=== PATIENT | female | born 2000 | race Caucasian/White ===

== ENCOUNTER 2020-11-16 21:15 | Inpatient (IN) | payer MEDICAID, SELFPAY ==
[2020-11-16] VITALS (31 sets, daily range): BP systolic 97–149; BP diastolic 77–91; PULSE 80–124; TEMP 36.3–36.7; O2SAT 93–100; BMI 25.4
[2020-11-16 20:35] LABS: ROM Internal Control Test YES-OK TO RESULT pt. (Internal QC); ROM Patient Test Negative (Negative)
[2020-11-16] MEDS: fentaNYL 100 MCG/2 ML Ampul IV (20:46)
[2020-11-16 21:26] LABS: Absolute Lymphocyte Count 1.53 X10^3/uL (0.83-4.51); Absolute Neutrophil Count 12.8 X10^3/uL (2.0-7.7); Basophil% 0.6 % (0-1); Eosinophil# 0.04 X10^3/uL; Eosinophils% 0.3 % (0-5); Hematocrit 38.2 % (37-47); Hemoglobin 12.7 g/dL (12.0-15.0); Lymphocyte # 1.53 X10^3/ul (0.83-4.51); Lymphocyte % 9.7 % (19-41); Mean Corp Hgb Conc 33.2 g/dL (32-36); Mean Corpuscular Hgb 30.3 pg (27.0-32.0); Mean Corpuscular Volume 91.2 fL (81-99); Mean Platelet Vol. 9.3 fl (6.2-12.0); Monocyte# 1.03 X10^3/uL; Monocyte% 6.5 % (0-10); NRBC Flagged by Analyzer 0 % (0-5); Neutrophil # 12.75 X10^3/uL (2.7-7.7); Neutrophil % 80.7 % (47-70); Platelet Count 314 K/mm3 (150-450); RBC Distribution Width CV 13.2 % (11.6-14.6); RBC Distribution Width SD 43.7 fl (35.1-43.9); Red Blood Count 4.19 M/mm3 (4.2-5.4); White Blood Count 15.8 K/mm3 (4.4-11.0)
[2020-11-16] MEDS: Lactated Ringers 1,000 ML 50 ML IV (21:47)
[2020-11-16] MEDS: Ondansetron 4 MG/2 ML Vial IV (21:48)
[2020-11-16] MEDS: Lactated Ringers 500 ML 999 ML IV (21:54)
[2020-11-16] MEDS: fentaNYL-bupivacaine (epidural) 100 ML BAG EPIDURAL (22:47)
[2020-11-17] VITALS (34 sets, daily range): BP systolic 103–143; BP diastolic 60–91; PULSE 81–231; RESP 16–18; TEMP 36.2–37.3; O2SAT 82–100
[2020-11-17 01:16] LABS: Amphetamine Urine VISTA NEGATIVE (<1000 ng/mL); Barbiturate Urine VISTA NEGATIVE (< 200 ng/mL); Benzodiazepine Urine VISTA NEGATIVE (< 200 ng/mL); Cocaine Urine VISTA NEGATIVE (< 300 ng/mL); Ecstacy Urine VISTA NEGATIVE (< 500 ng/mL); Methadone Urine VISTA NEGATIVE (< 300 ng/mL); PCP Urine VISTA NEGATIVE (< 25 ng/mL); THC Urine VISTA NEGATIVE (< 50 ng/mL); Vista UDS pH Range 6
--- NOTE | 2020-11-17 01:30 | PCM.PN.OB ---
Subjective Subjective Patient comfortable with epidural Objective Data Objective Data Vital Signs: Vital Signs Temp Pulse BP Pulse Ox 97.1 F L 99 126/72 H 97 11/17/20 00:36 11/17/20 00:36 11/17/20 00:36 11/17/20 00:36 Weight: 152 lb 9.6 oz Body Mass Index (BMI) 25.4 Intake & Output: Intake and Output for Last 24 Hours 11/15/20 11/16/20 11/17/20 23:59 23:59 23:59 Intake Total 505 / 505 200 / 200 Output Total 400 / 400 Balance 505 / 505 -200 / -200 Lab / Micro Data Result Diagrams: 11/16/20 20:43 Labs: Laboratory Results - last 24 hr 11/16/20 19:56: Vag Amniotic Fld Detect Negative 11/16/20 20:43: WBC 15.8 H, RBC 4.19 L, Hgb 12.7, Hct 38.2, MCV 91.2, MCH 30.3, MCHC 33.2, RDW Std Deviation 43.7, RDW Coeff of Neal 13.2, Plt Count 314, MPV 9.3, Immature Gran % (Auto) 2.200 H, Neut % (Auto) 80.7 H, Lymph % (Auto) 9.7 L, [place] % (Auto) 6.5, Eos % (Auto) 0.3, Baso % (Auto) 0.6, Absolute Neuts (auto) 12.8 H, Absolute Lymphs (auto) 1.53, Nucleated RBC % 0 11/16/20 20:43: Blood Type TNP, Antibody Screen TNP 11/16/20 20:43: Blood Type A POSITIVE, Antibody Screen NEGATIVE 11/17/20 00:40: Urine Opiates Screen NEGATIVE, Urine Methadone Screen NEGATIVE, Ur Barbiturates Screen NEGATIVE, Ur Phencyclidine Scrn NEGATIVE, Ur Amphetamines Screen NEGATIVE, U Methamphetamin-MDMA NEGATIVE, U Benzodiazepines Scrn NEGATIVE, Urine Cocaine Screen NEGATIVE, U Cannabinoids Screen NEGATIVE, Ur Drug Screen Comment Micro: Microbiology 11/16/20 21:32 Nasal Secretion SARS-CoV-2 Antigen (Rapid) - Final Physical Exam Narrative: cvx - 8/90/0; AROM meconium fluid NST FHR Rate Baby A Baseline: 130 Variability:: Moderate Accelerations:: 15 x 15 Decelerations:: Variable Uterine Activity:: not tracing well Assessment & Plan (1) Supervision of normal : QUALIFIERS: Normal : normal first Trimester: third trimester Qualified Code(s): Z34.03 - Encounter for supervision of normal first , third trimester PLAN: Continue expectant management
[2020-11-17] MEDS: Lactated Ringers 1,000 ML 200 ML IV (02:01)
[2020-11-17] MEDS: Mag Hydrox/Al Hydrox/Simeth 30 ML UDC PO (02:04)
[2020-11-17] MEDS: fentaNYL-bupivacaine (epidural) 100 ML BAG EPIDURAL (02:58)
[2020-11-17] MEDS: Oxytocin 30 units/NS 500 ml 30 UNITS/500 ML IV.SOLN 334 UNITS IV (06:11)
--- NOTE | 2020-11-17 06:30 | PCM.HP.OB ---
HPI - General General Date of Admission: 11/16/20 HPI Narrative REBECCA DORSEY, is a 20 F who presents at 40w1d in active labor. Membranes swept in office and contractions began around 7:30pm. No LOF or vaginal bleeding. OB history significant for CBD oil use beginning of , history of alcohol abuse and using pills but nothing prior to or during , nicotine vaping, chlamydia in beginning of with negative TIMOTEO, depression, anemia in . Complete cervical dilation upon arrival and epidural for pain management. Maternal Data Information HANNAH Calculator Estimated Delivery Date Method Current WG Current Estimate 11/15/20 Manual 40w 2d PFSH PFS Medical History (Updated 11/17/20 @ 06:42 by Shirley Alonso CNM) Anxiety Chlamydia infection affecting Depression Heart murmur Supervision of normal Home Medications ferrous sulfate [iron] 325 mg PO 11/16/20 [History Last Taken 11/16/20] [id number] [] 1 tab PO DAILY 11/16/20 [History Last Taken 11/15/20] Allergy/AdvReac Type Severity Reaction Status Date / Time No Known Allergies Allergy Verified 11/16/20 20:08 Social History Smoking Status: Former smoker History Elective abortions Hx Para 0 Spontaneous abortions Hx # Term Pregnancies Ectopic pregnancies Hx # Pregnancies Multiple births # of living children NST FHR Rate Baby A Baseline: 155 Variability:: Moderate Accelerations:: 15 x 15 Decelerations:: None FHR Category:: Category I Uterine Activity:: every 2-3 minutes, strong ROS Constitutional Constitutional: Reports systems reviewed and no addt'l complaints, except as documented; Denies headache(s) Eyes Eyes: Denies acute decrease in peripheral vision, blurry vision or change in vision ENT HEENT: Reports systems reviewed and no addt'l complaints, except as documented Cardiovascular Cardiovascular: Denies chest pain or dizziness Respiratory/Chest Respiratory/Chest: Denies cough, dyspnea, dyspnea on exertion, shortness of breath at rest or shortness of breath with exertion Gastrointestinal Gastrointestinal: Denies abdominal pain, diarrhea, nausea or vomiting Genitourinary Genitourinary: Denies abdominal discomfort or movement Musculoskeletal Musculoskeletal: Denies limited range of motion Integumentary Integumentary: Reports systems reviewed and no addt'l complaints, except as documented Neurologic Neurologic: Reports systems reviewed and no addt'l complaints, except as documented Psychiatric Psychiatric: Reports systems reviewed and no addt'l complaints, except as documented Endocrine Endocrinology: Reports systems reviewed and no addt'l complaints, except as documented Hematologic/Lymphatic Hematologic/Lymphatic: Reports systems reviewed and no addt'l complaints, except as documented Allergic/Immunologic Allergic/Immunologic: Reports systems reviewed and no addt'l complaints, except as documented Vital Signs Vital Signs Vital Signs: 11/16/20 19:42 11/16/20 19:43 11/16/20 19:48 Temperature 97.4 F L Temperature Source Temporal Pulse Rate 89 104 H Blood Pressure 128/78 H BP Systolic 128 BP Diastolic 78 Pulse Ox 98 99 11/16/20 22:16 11/16/20 22:26 11/16/20 22:31 Temperature 98.1 F Temperature Source Temporal Pulse Rate 83 108 H 91 Blood Pressure 135/85 H 136/77 H BP Systolic 135 136 BP Diastolic 85 77 Pulse Ox 96 98 11/16/20 22:33 11/16/20 22:36 11/16/20 22:37 Temperature Temperature Source Pulse Rate 101 H 91 80 Blood Pressure 144/86 H 127/80 H BP Systolic 144 127 BP Diastolic 86 80 Pulse Ox 98 11/16/20 22:40 11/16/20 22:41 11/16/20 22:45 Temperature Temperature Source Pulse Rate 113 H 91 108 H Blood Pressure 133/81 H BP Systolic 133 BP Diastolic 81 Pulse Ox 93 97 11/16/20 22:46 11/16/20 22:51 11/16/20 22:56 Temperature Temperature Source Pulse Rate 110 H 121 H 118 H Blood Pressure 135/81 H 125/79 H 127/86 H BP Systolic 135 125 127 BP Diastolic 81 79 86 Pulse Ox 98 98 97 11/16/20 23:01 11/16/20 23:02 11/16/20 23:06 Temperature Temperature Source Pulse Rate 108 H Blood Pressure 138/79 H BP Systolic 138 BP Diastolic 79 Pulse Ox 95 98 11/16/20 23:07 11/16/20 23:11 11/16/20 23:16 Temperature Temperature Source Pulse Rate 116 H 115 H 116 H Blood Pressure 131/87 H 149/85 H 97/81 H BP Systolic 131 149 97 BP Diastolic 87 85 81 Pulse Ox 97 96 11/16/20 23:21 11/16/20 23:26 11/16/20 23:28 Temperature Temperature Source Pulse Rate 120 H 114 H 116 H Blood Pressure 137/79 H 132/81 H BP Systolic 137 132 BP Diastolic 79 81 Pulse Ox 95 100 11/16/20 23:31 11/16/20 23:36 11/16/20 23:41 Temperature Temperature Source Pulse Rate 114 H 89 124 H Blood Pressure 130/81 H 130/90 H BP Systolic 130 130 BP Diastolic 81 90 Pulse Ox 99 99 98 11/16/20 23:43 11/16/20 23:46 11/16/20 23:51 Temperature Temperature Source Pulse Rate 105 H 113 H Blood Pressure 146/91 H 135/90 H BP Systolic 146 135 BP Diastolic 91 90 Pulse Ox 96 97 11/16/20 23:52 11/17/20 00:36 11/17/20 01:31 Temperature 97.1 F L 97.3 F L Temperature Source Temporal Temporal Pulse Rate 103 H 99 81 Blood Pressure 129/80 H 126/72 H 112/61 BP Systolic 129 126 112 BP Diastolic 80 72 61 Pulse Ox 97 98 11/17/20 01:32 11/17/20 02:32 11/17/20 03:58 Temperature 97.1 F L 97.1 F L Temperature Source Temporal Temporal Pulse Rate 86 101 H 114 H Blood Pressure 103/60 122/73 H 125/73 H BP Systolic 103 122 125 BP Diastolic 60 73 73 Pulse Ox 99 11/17/20 05:06 11/17/20 05:07 Temperature 98.2 F Temperature Source Temporal Pulse Rate 105 H Blood Pressure 123/66 H BP Systolic 123 BP Diastolic 66 Pulse Ox 97 Weight Weight: 152 lb 9.6 oz Body Mass Index (BMI) 25.4 Physical Exam Narrative Complete cervical dilation with baby crowing upon arrival. Const alert and oriented x3 General Appearance: cooperative HEENT Face and Sinus: normal facial exam Labs Labs Labs: Blood Type A POSITIVE Antibody Screen NEGATIVE Hct 38.2 % (37-47) Hgb 12.7 g/dL (12.0-15.0) RPR negative Rubella Immune HBsAG negative HepC negative HIV negative A positive, antibody screen negative GC negative, positive CT 03/30/20, Negative CT 10/17/20 COVID negative GBS negative Assessment & Plan (1) Active labor at term: (2) Depression: (3) Anxiety: PLAN: 1) Admit to labor and delivery 2) Routine labs 3) COVID test 4) Epidural for pain management 5) Continuous EFM 6) notified of admission and collaborative physician 7) GBS negative 8) Declines LARC
--- NOTE | 2020-11-17 06:44 | OP.PCM_ITS ---
Assessment & Plan (1) Vaginal delivery: (2) Thick meconium stained amniotic fluid: (3) First degree perineal laceration: Maternal Data Information HANNAH Calculator Estimated Delivery Date Method Current WG Current Estimate 11/15/20 Manual 40w 2d Vaginal Delivery Maternal Presentation Maternal Presentation: Active Labor Operative Information Date of Procedure: 11/17/20 Pre-Operative Diagnosis: Active Labor with meconium stained fluid Post-Operative Diagnosis: Surgery / Procedure Performed: Spontaneous Vaginal Delivery Type of Anesthesia: Epidural Estimated Blood Loss: 200ml Time of Delivery: 06:09 Findings Description of Procedure: Patient progressed to complete dilation and strong pushing efforts. Rapid descent with emesis and called to delivery. Outsole Tacker, respiratory staff, and nursery staff present in room for thick meconium stained fluid. Patient with descent and then regression. Patient consented to LML episiotomy. With next contraction patient pushed an head delivered FAHAD with restitution to YVONNE and body immediately forthcoming. placed on maternal abdomen, strong cry and vigorous, mouth and nares suction for secretions. Pitocin started for active third stage management. Delayed cord clamping, and cord doubly clamped and cut after pulsations ceased. Placenta delivered with maternal effort, intact [address] [place], three-vessel cord. Perineum inspected and revealed LML episiotomy first-degree laceration that did not extend into muscle. Repaired with 3.0 Vicryl and epidural analgesia. Vaginal sweep completed and clots extracted. Fundus firm, EBL 200 mL. Sponge and instrument count correct by me.Baby stable, planning to breast-feed. Family bonding well. Dr. Monroe collaborative physician and notified of delivery. Presentation: Vertex and YVONNE Amniotic Membrane Rupture Type: Artificial Amniotic Fluid Description: Thick meconium Placental Delivery Description: Expressed Placenta Disposition: [facility] Cord Vessel Description: 3 Vessels Cord Entanglement: None Infant A Gender: Male (1 minute): 8 (5 minute): 9 Delayed Cord Clamping: Yes Post Vaginal Delivery Medications Given After Delivery: IV Pitocin Episiotomy Description: Left Mediolateral and 1st degree Laceration: None Complication Complications: None
[2020-11-17] MEDS: Ibuprofen 600 MG Tablet PO (10:56)
--- NOTE | 2020-11-17 11:03 | HP.PCM.NUR_ITS ---
Subjective Subjective: 3770grams for this 40.2 week AGA BG born via VD after presenting in labor.20yo ->1 A+. HepBsag neg, RI, RPR NR. GC neg, History of chlamydia at beginning of with TIMOTEO, GBS neg, COVID neg. MSF with prior perfume and toilet water maker having attended delivery. Maternal Use of CBD oil at beginning of and prior history of ETOH use as well as pills however none reported since , nicotine vaping as well. Anxiety as well as induced anemia. Maternal meds include PNV and Iron. Mother plans to breastfeed. PCP: Eze Objective Objective Data: 11/16/20 19:42 11/16/20 19:43 11/16/20 19:48 Temperature 97.4 F L Temperature Source Temporal Pulse Rate 89 104 H Respiratory Rate Blood Pressure 128/78 H Blood Pressure [BP] Blood Pressure Mean [BP] BP Systolic 128 BP Diastolic 78 Blood Pressure Source [BP] Blood Pressure Position [BP] Blood Pressure Location [BP] Pulse Ox 98 99 Oxygen Delivery Method 11/16/20 22:16 11/16/20 22:26 11/16/20 22:31 Temperature 98.1 F Temperature Source Temporal Pulse Rate 83 108 H 91 Respiratory Rate Blood Pressure 135/85 H 136/77 H Blood Pressure [BP] Blood Pressure Mean [BP] BP Systolic 135 136 BP Diastolic 85 77 Blood Pressure Source [BP] Blood Pressure Position [BP] Blood Pressure Location [BP] Pulse Ox 96 98 Oxygen Delivery Method 11/16/20 22:33 11/16/20 22:36 11/16/20 22:37 Temperature Temperature Source Pulse Rate 101 H 91 80 Respiratory Rate Blood Pressure 144/86 H 127/80 H Blood Pressure [BP] Blood Pressure Mean [BP] BP Systolic 144 127 BP Diastolic 86 80 Blood Pressure Source [BP] Blood Pressure Position [BP] Blood Pressure Location [BP] Pulse Ox 98 Oxygen Delivery Method 11/16/20 22:40 11/16/20 22:41 11/16/20 22:45 Temperature Temperature Source Pulse Rate 113 H 91 108 H Respiratory Rate Blood Pressure 133/81 H Blood Pressure [BP] Blood Pressure Mean [BP] BP Systolic 133 BP Diastolic 81 Blood Pressure Source [BP] Blood Pressure Position [BP] Blood Pressure Location [BP] Pulse Ox 93 97 Oxygen Delivery Method 11/16/20 22:46 11/16/20 22:51 11/16/20 22:56 Temperature Temperature Source Pulse Rate 110 H 121 H 118 H Respiratory Rate Blood Pressure 135/81 H 125/79 H 127/86 H Blood Pressure [BP] Blood Pressure Mean [BP] BP Systolic 135 125 127 BP Diastolic 81 79 86 Blood Pressure Source [BP] Blood Pressure Position [BP] Blood Pressure Location [BP] Pulse Ox 98 98 97 Oxygen Delivery Method 11/16/20 23:01 11/16/20 23:02 11/16/20 23:06 Temperature Temperature Source Pulse Rate 108 H Respiratory Rate Blood Pressure 138/79 H Blood Pressure [BP] Blood Pressure Mean [BP] BP Systolic 138 BP Diastolic 79 Blood Pressure Source [BP] Blood Pressure Position [BP] Blood Pressure Location [BP] Pulse Ox 95 98 Oxygen Delivery Method 11/16/20 23:07 11/16/20 23:11 11/16/20 23:16 Temperature Temperature Source Pulse Rate 116 H 115 H 116 H Respiratory Rate Blood Pressure 131/87 H 149/85 H 97/81 H Blood Pressure [BP] Blood Pressure Mean [BP] BP Systolic 131 149 97 BP Diastolic 87 85 81 Blood Pressure Source [BP] Blood Pressure Position [BP] Blood Pressure Location [BP] Pulse Ox 97 96 Oxygen Delivery Method 11/16/20 23:21 11/16/20 23:26 11/16/20 23:28 Temperature Temperature Source Pulse Rate 120 H 114 H 116 H Respiratory Rate Blood Pressure 137/79 H 132/81 H Blood Pressure [BP] Blood Pressure Mean [BP] BP Systolic 137 132 BP Diastolic 79 81 Blood Pressure Source [BP] Blood Pressure Position [BP] Blood Pressure Location [BP] Pulse Ox 95 100 Oxygen Delivery Method 11/16/20 23:31 11/16/20 23:36 11/16/20 23:41 Temperature Temperature Source Pulse Rate 114 H 89 124 H Respiratory Rate Blood Pressure 130/81 H 130/90 H Blood Pressure [BP] Blood Pressure Mean [BP] BP Systolic 130 130 BP Diastolic 81 90 Blood Pressure Source [BP] Blood Pressure Position [BP] Blood Pressure Location [BP] Pulse Ox 99 99 98 Oxygen Delivery Method 11/16/20 23:43 11/16/20 23:46 11/16/20 23:51 Temperature Temperature Source Pulse Rate 105 H 113 H Respiratory Rate Blood Pressure 146/91 H 135/90 H Blood Pressure [BP] Blood Pressure Mean [BP] BP Systolic 146 135 BP Diastolic 91 90 Blood Pressure Source [BP] Blood Pressure Position [BP] Blood Pressure Location [BP] Pulse Ox 96 97 Oxygen Delivery Method 11/16/20 23:52 11/17/20 00:36 11/17/20 01:31 Temperature 97.1 F L 97.3 F L Temperature Source Temporal Temporal Pulse Rate 103 H 99 81 Respiratory Rate Blood Pressure 129/80 H 126/72 H 112/61 Blood Pressure [BP] Blood Pressure Mean [BP] BP Systolic 129 126 112 BP Diastolic 80 72 61 Blood Pressure Source [BP] Blood Pressure Position [BP] Blood Pressure Location [BP] Pulse Ox 97 98 Oxygen Delivery Method 11/17/20 01:32 11/17/20 02:32 11/17/20 03:58 Temperature 97.1 F L 97.1 F L Temperature Source Temporal Temporal Pulse Rate 86 101 H 114 H Respiratory Rate Blood Pressure 103/60 122/73 H 125/73 H Blood Pressure [BP] Blood Pressure Mean [BP] BP Systolic 103 122 125 BP Diastolic 60 73 73 Blood Pressure Source [BP] Blood Pressure Position [BP] Blood Pressure Location [BP] Pulse Ox 99 Oxygen Delivery Method 11/17/20 05:06 11/17/20 05:07 11/17/20 06:35 Temperature 98.2 F 98.2 F Temperature Source Temporal Temporal Pulse Rate 105 H 115 H Respiratory Rate Blood Pressure 123/66 H 143/89 H Blood Pressure [BP] Blood Pressure Mean [BP] BP Systolic 123 143 BP Diastolic 66 89 Blood Pressure Source [BP] Blood Pressure Position [BP] Blood Pressure Location [BP] Pulse Ox 97 98 Oxygen Delivery Method 11/17/20 06:40 11/17/20 06:45 11/17/20 06:50 Temperature 98.0 F Temperature Source Temporal Pulse Rate 116 H 114 H 118 H Respiratory Rate Blood Pressure 143/91 H Blood Pressure [BP] Blood Pressure Mean [BP] BP Systolic 143 BP Diastolic 91 Blood Pressure Source [BP] Blood Pressure Position [BP] Blood Pressure Location [BP] Pulse Ox 100 100 100 Oxygen Delivery Method 11/17/20 06:55 11/17/20 07:00 11/17/20 07:05 Temperature 97.9 F Temperature Source Temporal Pulse Rate 112 H 113 H 111 H Respiratory Rate Blood Pressure 140/88 H Blood Pressure [BP] Blood Pressure Mean [BP] BP Systolic 140 BP Diastolic 88 Blood Pressure Source [BP] Blood Pressure Position [BP] Blood Pressure Location [BP] Pulse Ox 99 100 100 Oxygen Delivery Method 11/17/20 07:10 11/17/20 07:15 11/17/20 07:20 Temperature 98.4 F Temperature Source Temporal Pulse Rate 114 H 114 H 107 H Respiratory Rate Blood Pressure 125/79 H Blood Pressure [BP] Blood Pressure Mean [BP] BP Systolic 125 BP Diastolic 79 Blood Pressure Source [BP] Blood Pressure Position [BP] Blood Pressure Location [BP] Pulse Ox 100 100 100 Oxygen Delivery Method 11/17/20 07:24 11/17/20 07:25 11/17/20 07:30 Temperature Temperature Source Pulse Rate 231 H 113 H 109 H Respiratory Rate Blood Pressure Blood Pressure [BP] Blood Pressure Mean [BP] BP Systolic BP Diastolic Blood Pressure Source [BP] Blood Pressure Position [BP] Blood Pressure Location [BP] Pulse Ox 89 100 100 Oxygen Delivery Method 11/17/20 07:34 11/17/20 07:35 11/17/20 07:40 Temperature 98.4 F Temperature Source Temporal Pulse Rate 113 H 113 H 117 H Respiratory Rate Blood Pressure 135/82 H Blood Pressure [BP] Blood Pressure Mean [BP] BP Systolic 135 BP Diastolic 82 Blood Pressure Source [BP] Blood Pressure Position [BP] Blood Pressure Location [BP] Pulse Ox 82 100 93 Oxygen Delivery Method 11/17/20 07:45 11/17/20 07:50 11/17/20 07:54 Temperature 98.4 F Temperature Source Temporal Pulse Rate 115 H 114 H 229 H Respiratory Rate Blood Pressure 127/78 H Blood Pressure [BP] Blood Pressure Mean [BP] BP Systolic 127 BP Diastolic 78 Blood Pressure Source [BP] Blood Pressure Position [BP] Blood Pressure Location [BP] Pulse Ox 98 96 82 Oxygen Delivery Method 11/17/20 08:05 11/17/20 08:20 11/17/20 08:35 Temperature 98.4 F 98.0 F 98.4 F Temperature Source Temporal Temporal Temporal Pulse Rate 126 H 109 H 110 H Respiratory Rate Blood Pressure 137/90 H 127/83 H 130/86 H Blood Pressure [BP] Blood Pressure Mean [BP] BP Systolic 137 127 130 BP Diastolic 90 83 86 Blood Pressure Source [BP] Blood Pressure Position [BP] Blood Pressure Location [BP] Pulse Ox 100 Oxygen Delivery Method 11/17/20 08:46 11/17/20 09:18 Temperature 98.0 F Temperature Source Temporal Pulse Rate 111 H 111 H Respiratory Rate 16 Blood Pressure 124/65 H Blood Pressure [BP] 124/65 H Blood Pressure Mean [BP] 84 BP Systolic 124 BP Diastolic 65 Blood Pressure Source [BP] Monitor Blood Pressure Position [BP] Semi-Fowlers Blood Pressure Location [BP] Right Arm Pulse Ox 100 Oxygen Delivery Method Room Air Weight: 69.218 kg Vital Signs Temp Pulse Resp BP BP Pulse Ox 11/17/20 09:18 98.0 F 111 H 16 124/65 H 100 11/17/20 08:46 111 H 124/65 H 11/17/20 08:35 98.4 F 110 H 130/86 H 100 11/17/20 08:20 98.0 F 109 H 127/83 H 11/17/20 08:05 98.4 F 126 H 137/90 H 11/17/20 07:54 229 H 82 11/17/20 07:50 98.4 F 114 H 127/78 H 96 11/17/20 07:45 115 H 98 11/17/20 07:40 117 H 93 11/17/20 07:35 98.4 F 113 H 135/82 H 100 11/17/20 07:34 113 H 82 11/17/20 07:30 109 H 100 11/17/20 07:25 113 H 100 11/17/20 07:24 231 H 89 11/17/20 07:20 98.4 F 107 H 125/79 H 100 11/17/20 07:15 114 H 100 11/17/20 07:10 114 H 100 11/17/20 07:05 97.9 F 111 H 140/88 H 100 11/17/20 07:00 113 H 100 11/17/20 06:55 112 H 99 11/17/20 06:50 98.0 F 118 H 143/91 H 100 11/17/20 06:45 114 H 100 11/17/20 06:40 116 H 100 11/17/20 06:35 98.2 F 115 H 143/89 H 98 11/17/20 05:07 105 H 123/66 H 97 11/17/20 05:06 98.2 F 11/17/20 03:58 97.1 F L 114 H 125/73 H 99 11/17/20 02:32 97.1 F L 101 H 122/73 H 11/17/20 01:32 86 103/60 11/17/20 01:31 97.3 F L 81 112/61 98 11/17/20 00:36 97.1 F L 99 126/72 H 97 11/16/20 23:52 103 H 129/80 H 11/16/20 23:51 97 11/16/20 23:46 113 H 135/90 H 96 11/16/20 23:43 105 H 146/91 H 11/16/20 23:41 124 H 98 11/16/20 23:36 89 130/90 H 99 11/16/20 23:31 114 H 130/81 H 99 11/16/20 23:28 116 H 132/81 H 11/16/20 23:26 114 H 100 11/16/20 23:21 120 H 137/79 H 95 11/16/20 23:16 116 H 97/81 H 96 11/16/20 23:11 115 H 149/85 H 97 11/16/20 23:07 116 H 131/87 H 11/16/20 23:06 98 11/16/20 23:02 108 H 138/79 H 11/16/20 23:01 95 11/16/20 22:56 118 H 127/86 H 97 11/16/20 22:51 121 H 125/79 H 98 11/16/20 22:46 110 H 135/81 H 98 11/16/20 22:45 108 H 133/81 H 11/16/20 22:41 91 97 11/16/20 22:40 113 H 93 11/16/20 22:37 80 127/80 H 11/16/20 22:36 91 98 11/16/20 22:33 101 H 144/86 H 11/16/20 22:31 91 136/77 H 98 11/16/20 22:26 108 H 96 11/16/20 22:16 98.1 F 83 135/85 H 11/16/20 19:48 104 H 99 11/16/20 19:43 89 128/78 H 98 11/16/20 19:42 97.4 F L Lab tests last 48H 11/16/20 11/16/20 11/16/20 19:56 20:43 20:43 WBC 15.8 H RBC 4.19 L Hgb 12.7 Hct 38.2 MCV 91.2 MCH 30.3 MCHC 33.2 RDW Std Deviation 43.7 RDW Coeff of Neal 13.2 Plt Count 314 MPV 9.3 Immature Gran % (Auto) 2.200 H Neut % (Auto) 80.7 H Lymph % (Auto) 9.7 L Evans % (Auto) 6.5 Eos % (Auto) 0.3 Baso % (Auto) 0.6 Absolute Neuts (auto) 12.8 H Absolute Lymphs (auto) 1.53 Nucleated RBC % 0 Vag Amniotic Fld Detect Negative Urine Opiates Screen Urine Methadone Screen Ur Barbiturates Screen Ur Phencyclidine Scrn Ur Amphetamines Screen U Methamphetamin-MDMA U Benzodiazepines Scrn Urine Cocaine Screen U Cannabinoids Screen Ur Drug Screen Comment Blood Type TNP Antibody Screen TNP 11/16/20 11/17/20 20:43 00:40 WBC RBC Hgb Hct MCV MCH MCHC RDW Std Deviation RDW Coeff of Neal Plt Count MPV Immature Gran % (Auto) Neut % (Auto) Lymph % (Auto) Evans % (Auto) Eos % (Auto) Baso % (Auto) Absolute Neuts (auto) Absolute Lymphs (auto) Nucleated RBC % Vag Amniotic Fld Detect Urine Opiates Screen NEGATIVE Urine Methadone Screen NEGATIVE Ur Barbiturates Screen NEGATIVE Ur Phencyclidine Scrn NEGATIVE Ur Amphetamines Screen NEGATIVE U Methamphetamin-MDMA NEGATIVE U Benzodiazepines Scrn NEGATIVE Urine Cocaine Screen NEGATIVE U Cannabinoids Screen NEGATIVE Ur Drug Screen Comment Blood Type A POSITIVE Antibody Screen NEGATIVE Micro - Preliminary and Final Results 11/16/20 21:32 SARS-CoV-2 Antigen (Rapid) - Final Nasal Secretion Delivery/Maternal Data Labor/Delivery Amniotic fluid color at rupture: Meconium Type of delivery: Vaginal Labor description: Spontaneous, Augmented-Oxytocin and Augmented-AROM Vacuum Extraction: N/A Infant presentation: Cephalic Complications: None Maternal Data Maternal age: 21 : 1 Para: 0 Blood Type:: A RH:: POSITIVE RPR/VDRL/Syphilis: Nonreactive HbSAg: Negative Vital Signs Vital Signs Vital Signs: 11/16/20 19:42 11/16/20 19:43 11/16/20 19:48 Temperature 97.4 F L Temperature Source Temporal Pulse Rate 89 104 H Respiratory Rate Blood Pressure 128/78 H Blood Pressure [BP] Blood Pressure Mean [BP] BP Systolic 128 BP Diastolic 78 Blood Pressure Source [BP] Blood Pressure Position [BP] Blood Pressure Location [BP] Pulse Ox 98 99 Oxygen Delivery Method 11/16/20 22:16 11/16/20 22:26 11/16/20 22:31 Temperature 98.1 F Temperature Source Temporal Pulse Rate 83 108 H 91 Respiratory Rate Blood Pressure 135/85 H 136/77 H Blood Pressure [BP] Blood Pressure Mean [BP] BP Systolic 135 136 BP Diastolic 85 77 Blood Pressure Source [BP] Blood Pressure Position [BP] Blood Pressure Location [BP] Pulse Ox 96 98 Oxygen Delivery Method 11/16/20 22:33 11/16/20 22:36 11/16/20 22:37 Temperature Temperature Source Pulse Rate 101 H 91 80 Respiratory Rate Blood Pressure 144/86 H 127/80 H Blood Pressure [BP] Blood Pressure Mean [BP] BP Systolic 144 127 BP Diastolic 86 80 Blood Pressure Source [BP] Blood Pressure Position [BP] Blood Pressure Location [BP] Pulse Ox 98 Oxygen Delivery Method 11/16/20 22:40 11/16/20 22:41 11/16/20 22:45 Temperature Temperature Source Pulse Rate 113 H 91 108 H Respiratory Rate Blood Pressure 133/81 H Blood Pressure [BP] Blood Pressure Mean [BP] BP Systolic 133 BP Diastolic 81 Blood Pressure Source [BP] Blood Pressure Position [BP] Blood Pressure Location [BP] Pulse Ox 93 97 Oxygen Delivery Method 11/16/20 22:46 11/16/20 22:51 11/16/20 22:56 Temperature Temperature Source Pulse Rate 110 H 121 H 118 H Respiratory Rate Blood Pressure 135/81 H 125/79 H 127/86 H Blood Pressure [BP] Blood Pressure Mean [BP] BP Systolic 135 125 127 BP Diastolic 81 79 86 Blood Pressure Source [BP] Blood Pressure Position [BP] Blood Pressure Location [BP] Pulse Ox 98 98 97 Oxygen Delivery Method 11/16/20 23:01 11/16/20 23:02 11/16/20 23:06 Temperature Temperature Source Pulse Rate 108 H Respiratory Rate Blood Pressure 138/79 H Blood Pressure [BP] Blood Pressure Mean [BP] BP Systolic 138 BP Diastolic 79 Blood Pressure Source [BP] Blood Pressure Position [BP] Blood Pressure Location [BP] Pulse Ox 95 98 Oxygen Delivery Method 11/16/20 23:07 11/16/20 23:11 11/16/20 23:16 Temperature Temperature Source Pulse Rate 116 H 115 H 116 H Respiratory Rate Blood Pressure 131/87 H 149/85 H 97/81 H Blood Pressure [BP] Blood Pressure Mean [BP] BP Systolic 131 149 97 BP Diastolic 87 85 81 Blood Pressure Source [BP] Blood Pressure Position [BP] Blood Pressure Location [BP] Pulse Ox 97 96 Oxygen Delivery Method 11/16/20 23:21 11/16/20 23:26 11/16/20 23:28 Temperature Temperature Source Pulse Rate 120 H 114 H 116 H Respiratory Rate Blood Pressure 137/79 H 132/81 H Blood Pressure [BP] Blood Pressure Mean [BP] BP Systolic 137 132 BP Diastolic 79 81 Blood Pressure Source [BP] Blood Pressure Position [BP] Blood Pressure Location [BP] Pulse Ox 95 100 Oxygen Delivery Method 11/16/20 23:31 11/16/20 23:36 11/16/20 23:41 Temperature Temperature Source Pulse Rate 114 H 89 124 H Respiratory Rate Blood Pressure 130/81 H 130/90 H Blood Pressure [BP] Blood Pressure Mean [BP] BP Systolic 130 130 BP Diastolic 81 90 Blood Pressure Source [BP] Blood Pressure Position [BP] Blood Pressure Location [BP] Pulse Ox 99 99 98 Oxygen Delivery Method 11/16/20 23:43 11/16/20 23:46 11/16/20 23:51 Temperature Temperature Source Pulse Rate 105 H 113 H Respiratory Rate Blood Pressure 146/91 H 135/90 H Blood Pressure [BP] Blood Pressure Mean [BP] BP Systolic 146 135 BP Diastolic 91 90 Blood Pressure Source [BP] Blood Pressure Position [BP] Blood Pressure Location [BP] Pulse Ox 96 97 Oxygen Delivery Method 11/16/20 23:52 11/17/20 00:36 11/17/20 01:31 Temperature 97.1 F L 97.3 F L Temperature Source Temporal Temporal Pulse Rate 103 H 99 81 Respiratory Rate Blood Pressure 129/80 H 126/72 H 112/61 Blood Pressure [BP] Blood Pressure Mean [BP] BP Systolic 129 126 112 BP Diastolic 80 72 61 Blood Pressure Source [BP] Blood Pressure Position [BP] Blood Pressure Location [BP] Pulse Ox 97 98 Oxygen Delivery Method 11/17/20 01:32 11/17/20 02:32 11/17/20 03:58 Temperature 97.1 F L 97.1 F L Temperature Source Temporal Temporal Pulse Rate 86 101 H 114 H Respiratory Rate Blood Pressure 103/60 122/73 H 125/73 H Blood Pressure [BP] Blood Pressure Mean [BP] BP Systolic 103 122 125 BP Diastolic 60 73 73 Blood Pressure Source [BP] Blood Pressure Position [BP] Blood Pressure Location [BP] Pulse Ox 99 Oxygen Delivery Method 11/17/20 05:06 11/17/20 05:07 11/17/20 06:35 Temperature 98.2 F 98.2 F Temperature Source Temporal Temporal Pulse Rate 105 H 115 H Respiratory Rate Blood Pressure 123/66 H 143/89 H Blood Pressure [BP] Blood Pressure Mean [BP] BP Systolic 123 143 BP Diastolic 66 89 Blood Pressure Source [BP] Blood Pressure Position [BP] Blood Pressure Location [BP] Pulse Ox 97 98 Oxygen Delivery Method 11/17/20 06:40 11/17/20 06:45 11/17/20 06:50 Temperature 98.0 F Temperature Source Temporal Pulse Rate 116 H 114 H 118 H Respiratory Rate Blood Pressure 143/91 H Blood Pressure [BP] Blood Pressure Mean [BP] BP Systolic 143 BP Diastolic 91 Blood Pressure Source [BP] Blood Pressure Position [BP] Blood Pressure Location [BP] Pulse Ox 100 100 100 Oxygen Delivery Method 11/17/20 06:55 11/17/20 07:00 11/17/20 07:05 Temperature 97.9 F Temperature Source Temporal Pulse Rate 112 H 113 H 111 H Respiratory Rate Blood Pressure 140/88 H Blood Pressure [BP] Blood Pressure Mean [BP] BP Systolic 140 BP Diastolic 88 Blood Pressure Source [BP] Blood Pressure Position [BP] Blood Pressure Location [BP] Pulse Ox 99 100 100 Oxygen Delivery Method 11/17/20 07:10 11/17/20 07:15 11/17/20 07:20 Temperature 98.4 F Temperature Source Temporal Pulse Rate 114 H 114 H 107 H Respiratory Rate Blood Pressure 125/79 H Blood Pressure [BP] Blood Pressure Mean [BP] BP Systolic 125 BP Diastolic 79 Blood Pressure Source [BP] Blood Pressure Position [BP] Blood Pressure Location [BP] Pulse Ox 100 100 100 Oxygen Delivery Method 11/17/20 07:24 11/17/20 07:25 11/17/20 07:30 Temperature Temperature Source Pulse Rate 231 H 113 H 109 H Respiratory Rate Blood Pressure Blood Pressure [BP] Blood Pressure Mean [BP] BP Systolic BP Diastolic Blood Pressure Source [BP] Blood Pressure Position [BP] Blood Pressure Location [BP] Pulse Ox 89 100 100 Oxygen Delivery Method 11/17/20 07:34 11/17/20 07:35 11/17/20 07:40 Temperature 98.4 F Temperature Source Temporal Pulse Rate 113 H 113 H 117 H Respiratory Rate Blood Pressure 135/82 H Blood Pressure [BP] Blood Pressure Mean [BP] BP Systolic 135 BP Diastolic 82 Blood Pressure Source [BP] Blood Pressure Position [BP] Blood Pressure Location [BP] Pulse Ox 82 100 93 Oxygen Delivery Method 11/17/20 07:45 11/17/20 07:50 11/17/20 07:54 Temperature 98.4 F Temperature Source Temporal Pulse Rate 115 H 114 H 229 H Respiratory Rate Blood Pressure 127/78 H Blood Pressure [BP] Blood Pressure Mean [BP] BP Systolic 127 BP Diastolic 78 Blood Pressure Source [BP] Blood Pressure Position [BP] Blood Pressure Location [BP] Pulse Ox 98 96 82 Oxygen Delivery Method 11/17/20 08:05 11/17/20 08:20 11/17/20 08:35 Temperature 98.4 F 98.0 F 98.4 F Temperature Source Temporal Temporal Temporal Pulse Rate 126 H 109 H 110 H Respiratory Rate Blood Pressure 137/90 H 127/83 H 130/86 H Blood Pressure [BP] Blood Pressure Mean [BP] BP Systolic 137 127 130 BP Diastolic 90 83 86 Blood Pressure Source [BP] Blood Pressure Position [BP] Blood Pressure Location [BP] Pulse Ox 100 Oxygen Delivery Method 11/17/20 08:46 11/17/20 09:18 Temperature 98.0 F Temperature Source Temporal Pulse Rate 111 H 111 H Respiratory Rate 16 Blood Pressure 124/65 H Blood Pressure [BP] 124/65 H Blood Pressure Mean [BP] 84 BP Systolic 124 BP Diastolic 65 Blood Pressure Source [BP] Monitor Blood Pressure Position [BP] Semi-Fowlers Blood Pressure Location [BP] Right Arm Pulse Ox 100 Oxygen Delivery Method Room Air Weight Weight: 69.218 kg Body Mass Index (BMI) 25.4 General Weight: 69.218 kg
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
--- NOTE | 2020-11-17 14:31 | NURSING ---
Dr Monroe on unit and made aware of pt heart rate in the low teens to 120's. pt asymptomatic and blood pressure in normal limits. She is ok with her heart rate just monitor and call if anything changes.
[2020-11-17] MEDS: Acetaminophen 500 MG Tablet 1000 MG PO (15:59)
--- NOTE | 2020-11-17 22:01 | CASEMGMT ---
Referral made to [facility] via online secure website. Ca Pickens, CONTRACT NEGOTIATION SPECIALIST, [employer]
[2020-11-18 00:30] VITALS: BP 111/66; PULSE 85; RESP 16; TEMP 36.7
[2020-11-18 04:07] VITALS: BP 109/65; PULSE 78; RESP 16; TEMP 36.8
[2020-11-18] MEDS: Acetaminophen 500 MG Tablet 1000 MG PO ×2 (04:11→13:35)
[2020-11-18 04:47] LABS: Hematocrit 33.1 % (37-47); Hemoglobin 10.6 g/dL (12.0-15.0); Mean Corpuscular Hgb 30.5 pg (27.0-32.0); Mean Corpuscular Volume 95.1 fL (81-99); Mean Platelet Vol. 9.4 fl (6.2-12.0); Platelet Count 255 K/mm3 (150-450); RBC Distribution Width CV 13.7 % (11.6-14.6); RBC Distribution Width SD 47.2 fl (35.1-43.9); Red Blood Count 3.48 M/mm3 (4.2-5.4); White Blood Count 13.9 K/mm3 (4.4-11.0)
[2020-11-18 07:53] VITALS: BP 107/72; PULSE 90; RESP 16; TEMP 36.7
--- NOTE | 2020-11-18 08:57 | PCM.PN.OB ---
Subjective Subjective Denies complaints Objective Data Objective Data Vital Signs: Vital Signs Temp Pulse Resp BP Pulse Ox 98.0 F 90 16 107/72 99 11/18/20 07:53 11/18/20 07:53 11/18/20 07:53 11/18/20 07:53 11/17/20 13:00 Oxygen Delivery Method Room Air Weight: 152 lb 9.6 oz Body Mass Index (BMI) 25.4 Intake & Output: Intake and Output for Last 24 Hours 11/16/20 11/17/20 11/18/20 23:59 23:59 23:59 Intake Total 505 / 505 2446.67 / 2446.67 Output Total 2500 / 2500 Balance 505 / 505 -53.33 / -53.33 Lab / Micro Data Result Diagrams: 11/18/20 04:20 Labs: Laboratory Results - last 24 hr 11/18/20 04:20: WBC 13.9 H, RBC 3.48 L, Hgb 10.6 L, Hct 33.1 L, MCV 95.1, MCH 30.5, MCHC 32.0, RDW Std Deviation 47.2 H, RDW Coeff of Neal 13.7, Plt Count 255, MPV 9.4 Micro: Microbiology 11/16/20 21:32 Nasal Secretion SARS-CoV-2 Antigen (Rapid) - Final Physical Exam Const alert, oriented x3 and no apparent distress HEENT normocephalic GI soft to palpation, non-tender and non-distended GI Narrative: fundus firm, mid & below umbilicus Extremity normal to inspection and no calf tenderness Assessment & Plan (1) Vaginal delivery: COMMENT: PPD#1 PLAN: D/c home later today per patient request
--- NOTE | 2020-11-18 08:58 | PCM.DC ---
Discharge Instructions Diet Discharge Diet: No restrictions Activity Discharge Activity: May Shower May resume sexual activity in: 6 weeks Weight Bearing Status: Weight bearing as tolerated Dressing / Incision Call your doctor if you observe: Fever of 101 or Higher, Coldness, Increased Pain, Change in Color, Inability to urinate, Inability to have a bowel movement, Using more than 1 pad per hour, Shortness of breath, Dizziness, Fainting spells, Chest pain, Increased palpitations (irregular heartbeat), Calf discomfort and Uncontrolled pain Follow Up Care Please Follow Up With: Shirley Alonso CNM When: Follow up in 2 and 6 weeks for visits. Test Results: Test results from this visit will be discussed in further detail at your follow-up appointment, if applicable. Discharge Plan Admission Admit Date/Time: 11/16/20 21:15 Primary Reason for Your Visit: Vaginal delivery Attending Provider: Shirley Alonso Discharge Orders/Prescriptions Prescriptions: New acetaminophen 500 mg Tablet 1,000 mg PO Q6H PRN PRN (Reason: Pain 1-10 Or Fever) Qty: 0 RF: 0 ibuprofen 600 mg Tablet 600 mg PO Q6H PRN PRN (Reason: Pain Score 1-3) Qty: 0 RF: 0 Continued [id number] 1 mg Tablet 1 tab PO DAILY RF: 0 Discontinued ferrous sulfate [iron] 325 mg (65 mg iron) Tablet 325 mg PO RF: 0 Disposition Disposition (needs filled in before D/C Order can be placed): Home, Self Care
[2020-11-18 13:42] VITALS: BP 116/73; PULSE 97; RESP 16; TEMP 36.7
== END 2020-11-18 16:35 | disposition home or self-care (01) | DRG 560 ==
LOC: WPOUT 21:18 → WP 21:18
PROVIDERS: Admitting Provider Advanced Practice Midwife; Visit Provider Advanced Practice Midwife
DX: O77.0 Labor and delivery complicated by meconium in amniotic fluid (principal); Z37.0 Single live birth; Z3A.40 40 weeks gestation of pregnancy; Z87.891 Personal history of nicotine dependence
CPT/HCPCS: 59025; 59050; 80307; 84112; 85025; 85027; 86850; 86900; 86901; 87426; 99218; J7120; G0378; J2405

== ENCOUNTER 2022-11-24 21:50 | Outpatient (CLI) | payer MEDICAID, SELFPAY ==
[2022-11-24 22:08] VITALS: BMI 20.9
[2022-11-24 22:18] VITALS: BP 128/81; PULSE 96
[2022-11-24 22:19] VITALS: PULSE 101; TEMP 37; O2SAT 96
[2022-11-24 22:43] LABS: Color, Urine Yellow (Yellow); Glucose, Dipstick Normal (Normal); Ketone-Dipstick Negative (Negative); Leukocyte Esterase-Dipstick 500 /ul (Negative); Nitrite-Dipstick Negative (Negative); Occult Blood-Urine 25 /ul (Negative); Protein-Dipstick Negative (Negative); Specific Gravity, Urine 1.015 (1.002-1.030); Urine Bilirubin Dipstick Negative (Negative); Urine Clarity Clear (Clear); Urine Urobilinogen Normal (Normal)
[2022-11-24 23:04] LABS: ROM Internal Control Test YES-OK TO RESULT pt. (Internal QC); ROM Patient Test Negative (Negative); Record Kit Lot#, ROM+ K1409
--- NOTE | 2022-11-25 00:59 | OB.TRI.NOTE ---
HPI - General HPI Narrative REBECCA DORSEY, is a 22 F who presents at 32w6d for possible ROM. Had leakage of fluid and burning with urination. No vaginal bleeding or contractions. Maternal Data Information HANNAH Calculator Estimated Delivery Date Method Current WG Current Estimate 01/13/23 Manual 33w 0d PFSH PFSH Medical History (Updated 11/25/22 @ 01:02 by Shirley Alonso CNM) Anxiety Chlamydia infection affecting Depression Heart murmur Supervision of normal Home Medications [id number] 1 mg tablet 1 tab PO DAILY 11/16/20 [History Last Taken 11/24/22] acetaminophen 500 mg tablet 1,000 mg (2 x 500 mg) PO Q6H PRN PRN Pain 1-10 Or Fever #0 tabs 11/18/20 [Rx Last Taken Unknown] ibuprofen 600 mg tablet 600 mg PO Q6H PRN PRN Pain Score 1-3 #0 tabs 11/18/20 [Rx Last Taken Unknown] Allergy/AdvReac Type Severity Reaction Status Date / Time No Known Allergies Allergy Verified 11/24/22 22:20 Social History Smoking Status: Former smoker History Elective abortions Hx Para 0 Spontaneous abortions Hx # Term Pregnancies Ectopic pregnancies Hx # Pregnancies Multiple births # of living children NST FHR Rate Baby A Baseline: 125 Variability:: Moderate Accelerations:: 15 x 15 Decelerations:: None Uterine Activity:: Irregular Assessment & Plan (1) Dysuria: PLAN: Plan 1) Send urine culture 2) Follow up in office if no improvement 3) ROM plus negative 4) D/C home
== END 2022-11-24 23:25 | disposition home or self-care (01) ==
LOC: WPOUT 22:05 → WP 22:06
PROVIDERS: Visit Provider Advanced Practice Midwife
DX: O99.891 Other specified diseases and conditions complicating pregnancy (principal); R30.0 Dysuria; Z3A.32 32 weeks gestation of pregnancy
CPT/HCPCS: 59025; 59050; 81002; 84112; 87086; 87088; 99221; G0378

== ENCOUNTER 2022-12-31 15:35 | Outpatient (CLI) | payer MEDICAID, SELFPAY ==
[2022-12-31 15:57] VITALS: BMI 22.7
[2022-12-31 16:08] VITALS: BP 125/83; PULSE 113; TEMP 37.1
[2022-12-31 16:41] LABS: ROM Internal Control Test YES-OK TO RESULT pt. (Internal QC); ROM Patient Test Negative (Negative); Record Kit Lot#, ROM+ K1409
[2022-12-31 17:01] VITALS: BP 117/79; PULSE 106; TEMP 37.4
[2022-12-31 18:16] VITALS: BP 135/82; PULSE 129
[2022-12-31 18:18] VITALS: BP 137/84; PULSE 100
--- NOTE | 2022-12-31 18:31 | OB.TRI.NOTE ---
HPI - General General Date of Admission: 12/31/22 Date of Service: 12/31/22 Chief Complaint: contractions HPI Narrative REBECCA DORSEY, is a 22 2 para 1 female who presented at 3-1/7 weeks complaining contractions. Denies vaginal bleeding. Some vaginal discharge. Maternal Data Information HANNAH Calculator Estimated Delivery Date Method Current WG Current Estimate 01/13/23 Manual 38w 1d Final HANNAH: 12/14/22 Gestational age: 38 1/7 PFSH PFSH Medical History (Updated 12/31/22 @ 18:[address] Aviva Yoo MD) Anxiety Chlamydia infection affecting Depression Heart murmur Supervision of normal Home Medications [id number] 1 mg tablet 1 tab PO DAILY 11/16/20 [History Last Taken 12/30/22 06:00] acetaminophen 500 mg tablet 1,000 mg (2 x 500 mg) PO Q6H PRN PRN Pain 1-10 Or Fever #0 tabs 11/18/20 [Rx Last Taken Unknown] Allergy/AdvReac Type Severity Reaction Status Date / Time No Known Allergies Allergy Verified 12/31/22 16:23 Social History Smoking Status: Former smoker History Elective abortions Hx Para 0 Spontaneous abortions Hx # Term Pregnancies Ectopic pregnancies Hx # Pregnancies Multiple births # of living children NST FHR Rate Baby A Baseline: 130 Variability:: Moderate Accelerations:: 15 x 15 Decelerations:: Early (x1) NST Reactive:: Yes FHR Category:: Category I Uterine Activity:: irreg ctxs Assessment & Plan (1) 38 weeks gestation of : PLAN: Nonstress test is reactive. No evidence of active labor. Return for labor or as needed. No evidence of rupture membranes. Keep next office appointment as scheduled.
== END 2022-12-31 18:20 | disposition home or self-care (01) ==
LOC: WPOUT 15:43 → WP 15:44
PROVIDERS: Referring Provider Obstetrics & Gynecology; Visit Provider Obstetrics & Gynecology
DX: O47.1 False labor at or after 37 completed weeks of gestation (principal); Z3A.38 38 weeks gestation of pregnancy
CPT/HCPCS: 59025; 59050; 84112; 99221; G0378

== ENCOUNTER 2023-01-11 12:15 | Inpatient (IN) | payer MEDICAID, SELFPAY ==
[2023-01-11] VITALS (47 sets, daily range): BP systolic 85–134; BP diastolic 51–87; PULSE 73–114; TEMP 36.3–36.9; O2SAT 96–100; BMI 23.5
[2023-01-11 12:14] LABS: ROM Internal Control Test YES-OK TO RESULT pt. (Internal QC)
[2023-01-11 12:15] LABS: ROM Patient Test POSITIVE (Negative); Record Kit Lot#, ROM+ K1409
[2023-01-11 12:58] LABS: Absolute Lymphocyte Count 1.71 X10^3/uL (0.83-4.51); Absolute Neutrophil Count 5.5 X10^3/uL (2.0-7.7); Basophil# 0.09 X10^3/uL; Basophil% 1.1 % (0-1); Eosinophil# 0.08 X10^3/uL; Hematocrit 36.6 % (37-47); Hemoglobin 12.1 g/dL (12.0-15.0); Lymphocyte # 1.71 X10^3/ul (0.83-4.51); Lymphocyte % 20.9 % (19-41); Mean Corp Hgb Conc 33.1 g/dL (32-36); Mean Corpuscular Hgb 30.3 pg (27.0-32.0); Mean Corpuscular Volume 91.7 fL (81-99); Mean Platelet Vol. 9.1 fl (6.2-12.0); Monocyte# 0.54 X10^3/uL; Monocyte% 6.6 % (0-10); NRBC Flagged by Analyzer 0 % (0-5); Neutrophil # 5.47 X10^3/uL (2.7-7.7); Neutrophil % 66.6 % (47-70); Platelet Count 265 K/mm3 (150-450); RBC Distribution Width CV 13.1 % (11.6-14.6); RBC Distribution Width SD 43.6 fl (35.1-43.9); Red Blood Count 3.99 M/mm3 (4.2-5.4); White Blood Count 8.2 K/mm3 (4.4-11.0)
[2023-01-11 13:35] LABS: Amphetamine Urine VISTA NEGATIVE (<1000 ng/mL); Barbiturate Urine VISTA NEGATIVE (< 200 ng/mL); Benzodiazepine Urine VISTA NEGATIVE (< 200 ng/mL); Cocaine Urine VISTA NEGATIVE (< 300 ng/mL); Ecstacy Urine VISTA NEGATIVE (< 500 ng/mL); Methadone Urine VISTA NEGATIVE (< 300 ng/mL); PCP Urine VISTA NEGATIVE (< 25 ng/mL); THC Urine VISTA NEGATIVE (< 50 ng/mL); Vista UDS pH Range 6
[2023-01-11] MEDS: LACTATED RINGERS 500 ML 999 ML IV ×3 (13:40→17:45)
[2023-01-11] MEDS: fentaNYL 100 MCG/2 ML Ampul IV (13:49)
[2023-01-11] MEDS: Lactated Ringers 1,000 ML 50 ML IV (14:11)
[2023-01-11 14:29] LABS: Syphilis Antibodies Non-reactive
[2023-01-11] MEDS: Oxytocin 15 Units/NS 250ml 15 UNITS/250 ML IV.SOLN 2 UNITS IV (15:21)
[2023-01-11] MEDS: fentaNYL-bupivacaine (epidural) 100 ML BAG EPIDURAL ×2 (16:51)
[2023-01-11] MEDS: Ondansetron 4 MG/2 ML Vial IV (17:42)
--- NOTE | 2023-01-11 20:05 | PCM.HP.OB ---
HPI - General General Date of Admission: 01/11/23 HPI Narrative REBECCA DORSEY, is a 22 F who presents at 39w5d by lmp. Presented with SROM around 10am and arrived at 4cm dilation, clear fluid with mild/moderate irregular contractions. complicated by tobacco, vaping, and CBD use in beginning of . Stopped during . Anemia during . Maternal Data Information HANNAH Calculator Estimated Delivery Date Method Current WG Current Estimate 01/13/23 Manual 39w 5d PFSH PFSH Medical History (Updated 01/11/23 @ 20:11 by Shirley Alonso CNM) Anemia Anxiety Chlamydia infection affecting Depression Heart murmur Osteochondroma of tibia Supervision of normal Home Medications [id number]-[id number] 1 mg tablet 1 tab PO DAILY 11/16/20 [History Last Taken 12/30/22 06:00] acetaminophen 500 mg tablet 1,000 mg (2 x 500 mg) PO Q6H PRN PRN Pain 1-10 Or Fever #0 tabs 11/18/20 [Rx Last Taken Unknown] Allergy/AdvReac Type Severity Reaction Status Date / Time No Known Allergies Allergy Verified 01/11/23 11:38 Family History no significant family his Surgical History (Updated 01/11/23 @ 11:58 by Nedra Du) H/O knee surgery Social History Smoking Status: Former smoker History Elective abortions Hx Para 1 Spontaneous abortions Hx # Term Pregnancies Ectopic pregnancies Hx # Pregnancies Multiple births # of living children NST FHR Rate Baby A Baseline: 135 Variability:: Moderate Accelerations:: 15 x 15 Decelerations:: Variable FHR Category:: Category II Uterine Activity:: Every 2-4 minutes, strong Vital Signs Vital Signs Vital Signs: 01/11/23 11:34 01/11/23 11:34 01/11/23 11:34 Temperature Temperature Source Temporal Pulse Rate 99 Blood Pressure 120/79 BP Systolic 120 BP Diastolic 79 Pulse Ox 01/11/23 11:34 01/11/23 11:34 01/11/23 12:49 Temperature 98.3 F Temperature Source Pulse Rate Blood Pressure 115/68 BP Systolic 115 BP Diastolic 68 Pulse Ox 100 01/11/23 12:49 01/11/23 12:50 01/11/23 12:50 Temperature Temperature Source Temporal Pulse Rate 88 89 Blood Pressure BP Systolic BP Diastolic Pulse Ox 01/11/23 12:50 01/11/23 12:50 01/11/23 13:59 Temperature 97.8 F Temperature Source Pulse Rate Blood Pressure 111/73 BP Systolic 111 BP Diastolic 73 Pulse Ox 97 01/11/23 13:59 01/11/23 13:59 01/11/23 13:59 Temperature Temperature Source Temporal Pulse Rate 86 Blood Pressure BP Systolic BP Diastolic Pulse Ox 96 01/11/23 13:59 01/11/23 13:59 01/11/23 13:59 Temperature 98.1 F Temperature Source Pulse Rate 90 Blood Pressure BP Systolic BP Diastolic Pulse Ox 96 01/11/23 14:51 01/11/23 14:51 01/11/23 14:51 Temperature Temperature Source Pulse Rate 87 Blood Pressure 100/67 BP Systolic 100 BP Diastolic 67 Pulse Ox 97 01/11/23 14:51 01/11/23 14:51 01/11/23 14:51 Temperature Temperature Source Temporal Pulse Rate 86 Blood Pressure BP Systolic BP Diastolic Pulse Ox 97 01/11/23 14:51 01/11/23 16:11 01/11/23 16:11 Temperature 97.9 F Temperature Source Temporal Pulse Rate Blood Pressure 109/72 BP Systolic 109 BP Diastolic 72 Pulse Ox 01/11/23 16:11 01/11/23 16:11 01/11/23 16:11 Temperature 98.4 F Temperature Source Pulse Rate 86 Blood Pressure BP Systolic BP Diastolic Pulse Ox 100 01/11/23 16:21 01/11/23 16:21 01/11/23 16:26 Temperature Temperature Source Pulse Rate 77 87 Blood Pressure BP Systolic BP Diastolic Pulse Ox 100 01/11/23 16:26 01/11/23 16:31 01/11/23 16:31 Temperature Temperature Source Pulse Rate 82 Blood Pressure BP Systolic BP Diastolic Pulse Ox 100 100 01/11/23 16:36 01/11/23 16:36 01/11/23 16:41 Temperature Temperature Source Pulse Rate 86 Blood Pressure 134/79 H BP Systolic 134 BP Diastolic 79 Pulse Ox 100 01/11/23 16:41 01/11/23 16:41 01/11/23 16:49 Temperature Temperature Source Pulse Rate 85 Blood Pressure 121/70 H BP Systolic 121 BP Diastolic 70 Pulse Ox 100 01/11/23 16:49 01/11/23 16:49 01/11/23 16:49 Temperature Temperature Source Pulse Rate 91 81 Blood Pressure BP Systolic BP Diastolic Pulse Ox 100 01/11/23 16:49 01/11/23 16:52 01/11/23 16:52 Temperature Temperature Source Pulse Rate 101 H Blood Pressure 111/68 BP Systolic 111 BP Diastolic 68 Pulse Ox 99 01/11/23 16:54 01/11/23 16:54 01/11/23 16:56 Temperature Temperature Source Pulse Rate 86 Blood Pressure 119/76 BP Systolic 119 BP Diastolic 76 Pulse Ox 100 01/11/23 16:56 01/11/23 16:59 01/11/23 16:59 Temperature Temperature Source Pulse Rate 106 H 99 Blood Pressure BP Systolic BP Diastolic Pulse Ox 99 01/11/23 17:01 01/11/23 17:01 01/11/23 17:01 Temperature Temperature Source Temporal Pulse Rate 88 Blood Pressure 126/73 H BP Systolic 126 BP Diastolic 73 Pulse Ox 01/11/23 17:01 01/11/23 17:04 01/11/23 17:04 Temperature 98.0 F Temperature Source Pulse Rate 99 Blood Pressure BP Systolic BP Diastolic Pulse Ox 100 01/11/23 17:07 01/11/23 17:07 01/11/23 17:09 Temperature Temperature Source Pulse Rate 83 97 Blood Pressure 111/69 BP Systolic 111 BP Diastolic 69 Pulse Ox 01/11/23 17:09 01/11/23 17:11 01/11/23 17:11 Temperature Temperature Source Pulse Rate 76 Blood Pressure 116/70 BP Systolic 116 BP Diastolic 70 Pulse Ox 100 01/11/23 17:14 01/11/23 17:14 01/11/23 17:17 Temperature Temperature Source Pulse Rate 81 Blood Pressure 128/87 H BP Systolic 128 BP Diastolic 87 Pulse Ox 100 01/11/23 17:17 01/11/23 17:19 01/11/23 17:19 Temperature Temperature Source Pulse Rate 82 73 Blood Pressure BP Systolic BP Diastolic Pulse Ox 100 01/11/23 17:21 01/11/23 17:21 01/11/23 17:38 Temperature Temperature Source Pulse Rate 81 Blood Pressure 115/70 97/57 L BP Systolic 115 97 BP Diastolic 70 57 Pulse Ox 01/11/23 17:38 01/11/23 17:39 01/11/23 17:39 Temperature Temperature Source Pulse Rate 82 97 Blood Pressure 85/51 L BP Systolic 85 BP Diastolic 51 Pulse Ox 01/11/23 17:42 01/11/23 17:42 01/11/23 17:54 Temperature Temperature Source Pulse Rate 84 Blood Pressure 116/73 115/75 BP Systolic 116 115 BP Diastolic 73 75 Pulse Ox 01/11/23 17:54 01/11/23 18:00 01/11/23 18:00 Temperature Temperature Source Pulse Rate 98 88 Blood Pressure 118/78 BP Systolic 118 BP Diastolic 78 Pulse Ox 01/11/23 18:09 01/11/23 18:09 01/11/23 18:11 Temperature Temperature Source Pulse Rate 87 Blood Pressure 116/71 BP Systolic 116 BP Diastolic 71 Pulse Ox 97 01/11/23 18:11 01/11/23 18:14 01/11/23 18:14 Temperature Temperature Source Pulse Rate 88 81 Blood Pressure BP Systolic BP Diastolic Pulse Ox 99 01/11/23 18:18 01/11/23 18:18 01/11/23 18:19 Temperature Temperature Source Pulse Rate 82 86 Blood Pressure 115/72 BP Systolic 115 BP Diastolic 72 Pulse Ox 01/11/23 18:19 01/11/23 18:22 01/11/23 18:22 Temperature Temperature Source Pulse Rate 87 Blood Pressure 118/73 BP Systolic 118 BP Diastolic 73 Pulse Ox 98 01/11/23 18:26 01/11/23 18:26 01/11/23 18:33 Temperature Temperature Source Pulse Rate 88 Blood Pressure 116/72 107/55 L BP Systolic 116 107 BP Diastolic 72 55 Pulse Ox 01/11/23 18:33 01/11/23 18:33 01/11/23 18:33 Temperature Temperature Source Temporal Pulse Rate 81 90 Blood Pressure BP Systolic BP Diastolic Pulse Ox 01/11/23 18:33 Temperature 97.4 F L Temperature Source Pulse Rate Blood Pressure BP Systolic BP Diastolic Pulse Ox Weight Weight: 141 lb 8 oz Body Mass Index (BMI) 23.5 Physical Exam Const alert and oriented x3 General Appearance: cooperative Orientation / Consciousness: awake, oriented to person, oriented to place and oriented to time Exam Limitations: no limitations HEENT normocephalic Head and Scalp: normal to inspection, normocephalic and atraumatic Face and Sinus: normal facial exam Eyes General Eye: normal appearance of both eyes Neck full ROM Chest Chest: symmetrical chest wall rise GI non-tender appearance of the vagina normal Bladder / Kidney Exam: no CVA tenderness Back/Spine normal ROM Extremity normal to inspection and full ROM Skin no rashes or lesions noted Neuro oriented x3 and moves all extremities Sensorium / Orientation: awake, alert and oriented to person Labs Labs Labs: Blood Type A POSITIVE Antibody Screen NEGATIVE Hct 36.6 % (37-47) L Hgb 12.1 g/dL (12.0-15.0) Syphilis Total Ab Non-reactive Rhogam given: No GBS negative GC/CT negative RPR non reactive HBsAG negative HepC negative HIV non reactive A positive Assessment & Plan (1) SROM (spontaneous rupture of membranes): (2) Active labor: PLAN: Plan 1) Admit to labor and delivery 2) Continuous EFM 3) Pitocin if contractions become less frequent 4) GBS negative 5) Epidural for pain management upon request 6) Routine labs 7) collaborative physician and notified of patient admission, status, and above assessment.
--- NOTE | 2023-01-11 20:18 | EX.PCM.OBRPT ---
Maternal Data Information HANNAH Calculator Estimated Delivery Date Method Current WG Current Estimate 01/13/23 Manual 39w 5d Final HANNAH: 01/13/23 Vaginal Delivery Maternal Presentation Maternal Presentation: Active Labor and Spontaneous Rupture of Membranes Type of Induction: Pitocin (augmentation) Operative Information Date of Procedure: 01/11/23 Pre-Operative Diagnosis: SROM, Active labor Post-Operative Diagnosis: Surgery / Procedure Performed: Spontaneous Vaginal Delivery Type of Anesthesia: Epidural Estimated Blood Loss: 200ml Time of Delivery: 19:55 Findings Description of Procedure: Progressed to complete with urge to push. Epidural for pain management. of viable male infant over intact perineum. APGARS 8,9 respectively. Infant head delivered with body immediately forthcoming. Placed on maternal abdomen, strong cry. Mouth and nares suctioned for secretions. Pitocin started for active 3rd stage management. Cord doubly clamped and cut by FOB after pulsations ceased, delayed cord clamping. Placenta delivered intact via crenshaw, 3 vessel cord intact. Perineum inspected and revealed intact perineum. Fundus firm and hemostasis achieved. EBL 200ml. Mom and baby stable, planning to bottle feed. Family bonding well. notified of delivery, patient status, and above assessment. Presentation: Vertex and ROP Amniotic Membrane Rupture Type: Spontaneous Amniotic Fluid Description: Clear Placental Delivery Description: Spontaneous Placenta Disposition: [facility] Cord Vessel Description: 3 Vessels Cord Entanglement: None Infant A Gender: Male (1 minute): 8 (5 minute): 9 Delayed Cord Clamping: Yes Post Vaginal Delivery Medications Given After Delivery: IV Pitocin Episiotomy Description: None Laceration: None Complication Complications: None
[2023-01-11] MEDS: Oxytocin 15 Units/NS 250ml 15 UNITS/250 ML IV.SOLN 83 UNITS IV (20:40)
[2023-01-12 01:18] VITALS: BP 113/69; PULSE 85; RESP 16; TEMP 37
[2023-01-12] MEDS: Ibuprofen 600 MG Tablet PO ×3 (03:50→20:02)
[2023-01-12] MEDS: Acetaminophen 500 MG Tablet 1000 MG PO ×2 (03:51→17:34)
[2023-01-12 03:52] VITALS: BP 106/69; PULSE 73; RESP 16; TEMP 36.8
[2023-01-12 07:55] VITALS: BP 107/71; PULSE 80; RESP 16; TEMP 37.1; O2SAT 96
--- NOTE | 2023-01-12 08:30 | PN_ITS ---
Subjective Subjective patient seen at bedside, doing well. Patient reports good pain control. lochia mild. Objective Data Objective Data Vital Signs: Vital Signs Temp Pulse Resp BP Pulse Ox O2 Del Method 98.8 F 80 16 107/71 96 Room Air 01/12/23 07:55 01/12/23 07:55 01/12/23 07:55 01/12/23 07:55 01/12/23 07:55 01/12/23 07:55 Oxygen Delivery Method Room Air Weight: 64.183 kg Body Mass Index (BMI) 23.5 Intake & Output: Intake and Output for Last 24 Hours 01/10/23 01/11/23 01/12/23 23:59 23:59 23:59 Intake Total 3240.00 / 3240.00 Output Total 600 / 600 1500 / 1500 Balance 2640.00 / 2640.00 -1500 / -1500 Lab / Micro Data 01/11/23 12:37 Labs: Laboratory Results - last 24 hr 01/11/23 11:40: Vag Amniotic Fld Detect POSITIVE H 01/11/23 12:37: WBC 8.2, RBC 3.99 L, Hgb 12.1, Hct 36.6 L, MCV 91.7, MCH 30.3, MCHC 33.1, RDW Std Deviation 43.6, RDW Coeff of Neal 13.1, Plt Count 265, MPV 9 .1, Immature Gran % (Auto) 3.800 H, Neut % (Auto) 66.6, Lymph % (Auto) 20.9, [place] % (Auto) 6.6, Eos % (Auto) 1.0, Baso % (Auto) 1.1 H, Absolute Neuts (auto) 5.5, Absolute Lymphs (auto) 1.71, Nucleated RBC % 0, Urine Opiates Screen NEGATIVE, Urine Methadone Screen NEGATIVE, Ur Barbiturates Screen NEGATIVE, Ur Phencyclidine Scrn NEGATIVE, Ur Amphetamines Screen NEGATIVE, MDMA (Ecstasy) Screen NEGATIVE, U Benzodiazepines Scrn NEGATIVE, Urine Cocaine Screen NEGATIVE, U Cannabinoids Screen NEGATIVE, Ur Drug Screen Comment , Blood Type A POSITIVE, Antibody Screen NEGATIVE 01/11/23 13:00: Syphilis Total Ab Non-reactive Physical Exam Const alert and oriented x3 General Appearance: cooperative HEENT normocephalic Neck General: normal visual inspection GI soft to palpation and non-distended GI Narrative: Fundus firm Extremity normal to inspection and no calf tenderness Skin no rashes or lesions noted Neuro oriented x3 and CN's II-XII intact bilaterally Psych mental status grossly normal Assessment & Plan Assessment/Plan (1) Vaginal delivery: PLAN: Plan PPD# 1 , Doing well Routine care pain mgmt ambulation dc home
--- NOTE | 2023-01-12 08:31 | DCINST_ITS ---
Discharge Instructions Diet Discharge Diet: No restrictions Activity May resume sexual activity in: 6-8 weeks Dressing / Incision Call your doctor if you observe: Fever of 101 or Higher, Inability to urinate, Using more than 1 pad per hour and Uncontrolled pain Follow Up Care Please Follow Up With: Soila Champion MD When: 1-2 weeks post and again at 6 weeks post . [phone] Test Results: Test results from this visit will be discussed in further detail at your follow- up appointment, if applicable. Discharge Plan Admission Admit Date/Time: 01/11/23 12:15 Attending Provider: Shirley Alonso Primary Care Provider: Care Physician,No Primary Discharge Orders/Prescriptions Prescriptions: No Action vvodsnvw-vay-Pj-FA 1 mg Tablet 1 tab PO DAILY acetaminophen 500 mg Tablet 1,000 mg PO Q6H PRN PRN (Reason: Pain 1-10 Or Fever) Qty: 0 0RF Referrals / Follow Up: Care Physician,No Primary [Primary Care Provider] -
[2023-01-12 12:39] VITALS: BP 109/70; PULSE 81; RESP 14; TEMP 37.5; O2SAT 97
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
[2023-01-12 16:01] VITALS: BP 105/71; PULSE 87; RESP 14; TEMP 36.6; O2SAT 97
[2023-01-12 19:41] VITALS: BP 108/71; PULSE 96; RESP 16; TEMP 36.6; O2SAT 99
== END 2023-01-12 20:42 | disposition home or self-care (01) | DRG 560 ==
LOC: WPOUT 12:19 → WP 12:19
PROVIDERS: Admitting Provider Advanced Practice Midwife; Referring Provider Advanced Practice Midwife; Visit Provider Advanced Practice Midwife
DX: O99.02 Anemia complicating childbirth (principal); Z37.0 Single live birth; D64.9 Anemia, unspecified; Z3A.39 39 weeks gestation of pregnancy; Z87.891 Personal history of nicotine dependence
CPT/HCPCS: 59025; 59050; 80307; 84112; 85025; 86780; 86850; 86900; 86901; 99221; J7120; G0378; J2405

== ENCOUNTER 2024-12-19 05:13 | Outpatient (CLI) | payer MEDICAID, SELFPAY ==
[2024-12-19] VITALS (33 sets, daily range): BP systolic 115–133; BP diastolic 65–79; PULSE 87–123; RESP 13–16; TEMP 36.8–36.9; O2SAT 91–99; BMI 24.5
--- OUTSIDE RECORDS SUMMARY | 2024-12-19 05:29 | XMS RPT_ITS | CCD ---
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 respiratory distress. Cough productive of yellow sputum. Chest nontender. Decreased breath sounds in the bases bilaterally. Breath sounds within normal limits. CVS: Normal sinus rhythm noted. Capillary refill less than 2 seconds. Pulses within normal limits. GI / : Abdomen soft and nontender and normal bowel sounds. -- 22:33 03/09/24 ROMAIN Null R.N. NURSING PROGRESS NOTES 2 of 3 Nurse Narrative 22:03/09/24. ( Pt at nurses station, aware). -- 22:03/09/24 ROMAIN Da Silva R.N. 22:26 03/09/24. Site #1 started via IV in the right antecubital space with a 20g angiocath with aseptic technique and good blood return; 1 attempt. Blood drawn: rainbow set tube(s). Saline lock flushed with 5 mL saline. -- 22:26 03/09/24 ROMAIN Null R.N. 22:27 03/09/24. Patient ID band checked for patient name and birthdate: patient confirmed. Blood samples drawn from the right antecubital space peripheral IV site by nurse per protocol ; labeled in presence of the patient: rainbow set. Initial blood discarded and additional blood sent to lab. Line flushed with 5 mL normal saline post blood draw. -- 22:27 03/09/24 ROMAIN Null R.N. 22:34 03/09/24. Rounding: Pain: assessed pain level. Position: states comfortable. Proximity of possessions / care items: call light within easy reach. Set expectations: advised patient of rounding protocol timing. Patient identifiers checked. Call light placed in reach. Side rails up x 1. Bed placed in lowest position. Brakes of bed on. -- 22:34 03/09/24 ROMAIN Null R.N. 23:20 03/09/24. Patient walked to IA with process maintenance technician. -- 23:25 03/09/24 ROMAIN Null R.N. 23:26 03/09/24. Patient walked back from radiology with process maintenance technician. -- 23:26 03/09/24 ROMAIN Null R.N. 00:09 03/10/24. HR: 95. RR: 16. O2 saturation: 100% on room air. -- 00:09 03/10/24 ROMAIN Null R.N. 00:37 03/10/24. HR: 95. RR: 16. O2 saturation: 100% Pain level now 0/10. -- 00:38 03/10/24 ROMAIN Null R.N. 00:39 03/10/24. Doxycycline PO 100 mg given. Allergies verified and confirmed 5 rights. Information reviewed including reason for taking this medication. Verbalizes understanding. -- 00:39 03/10/24 ROMAIN Null R.N. 00:39 03/10/24. Potassium Chloride PO 40 mEq given. Allergies verified and confirmed 5 rights. Information reviewed including reason for taking this medication. Verbalizes understanding. -- 00:40 03/10/24 ROMAIN Null R.N. 00:42 03/10/24. Site #1 removed upon discharge. Bandage and pressure dressing applied. -- 00:42 03/10/24 ROMAIN Null R.N. DISPOSITION / DISCHARGE Departure time: 00:43 03/10/2024. Condition (more content not included)... Normal [facility] ED ORDER SHEET (CPOE ONLY)on 03-10-2024 ED ORDER SHEET (CPOE ONLY) Order Sheet Order Sheet [facility] [address] [place] [address] [id number] 03/09/2024 Patient: ODESSA DORSEY Sex: Female : 2000 Age: 23y MEASUREMENTS: Wt: 48.1 kg ALLERGIES: No known drug allergies MEDICATION/IV/DRIP/FLUI D ORDERS Order Description Priority Entered Acknowledged Completed Potassium Chloride PO40 mEq 00:19 03/10/2024 00:30 00:40 (NOW x1) Faith Mancuso M.D. 03/10/2024 03/10/2024 Angelita Torres R.N. Doxycycline PO100 mg (NOW 00:25 03/10/2024 00:30 00:39 x1) Faith Mancuso M.D. 03/10/2024 03/10/2024 Angelita Torres R.N. LAB ORDERS Order Description Priority Entered Acknowledged Collected Completed CBC w Diff Stat Stat 22:14 03/09/2024 22:19 03/09/2024 22:24 03/09/2024 Lorna Chin R.N. Anne Rutt, R.N. M.D. CMP Stat Stat 22:14 03/09/2024 22:19 03/09/2024 22:24 03/09/2024 Lorna Chin R.N. Anne Rutt, R.N. M.D. 1 of 2 Order Sheet Lipase Stat Stat 22:14 03/09/2024 22:19 03/09/2024 22:24 03/09/2024 Lorna Cihn R.N. Anne Rutt, R.N. M.D. HCG, Qual Serum Stat Stat 22:14 03/09/2024 22:19 03/09/2024 22:24 03/09/2024 Lorna Chin R.N. Anne Rutt, R.N. M.D. Urinalysis Stat Stat 22:14 03/09/2024 22:19 03/09/2024 22:43 03/09/2024 Lorna Chin R.N. Anne Rutt, R.N. M.D. DIAGNOSTIC STUDY ORDERS Order Description Priority Entered Acknowledged Completed Chest 1V Stat Stat 22:14 03/09/2024 22:19 23:53 Faith Mancuso M.D. 03/09/2024 03/09/2024 Angelita Torres R.N. Order Comments: 22:14 03/09/2024: Status: Unknown. Faith Mancuso M.D. Reason for Study: Cough STAFF ORDERS Order Description Priority Entered Acknowledged Collected Completed [Electronically signed by Faith Mancuso M.D. (03/10/2024 03:44 EST)] 2 of 2 Normal [facility] ED PHYSICIAN CLINICAL REPORT on 03-10-2024 ED PHYSICIAN CLINICAL REPORT Narrative Physician Clinical Narrative [address] [address] [id number] 03/09/2024 Patient: ODESSA DORSEY Sex: Female : 2000 Age: 23y Disposition: Discharge Disposition Decision Time: 00:25 03/10/2024 Departure Time: 00:43 03/10/2024 Measurements Wt: 48.1 kg Initial Vital Sign Measured Time BP MAP HR RR O2Sat ETCO2 Temp Pain GCS RTS 20:56 03/09/2024 150/81 104 147 16 98% 98.7 F 8 Time Seen: 22:20 03/09/2024. Arrived- By private vehicle. Historian- patient. HISTORY OF PRESENT ILLNESS Chief Complaint: DYSPNEA. This started 2 weeks and is still present. The dyspnea is described as mild. The patient has had a cough. No sputum production, fever, chills or chest pain or discomfort. (Two weeks of URI symptoms now with persistent nonproductive cough. Also complaining of right chest wall pain. Denies fevers, sputum production. States that significant other was just treated for walking pneumonia.). REVIEW OF SYSTEMS NOSE: The patient has had a nasal discharge. GI: No nausea, vomiting or abdominal pain. NEUROLOGICAL: No headache or fainting episodes. SKIN: No skin rash. CONSTITUTIONAL: The patient has not had weight loss. No muscle aches. Status: Unknown. 1 of 11 Narrative PAST HISTORY See nurses notes. no known problem Surgeries: no known surgical history Medications: no known home medications Allergies: no known drug allergies SOCIAL HISTORY Smoker- current status unknown. No alcohol use or drug use. ADDITIONAL NOTES The nursing notes have been reviewed. PHYSICAL EXAM Vital Signs: Have been reviewed. Appearance: Alert. No acute distress. Eyes: Pupils equal, round and reactive to light. Eyes normal inspection. ENT: Nose normal. Pharynx normal. Neck: Normal inspection. Neck supple. CVS: Normal heart rate and rhythm. Heart sounds normal. Respiratory: No respiratory distress. Painless inspiration. Breath sounds normal. Abdomen: Soft and nontender. Skin: Normal skin color. Normal skin turgor. Extremities: No lower extremity edema. 2 of 11 Narrative LABS, X-RAYS, AND EKG Diagnostic Tests: Diagnostic tests have been ordered, with results reviewed and considered in the medical decision making process. Chest X-ray: Infiltrate in the right lower lobe. The X-rays were independently viewed by me and interpreted contemporaneously by me. Laboratory Tests: CBC + DIFF Final MIGUEL: 03/09/2024 22:26:00 EST MsgRcvd: 03/09/2024 22:37 EST Lab Test Result Reference Status Received Comments 03/09/2024 22:37 CBC-COMPLETE CBC + DIFF Final EST BLOOD COUNT 03/09/2024 22:37 WBC 8.1 x 10/UL 4.5 - 10.8 Final EST 03/09/2024 22:37 RBC 4.45 x 10/UL 4.10 - 5.30 Final EST 03/09/2024 22:37 HEMOGLOBIN 13.5 g/dl 12.0 - 16.0 Final EST 03/09/2024 22:37 HEMATOCRIT 40.0 % 34.0 - 46.0 Final EST 03/09/2024 22:37 MCV 90 fl 80 - 99 Final EST 03/09/2024 22:37 MCH 30 pg 27 - 33 Final EST 03/09/2024 22:37 MCHC 34 X10 3 32 - 36 Final EST 3 of 11 Narrative 03/09/2024 22:37 RDW/CV 14.0 % 12.0 - 15.6 Final EST 03/09/2024 22:37 PLATELET 351 x10/UL 150 - 450 Final EST 03/09/2024 22:37 AUTOMATED MPV 7.3 fl 6.6 - 10.5 Final EST DIFFERENTIAL 03/09/2024 22:37 NEUT % 55.9 % 46.0 - 76.0 Final EST 03/09/2024 22:37 LYMPH % 33.3 % 20.0 - 45.0 Final EST 03/09/2024 22:37 MONOS % 6.5 % 0.0 - 10.0 Final EST 03/09/2024 22:37 EO % 4.0 % 0.0 - 7.0 Final EST 03/09/2024 22:37 BASO % 0.4 % 0.0 - 2.0 Final EST 03/09/2024 22:37 Lymph # 2.71 x10/UL 0.80 - 2.80 Final EST 03/09/2024 22:37 Neut # 4.55 x10/UL 1.50 - 7.10 Final EST 03/09/2024 22:37 Dubois # 0.53 x10/UL 0.20 - 1.00 Final EST 03/09/2024 22:37 EO # 0.32 x10/UL 0.00 - 0.50 Final EST 03/09/2024 22:37 Baso # 0.03 x10/UL 0.00 - 0.10 Final EST 03/09/2024 22:37 MANUAL DIFF N/A New Order EST 4 of 11 Narrative 03/09/2024 22:37 MORPHOLOGY N/A New Order EST CMP with eGFR Final MIGUEL: 03/09/2024 22:26:00 EST MsgRcvd: 03/09/2024 23:39 EST Lab Test Result Reference Status Received Comments COMPREHENSIVE 03/09/2024 CMP with eGFR Final METABOLIC 23:39 EST PANEL 03/09/2024 SODIUM 140 mmol/l 136 - 145 Final 23:39 EST 3.3 mmol/L 03/09/2024 POTASSIUM 3.5 - 5.1 Final Below low normal 23:39 EST 03/09/2024 CHLORIDE 103 mmol/L 98 - 107 Final 23:39 EST 03/09/2024 CO2 25.0 mmol/L 21.0 - 32.0 Final 23:39 EST 03/09/2024 GLUCOSE 86 mg/dl 74 - 106 Final 23:39 EST 03/09/2024 BUN 16 mg/dl 7 - 18 Final 23:39 EST 03/09/2024 CREATININE 0.87 mg/dl 0.55 - 1.02 Final 23:39 EST 03/09/2024 AST/SGOT 17 U/L 13 - 39 Final 23:39 EST 03/09/2024 ALK PHOS 84 U/L 46 - 116 Fi (more content not included)... Normal [facility] ED SUPER BILLon 03-10-2024 ED SUPER BILL [address] [address] [id number] 03/09/2024 Patient: ODESSA DORSEY Sex: Female : 2000 Age: 23y Item Professional Category Description Facility Code Code Quantity Fee Total Nurse/E/M EMERGENCY 978962 1 $0.00 $0.00 DEPARTMENT VISIT HIGH/URGENT SEVERITY (08065-38) Grand Total $0.00 Providers Faith Mancuso M.D. Chief Complaint DYSPNEA. Principal Diagnosis Bacterial pneumonia. No hypoxemia. ICD-10 Codes 1 of 2 [facility] J15.9: Unspecified bacterial pneumonia 2 of 2 Normal [facility] ED VISIT SUMMARYon ED VISIT SUMMARY Visit Overview Visit Overview [address] [address] [id number] 03/09/2024 Patient: ODESSA DORSEY Sex: Female : 2000 Age: 23y 03/10/2024 03:32 PM EST ED Arrival:19:20 03/09/2024 EST Status: Recent Travel:no Language:eng Adv Directive: Isolation Status: Ethnicity:N Fall Risk:no risk Infectious Disease Exposure:no Measurements:106.0 lb / 48.1 kg Self-Harm Status:risk Sepsis Screen:negative Chief Complaint:COUGH, (2 weeks ago), (abdominal pain), and (pt complaints of cough for 2 weeks and abdominal pain today.) ALLERGIES No Known Drug Allergies HOME MEDICATIONS None PAST MEDICAL HISTORY / PROBLEMS None See nurses notes 1 of 3 Visit Overview PAST SURGICAL HISTORY No Surgeries SOCIAL HISTORY Smoking status: Yes Alcohol use: No Drug use: No ED COURSE MEDICATIONS GIVEN IN EMERGENCY DEPARTMENT 00:39 03/10/24 Doxycycline PO 100 mg 00:39 03/10/24 Potassium Chloride PO 40 mEq IV SITE INFORMATION INTAKE OUTPUT REASSESMENT (most recent) 22:33 03/09/24. GENERAL / NEURO / PSYCH: Alert. Oriented X 4. Appears in no acute distress. HEENT: Pupils equal, round and reactive to light. No facial asymmetry noted. Mucous membranes are pink. RESPIRATORY: Mild respiratory distress. Cough productive of yellow sputum. Chest nontender. Decreased breath sounds in the bases bilaterally. Breath sounds within normal limits. CVS: Normal sinus rhythm noted. Capillary refill less than 2 seconds. Pulses within normal limits. GI / : Abdomen soft and nontender and normal bowel sounds. VITAL SIGNS First Vitals Last Vitals Temp 20:56 03/09/24 98.7 F Temp 00:37 03/10/24 BP 20:56 03/09/24 150/81 BP 00:37 03/10/24 HR 20:56 03/09/24 147 HR 00:37 03/10/24 95 RR 20:56 03/09/24 16 RR 00:37 03/10/24 16 O2 Sat 20:03/09/24 98% O2 Sat 00:37 03/10/24 100% Pain 20:56 03/09/24 8 Pain 00:37 03/10/24 0 ETCO2 20:56 03/09/24 ETCO2 00:37 03/10/24 2 of 3 Visit Overview First Vitals Last Vitals GCS 20:56 03/09/24 GCS 00:37 03/10/24 RTS 20:56 03/09/24 RTS 00:37 03/10/24 PROCEDURES NURSING INTERVENTIONS LABS / STUDIES LABS / STUDIES ORDERED CBC w Diff Chest 1V CMP HCG, Qual Serum Lipase Urinalysis LABS / STUDIES PENDING IMPORT CHEST 1 VIEW CLINICAL IMPRESSION BACTERIAL PNEUMONIA. NO HYPOXEMIA 3 of 3 Normal [facility] ED VITALS FLOW SHEETon 03-10 ED VITALS FLOW SHEET Vitals [place] [address] [id number] 03/09/2024 [id number] Sex[facility] Female : 2000 Age: 23y Measurements Wt: 48.1 kg Measured Time BP MAP HR RR O2Sat ETCO2 Temp Pain GCS RTS 00:37 03/10/2024 95 16 100% 0 00:09 03/10/2024 95 16 100% RA 20:56 03/09/2024 150/81 104 147 16 98% 98.7 F 8 1 of 1 Normal [facility] CBC + DIFFon 03-09-2024 Baso # 0.03 x10EE3/UL Normal 0.00 - 0.10 [facility] Comment on above: Performed By: #### [id number] #### [facility],[address] [place], [place] [id number] Basophils/100 WBC (Bld) 0.4 % Normal 0.0 - 2.0 [facility] [facility]: Performed By: #### 2 14763 #### [facility],[address] [place] [address]3038 CBC + DIFF Normal [facility] Comment on above: Result Comment: CBC- COMPLETE BLOOD COUNT Performed By: #### 2 44176 #### [facility],[address] [place] [address] 82435 EO # 0.32 x10EE3/UL Normal 0.00 - 0.50 [facility] Comment on above: Performed By: #### 2 10820 #### [facility],[address] [place] [address] 32348 Eosinophils/100 WBC (Bld) 4.0 % Normal 0.0 - 7.0 [facility] Comment on above: Performed By: #### 2 35978 #### [facility],[address] [place] [address] Erythrocyte distribution width (RBC) [Ratio] 14.0 % Normal 12.0 - 15.6 [facility] Comment on above: Performed By: #### 2 97237 #### [facility],[address] [place] [address] Hematocrit (Bld) [Volume fraction] 40.0 % Normal 34.0 - 46.0 [facility] Comment on above: Performed By: #### 2 79680 #### [facility],[address] [place] [address] Hemoglobin (Bld) [Mass/Vol] 13.5 g/dL Normal 12.0 - 16.0 [facility] Comment on above: Performed By: #### 2 00314 #### [facility],[address] [place] [address] Lymph # 2.71 x10EE3/UL Normal 0.80 - 2.80 [facility] Comment on above: Performed By: #### 2 53806 #### [facility],[address] [place], [place] [address] Lymphocytes/100 WBC (Bld) 33.3 % Normal 20.0 - 45.0 [facility] Comment on above: Performed By: #### 2 56769 #### [facility],[address] [place], [place] [address] MANUAL DIFF N/A Normal [facility] Comment on above: Performed By: #### 2 40432 #### [facility],[address] [place], [place] [address] MCH (RBC) [Entitic mass] 30 pg Normal 27 - 33 [facility] Comment on above: Performed By: #### 2 62361 #### [address] [address] MCHC 34 X10 3 Normal 32 - 36 [facility] Comment on above: Performed By: #### 2 91633 #### [facility],[address] [place], [place] [address] MCV (RBC) [Entitic vol] 90 fL Normal 80 - 99 [facility] Comment on above: Performed By: #### 2 24561 #### [facility],[address] [place] [address] [place]ois # 0.53 x10EE3/UL Normal 0.20 - 1.00 [facility] Comment on above: Performed By: #### 2 19689 #### [facility],[address] [place] [address] MONOS % 6.5 % Normal 0.0 - 10.0 [facility] Comment on above: Performed By: #### 2 45620 #### [facility],[address] [place] [address] Morphology Gustavo (Bld) [Interp] N/A Normal [facility] Comment on above: Performed By: #### 2 40383 #### [facility],[address] [place] [address] Neut # 4.55 x10EE3/UL Normal 1.50 - 7.10 [facility] Comment on above: Performed By: #### 2 50890 #### [place] [address] Neutrophils/100 WBC (Bld) 55.9 % Normal 46.0 - 76.0 [facility] Comment on above: Performed By: #### 2 32992 #### [place] [address] PLATELET 351 x10EE3/UL Normal 150 - 450 [facility] Comment on above: Performed By: #### 2 87119 #### [place] [address] Platelet mean volume (Bld) [Entitic vol] 7.3 fL Normal 6.6 - 10.5 [facility] Comment on above: Result Comment: AUTO MATED DIFFERENTIAL Performed By: #### 2 91753 #### [place] [address] RBC 4.45 x 10EE6/UL Normal 4.10 - 5.30 [facility] Comment on above: Performed By: #### 2 62033 #### [facility],[address] [place] [address] 81870 WBC 8.1 x 10EE3/UL Normal 4.5 - 10.8 [facility] Comment on above: Performed By: #### 2 10768 #### [facility],[address] [place] [address] 25357 CHEST 1 VIEWon 03-09-2024 CHEST 1 VIEW [place] [address] Patient: ODESSA DORSEY Phone#: : 2000 Age: 23 Gender: F Pt. Type: ER Account: [id number] Location: [facility] Ordering: DR. FAITH MANCUSO Exam Date: 03/09/2024/23:33 Family Phys: SHIRLEY HOLLINS Charge Code: 667088 Physician: [place]on Order #: [id number] Dose#: PROCEDURE: X-RAY CHEST 1 VIEW COMPARISON: None. INDICATIONS: Chest pain. FINDINGS: LUNGS: Normal. No significant pulmonary parenchymal abnormalities. VASCULATURE: Normal. Unremarkable pulmonary vasculature. CARDIAC: Normal. No cardiac silhouette abnormality or cardiomegaly. MEDIASTINUM: Normal. No visible mass or adenopathy. PLEURA: Normal. No effusion or pleural thickening. BONES: Curvature of the thoracic spine to the right. OTHER: 2.4 centimeter right hilar nodule, possible calcified lymph node. Prior exams are not available for comparison. CONCLUSION: 1. Right hilar nodule. Prior exams are not available comparison. Dictated by: Kristal Wright MD on 03/10/2024 at 10:01 Approved by: Kristal Wright MD on 03/10/2024 at 10:03 Normal [facility] CMP with eGFRon 03-09-2024 AGE 23 years Normal [facility] Comment on above: Performed By: #### 2 38501 #### [facility],[address] [place] [address] 01140 Albumin [Mass/Vol] 4.4 g/dL Normal 3.4 - 5.0 [facility] Comment on above: Performed By: #### 2 12062 #### [facility],[address] [place] [address] 54193 Albumin/Globulin [Mass ratio] 1.2 {ratio} Normal 0.9 - 1.6 [facility] Comment on above: Performed By: #### 2 64932 #### [facility],[address] [place] [address] 30300 ALK PHOS 84 U/L Normal 46 - 116 [facility] Comment on above: Performed By: #### 2 53927 #### [facility],[address] [place] [address] 59303 ALT [Catalytic activity/Vol] 20 U/L Normal 16 - 63 [facility] Comment on above: Performed By: #### 2 57512 #### [facility],[address] [place] [address] 61148 Anion gap [Moles/Vol] 15 mmol/L Normal 10 - 20 [facility] Comment on above: Performed By: #### 2 55963 #### [facility],[address] [place] [address] 46803 AST [Catalytic activity/Vol] 17 U/L Normal 13 - 39 [facility] Comment on above: Performed By: #### 2 99172 #### [facility],[address] [place] [address] 34539 B/C RATIO 18 ratio Normal 0 - 30 [facility] Comment on above: Performed By: #### 2 61369 #### [facility],[address] [place] [address] 37062 Bilirubin [Mass/Vol] 0.9 mg/dL Normal 0.2 - 1.0 [facility] Comment on above: Performed By: #### 2 56981 #### [facility],[address] [place] [address] 34876 Calcium [Mass/Vol] 8.9 mg/dL Normal 8.5 - 10.1 [facility] Comment on above: Performed By: #### 2 64613 #### [facility],[address] [place] [address] 04614 Chloride [Moles/Vol] 103 mmol/L Normal 98 - 107 [facility] Comment on above: Performed By: #### 2 22080 #### [facility],[address] [place] [address] 66030 CMP with eGFR Normal [facility] Comment on above: Result Comment: COMP REHENSIVE METABOLIC PANEL Performed By: #### 2 31433 #### [facility],[address] [place] [address] 04045 CO2 [Moles/Vol] 25.0 mmol/L Normal 21.0 - 32.0 [facility] Comment on above: Performed By: #### 2 56693 #### [facility],[address] [place] [address] 84508 Creatinine [Mass/Vol] 0.87 mg/dL Normal 0.55 - 1.02 [facility] Comment on above: Performed By: #### 2 87880 #### [facility],[address] [place] [address] 12966 GFR/1.73 sq M.predicted among non-blacks MDRD (S/P/Bld) [Vol rate/Area] mL/min/{1.73_m2} Normal 60 - 999 [facility] Comment on above: Performed By: #### 2 38620 #### [facility],[address] [place] [address] 27471 Result Comment: ACCO RDING TO THE NATIONAL KIDNEY DISEASE EDUCATION PROGRAM(NKDE), A NORMAL eGFR IS A VALUE GREATER THAN OR EQUAL TO 60 ML/MIN/1.73 SQ METERS. CHRONIC KIDNEY DISEASE: <60mL/MIN/1.73 SQ METERS KIDNEY FAILURE: <15mL/MIN/1.73 SQ METERS THIS TEST SHOULD ONLY BE USED FOR PATIENTS 18 YEARS OF AGE AND OLDER. Globulin (S) [Mass/Vol] 3.8 g/dL Normal 1.5 - 3.8 [facility] Comment on above: Performed By: #### 2 69916 #### [address] [address] Glucose [Mass/Vol] 86 mg/dL Normal 74 - 106 [facility] Comment on above: Performed By: #### 2 61163 #### [address] [address] Potassium [Moles/Vol] 3.3 mmol/L Low 3.5 - 5.1 [facility] Comment on above: Performed By: #### 2 91340 #### [address] [address] Protein [Mass/Vol] 8.2 g/dL Normal 6.4 - 8.2 [facility] Comment on above: Performed By: #### 2 02240 #### [address] [address] Sodium [Moles/Vol] 140 mmol/L Normal 136 - 145 [facility] Comment on above: Performed By: #### 2 73296 #### [address] [address] Urea nitrogen [Mass/Vol] 16 mg/dL Normal 7 - 18 [facility] Comment on above: Performed By: #### 2 14348 #### [address] [address] LIPASEon 03-09-2024 Lipase [Catalytic activity/Vol] 43.0 U/L Normal 15.0 - 78.0 [facility] Comment on above: Result Comment: *PLE ASE NOTE THAT RANGES FOR LIPASE HAVE CHANGED OF 02/06/23 DUE TO AN ASSAY UPDATE BY THE COAT ROOM ATTENDANT.THE NEW ASSAY RANGE IS 6-250 U/L, WITH A REFERENCE RANGE OF 16-77 U/L. Performed By: #### 2 99406 #### [facility],[address] [place], [place] [address] SERUM QUALon 03-09 EXTERNAL QC DONE? YES Normal [facility] Comment on above: Performed By: #### 2 91977 #### [facility],[address] [place] [address] INTERNAL QC PASS Normal [facility] Comment on above: Performed By: #### 2 77093 #### [facility],[address] [place] [address] SER Negative Normal NEGATIVE [facility] Comment on above: Performed By: #### 2 95812 #### [facility],[address] [place], [place] [address] URINALYSISon 03-09-2024 Bilirubin Ql (U) Negative Normal NORMAL: NEGATIVE [facility] Comment on above: Performed By: #### 2 88405 #### [facility],[address] [place] [address] 72587 Clarity (U) sl.cloudy Normal NORMAL: CLEAR [facility] Comment on above: Performed By: #### 2 68591 #### [facility],[address] [place] [address] 26807 Color (U) ang Normal NORMAL: YELLOW [facility] Comment on above: Performed By: #### 2 77948 #### [facility],[address] [place] [address] 60514 Glucose Ql (U) NORM Normal NORMAL: NORMAL [facility] Comment on above: Performed By: #### 2 50182 #### [facility],[address] [place] [address] 95951 Hemoglobin Ql (U) Negative Normal NORMAL: NEGATIVE [facility] Comment on above: Performed By: #### 2 59390 #### [facility],[address] [place] [address] 33298 Ketone 5 Abnormal NORMAL: NEGATIVE [facility] Comment on above: Performed By: #### 2 37801 #### [facility],[address] [place] [address] 93573 Leukocytes Negative Normal NORMAL: NEGATIVE [facility] Comment on above: Performed By: #### 2 49768 #### [facility],[address] [place] [address] Nitrite Ql (U) Negative Normal NORMAL: NEGATIVE [facility] Comment on above: Performed By: #### 2 92306 #### [facility],[address] [place] [address] pH (U) 5 [pH] Normal NORMAL: 5.0-8.0 [facility] Comment on above: Performed By: #### 2 00221 #### [facility],[address] [place] [address] Protein Ql (U) 30 Abnormal NORMAL: NEGATIVE [facility] Comment on above: Performed By: #### 2 63748 #### [facility],[address] [place] [address] Sp [place] 1.025 Normal NORMAL: 1.010-1.030 [facility] Comment on above: Performed By: #### 2 48022 #### [facility],[address] [place] [address] Specimen Type R Normal [facility] Comment on above: Performed By: #### 2 88456 #### [facility],[address] [place], [place] [address] Urinalysis dipstick W Reflex Microscopic panel (U) NOT INDICATED Normal [facility] Comment on above: Performed By: #### 2 62357 #### [facility],[address] [place], [place] [address] Urobilinog NORM Normal NORMAL: NORMAL [facility] Comment on above: Performed By: #### 2 89289 #### [place] [address] [facility] [address] B-HCG SerPl-aCncon 4 HCG.beta subunit Qn 10.7 m[IU]/mL High <5.0 Cl [facility] Comment on above: Order Comment: Speci men Type: BLOOD SPECIMENOrdering Facility: [facility] Address: [address] [place] [address] Result Comment: HCG values 5 to 16 mU/mL may represent benign, pituitary derived HCG in non- women over 40 years of age. QUANTITATIVE HCG NORMAL RANGES Weeks of Gestation (Weeks Since LMP) 3 Weeks (5.8-71.2 mIU/mL) 4 Weeks (9.5-750 mIU/mL) 5 Weeks (217-7138 mIU/mL) 6 Weeks (158-06604 mIU/mL) 7 Weeks (3697-246553 mIU/mL) 8 Weeks (72562-488815 mIU/mL) 9 Weeks (10624-837865 mIU/mL) 10 Weeks (75571-431146 mIU/mL) 12 Weeks (26519-640741 mIU/mL) Referenced to 4th IS of [facility] Performed By: #### 2 1198-7 ####[facility] [id number] [facility] [id number] [place] [address] [place] CBC W/Diff, Automatedon 12-0 Absolute Neut Normal 2.0-7.7 [facility] Comment on above: Order Comment: Comme nts: First day Result Comment: RN R EQUEST Performed By: #### L 100.0100 #### [facility] [address] [facility] [place], [place], [address] HCT Normal 37-47 [facility] Comment on above: Order Comment: Commdiane nts: First day Result Comment: RN R EQUEST Performed By: #### L 100.0100 #### [facility] [address] [place] [place], [address] HGB Normal 12.0-15.0 [facility] Comment on above: Order Comment: Comme nts: First day Result Comment: RN R EQUEST Performed By: #### L 100.0100 #### [facility] [address] [place], [address] MCH Normal 27.0-32.0 [facility] Comment on above: Order Comment: Comme nts: First day Result Comment: RN R EQUEST Performed By: #### L 100.0100 #### [facility] [address] [place], [address] MCHC Normal 32-36 [facility] Comment on above: Order Comment: Comme nts: First day Result Comment: RN R EQUEST Performed By: #### L 100.0100 #### [facility] [address] [place], [address] MCV Normal 81-99 [facility] Comment on above: Order Comment: Comme nts: First day Result Comment: RN R EQUEST Performed By: #### L 100.0100 #### [facility] [address] [place], [address] NEUT% Normal 47-70 [facility] Comment on above: Order Comment: Comme nts: First day Result Comment: RN R EQUEST Performed By: #### L 100.0100 #### [facility] [address] [place], [address] PLT Normal 150-450 [facility] Comment on above: Order Comment: Comme nts: First day Result Comment: RN R EQUEST Performed By: #### L 100.0100 #### [facility] [address] [place], [address] RBC Normal 4.2-5.4 [facility] Comment on above: Order Comment: Comme nts: First day Result Comment: RN R EQUEST Performed By: #### L 100.0100 #### [facility] [address] [place], [address] RDW CV Normal 11.6-14.6 [facility] Comment on above: Order Comment: Comme nts: First day Result Comment: RN R EQUEST Performed By: #### L 100.0100 #### [facility] [address] [place], [address] RDW SD Normal 35.1-43.9 [facility] Comment on above: Order Comment: Comme nts: First day Result Comment: RN R EQUEST Performed By: #### L 100.0100 #### [facility] [address] [place], [address] WBC Normal 4.4-11.0 [facility] Comment on above: Order Comment: Comme nts: First day Result Comment: RN R EQUEST Performed By: #### L 100.0100 #### [facility] [address] [place], [address] Discharge Instructionon 12-0 Discharge Instruction [facility] Medical Records Department [address] [place] [address] Instructions for Home/Discharge Instructions 01/12/23 0831 MR#: [id number] Acct: [id number] Name: ODESSA DORSEY Rep #: [id number] : 2000 22 From: Soila Champion MD PCP: Care Physician,No Primary Status:ADM IN Discharge Instructions Diet Discharge Diet: No restrictions Activity May resume sexual activity in: 6-8 weeks Dressing / Incision Call your doctor if you observe: Fever of 101 or Higher, Inability to urinate, Using more than 1 pad per hour and Uncontrolled pain Follow Up Care Please Follow Up With: Soila Champion MD When: 1-2 weeks post and again at 6 weeks post . [phone] Test Results: Test results from this visit will be discussed in further detail at your follow-up appointment, if applicable. Discharge Plan Admission Admit Date/Time: 01/11/23 12:15 Attending Provider: Shirley Alonso Primary Care Provider: Care Physician,No Primary Discharge Orders/Prescriptions Prescriptions: No Action [id number]-[id number]-[id number] 1 mg Tablet 1 tab PO DAILY acetaminophen 500 mg Tablet 1,000 mg PO Q6H PRN PRN (Reason: Pain 1-10 Or Fever) Qty: 0 0RF Referrals / Follow Up: Care Physician,No Primary [Primary Care Provider] - 01/12/23 0831 Soila Champion MD CC: No Primary Care Physician Signed Normal [facility] (ROM) Rupture Of Membraneson 01-11-2023 ROM Positive Abnormal Negative [facility] Comment on above: Result Comment: Amni otic fluid present indicates rupture of Membranes. RESULTS CALLED TO REYES AMES 01/11/23 1214 Melissa Torres. REPORT READ BACK BY SAME . Performed By: #### L 205.1000 #### [facility] [address] [place], [place], [address] Absolute lymphocyte countOrd ered By: Shirley Alonso on 01-11-2023 Lymphocytes Auto (Unsp spec) [#/Vol] 1.71 10*3/uL 0.83-4.51 [facility] Basophil percentageOrdered B y: Shirley Alonso on 01-11-2023 Basophils/100 WBC (Bld) 1.1 % 0-1 [facility] Eosinophils/100 WBC (Bld) 1.0 % 0-5 [facility] Neutrophils (Bld) [#/Vol] 5.5 10*3/uL 2.0-7.7 [facility] Neutrophils/100 WBC (Bld) 66.6 % 47-70 [facility] WBC (Bld) [#/Vol] 8.2 10*3/uL 4.4-11.0 [facility] Blood erythrocytes count (nu mber/volume)Ordered By: Shirley Alonso on 01-11-2023 RBC (Bld) [#/Vol] 3.99 10*6/uL 4.2-5.4 [facility] Blood hemoglobin measurement (mass/volume)Ordered By: Shirley Alonso on 01-11-2023 Hemoglobin (Bld) [Mass/Vol] 12.1 g/dL 12.0-15.0 [facility] Blood lymphocytes/100 leukoc ytesOrdered By: Shirley Alonso on 01-11-2023 Lymphocytes/100 WBC (Bld) 20.9 % 19-41 [facility] Blood monocytes/100 leukocyt esOrdered By: Shirley Alonso on 01-11-2023 Monocytes/100 WBC (Bld) 6.6 % 0-10 [facility] Blood platelet mean volumeOr dered By: Shirley Alonso on 01-11-2023 Platelet mean volume (Bld) [Entitic vol] 9.1 fL 6.2-12.0 [facility] CBC W/Diff, Automatedon Absolute Lymph 1.71 X10 3/uL Normal 0.83-4.51 [facility] Comment on above: Performed By: #### L 100.0100, BTS #### [facility] [address] [place], [address] Absolute Neut 5.5 X10 3/uL Normal 2.0-7.7 [facility] Comment on above: Performed By: #### L 100.0100, BTS #### [facility] [address] [place], [address] Basophils/100 WBC (Bld) 1.1 % High 0-1 [facility] Comment on above: Performed By: #### L 100.0100, BTS #### [facility] [address] [place], [address] Eosinophils/100 WBC (Bld) 1.0 % Normal 0-5 [facility] Comment on above: Performed By: #### L 100.0100, BTS #### [facility] [address] [place], [address] Erythrocyte distribution width (RBC) [Ratio] 13.1 % Normal 11.6-14.6 [facility] Comment on above: Performed By: #### L 100.0100, BTS #### [facility] [address] [place], [address] Hematocrit (Bld) [Volume fraction] 36.6 % Low 37-47 [facility] Comment on above: Performed By: #### L 100.0100, BTS #### [facility] [address] [place], [address] Hemoglobin (Bld) [Mass/Vol] 12.1 g/dL Normal 12.0-15.0 [facility] Comment on above: Performed By: #### L 100.0100, BTS #### [facility] [address] [place], [address] IG% 3.800 High 0.0-0.9 [facility] Comment on above: Result Comment: IG% - Immature Granulocytes (promyelocytes, myelocytes and metamyelocytes) > 1% indicates that a LEFT SHIFT is Present. Performed By: #### L 100.0100, BTS #### [facility] [address] [place], [address] Lymphocytes/100 WBC (Bld) 20.9 % Normal 19-41 [facility] Comment on above: Performed By: #### L 100.0100, BTS #### [facility] [address] [place], [address] MCH (RBC) [Entitic mass] 30.3 pg Normal 27.0-32.0 [facility] Comment on above: Performed By: #### L 100.0100, BTS #### [facility] [address] [place], [address] MCHC (RBC) [Mass/Vol] 33.1 g/dL Normal 32-36 [facility] Comment on above: Performed By: #### L 100.0100, BTS #### [facility] [address] [place], [address] MCV (RBC) [Entitic vol] 91.7 fL Normal 81-99 [facility] Comment on above: Performed By: #### L 100.0100, BTS #### [facility] [address] [place], [address] Monocytes/100 WBC (Bld) 6.6 % Normal 0-10 [facility] Comment on above: Performed By: #### L 100.0100, BTS #### [facility] [address] [place], [address] Neutrophils/100 WBC (Bld) 66.6 % Normal 47-70 [facility] Comment on above: Performed By: #### L 100.0100, BTS #### [facility] [address] [place], [address] Nucleated RBC (Bld) [#/Vol] 0 10*3/uL Normal 0-5 [facility] Comment on above: Performed By: #### L 100.0100, BTS #### [facility] [address] [place], [address] Platelet mean volume (Bld) [Entitic vol] 9.1 fL Normal 6.2-12.0 [facility] Comment on above: Performed By: #### L 100.0100, BTS #### [facility] [address] [place], [address] Platelets (Bld) [#/Vol] 265 10*3/uL Normal 150-450 [facility] Comment on above: Performed By: #### L 100.0100, BTS #### [facility] [address] [place], [address] RBC (Bld) [#/Vol] 3.99 10*6/uL Low 4.2-5.4 [facility] Comment on above: Performed By: #### L 100.0100, BTS #### [facility] [address] [place], [address] RDW SD 43.6 fl Normal 35.1-43.9 [facility] Comment on above: Performed By: #### L 100.0100, BTS #### [facility] [address] [place], [place], [address] WBC (Bld) [#/Vol] 8.2 10*3/uL Normal 4.4-11.0 [facility] Comment on above: Performed By: #### L 100.0100, BTS #### [facility] [address] [place], [address] Determination of erythrocyte mean corpuscular volume (MCV)Ordered By: Shirley Alonso on 01-11-2023 MCV (RBC) [Entitic vol] 91.7 fL 81-99 [facility] H AND P Exam - OB/GYNon 12- H&P Exam - SOCIAL WELFARE ADMINISTRATOR [facility] Medical Records Department [address] [place] [address] H P Exam - SOCIAL WELFARE ADMINISTRATOR 01/11/232004 MR#: [id number] Acct: [id number] Name: ODESSA DORSEY Rep #: [id number] : 2000 22 From: Shirley Alonso CNM PCP: Care Physician,No Primary Status:ADM IN Location: [place] [address] HPI - General General Date of Admission: 01/11/23 HPI Narrative ODESSA DORSEY, is a 22 F who presents at 39w5d by lmp. Presented with SROM around 10am and arrived at 4cm dilation, clear fluid with mild/moderate irregular contractions. complicated by tobacco, vaping, and CBD use in beginning of . Stopped during . Anemia during . Maternal Data Information HANNAH Calculator Estimated Delivery Date Method Current WG Current Estimate 01/13/23 Manual 39w 5d PFSH PFS Medical History (Updated 01/11/23 @ 20:11 by Shirley Alonso CNM) Anemia Anxiety Chlamydia infection affecting Depression Heart murmur Osteochondroma of tibia Supervision of normal Home Medications [id number]-wuc-Id-FA 1 mg tablet 1 tab PO DAILY 11/16/20 [History Last Taken 12/30/22 06:00] acetaminophen 500 mg tablet 1,000 mg (2 x 500 mg) PO Q6H PRN PRN Pain 1-10 Or Fever #0 tabs 11/18/20 [Rx Last Taken Unknown] Allergy/AdvReac Type Severity Reaction Status Date / Time No Known Allergies Allergy Verified 01/11/23 11:38 Family History no significant family his Surgical History (Updated 01/11/23 @ 11:58 by Nedra Du) H/O knee surgery Social History Smoking Status: Former smoker History Elective abortions Hx Para 1 Spontaneous abortions Hx # Term Pregnancies Ectopic pregnancies Hx # Pregnancies Multiple births # of living children NST FHR Rate Baby A Baseline: 135 Variability:: Moderate Accelerations:: 15 x 15 Decelerations:: Variable FHR Category:: Category II Uterine Activity:: Every 2-4 minutes, strong Vital Signs Vital Signs Vital Signs: 01/11/23 11:34 01/11/23 11:34 01/11/23 11:34 Temperature Temperature Source Temporal Pulse Rate 99 Blood Pressure 120/79 BP Systolic 120 BP Diastolic 79 Pulse Ox 01/11/23 11:34 01/11/23 11:34 01/11/23 12:49 Temperature 98.3 F Temperature Source Pulse Rate Blood Pressure 115/68 BP Systolic 115 BP Diastolic 68 Pulse Ox 100 01/11/23 12:49 01/11/23 12:50 01/11/23 12:50 Temperature Temperature Source Temporal Pulse Rate 88 89 Blood Pressure BP Systolic BP Diastolic Pulse Ox 01/11/23 12:50 01/11/23 12:50 01/11/23 13:59 Temperature 97.8 F Temperature Source Pulse Rate Blood Pressure 111/73 BP Systolic 111 BP Diastolic 73 Pulse Ox 97 01/11/23 13:59 01/11/23 13:59 01/11/23 13:59 Temperature Temperature Source Temporal Pulse Rate 86 Blood Pressure BP Systolic BP Diastolic Pulse Ox 96 01/11/23 13:59 01/11/23 13:59 01/11/23 13:59 Temperature 98.1 F Temperature Source Pulse Rate 90 Blood Pressure BP Systolic BP Diastolic Pulse Ox 96 01/11/23 14:51 01/11/23 14:51 01/11/23 14:51 Temperature Temperature Source Pulse Rate 87 Blood Pressure 100/67 BP Systolic 100 BP Diastolic 67 Pulse Ox 97 01/11/23 14:51 01/11/23 14:51 01/11/23 14:51 Temperature Temperature Source Temporal Pulse Rate 86 Blood Pressure BP Systolic BP Diastolic Pulse Ox 97 01/11/23 14:51 01/11/23 16:11 01/11/23 16:11 Temperature 97.9 F Temperature Source Temporal Pulse Rate Blood Pressure 109/72 BP Systolic 109 BP Diastolic 72 Pulse Ox 01/11/23 16:11 01/11/23 16:11 01/11/23 16:11 Temperature 98.4 F Temperature Source Pulse Rate 86 Blood Pressure BP Systolic BP Diastolic Pulse Ox 100 01/11/23 16:21 01/11/23 16:21 01/11/23 16:26 Temperature Temperature Source Pulse Rate 77 87 Blood Pressure BP Systolic BP Diastolic Pulse Ox 100 01/11/23 16:26 01/11/23 16:31 01/11/23 16:31 Temperature Temperature Source Pulse Rate 82 Blood Pressure BP Systolic BP Diastolic Pulse Ox 100 100 01/11/23 16:36 01/11/23 16:36 01/11/23 16:41 Temperature Temperature Source Pulse Rate 86 Blood Pressure 134/79 H BP Systolic 134 BP Diastolic 79 Pulse Ox 100 01/11/23 16:41 01/11/23 16:41 01/11/23 16:49 Temperature Temperature Source Pulse Rate 85 Blood Pressure 121/70 H BP Systolic 121 BP Diastolic 70 Pulse Ox 100 01/11/23 16:49 01/11/23 16:49 01/11/23 (more content not included)... Normal [facility] Hematocrit Auto (Bld) [Volum e fraction]Ordered By: Shirley Alonso on 01-11-2023 Hematocrit (Bld) [Volume fraction] 36.6 % 37-47 [facility] L509.8000on 01-11-2023 Syphilis Abs Non-Reactive Normal [facility] Comment on above: Performed By: #### L 509.8000 #### [facility] [address] [place], [address] Laboratory - Drug toxicology Ordered By: Shirley Alonso on 01-11-2023 Amphetamines Ql (U) Negative <1000 ng/mL [facility] Benzodiazepines Ql (U) Negative < 200 ng/mL [facility] Cannabinoids Screen Ql (U) Negative < 50 ng/mL [facility] Cocaine Ql (U) Negative < 300 ng/mL [facility] Opiates Ql (U) Negative < 300 ng/mL [facility] Laboratory - Hematology and Cell countsOrdered By: Shirley Alonso on 01-11-2023 Erythrocyte distribution width (RBC) [Entitic vol] 43.6 fL 35.1-43.9 [facility] Erythrocyte distribution width (RBC) [Ratio] 13.1 % 11.6-14.6 [facility] Immature granulocytes/100 WBC (Bld) 3.800 % 0.0-0.9 [facility] Comment on above: IG% - Immature Granu locytes (promyelocytes, myelocytes and metamyelocytes) > 1% indicates that a LEFT SHIFT is Present. MCH (RBC) [Entitic mass] 30.3 pg 27.0-32.0 [facility] Nucleated RBC/100 WBC (Bld) [Ratio] 0 % 0-5 [facility] MCHC Auto (RBC) [Mass/Vol]Or dered By: Shirley Alonso on 01-11-2023 MCHC (RBC) [Mass/Vol] 33.1 g/dL 32-36 [facility] No Panel InformationOrdered By: Shirley Alonso on 01-11-2023 MDMA (Ecstasy) Screen Negative < 500 ng/mL [facility] Urine Barbiturates Screen Negative < 200 ng/mL [facility] Urine Drug Screen Comment [facility] Comment on above: CONFIRMATORY TESTING FOR ALL POSITIVE URINE DRUG SCREENRESULTS WILL ONLY BE SENT OUT UPON PHYSICIAN ORDER. VISTA Urine Drug Screen methods provide only preliminaryanalytical test results. A more specific alternate chemicalmethod must be used in order to obtain a confirmedanalytical result. Gas chromatography/mass spectrometery(GC/MS) is the preferred confirmatory method. Clinicalconsideration and professional judgement should be appliedto any drug of abuse test result, particularly whenpreliminary positive results are used. URINE TCA TESTING MUST BE ORDERED SEPARATELY. USE TESTMNEMONIC: [facility] Urine Methadone Screen Negative < 300 ng/mL [facility] Vaginal Amniotic Fluid Detection Positive Negative [facility] Comment on above: Amniotic fluid prese nt indicates rupture of Membranes. RESULTS CALLED TO REYES AMES 01/11/23 1214 Melissa Torres.REPORT READ BACK BY SAME . Operative Reporton 3 Operative Report [facility] Medical Records Department [address] [place] [address] Operative Report 01/11/232017 MR#: [id number] Acct: [id number] Name: ODESSA DORSEY Rep #: [id number] : 2000 From: Shirley Alonso CNM PCP: Care Physician,No Primary Status:ADM IN Location: BO216-8 Maternal Data Information HANNAH Calculator Estimated Delivery Date Method Current WG Current Estimate 01/13/23 Manual 39w 5d Final HANNAH: 01/13/23 Vaginal Delivery Maternal Presentation Maternal Presentation: Active Labor and Spontaneous Rupture of Membranes Type of Induction: Pitocin (augmentation) Operative Information Date of Procedure: 01/11/23 Pre-Operative Diagnosis: SROM, Active labor Post-Operative Diagnosis: Surgery / Procedure Performed: Spontaneous Vaginal Delivery Type of Anesthesia: Epidural Estimated Blood Loss: 200ml Time of Delivery: 19:55 Findings Description of Procedure: Progressed to complete with urge to push. Epidural for pain management. of viable male infant over intact perineum. APGARS 8,9 respectively. head delivered with body immediately forthco judah. Placed on maternal abdomen, strong cry. Mouth and nares suctioned for secretions. Pitocin started for active 3rd stage management. Cord doubly clamped and cut by FOB after pulsations ceased, delayed cord clamping. Placenta delivered intact via crenshaw, 3 vessel cord intact. Perineum inspected and revealed intact perineum. Fundus firm and hemostasis achieved. EBL 200ml. Mom and baby stable, planning to bottle feed. Family bonding well. notified of delivery, patient status, and above assessment. Presentation: Vertex and ROP Amniotic Membrane Rupture Type: Spontaneous Amniotic Fluid Description: Clear Placental Delivery Description: Spontaneous Placenta Disposition: [facility] Cord Vessel Description: 3 Vessels Cord Entanglement: None A Gender: Male (1 minute): 8 (5 minute): 9 Delayed Cord Clamping: Yes Post Vaginal Delivery Medications Given After Delivery: IV Pitocin Episiotomy Description: None Laceration: None Complication Complications: None 01/11/232027 Cosigner Signature (if applicable): CC: CNGunner Alonso; No Primary Care Physician Signed Normal [facility] Platelets bldOrdered By: Monet Alonso on 01-11-2023 Platelets (Bld) [#/Vol] 265 10*3/uL 150-450 [facility] Serum Treponema species anti body detectionOrdered By: Shirley Alonso on 01-11-2023 Treponema sp Ab Ql (S) Non-Reactive [facility] Type AND Screenon 01-11-2023 ABO and Rh group Nom (Bld) Blood group A Rh(D) positive Normal [facility] Comment on above: Order Comment: Labor Performed By: #### L 100.0100, BTS #### [facility] [address] [place], [address] Urine Drug Screen (VISTA)on 01-11-2023 AMPHETAMINES Negative Normal <1000 ng/mL [facility] Comment on above: Performed By: #### L 505.5000 #### [facility] [address] [place], [address] BARBITIURATES Negative Normal < 200 ng/mL [facility] Comment on above: Performed By: #### L 505.5000 #### [facility] [address] [place], [address] BENZODIAZIPINE Negative Normal < 200 ng/mL [facility] Comment on above: Performed By: #### L 505.5000 #### [facility] [address] [place], [address] COCAINE Negative Normal < 300 ng/mL [facility] Comment on above: Performed By: #### L 505.5000 #### [facility] [address] [place], [address] ECSTACY Negative Normal < 500 ng/mL [facility] Comment on above: Performed By: #### L 505.5000 #### [facility] [address] [facility] [address] METHADONE Negative Normal < 300 ng/mL [facility] Comment on above: Performed By: #### L 505.5000 #### [facility] [address] [place], [address] OPIATES Negative Normal < 300 ng/mL [facility] Comment on above: Performed By: #### L 505.5000 #### [facility] [address] [place], [address] PCP Negative Normal < 25 ng/mL [facility] Comment on above: Performed By: #### L 505.5000 #### [facility] [address] [place], [address] THC Negative Normal < 50 ng/mL [facility] Comment on above: Performed By: #### L 505.5000 #### [facility] [address] [place] [id number] VISTA UDS PH 6 Normal [facility] Comment on above: Performed By: #### L 505.5000 #### [facility] [address] [place], [address] Urine phencyclidine (PCP) de tectionOrdered By: Shirley Alonso on 01-11-2023 Phencyclidine Ql (U) Negative < 25 ng/mL [facility] URINE OB DIP B/Oon 3 Glucose Ql (U) Negative Neg mg/dL [facility] Protein.monoclonal (U) [Mass/Vol] Negative Neg mg/dL [facility] (ROM) Rupture Of Membraneson 12-31-2022 ROM Negative Normal Negative [facility] Comment on above: Result Comment: Amni otic fluid not present indicates No Rupture of Membranes at time of specimen collection. Performed By: #### L 205.1000 #### [facility] [address] [facility] [address] No Panel InformationOrdered By: Tom Jacinto on 11-22-2023 Vaginal Amniotic Fluid Detection Negative Negative [facility] Comment on above: Amniotic fluid not p resent indicates No Rupture of FetalMembranes at time of specimen collection. OB Triage Physician Noteon 1 03-02-2022 OB Triage Physician Note [facility] Medical Records Department [address] [place] [address] OB Triage Physician Note 12/31/22 1831 MR#: [id number] Acct: [id number] Name: ODESSA DORSEY Rep #: [id number] : 2000 22 From: Tom Jacinto MD PCP: Status:REG CLI Y Location: [place] [id number] HPI - General General Date of Admission: 12/31/22 Date of Service: 12/31/22 Chief Complaint: contractions HPI Narrative ODESSA DORSEY, is a 22 2 para 1 female who presented at 3-1/7 weeks complaining contractions. Denies vaginal bleeding. Some vaginal discharge. Maternal Data Information HANNAH Calculator Estimated Delivery Date Method Current WG Current Estimate 01/13/23 Manual 38w 1d Final HANNAH: 12/14/22 Gestational age: 38 1/7 PFSH [facility] Medical History (Updated 12/31/22 @ 18:[address] Tom Jacinto MD) Anxiety Chlamydia infection affecting Depression Heart murmur Supervision of normal Home Medications [id number]-sld-Dk-FA 1 mg tablet 1 tab PO DAILY 11/16/20 [History Last Taken 12/30/22 06:00] acetaminophen 500 mg tablet 1,000 mg (2 x 500 mg) PO Q6H PRN PRN Pain 1-10 Or Fever #0 tabs 11/18/20 [Rx Last Taken Unknown] Allergy/AdvReac Type Severity Reaction Status Date / Time No Known Allergies Allergy Verified 12/31/22 16:23 Social History Smoking Status: Former smoker History Elective abortions Hx Para 0 Spontaneous abortions Hx # Term Pregnancies Ectopic pregnancies Hx # Pregnancies Multiple births # of living children NST FHR Rate Baby A Baseline: 130 Variability:: Moderate Accelerations:: 15 x 15 Decelerations:: Early (x1) NST Reactive:: Yes FHR Category:: Category I Uterine Activity:: irreg ctxs Assessment Plan (1) 38 weeks gestation of : PLAN: Nonstress test is reactive. No evidence of active labor. Return for labor or as needed. No evidence of rupture membranes. Keep next office appointment as scheduled. 12/31/22 183 Date Tom Jacinto MD Cosigner Signature (if applicable): CC: Dr. Tom Jacinto MD Signed Normal [facility] FETALon 12-30-2022 ++ --- ------++ [facility] Echocardiogram Report ++ ------++ NAME: MISS ODESSA DORSEY : 2000 Age: 22 years Due Date: 01/13/2023 Gender: F Study Date: 12/30/2022 12:58:50 PM GA: 38.00 Requested By: Jamal Zamora. Physician: Rohini Nuñez MD Study Location: [facility] Diagnosis: O35.8XX1 Maternal care for other (suspected) abnormality and damage, fetus 1 History: Suspected anomaly. Indications: Evaluate cardiac anatomy and function. Procedures: 82270 Echo, Complete; 46446 Doppler, Complete; 44851 Doppler Color Flow INTERPRETATION SUMMARY echocardiogram on December 30, 2022 at 38 weeks and 6 days of gestation shows atrial situs solitus with levocardia. SVC and IVC return normally to the right atrium. The os of the coronary sinus opens normally to the right atrium. One right and one left pulmonary vein were seen returning normally into the left atrium. The atria were normal in size. Atrial septum was somewhat aneurysmal/redundant and mobile, and there was normal right to left shunting at the atrial level. The left and right ventricles were normal in size and shortening. No ventricular hypertrophy. The ventricular septum appeared intact. Normal mitral and tricuspid valves without significant regurgitation. The left and right ventricular outflow tracts were widely patent. The aortic and ductal arches were widely patent, ductal arch being somewhat tortuous. heart rate and rhythm were regular and trivial and physiologic pericardial fluid was seen. Normal Doppler of umbilical artery, umbilical vein, ductus venosus. The results and limitations of the echocardiogram and echocardiography in general, including the inability to exclude ASDs, some VSDs, minor valvar abnormalities, partial anomalous pulmonary venous return, persistent patent ductus arteriosus, and coarctation of the aorta, were explained to the patient. MEASUREMENTS: Ao Isthmus: 0.44 cm Z score: 0.60 Transv Ao: 0.60 cm Z score: -0.47 Biometrics: The BPD is measured at 9.38 cm. The AC is measured at 36.74 cm. The FL is measured at 7.00 cm. The estimated weight is calculated at 3855.25 g. Blood Flow/Rhythm: The umbilical artery flow is normal. The hepatic artery flow is normal. The pulsatility index is 1.42. The Heart rate is regular and 148 bpm. POSITION/CONNECTION: VEINS: ATRIA/SEPTUM: AV VALVES/CANAL: VENTRICLES: OUTFLOW TRACTS: GREAT ARTERIES: OTHER: Performed by Summer Pinon. Electronically signed by Rohini Nuñez MD, 12/30/2022 2:56:54 PM. Final CC [employer] [facility] : [id number] ISUID See Link below for Image Normal [facility] OBSTETRIC ULTRASOUND WHIon 1 02-25-2022 [facility] URINE OB DIP B/Oon 3 Glucose Ql (U) Negative Neg mg/dL [facility] Protein.monoclonal (U) [Mass/Vol] Negative Neg mg/dL [facility] URINE OB DIP B/Oon 3 Glucose Ql (U) Negative Neg mg/dL [facility] Protein.monoclonal (U) [Mass/Vol] Negative Neg mg/dL [facility] Urine Cultureon 11-26-2022 URC Presumptive C albica ns [place] Count <1000 Normal [facility] Comment on above: Performed By: #### L 400.2010 #### [facility] [address] [place], [place], [address] (ROM) Rupture Of Membraneson 11-25-2022 ROM Negative Normal Negative [facility] Comment on above: Result Comment: Amni otic fluid not present indicates No Rupture of Membranes at time of specimen collection. Performed By: #### M 100.2200, L205.1000 #### [facility] [address] [place], [place], [address] OB Triage Physician Noteon 1 OB Triage Physician Note [facility] Medical Records Department [address] [place] [address] OB Triage Physician Note 11/25/22 0059 MR#: [id number] Acct: [id number] Name: ODESSA DORSEY Rep #: [id number] : 2000 22 From: Shirley Alonso CNM PCP: Status:DEP CLI Y Location: [facility]OUT HPI - General HPI Narrative ODESSA DORSEY, is a 22 F who presents at 32w6d for possible ROM. Had leakage of fluid and burning with urination. No vaginal bleeding or contractions. Maternal Data Information HANNAH Calculator Estimated Delivery Date Method Current WG Current Estimate 01/13/23 Manual 33w 0d PFSH PFSH Medical History (Updated 11/25/22 @ 01:02 by Shirley Alonso CNM) Anxiety Chlamydia infection affecting Depression Heart murmur Supervision of normal Home Medications [id number]-fyo-[id number]-FA 1 mg tablet 1 tab PO DAILY 11/16/20 [History Last Taken 11/24/22] acetaminophen 500 mg tablet 1,000 mg (2 x 500 mg) PO Q6H PRN PRN Pain 1-10 Or Fever #0 tabs 11/18/20 [Rx Last Taken Unknown] ibuprofen 600 mg tablet 600 mg PO Q6H PRN PRN Pain Score 1-3 #0 tabs 11/18/20 [Rx Last Taken Unknown] Allergy/AdvReac Type Severity Reaction Status Date / Time No Known Allergies Allergy Verified 11/24/22 22:20 Social History Smoking Status: Former smoker History Elective abortions Hx Para 0 Spontaneous abortions Hx # Term Pregnancies Ectopic pregnancies Hx # Pregnancies Multiple births # of living children NST FHR Rate Baby A Baseline: 125 Variability:: Moderate Accelerations:: 15 x 15 Decelerations:: None Uterine Activity:: Irregular Assessment Plan (1) Dysuria: PLAN: Plan 1) Send urine culture 2) Follow up in office if no improvement 3) ROM plus negative 4) D/C home 11/25/22 0104 Date Shirley Alonso CNM Cosigner Signature (if applicable): Date CC: PEGGY Alonso Signed Normal [facility] Urinalysis, Routine (Dipstic k)on 11-25-2022 BILIRUBIN URINE Negative Normal Negative [facility] Comment on above: Order Comment: COLLE CTOR TO SPECIFY Performed By: #### L 400.2010 #### [facility] [address] [place], [address] Clarity (U) Clear Normal Clear [facility] Comment on above: Order Comment: COLLE CTOR TO SPECIFY Performed By: #### L 400.2010 #### [facility] [address] [place], [address] Color (U) Yellow Normal Yellow [facility] Comment on above: Order Comment: COLLE CTOR TO SPECIFY Performed By: #### L 400.2010 #### [facility] [address] [place], [address] GLUCOSE, UR Normal Normal Normal [facility] Comment on above: Order Comment: COLLE CTOR TO SPECIFY Performed By: #### L 400.2010 #### [facility] [address] [place], [address] KETONE UR Negative Normal Negative [facility] Comment on above: Order Comment: COLLE CTOR TO SPECIFY Performed By: #### L 400.2010 #### [facility] [address] [place], [address] LEUK ESTERASE 500 /ul Abnormal Negative [facility] Comment on above: Order Comment: COLLE CTOR TO SPECIFY Performed By: #### L 400.2010 #### [facility] [address] [place], [address] Nitrite Ql (U) Negative Normal Negative [facility] Comment on above: Order Comment: COLLE CTOR TO SPECIFY Performed By: #### L 400.2010 #### [facility] [address] [place], [address] OCCULT BLOOD-UR 25 /ul Abnormal Negative [facility] Comment on above: Order Comment: COLLE CTOR TO SPECIFY Performed By: #### L 400.2010 #### [facility] [address] [place], [address] pH UR 8.0 Normal 5.0 - 8.0 [facility] Comment on above: Order Comment: MICKEY CTOR TO SPECIFY Performed By: #### L 400.2010 #### [facility] [address] [place], [address] PROT DIPSTX Negative Normal Negative [facility] Comment on above: Order Comment: MICKEY CTOR TO SPECIFY Performed By: #### L 400.2010 #### [facility] [address] [place], [address] SP.GR. DIPSTX 1.015 Normal 1.002-1.030 [facility] Comment on above: Order Comment: MICKEY CTOR TO SPECIFY Performed By: #### L 400.2010 #### [facility] [address] [place], [address] UROBILI Normal Normal Normal [facility] Comment on above: Order Comment: MICKEY CTOR TO SPECIFY Performed By: #### L 400.2010 #### [facility] [address] [place], [address] Bilirubin Test strip Ql (U)O rdered By: Shirley Alonso on 11-24-2022 Bilirubin Ql (U) Negative Negative [facility] Culture, urineOrdered By: Azael Alonso on 11-24-2022 Bacteria identified Cx Nom (U) Presumptive C albicans [facility] Ketones Test strip Ql (U)Ord ered By: Shirley Alonso on 11-24-2022 Ketones Ql (U) Negative Negative [facility] Nitrite Test strip Ql (U)Ord ered By: Shirley Alonso on 11-24-2022 Nitrite Ql (U) Negative Negative [facility] No Panel InformationOrdered By: Shirley Alonso on 11-24-2022 Vaginal Amniotic Fluid Detection Negative Negative [facility] Comment on above: Amniotic fluid not p resent indicates No Rupture of FetalMembranes at time of specimen collection. Protein Test strip Ql (U)Ord ered By: Shirley Alonso on 11-24-2022 Protein Ql (U) Negative Negative [facility] Urine blood detectionOrdered By: Shirley Alonso on 11-24-2022 RBC Ql (U) 25 /ul Negative [facility] Urine clarityOrdered By: Monet Alonso on 11-24-2022 Clarity (U) Clear Clear [facility] Urine color determinationOrd ered By: Shirley Alonso on 11-24-2022 Color (U) Yellow Yellow [facility] Urine glucose detectionOrder ed By: Shirley Alonso on 11-24-2022 Glucose Ql (U) Normal mg/dl Normal [facility] Urine leukocyte esterase det ection by dipstickOrdered By: Shirley Alonso on 11-24-2022 Leukocyte esterase Test strip Ql (U) 500 /ul Negative [facility] Urine pHOrdered By: Shirley Alonso on 11-24-2022 pH (U) 8.0 [pH] 5.0 - 8.0 [facility] Urine specific gravity measu rementOrdered By: Shirley Alonso on 11-24-2022 Specific gravity (U) [Rel density] 1.015 1.002-1.030 [facility] Urobilinogen Auto test strip Ql (U)Ordered By: Shirley Alonso on 11-24-2022 Urobilinogen Ql (U) Normal mg/dl Normal [facility] URINE OB DIP B/Oon 3 Glucose Ql (U) Negative Neg mg/dL [facility] Protein.monoclonal (U) [Mass/Vol] Negative Neg mg/dL [facility] URINE OB DIP B/Oon 3 Glucose Ql (U) Negative Neg mg/dL [facility] Protein.monoclonal (U) [Mass/Vol] Negative Neg mg/dL [facility] URINE OB DIP B/Oon 3 Glucose Ql (U) Negative Neg mg/dL [facility] Protein.monoclonal (U) [Mass/Vol] Negative Neg mg/dL [facility] OBSTETRIC ULTRASOUND WHIon 0 08-14-2022 [facility] BACTERIAL VAGINOSIS NAATon 0 08-06-2022 Lactobacillus crispatus+gasseri+bruce enii + Gardnerella vaginalis + Atopobium vaginae rRNA ASTON+probe Ql (Vag fld) Negative Negative for bacterial vaginosis [facility] C. trachomatis+N. gonorrhoea e DNA ASTON+probe Ql (Unsp spec)on 08-06-2022 C. trachomatis rRNA ASTON+probe Ql (Unsp spec) Negative Negative for Chlamydia trachomatis by amplificaton [facility] N. gonorrhoeae rRNA ASTON+probe Ql (Unsp spec) Negative Negative for Neisseria gonorrhoeae by amplification [facility] ZAIDA/TRICHOMONAS NAATon 0 08-06-2022 C. glabrata RNA ASTON+probe Ql (Vag fld) Negative Negative for Zaida glabrata [facility] Zaida sp DNA ASTON+probe Ql (Vag fld) Negative Negative for Zaida species [facility] T. vaginalis DNA ASTON+probe Ql (Unsp spec) Negative Negative for Trichomonas vaginalis by amplification [facility] URINE CULTUREon 08-06-2022 Bacteria identified Cx Nom (U) No growth (<1,000 CFU/ml) [facility] KNEE INJURY (4+ VIEWS)on KNEE INJURY (4+ VIEWS) [place] [address] Name: ODESSA DORSEY Phys: NIALL DA SILVA M.D. : 99 Age: 21 Sex: F Acct: [id number] Loc: ED Exam Date: 10/05/21 Status: DEP ER Radiology No.: Unit Number: [id number] Exam # Type/Exam [id number] RAD / KNEE INJURY (4+ VIEWS) LT EXAMINATION: FOUR XRAY VIEWS OF THE LEFT KNEE 10/05/2021 4:56 pm COMPARISON: None. HISTORY: ORDERING SYSTEM PROVIDED HISTORY: TECHNOLOGIST PROVIDED HISTORY: Reason for Exam: pain Lateral left knee pain, fall yesterday. FINDINGS: Linear lucency within the lateral tibial plateau seen on only the externally rotated view could represent nondisplaced fracture. Consider follow-up imaging in 2 weeks versus MRI for further evaluation. No focal osseous lesion. No evidence of joint effusion. No definite focal soft tissue abnormality. IMPRESSION: Linear lucency in the lateral tibial plateau seen on only one view could represent nondisplaced fracture. RECOMMENDATIONS: Consider follow-up x-rays in 2 weeks versus MRI for further evaluation. Electronically signed By Aniket Alfaro 10/05/2021 5:36:14 PM EST Workstation ID : [id number] < > Reported By: ANIKET ALFARO M.D. Signed In Fluency By: ANIKET ALFARO M.D. << Signature on File>> Reported By: ANIKET ALFARO M.D. Signed By: ANIKET ALFARO M.D. Tests performed at: [place] [address] [address] [place], [place] [address] Normal [facility] XR KNEE INJURY 4V AP/LAT/OBL S LTon 10-05-2021 [facility] Coronavirus 2019on 0 COVID 19 Source SURGICAL GARMENT FITTER Normal [facility] Reference Lab Comment on above: Result Comment: SURGICAL GARMENT FITTER S WAB Called to and read back by: Day [facility] 11/30/20192230 by Ca Tripp. Coronavirus 2019 0 COVID 19 Result SURGICAL GARMENT FITTER Abnormal Negative for COVID19 (SARS CoV2) by PCR. [facility] Reference Lab Comment on above: Result Comment: Posi tive for This test was developed and its performance characteristics determined by [facility]'s [facility] [place]. This test has been authorized by FDA under an Emergency Use Authorization (EUA). This test has been validated in accordance with the FDA's Guidance Document "Policy for Diagnostics Testing in Laboratories Certified to Perform High Complexity Testing under CLIA prior to Emergency use Authorization for Coronavirus Disease 2019 during the Public Health Emergency" issued on April 09, 2019. COVID19 (SARS This test was developed and its performance characteristics determined by [facility]'s [facility] [place]. This test has been authorized by FDA under an Emergency Use Authorization (EUA). This test has been validated in accordance with the FDA's Guidance Document "Policy for Diagnostics Testing in Laboratories Certified to Perform High Complexity Testing under CLIA prior to Emergency use Authorization for Coronavirus Disease 2019 during the Public Health Emergency" issued on April 09, 2019. CoV2) by This test was developed and its performance characteristics determined by [facility]'s [facility] [place]. This test has been authorized by FDA under an Emergency Use Authorization (EUA). This test has been validated in accordance with the FDA's Guidance Document "Policy for Diagnostics Testing in Laboratories Certified to Perform High Complexity Testing under CLIA prior to Emergency use Authorization for Coronavirus Disease 2019 during the Public Health Emergency" issued on April 09, 2019. PCR.(*) This test was developed and its performance characteristics determined by [facility]'s [facility] [place]. This test has been authorized by FDA under an Emergency Use Authorization (EUA). This test has been validated in accordance with the FDA's Guidance Document "Policy for Diagnostics Testing in Laboratories Certified to Perform High Complexity Testing under CLIA prior to Emergency use Authorization for Coronavirus Disease 2019 during the Public Health Emergency" issued on April 09, 2019. Vital Signs Date Time Vital Sign Value Performing Clinician Facility 10-19-2024 15:04-0400 Body mass index (BMI) [Ratio] 20.52 kg/m2 Tom Jacinto MD Work Phone: [facility] 10-19-2024 15:04-0400 Body weight 58.97 kg Tom Jacinto MD Work Phone: [facility] 10-19-2024 15:04-0400 Diastolic blood pressure 82 mm[Hg] Tom Jacinto MD Work Phone: [facility] 10-19-2024 15:04-0400 Systolic blood pressure 108 mm[Hg] Tom Jacinto MD Work Phone: [facility] 10-06-2024 10:45-0400 Body mass index (BMI) [Ratio] 20.36 kg/m2 Mela Dozier MD Work Phone: [facility] 10-06-2024 10:45-0400 Body weight 58.51 kg Mela Dozier MD Work Phone: [facility] 10-06-2024 10:45-0400 Diastolic blood pressure 60 mm[Hg] Mela Dozier MD Work Phone: [facility] 10-06-2024 10:45-0400 Systolic blood pressure 96 mm[Hg] Mela Dozier MD Work Phone: [facility] 09-06-2024 15:41-0400 Body mass index (BMI) [Ratio] 18.94 kg/m2 Tom Jacinto MD Work Phone: [facility] 09-06-2024 15:41-0400 Body weight 54.43 kg Tom Jacinto MD Work Phone: [facility] 09-06-2024 15:41-0400 Diastolic blood pressure 60 mm[Hg] Tom Jacinto MD Work Phone: [facility] 09-06-2024 15:41-0400 Systolic blood pressure 108 mm[Hg] Tom Jacinto MD Work Phone: [facility] 08-29-2024 10:47-0400 Body mass index (BMI) [Ratio] 19 kg/m2 Manuel Goldberg MD Work Phone: [facility] 08-29-2024 10:47-0400 Body weight 54.61 kg Manuel Goldberg MD Work Phone: [facility] 08-29-2024 10:47-0400 Diastolic blood pressure 80 mm[Hg] Manuel Goldberg MD Work Phone: [facility] 08-29-2024 10:47-0400 Systolic blood pressure 120 mm[Hg] Manuel Goldberg MD Work Phone: [facility] 08-05-2024 10:05-0400 Body mass index (BMI) [Ratio] 18.31 kg/m2 Mela Dozier MD Work Phone: [facility] 08-05-2024 10:05-0400 Body weight 52.62 kg Mela Dozier MD Work Phone: [facility] 08-05-2024 10:05-0400 Diastolic blood pressure 80 mm[Hg] Mela Dozier MD Work Phone: [facility] 08-05-2024 10:05-0400 Systolic blood pressure 120 mm[Hg] Mela Dozier MD Work Phone: [facility] 06-17-2024 11:16-0400 Body height 169.5 cm Jody Dc APRN.CNP Work Phone: [facility] 06-17-2024 11:16-0400 Body mass index (BMI) [Ratio] 18.47 kg/m2 Jody Dc SERVICE LIAISON REPRESENTATIVE.LIFEGUARD Work Phone: [facility] 06-17-2024 11:16-0400 Body weight 53.07 kg Jody Dc SERVICE LIAISON REPRESENTATIVE.LIFEGUARD Work Phone: [facility] 06-17-2024 11:16-0400 Diastolic blood pressure 60 mm[Hg] Jody Dc SERVICE LIAISON REPRESENTATIVE.LIFEGUARD Work Phone: [facility] 06-17-2024 11:16-0400 Systolic blood pressure 100 mm[Hg] Jody Dc SERVICE LIAISON REPRESENTATIVE.LIFEGUARD Work Phone: [facility] 04-30-2024 11:31-0400 Body mass index (BMI) [Ratio] 18.34 kg/m2 Krislyn Aberegg PA Work Phone: [facility] 04-30-2024 11:31-0400 Body temperature 98.2 [degF] Krislyn Aberegg PA Work Phone: [facility] 04-30-2024 11:31-0400 Body weight 50 kg Krislyn Aberegg PA Work Phone: [facility] 04-30-2024 11:31-0400 Diastolic blood pressure 86 mm[Hg] Krislyn Aberegg PA Work Phone: [facility] 04-30-2024 11:31-0400 Heart rate 94 /min Krislyn Aberegg PA Work Phone: [facility] 04-30-2024 11:31-0400 Respiratory rate 20 /min Krislyn Aberegg PA Work Phone: [facility] 04-30-2024 11:31-0400 SaO2% (BldA) [Mass fraction] 98 % Krislyn Aberegg PA Work Phone: [facility] 04-30-2024 11:31-0400 Systolic blood pressure 124 mm[Hg] Krislyn Aberegg PA Work Phone: [facility] 03-16-2023 11:04-0500 Body weight 58.24 kg Dahlia Cuevasjac SERVICE LIAISON REPRESENTATIVE.CNM Work Phone: [facility] 03-16-2023 11:04-0500 Diastolic blood pressure 72 mm[Hg] Dahlia Morley SERVICE LIAISON REPRESENTATIVE.CNM Work Phone: [facility] 03-16-2023 11:04-0500 Systolic blood pressure 110 mm[Hg] Dahlia Cuevasjac SERVICE LIAISON REPRESENTATIVE.CNM Work Phone: [facility] 01-19-2023 09:19-0500 Body temperature 97.39 [degF] Shirley Alonso SERVICE LIAISON REPRESENTATIVE.CNM Work Phone: [facility] 01-19-2023 09:19-0500 Body weight 57.7 kg Shirley Alonso SERVICE LIAISON REPRESENTATIVE.CNM Work Phone: [facility] 01-19-2023 09:19-0500 Diastolic blood pressure 66 mm[Hg] Shirley Alonso SERVICE LIAISON REPRESENTATIVE.CNM Work Phone: [facility] 01-19-2023 09:19-0500 Heart rate 117 /min Shirley Alonso APRN.CNM Work Phone: [facility] 01-19-2023 09:19-0500 SaO2% (BldA) [Mass fraction] 95 % Shirley Alonso SERVICE LIAISON REPRESENTATIVE.CNM Work Phone: [facility] 01-19-2023 09:19-0500 Systolic blood pressure 110 mm[Hg] Shirley Alonso SERVICE LIAISON REPRESENTATIVE.CNM Work Phone: [facility] 01-12-2023 19:41-0500 Body temperature 98 [degF] [facility] 01-12-2023 19:41-0500 Diastolic blood pressure 71 mm[Hg] [facility] 01-12-2023 19:41-0500 Heart rate 96 /min [facility] 01-12-2023 19:41-0500 Respiratory rate 16 /min [facility] 01-12-2023 19:41-0500 SaO2% (BldA) [Mass fraction] 99 % [facility] 01-12-2023 19:41-0500 Systolic blood pressure 108 mm[Hg] [facility] 01-11-2023 11:39-0500 Body height 165.1 cm [facility] 01-11-2023 11:39-0500 Body mass index (BMI) [Ratio] 23.5 kg/m2 [facility] 01-11-2023 11:39-0500 Body weight 64.18 kg [facility] 01-02-2023 16:28-0500 Body weight 63.14 kg Manuel Goldberg MD Work Phone: [facility] 01-02-2023 16:28-0500 Diastolic blood pressure 62 mm[Hg] Manuel Goldberg MD Work Phone: [facility] 01-02-2023 16:28-0500 Systolic blood pressure 110 mm[Hg] Manuel Goldberg MD Work Phone: [facility] 12-31-2022 18:18-0500 Diastolic blood pressure 84 mm[Hg] [facility] 12-31-2022 18:18-0500 Heart rate 100 /min [facility] 12-31-2022 18:18-0500 Systolic blood pressure 137 mm[Hg] [facility] 12-31-2022 17:01-0500 Body temperature 99.4 [degF] [facility] 12-31-2022 15:57-0500 Body height 165.1 cm [facility] 12-31-2022 15:57-0500 Body mass index (BMI) [Ratio] 22.7 kg/m2 [facility] 12-31-2022 15:57-0500 Body weight 62 kg [facility] 12-26-2022 14:16-0500 Body weight 61.24 kg Jody Dc APRN.CNP Work Phone: [facility] 12-26-2022 14:16-0500 Diastolic blood pressure 60 mm[Hg] Jody Dc APRN.CNP Work Phone: [facility] 12-26-2022 14:16-0500 Systolic blood pressure 100 mm[Hg] Jody Dc SERVICE LIAISON REPRESENTATIVE.LIFEGUARD Work Phone: [facility] 12-26-2022 13:30-0500 Body weight 61.24 kg Ob Ultrasound Work Phone: [facility] 11-28-2022 13:57-0400 Body weight 58.51 kg Shirley Alonso SERVICE LIAISON REPRESENTATIVE.CNM Work Phone: [facility] 11-28-2022 13:57-0400 Diastolic blood pressure 62 mm[Hg] Shirley Alonso SERVICE LIAISON REPRESENTATIVE.CNM Work Phone: [facility] 11-28-2022 13:57-0400 Systolic blood pressure 118 mm[Hg] Shirley Alonso SERVICE LIAISON REPRESENTATIVE.CNM Work Phone: [facility] 11-24-2022 22:19-0400 Body temperature 98.6 [degF] [facility] 11-24-2022 22:19-0400 Heart rate 101 /min [facility] 11-24-2022 22:19-0400 SaO2% (BldA) [Mass fraction] 96 % [facility] 11-24-2022 22:18-0400 Diastolic blood pressure 81 mm[Hg] [facility] 11-24-2022 22:18-0400 Systolic blood pressure 128 mm[Hg] [facility] 11-24-2022 22:08-0400 Body height 165.1 cm [facility] 11-24-2022 22:08-0400 Body mass index (BMI) [Ratio] 20.9 kg/m2 [facility] 11-24-2022 22:08-0400 Body weight 57.3 kg [facility] 11-13-2022 10:08-0400 Body weight 57.34 kg Dahlia Morley SERVICE LIAISON REPRESENTATIVE.CNM Work Phone: [facility] 11-13-2022 10:08-0400 Diastolic blood pressure 62 mm[Hg] Dahlia Morley SERVICE LIAISON REPRESENTATIVE.CNM Work Phone: [facility] 11-13-2022 10:08-0400 Systolic blood pressure 110 mm[Hg] Dahlia Morley SERVICE LIAISON REPRESENTATIVE.CNM Work Phone: [facility] 10-30-2022 10:08-0400 Body weight 55.79 kg Tom Jacinto MD Work Phone: [facility] 10-30-2022 10:08-0400 Diastolic blood pressure 64 mm[Hg] Tom Jacinto MD Work Phone: [facility] 10-30-2022 10:08-0400 Systolic blood pressure 102 mm[Hg] Tom Jacinto MD Work Phone: [facility] 09-24-2022 09:51-0400 Body weight 54.88 kg Tom Jacinto MD Work Phone: [facility] 09-24-2022 09:51-0400 Diastolic blood pressure 54 mm[Hg] Tom Jacinto MD Work Phone: [facility] 09-24-2022 09:51-0400 Systolic blood pressure 102 mm[Hg] Tom Jacinto MD Work Phone: [facility] 08-14-2022 10:39-0400 Body height 165.1 cm Ob Ultrasound Work Phone: [facility] 08-14-2022 10:39-0400 Body weight 51.71 kg Tom Jacinto MD Work Phone: [facility] 08-14-2022 10:39-0400 Diastolic blood pressure 58 mm[Hg] Tom Jacinto MD Work Phone: [facility] 08-14-2022 10:39-0400 Systolic blood pressure 100 mm[Hg] Tom Jacinto MD Work Phone: [facility] 08-05-2022 13:06-0400 Body height 165.1 cm Shirley Alonso SERVICE LIAISON REPRESENTATIVE.CNM Work Phone: [facility] 08-05-2022 13:06-0400 Body weight 51.26 kg Shirley Alonso SERVICE LIAISON REPRESENTATIVE.CNM Work Phone: [facility] 08-05-2022 13:06-0400 Diastolic blood pressure 62 mm[Hg] Shirley Alonso APRN.CNM Work Phone: [facility] 08-05-2022 13:040 Systolic blood pressure 104 mm[Hg] Shirley Alonso APRN.CNM Work Phone: [facility] Encounters Encounter Date Encounter Type Care Provider Facility Start: 12-16-2024 ambulatory TOM Webb ity:[facility] Start: 11-15-2024 End: 11-15-2024 ambulatory MELA DOZIER Facility:[facility] Start: 10-20-2024 End: 10-20-2024 ambulatory Tom Jacinto MD Work Phone: OB/Gynecology Comment on above: Supplements Start: 10-19-2024 End: 10-19-2024 Patient encounter procedure Tom Jacinto MD Work Phone: OB/Gynecology Comment on above: Encounter for superv ision of other normal in second trimester (HCC) (Primary Dx); 26 weeks gestation of ([facility]); Spotting complicating , second trimester ([facility]); Palpitation Start: 10-19-2024 End: 10-19-2024 ambulatory TOM JACINTO Facility:[facility] Start: 10-06-2024 End: 10-06-2024 Office outpatient visit 15 minutes Mela Dozier MD Work Phone: OB/Gynecology Comment on above: Encounter for superv ision of other normal in second trimester (HCC) (Primary Dx); Screening for diabetes mellitus; 24 weeks gestation of (HCC) Start: 10-06-2024 End: 10-06-2024 ambulatory SELF Facility:[facility] Start: 09-26-2024 End: 09-27-2024 Telephone encounter oTm Jacinto MD Work Phone: OB/Gynecology Comment on above: Breast Pump Start: 09-07-2024 End: 09-07-2024 E-mail encounter from caregiver Nomi Wallace Ob L&D Work Phone: [facility] 3 L&D Start: 09-07-2024 End: 09-07-2024 Patient encounter procedure [employer] [facility] Ob L&D Work Phone: [facility] 3 L&D Comment on above: [employer] Referral Start: 09-07-2024 End: 09-07-2024 Telephone encounter Mela Wells RN Maternal Medic ine Comment on above: 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) Start: 09-06-2024 End: 09-06-2024 ambulatory TOM JACINTO Facility:[facility] Start: 09-06-2024 End: 09-06-2024 Patient encounter procedure Tom Jacinto MD Work Phone: OB/Gynecology Comment on above: Encounter for superv ision of other normal in second trimester (HCC) (Primary Dx); 20 weeks gestation of (HCC); Supervision of high risk in first trimester (HCC) Start: 09-06-2024 End: 09-06-2024 Patient encounter procedure [employer] 1 [employer] [facility] Maternal Medicine Comment on above: Encounter for anatomic survey (HCC) (Primary Dx); 20 weeks gestation of (HCC) Start: 09-06-2024 End: 09-06-2024 ambulatory JODY CD Facility:[facility] Start: 09-02-2024 End: 09-02-2024 Telephone encounter Dahlia Morley APRN.CNM Work Phone: OB/Gynecology Comment on above: Question (OB Questio n) (/) Start: 08-29-2024 End: 08-29-2024 Patient encounter procedure Manuel Goldberg MD Work Phone: OB/Gynecology Comment on above: Supervision of high risk in second trimester (HCC) (Primary Dx); 19 weeks gestation of (HCC); Palpitations; Headaches; Vaginal discharge Start: 08-29-2024 End: 08-29-2024 ambulatory MANUEL GOLDBERG Facility:[facility] Start: 08-05-2024 End: 08-05-2024 ambulatory MELA DOZIER Facility:[facility] Start: 08-05-2024 End: 08-05-2024 Office outpatient visit 15 minutes Mela Dozier MD Work Phone: OB/Gynecology Comment on above: 16 weeks gestation o f (HCC) (Primary Dx); Supervision of high risk in first trimester (HCC) Start: 07-15-2024 End: 07-15-2024 ambulatory JODY ROMEO Facility:[facility] Start: 06-28-2024 End: 08-28-2024 Follow-up encounter Mgay Brown APRN.CNP Work Phone: OB/Gynecology Start: 06-17-2024 End: 06-17-2024 Patient encounter procedure Jody Dc APRN.CNP Work Phone: OB/Gynecology Comment on above: Supervision of high risk in first trimester (HCC) (Primary Dx); 9 weeks gestation of (HCC); with uncertain dates in first trimester (HCC); History of depression; Screen for STD (sexually transmitted disease); Screening for cervical cancer; Nausea and vomiting during ([facility]); Tachycardia; History of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 Cramps that feel like a period 6. Cramps with or without diarrhea If you notice any of the above symptoms, contact our office at [phone] and ask to speak with a nurse. After hours, you can call doctors registry at [phone] OR call [facility] at [phone] and ask to have the doctor music composition teacher paged. If you consider this an emergency, dial 9-1-7 or go to your nearest emergency department. NEED HELP? Are you dealing with a violent or abusive relationship? Are you a victim of rape or sexual assult? Call [facility] ([place]) 24 hour Crisis Hotline: 133.808.7999 or 333-553-9628. MANUAL Your Guide to a Healthy manual is now on-line. Visit [facility].org/HealthyPregna ncyGuide to download your free copy documented in this encounter [facility] 08-05-2024 Progress note Formatting of t his note might be different from the original. S: Odessa Dorsey is a 24 year old female who presents at 01/20/2025, by Last Menstrual Period for a routine visit. Denies headache, visual changes, chest pain, shortness of breath, vaginal bleeding, leakage of fluid, or dysuria. Feeling well, no complaints. Breast cyst on areola. Popped yesterday O: See flow sheet Gen: No apparent distress Normal breast exam ASSESSMENT/PLAN: 1. 16 weeks gestation of (HCC) - ICD9: V22.2, ICD10: Z3A.16 (primary diagnosis) 2. Supervision of high risk in first trimester (HCC) - ICD9: V23.9, ICD10: O09.91 Scheduled US for next visit Mela Dozier MD [facility] 08-05-2024 Miscellaneous Notes S: Odessa Dorsey is a 24 year old female who presents at 01/20/2025, by Last Menstrual Period for a routine visit. Denies headache, visual changes, chest pain, shortness of breath, vaginal bleeding, leakage of fluid, or dysuria. Feeling well, no complaints. Breast cyst on areola. Popped yesterday O: See flow sheet Gen: No apparent distress Normal breast exam ASSESSMENT/PLAN: 1. 16 weeks gestation of (HCC) - ICD9: V22.2, ICD10: Z3A.16 (primary diagnosis) 2. Supervision of high risk in first trimester (HCC) - ICD9: V23.9, ICD10: O09.91 Scheduled US for next visit Mela Dozier MD documented in this encounter [facility] 08-05-2024 Instructions George KeyanaCASSIDY - 08/05/2024 10:03 AM EDT SEQUENTIAL SCREENINGS The [facility] offers sequential screenings for women who are interested in screenings for chromosomal abnormalities and certain defects during a . The sequential screen combines ultrasound and blood tests to determine the risk of chromosomal abnormalities, including Down's Syndrome (Trisomy 21) and Trisomy 18, as well as open neural tube defects including spina bifida. Ultrasound examination is performed between 11 weeks and 13 weeks gestational age. Blood tests are drawn after the ultrasound and again later in the between 15 and 21 weeks gestational age. Please let your physician know if you are interested in this testing. It will require an appointment with our locate technician. This is not an ultrasound performed by a physician in our office during a routine visit. SIGNS AND SYMPTOMS OF LABOR 1. Contractions every 10 minutes or more often 2. Clear, pink, or brownish fluid (water) leaking from vagina 3. Feeling that baby is pushing down, pressure 4. Low, dull backache 5. Cramps that feel like a period 6. Cramps with or without diarrhea If you notice any of the above symptoms, contact our office at [phone] and ask to speak with a nurse. After hours, you can call doctors registry at [phone] OR call [facility] at [phone] and ask to have the doctor music composition teacher paged. If you consider this an emergency, dial 9--1 or go to your nearest emergency department. NEED HELP? Are you dealing with a violent or abusive relationship? Are you a victim of rape or sexual assult? Call [facility] ([place]) 24 hour Crisis Hotline: 409.946.8870 or 074-870-7839. MANUAL Your Guide to a Healthy manual is now on-line. Visit [facility].org/HealthyPregna ncyGuide to download your free copy documented in this encounter [facility] 06-17-2024 Instructions Jdoy Dc APRN.LIFEGUARD - 06/17/2024 10:59 AM EDT Images from the original note were not included. Please select the following link to access the [facility] Your Guide to a Healthy . www.Ccf.org/healthypregnancyguide Psychotherapy Services at [facility] Call Behavioral Health Access Line at [phone] to schedule Individual psychotherapy In-person or virtual Wait time for first evaluation may be 12 or more weeks. Wait list spots may be available. Due to the high volume of patients this option is recommended if you are looking for short term acute symptom coping strategies. 7-278-3-VJIC3BJXF - [place] Maternal Mental Health Hotline If you are in suicidal crisis, please call or text 3-671-803-TALK ( ) or visit the National Suicide Prevention Lifeline website. mchb.dr. dan [facility]. trigg memorial hospitala.gov If you are in crisis, call 851 or go to your nearest Emergency Department Here are some links for wonderful Providers here in the community and surrounding areas. Do not hesitate to contact their offices, many are offering virtual visits during this time. Psychotherapy Services outside of [facility] Support International Online Provider Directory https://Aspida.BIC Science and Technology/ - can assist in finding providers in your area that might be more extensive then the list below. [facility] - [place], [place] [address] [place] [address] [address] [place] [address] [facility] [address] [place] [address] [facility] [address] [place], [place] [id number] Suad Blackwood MD [address] [place] [id number] [facility] [address] [place] [address], [address] [place] [address] [facility] [address] [place] [address] [facility]ing Services [place] / [place] [phone]/ [phone] Elaina Michele [address] [facility] [phone] [facility] Counseling and Mediation [place] / [place] [phone] Behavioral health services of [facility] [address] [place] [address]/ [facility] [place] [facility] [place] [phone] Farhad Majano, RAINA, CLC [facility] Therapy Workshops, telehealth and at home visits. [phone] Humanistic counseling [place] 20 locations [place], [place], [place], [place], [place], [place], [place], [facility], [place], [place], [place], [place], [place], [place], [facility], [place], [place] ,[facility], [place], [place],[facility], [facility], [place], [facility], [facility]/[place], [place] www.[facility] [phone] Psychotherapy resources outside of [facility] are listed below [facility] Psychotherapy Web: https://www.Validus Technologies Corporation/ Support International Online Provider Directory https://Mila/ [facility] https://New Screens/ Partners for Behavioral Health and Wellness Web: https://Synchroneuron/ Center for Effective Living Web: https://www.effectiveBrentwood Investmentsliving.BIC Science and Technology/ LifeStance Web: https://Collections Marketing Center.BIC Science and Technology/location/s field/[place]/ [facility] Web: https://www.[facility].or / [facility] Web: https://Caregivers.org/ Recovery Resources Mental health and substance abuse help Web: https://www.recres.org & RESOURCES Support International Direct peer support and connection to professional resources Non-Emergency Helpline Phone: / Text: [phone] Web: https://www..net/ Online Provider Directory: https://Mila/ Online Support Meetings: https://www..net/get-he lp/udc-lzwarw-nimvdbw-meetings/ SUSHMA Baby and Automotive Maintenance Technician Services Web: https://MeetingSense Software/ MotherMCT Danismanlik AS (MCTAS: [place]) Expert information on medication use during and Text: [phone] Web: https://Cernium/ NATIONAL REGISTRY FOR PSYCHIATRIC MEDICATIONS Currently studying the safety of antidepressants, ADHD medications and atypical antipsychotics taken during TO PARTICIPATE CALL TOLL-FREE: Web: https://womensmentalhealth.org/re search/pregnancyregistry/ Support Groups: [facility]- Follow on facebook Baby Bistro support group led by [facility] department [facility] - Support Group [facility].org The POEM support group [phone] Www.poVamosaonline.org Follow on facebook - JUAN RAMON hernandez Online support meetings PSI https://www..net/get-he lp/arf-dbnttn-ryxsubw-meetings/ [facility] mommy and me virtual support group 11:30-1pm Support for mothers and new babies and toddlers Badger childbirth education: Childbirth @cc.org or call [phone] CRISIS: CRISIS HOTLINE [phone], 911 or go to the nearest . [facility] [phone] / [facility] [phone] https://www.[facility].org Crisis text line text the word "HOME" to 251313 [facility] [address] fa[address]em [address] [facility] [address] www.Global CIO Maira Alvarado clinical counseling [address] [address] [place] [address] www.Dugun.com [phone] [facility] psychotherapy Bettina Goss SURGICAL INSTRUMENTS INSPECTOR REHABILITATION NURSE-S [address] [facility] www.Renovar [phone]/ [place] [phone] They all offer virtual. All work with trauma Support groups Online support meetings PSI https://www..net/get-he lp/snc-pqfkqf-zrdaglr-meetings/ Here are the support groups they offer: Support of parents of 1 to 4 years old children POEM ( Outreach and Encouragement for Moms) offers free support for mothers experiencing depression, anxiety, and other mood and anxiety disorders. Masks are recommended but not required. No pre-registration required. Babies in arms welcome. meetings now take place on the and Thursday of each month Location: [facility] [address] [place] [address] Room 122 (library room) 7-8:00 p.m. When you enter the [facility] parking lot off of [address] the entrance door closest to our meeting room is on the front of the building toward the right. For those who are more comfortable with a virtual platform, POEM offers online support group options several days of the week. To register for an online group or to find out more about POEM, website at: https://a[place].org/get-help/[facility] medical centermsfn-jgvyns-dccere/poem-services/ offer a confidential helpline: private Facebook group is called JUAN RAMON Hernandez Here are the groups they offer: Traumatic childbirth resources: Http://pattch.org/ https://www.richardsonBrentwood Investmentsasad Human Performance Integrated Systems.BIC Science and Technology/ Name Location (s) Phone # (s) Services Website [facility] [address] [address], [place], [place] - [phone]; [address] [facility] [address] [place], [place]- [phone] In-Person GROUPS INDIVIDUAL THERAPY MATERNAL-INFANT MENTAL HEALTH MEDICATION MANAGEMENT PLAY AND ART THERAPY TELETHERAPY https://www.Validus Technologies Corporation/s ervices/ Rajesh elias [facility] [place]? [address] [place], [place] [address] ? [place] [address] [facility], [address] [place], [place] [id number] ? [place] [address] [phone]? Grief Support Groups Individual Grief Counseling Spiritual Care Memorial Events https://wallis.[facility].org/grief-services [facility] [address] [place], [place] [address]; ; Email: [email or web address]@Push IO Women's Mental Health; Couples Counseling; Trauma (EMDR); Stress Management; Mood and Anxiety Related Disorders- and much more https://www.Dustcloud/ LifeStance Numerous as they have contract providers: access website to find specific providers near you Counseling including CBT and EMDR as well as many more modalities; Medication Management; Telehealth and In-Person https://Pansieve/ BandApp for Behavioral Health and Wellness [address] [place], [place] [address]; [phone] Personal, Family and Group Therapy; Psychological Testing and Diagnosis; Medication Management; Life and Career Coaching; Psychoanalysis; Literacy Testing; Yoga and Meditation https://Universal World Entertainment LLC.BIC Science and Technology/ Fit Mind [place] [address] [facility] [address] [address] [address] ; [address] [facility], [address] [place] [address]; Office # for both sites: Individual and Couples Counseling https://www.WeOwe.BIC Science and Technology/ paymentinsurance.html OCD & Anxiety [facility] [address] [facility], [address], [place] [address]; Specialize in Cognitive-Behavioral Therapy (CBT) for the treatment of anxiety disorders across the lifespan. TELEHEALTH ONLY. https://ocdandanxietycenterofclev SinoTech Group/faqs [facility] [place] [facility], [facility] [address] [facility] 6th [place], [address] [place] [address] [place] [address] [place], [address] [place] [employer] [facility] [address] [facility] [address] [place], [id number] [place] [address] [place], [address], [address] [place] [address] [facility] [place], [address] [place] [address] [place], [place], [id number] Transportation Services To minimize patient barriers, [facility] provides transportation services to patients who qualify. If you are unable to get to your appointment at any of our facilities, please let us know. Need help now? Stop by one of our walk-in clinics to establish behavioral health care. Counseling Indvidual, Group, Couples and Family Counseling and EMDR. Medication Management Case Management benefits applications housing assistance Substance abuse treatment Medication assisted treatment https://www.[facility].or g/mental-health/ [facility] OFFICE AT [facility] [address] [place] [address] [facility] [address] [place] [address] [facility] OFFICE [address] [place] [address] [place] OFFICE (at [facility]) [address] [place] [address] [facility] [place] EXCHANGE PROGRAM & HIV SCREENING [address] [place] [address] [place] EXCHANGE PROGRAM [address] [place] [address] Behavioral Health Urgent Care: [facility] [place] Sites Counseling Indvidual and Group Medication Management Case Management benefits applications housing assistance Substance abuse treatment Medication assisted treatment Employment Services/ Job Training https://theCrowd Visiondeio.org/ Recovery Resources [address] [place], [place] [address]: P: [phone] [address] [facility], [address] [address] P: [phone] Our services include: Addiction Mental Health Treatment Assessment Psychiatry Medical Care Employment Housing Drug and Alcohol Prevention HIV/AIDS Prevention https://www.[facility].org/ [facility] [employer] [address] [place] [address] [place] [address] [place], [place] [address] [place] [address] [place] [address] [place] [address] [facility] [address] [place] [address] [place] [address] [address] [address] TMS Therapy/ Counseling Psychocological Testing for ADHD Medication Management In-Person/ Telemedicine https://www.GamyTech/kishan ents-depression Memory & Psychological services [address], [place] [address] Neuropsychological Testing For ADHD https://www.memoryandpsych.com/ The Counsel[facility] - Main Office [facility]5 [place], [place] [address] [address] [id number] [address] [address] Providing hjsz-rz-czwh and telehealth services. Adult Case Management Community Education and Prevention Employment Outpatient Treatment - Counseling & Psychotherapy Psychiatric Services http://www.ccwhc.org/ [facility] [place] [address] [place] [address] [facility]) [address] [place] [address] Virtual Appointments! Now offering safe and convenient virtual client appointments to anyone in [place]! Individual Therapy Couples/Relationship Therapy Trauma/EMDR Therapy Art Therapy Play Therapy Health Promoter Support: Parenting Skills, Parent Child Interaction Therapy, Parent Infant Interaction Therapy Meditation Dietitian/Checkout Operator Services Group Therapy Yoga https://www.IoT Technologies. BIC Science and Technology/ Jennifer Leiva [phone] Private Practice: Telehealth Only Specializes in EMDR for Trauma None MORNING SICKNESS IN by Yenni [place], M.D. for Telkonet As you may already know, morning sickness can often be more appropriately called evening sickness or gtyfa-cbvntb-dj-the-day sickness. While there are the radha few, most women (50-90%) experience some degree of nausea, some have vomiting, and a few develop a severe form of vomiting during called hyperemesis gravidarum. What causes the nausea and vomiting of ? We can't explain why some people feel fine and others are green for months. Even the same woman may feel vastly different in each . There is some relationship between nausea and the level of the hormone hCG. In twin pregnancies, and in other situations where the hCG is greater than expected, nausea and vomiting tend to be worse. In a destined for miscarriage, hCG levels tend to be low, and nausea is often less severe. This being said, a lack of nausea doesn't guarantee that the is destined for miscarriage. The fact that nausea and vomiting are often signs of a healthy can offer a silver lining in the dark cloud of miserable nausea. How long will the nausea last? Fortunately, for most women, nausea and vomiting are a first trimester event, peaking at week 9-10 and waning by week 14-16. When you are feeling bad the weeks can go by slowly but most moms do feel tremendously better by the middle of the . Whether morning sickness is a brief experience or lasts through most of the , there are treatments that can make the weeks or months more tolerable. What can you do about it? Diet: See what works for you. Try eating bland dry foods, and avoid fatty or spicy foods. It is okay to eat a less than perfectly balanced diet in the first trimester. Have your liquids separately from dry foods. Try sports drinks, water, clear juices, Isiah-aid, or non-caffeinated tea. Avoid carbonated beverages that fill up your stomach. Try eating lots of little meals. If you tend to feel sick when you first wake up, leave crackers next to the bed for a quick snack before rising. Keeping healthy snacks with you all day to nibble when you feel queasy can sometimes even prevent nausea from starting. vitamins and nausea: Pre- vitamins can sometimes worsen nausea in . While folate is necessary, especially early in the , it comes as a smaller pill that many people find more tolerable than the complete vitamin pill. Ask your practitioner if it is okay to temporarily replace vitamins and iron with just a folate pill if you find a significant worsening in the level of your nausea from the vitamins. Alternative therapies: Acupressure may be used to treat nausea in , and is not known to have any risks for the fetus. Wristbands (marketed for seasickness) that put pressure on an acupressure point at the wrist are often available at drugstores or travel stores. Maricarmen root is used for nausea in many traditional cultures. Some women take fresh grated maricarmen or maricarmen tablets. It is possible that the pill form contains other ingredients or contaminants, so you may want to try fresh maricarmen first. Medications: Emetrol is the only nausea medication approved for use in . It is available over the counter and is soothing to the stomach. A prescription medication called Bendectin was available in the -1979's and was shown to be safe in , but the company stopped marketing it in the [place] due to the costs of liability coverage. Bendectin contained 10 milligrams of vitamin B6 and 10 milligrams of Doxylamine. Two tablets were given at bedtime and a total of up to 4 tablets could be used in a 24-hour period. Interestingly, Unisom , which contains a higher dose (25 mg.) of the same medication, Doxylamine, is currently marketed as an ihxk-sve-ofyijgt sleeping pill. Ask your practitioner if creating a vitamin B6/Doxylamine combination with zzie-ghe-paqubap medications would be safe for you. Prescription medications like Compazine and Phenergan can be used if the benefits outweigh possible risks, but these have not been clearly shown to be safe in . Zofran , an expensive anti-nausea medication often used to treat nausea from chemotherapy, can also be used. Can I throw up so much it harms the baby? The act of vomiting cannot hurt your fetus, which is protected inside the uterus. If you get dehydrated or develop a metabolic imbalance, this can be unhealthy. As long as you can keep down liquids, you and your baby will generally do all right. Eat when you feel able. If you are unable to keep anything down, or if you notice potential signs of dehydration such as lightheadedness, or concentrated and/or infrequent urination, call your practitioner. Some women need brief hospital admission for intravenous fluids and anti-nausea medications if their condition becomes severe. This severe form of nausea and vomiting is called Hyperemesis Gravidarum. As with many symptoms of , remind yourself that this, too, shall pass, and you'll have a wonderful baby to show for it! TREATMENT OPTIONS, SHORT VERSION: Frequent small meals Hydrate throughout day Sea-[employer]ands wrist pressure point applicators Maricarmen root (powdered, in capsules) 250mg four times a day Vitamin B6 25 mg tablet three times a day Also may be taken with half a tablet of Unisom three times a day (Doxylamine 12.5 mg) If severe (weight loss, dehydration), call us and come in for IV hydration and possible medication in the form of injections. Prescription medications such as Phenergan, Compazine, Reglan documented in this encounter [facility] 06-17-2024 Note HNO ID: [id number] Author: JODY DC APRN.PACO Service: ? Author Type: Nurse Practitioner Type: Progress Notes Filed: 06/17/2024 12:17 Note Text: Aerial Planting And Cultivation Manager offered: Patient declines. INITIAL OB ASSESSMENT HPI: Odessa is a 24 year old White Female here to establish Obstetrical Care. Patient's last menstrual period was 04/15/2024. from OB Dating Form. was planned Complaints: severe nausea/vomiting OB History Gravida4 Para2 Term2 Preterm0 AB1 Living2 SAB1 IAB0 Ectopic0 Multiple0 Live Births2 Previous history: Prior : never History of 4th degree laceration: No History of shoulder dystocia: No History of Hypertensive disorders including pre-eclampsia or gestational hypertension: No History of gestational diabetes: No Patient's Risk Screening for delivery: Have you had a prior cali between 20w and 36w6d? No How many pregnancies have you had before? 3 Did you have a previous baby with a GBS Infection? No Please select all that apply for any prior : N/A MEDICAL/PSYCHOSOCIAL HISTORY: History of hemorrhage or bleeding concerns: No Thyroid Disease: No History of chronic hypertension: No History of pre-existing diabetes: No ABO/RH(D) Date Value Ref Range Status 05/15/2020 A POSITIVE Final BMI 18.47 kg/(m2) Last Pap: 03/30/2020 normal History of abnormal pap: No Prior treatment for cervical dysplasia: none. Last HPV: n/a History of STDs: chlamydia and trichomonas Partner History of STDs: None Did you have a partner with Herpes? No Tobacco use: No E-Cigarette/Vaping Use: No Caffeine use: Yes Drug use: No Alcohol use: No Multivitamin with Folic acid: Yes Would refuse blood transfusion if medically necessary: No Social Needs: How often does this describe you? I don't have enough money to pay my bills: Never Within the past 12 months, have you worried that your food would run out before you had money to buy more? Never In the past 12 months, has lack of reliable transportation kept you from going to medical appointments or work, or from getting things needed for daily living? Never In the past 12 months, have you had any concerns about having a place to live, or about the condition or quality of your housing? Never Would you like more information on any of the following (please check all that apply)? 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 Yes Do you have a history of abuse or trauma that may impact your experience? No Are you currently employed? No Depression/Anxiety Screening: denies symptoms of depression. OB Depression and Anxiety Screening- This Encounter Over the past 2 weeks have you felt down, depressed, or hopeless? Negative Over the past two weeks, have you felt little interest or pleasure in doing things?? Negative Feeling nervous, anxious or on edge 0-Not at all Not being able to stop or control worrying 0-Not al all Anxiety Pre-Screening Total (If >/= 3 additional questions will be reviewed) 0 Genetic Screening: Partner present: No Patient verbalized knowledge of partner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 up with your healthcare provider as needed. You have been given the following additional information: Pneumonia (Adult) Patient Signature 1 of 6 Discharge Instructions Facility [facility] [employer] [facility] [employer] Date/Time General Instructions with ExitWriter [address] [address] [id number] 03/09/2024 Patient: ODESSA DORSEY Sex: Female : 2000 Age: 23y Thank you for visiting [facility]. You have been evaluated today by Faith Mancuso M.D. for the following condition(s): Principal Diagnosis Bacterial pneumonia. No hypoxemia. INSTRUCTIONS Take Tylenol (Acetaminophen) and Motrin (Ibuprofen) for fever control. Take according to label instructions. No restrictions to activity. Return to work tomorrow. Warnings: GENERAL WARNINGS: Return or contact your physician immediately if your condition worsens or changes unexpectedly, if not improving as expected, or if other problems arise. Prescription Medications: Medications prescribed: (doxycycline 100 mg PO BID for 5 days) Follow-up: Follow up with your healthcare provider as needed. ADDITIONAL INFORMATION 2 of 6 Discharge Instructions Pneumonia (Adult) Pneumonia is an infection deep in the lungs. It is in the small air sacs (alveoli). It may be caused by a virus, fungus, or bacteria. Pneumonia caused by bacteria is often treated with an antibiotic. Severe cases may need to be treated in the hospital. Milder cases can be treated at home. Pneumonia symptoms are a lot like flu symptoms. They include fever, cough (dry or with phlegm), headache, muscle weakness, and pain. These symptoms often get worse in the first 2 days. But they often start to get better in the first week of treatment. Home care Follow these guidelines when caring for yourself at home: Get plenty of rest. Don't let yourself get overly tired when you go back to your activities. Participate in activities as directed by your healthcare provider. 3 of 6 Discharge Instructions Stop smoking. This is the most important step you can take to help treat pneumonia. If you need help stopping smoking, talk with your healthcare provider. Stay away from smoke and other irritants. Stay away from secondhand smoke. Don't let anyone smoke in your home. Prevent lung infections. Ask your healthcare provider about the flu and pneumonia vaccines. Take steps to prevent colds and other lung infections. Practice correct handwashing. Wash your hands often with soap and water. Use hand thread grinder when you can't wash your hands. Stay away from crowds during cold and flu season. Use pain medicine as directed. You may use acetaminophen or ibuprofen to control fever or pain, unless another medicine was prescribed. If you have chronic liver or kidney disease, talk with your healthcare provider before using these medicines. Also talk with your provider if you've had a stomach ulcer or GI (gastrointestinal) bleeding. Don't give aspirin to a child younger than age 19 unless directed by the provider. Taking aspirin can put a child at risk for Kayli syndrome. This is a rare but very serious disorder. It most often affects the brain and the liver. Eat a light diet as needed. You may not feel like eating, so a light diet is fine. Follow the treatment plan as advised by your healthcare provider. Drink plenty of water and fluids. This can make mucus thinner and easier to cough up. Ask your healthcare provider how much water you should drink. For many people, 6 to 8 glasses (8 ounces each) a day is a good goal. Other fluids include sport drinks, sodas without caffeine, juices, tea, or soup. If you also have heart or kidney disease, check with your provider before you drink extra fluids. Finish all prescription medicine. Take antibiotic or antiviral medicine as prescribed by your healthcare provider, even if you are feeling better after a few days. Take the medicine until it is all gone. Try to stay away f (more content not included)... [facility] 12-17-2023 Telephone encounter Note Spoke with patient. Reviewed bleeding precautions. Please leave phone note open for 12/16 and 12/18 HCG levels. Mela Boyd RN [facility] 12-17-2023 Miscellaneous Notes Spoke with patient. Reviewed bleeding precautions. Please leave phone note open for 12/16 and 12/18 HCG levels. Mela Boyd RN Attempted to contact patient but no answer and unable to leave a message as voicemail box is full. Summer Caceres RN HCG levels ordered. Please notify patient! Please review bleeding precautions and when to report to ED if needed! Thank you. Dahlia Morley APRN.CNM Last menstrual period was in September. Patient is still breast feeding. Using condoms for contraception. States she took a negative UPT in October. On 12/09 her UPT was positive. Has since had another +UPT. Patient started bleeding today. Enough that she needs to change a pad every 2 hours. Had a gush this morning. Passed quarter sized clots. Cramping pain is a 1-2 on a pain scale. Would you like to order HCG quants? Orders pending. Mela Boyd RN documented in this encounter [facility] 12-17-2023 Telephone encounter Note Attempted to contact patient but no answer and unable to leave a message as voicemail box is full. Summer Caceres RN [facility] 12-17-2023 Telephone encounter Note HCG levels ordered. Please notify patient! Please review bleeding precautions and when to report to ED if needed! Thank you. Dahlia Morley APRN.CNM [facility] Work Phone: 12-17-2023 Telephone encounter Note Last menstrual period was in September. Patient is still breast feeding. Using condoms for contraception. States she took a negative UPT in October. On 12/09 her UPT was positive. Has since had another +UPT. Patient started bleeding today. Enough that she needs to change a pad every 2 hours. Had a gush this morning. Passed quarter sized clots. Cramping pain is a 1-2 on a pain scale. Would you like to order HCG quants? Orders pending. Mela Boyd RN [facility] 03-25-2023 Miscellaneous Notes Spoke to patient and scheduled. Message to call office to schedule SURGICAL GARMENT FITTER appointment with Aparna. Patient referred by senior production supervisor. documented in this encounter [facility] 03-16-2023 History of Present illness Narrative [employer] Cult[employer] Manager offered: Patient declines. VISIT Odessa Dorsey is a 22 year old year old here for visit. C/O having a difficult time "coping at times". Increased anxiety as well as depressive feelings. Reports not motivation, difficulty functioning on some days. Appetite increased and "eats all the time". Has "bouts of rage" where she feels like she is just yelling at everyone all the time. Denies any SI/HI. Interested in counseling referral and assessment. Delivery Summary: 01/11/2023 ROS/ Recovery: Feeding: Breast feeding problems: None Menses since delivery: had period last week, was heavy Menstrual pattern prior to : Irregular periods Danube since delivery: Not resumed Depression: denies symptoms of depression. OB Depression and Anxiety Screening- This Encounter (since 03/15/2023) Over the past 2 weeks have you felt down, depressed, or hopeless? Negative Over the past two weeks, have you felt little interest or pleasure in doing things? Negative Feeling nervous, anxious or on edge 1-Several days Not being able to stop or control worrying 0-Not al all Anxiety Pre-Screening Total (If >/= 3 additional questions will be reviewed) 1 Emotional support: Yes Bowel symptoms: Negative for abdominal discomfort, blood in stools or black stools and change in bowel habits Abdomen: N/A Bladder symptoms: No dysuria, gross hematuria, urinary frequency, urinary urgency, or incontinence Other issues: Daily headaches, anxiety, over stimulation and rage Last Pap: 2020 normal HPV: N/A PAST MEDICAL HISTORY Diagnosis Date Anemia anxiety.depression "panic disorder" per patient Chlamydia Fracture of unspecified bones x 2 when younger - both legs and right arm History of heart murmur in childhood 04/12/2020 04/12/2020 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 No surgical correction was done. 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 2011 [facility] and then [facility] - ortho and oncology Menarche 02/09/2010 Age 10 PMH - PAST MEDICAL HISTORY OF at hospitalized for hematoma on head PMH - PAST MEDICAL HISTORY OF 1 mo and 2 months rotavirus hospitalized PTSD (post-traumatic stress disorder) Complex Post Traumatic Stress Disorder PAST SURGICAL HISTORY Procedure Laterality Date EXCISION/CURETTAGE BONE CYST/TUMOR TIBIA/FIBULA 01/28/13 Excision proximal left tibia osteochondroma FAMILY HISTORY Problem Relation Age of Onset Breast Cancer Mother No Known Problems Father Asthma Brother No Known Problems Maternal Grandmother No Known Problems Maternal Grandfather No Known Problems Paternal Grandmother Heart Paternal Grandfather 78 Maternal Great Grandparents No Known Problems Son Social History Tobacco Use Smoking status: Former Years: 5 Types: Cigarettes Quit date: 11/13/2019 Years since quittin.3 Smokeless tobacco: Never Vaping Use Vaping Use: Former Quit date: 02/10/2020 Substances: Nicotine, once every other day. Substance Use Topics Alcohol use: Not Currently Drug use: Not Currently Types: Marijuana PHYSICAL EXAMINATION: BP 110/72 Wt 128 lb 6.4 oz (58.2kg) LMP 05/04/2022 GENERAL: pleasant, female in mild distress HEENT: Normocephalic and atraumatic NECK: Supple and full range of motion DERMATOLOGY: Normal and without lesions BREAST: soft, non-tender, symmetric, no dominant mass, normal nipple-areolar complex, no lymphadenopathy, and no nipple discharge CHEST: Normal inspiratory effort ABDOMEN: soft, non-tender, and no masses. INCISION: N/A PELVIC: external genitalia normal, normal Bartholin's glands, urethra, [place]'s glands, no vulvar lesions, no cervical lesions, good vaginal support, physiologic discharge present, normal appearing perineal body and perianal region BIMANUAL: uterus normal size, shape and consistency, no adnexal masses, non-tender, and no cervical motion tenderness NEURO: alert and oriented x3,exam grossly non-focal EXTREMITIES: normal ASSESSMENT AND PLAN: 22 year old status post with normal course. Contraception plan: condoms - Was possibly interested in pills or injection but does not want to start anything hormonal due to current mood changes. Follow up: RTC for annual exams and PRN Dahlia Morley APRN.CNM documented in this encounter [facility] 01-19-2023 History of Present illness Narrative Odessa Dorsey is a 22 year old female who presents for problem visit follow up endometritis. HPI: Presents today 1 week PP for follow up endometritis. After taking augmentin felt better on day 2. No further fevers, pain, or discomfort. Took headache cocktail and resolved. Feeling much better and no concerns. 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 No surgical correction was done. 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 2011 [facility] and then [facility] - ortho and oncology Menarche 02/09/2010 Age 10 PMH - PAST MEDICAL HISTORY OF at hospitalized for hematoma on head PMH - PAST MEDICAL HISTORY OF 1 mo and 2 months rotavirus hospitalized PTSD (post-traumatic stress disorder) Complex Post Traumatic Stress Disorder PAST SURGICAL HISTORY Procedure Laterality Date EXCISION/CURETTAGE BONE CYST/TUMOR TIBIA/FIBULA 01/28/13 Excision proximal left tibia osteochondroma FAMILY HISTORY Problem Relation Age of Onset Breast Cancer Mother No Known Problems Father Asthma Brother No Known Problems Maternal Grandmother No Known Problems Maternal Grandfather No Known Problems Paternal Grandmother Heart Paternal Grandfather 78 Maternal Great Grandparents No Known Problems Son Social History Tobacco Use Smoking status: Former Years: 5 Types: Cigarettes Quit date: 11/13/2019 Years since quittin.1 Smokeless tobacco: Never Vaping Use Vaping Use: Former Quit date: 02/10/2020 Substances: Nicotine, once every other day. Substance Use Topics Alcohol use: Not Currently Drug use: Not Currently Types: Marijuana Current Outpatient Medications Medication Sig amoxicillin-clavulanate potassium (AUGMENTIN) 875-125 mg per tablet Take 1 tablet by mouth two times a day for 14 days. metoclopramide HCl (REGLAN) 10 mg tablet Take 1 tablet by mouth three times a day. acetaminophen (TYLENOL) 325 mg tablet Take 2 tablets by mouth every 6 hours as needed for pain. FOR PAIN. PNV no.95/ferrous fum/folic ac ( ORAL) Take by mouth. No current facility-administered medications for this visit. Allergies As of Date: 01/19/2023 (No Known Allergies) Fully Assessed 01/19/2023 REVIEW OF SYSTEMS Abdomen: No bloating, early satiety, indigestion, or increased flatulence. No abdominal pain, nausea, vomiting, diarrhea, or constipation. Bladder: No dysuria, gross hematuria, urinary frequency, urinary urgency, or incontinence. Breast: No breast lumps, nipple d/c, overlying skin changes, redness or skin retraction. Expanded ROS: N/A Allergies and current medication updated:Yes EXAM: BP 110/66 Pulse 117 Temp 97.4 Wt 127 lb 3.2 oz (57.7kg) SpO2 95% LMP 05/04/2022 GENERAL: pleasant, female in no apparent distress HEENT: Normocephalic and atraumatic NECK: Supple and full range of motion CHEST: Normal inspiratory effort ABDOMEN: soft, non-tender, and no masses PELVIC: external genitalia normal, normal Bartholin's glands, urethra, [place]'s glands, no vulvar lesions, no cervical lesions, good vaginal support, physiologic discharge present, normal appearing perineal body and perianal region BIMANUAL: uterus normal size, shape and consistency, no adnexal masses, and non-tender NEURO: alert and oriented x3,exam grossly non-focal EXTREMITIES: normal ASSESSMENT AND PLAN: 1. endometritis - ICD9: 670.10, ICD10: O86.12 (primary diagnosis) -Infection resolved and no further issues. 2. care and examination - ICD9: V24.2, ICD10: Z39.2 Follow up for 6 week PP visit Shirley Alonso APRN.CNM documented in this encounter [facility] 01-13-2023 History of Present illness Narrative Patient delivered via by Luis Alberto on 01/11/23 at [facility]. See OB history. Joanne James RN documented in this encounter [facility] 01-13-2023 Miscellaneous Notes Patient notified. Bleeding is same flow since delivery, no clots. No breast pain or redness. Pain is menstrual like cramping radiating into back, not flu like. Appointment scheduled. Joanne James RN Attempted to call patient again. Still no answer. Joanne James RN Left message for patient to call office. Joanne James RN Is she having any pelvic pain, increased bleeding, or clots? Is she or any breast pain or redness? Does she feel more flu like symptoms? I can have her come at 11:15 and will see her. Please have her wear a mask when she comes in just incase upper respiratory. Shirley Alonso APRN.CNM Delivered via 01/11/23. Went home last night. Calling because she started with chill, night sweats, headache, cramping, lower back pain and nausea. She took her temp this morning and it was 101.1 now. She just took ibuprofen for the first time. Rating pain 6/10 on pain scale currently. Headache is causing the worst pain. No other illness symptoms or urinary symptoms. No available appointments with any provider today. Please advise. Joanne James RN documented in this encounter [facility] 01-12-2023 Progress note Note Date/Time January 12, 2023 8:31am [facility] Medical Records Department [address] [place] [address] Progress Note 01/12/23829 MR#: [id number] Acct: [id number] Name: ODESSA DORSEY Rep #:[id number] : 2000 22 From: Soila Burgess MD PCP: Care Physician,No Primary Status :ADM IN Location: [address] Subjective Subjective patient seen at bedside, doing well. Patient reports good pain control. lochia mild. Objective Data Objective Data Vital Signs: Vital Signs Temp Pulse Resp BP Pulse Ox O2 Del Method 98.8 F 80 16 107/71 96 Room Air 01/12/23 07:55 01/12/23 07:55 01/12/23 07:55 01/12/23 07:55 01/12/23 07:55 01/12/23 07:55 Oxygen Delivery Method Room Air Weight: 64.183 kg Body Mass Index (BMI) 23.5 Intake & Output: Intake and Output for Last 24 Hours 01/10/23 01/11/23 01/12/23 23:59 23:59 23:59 Intake Total 3240.00 / 3240.00 Output Total 600 / 600 1500 / 1500 Balance 2640.00 / 2640.00 -1500 / -1500 Lab / Micro Data 01/11/23 12:37 Labs: Laboratory Results - last 24 hr 01/11/23 11:40: Vag Amniotic Fld Detect POSITIVE H 01/11/23 12:37: WBC 8.2, RBC 3.99 L, Hgb 12.1, Hct 36.6 L, MCV 91.7, MCH 30.3, MCHC 33.1, RDW Std Deviation 43.6, RDW Coeff of Neal 13.1, Plt Count 265, MPV 9.1, Immature Gran % (Auto) 3.800 H, Neut % (Auto) 66.6, Lymph % (Auto) 20.9, Dubois % (Auto) 6.6, Eos % (Auto) 1.0, Baso % (Auto) 1.1 H, Absolute Neuts (auto) 5.5, Absolute Lymphs (auto) 1.71, Nucleated RBC % 0, Urine Opiates Screen NEGATIVE, Urine Methadone Screen NEGATIVE, Ur Barbiturates Screen NEGATIVE, Ur Phencyclidine Scrn NEGATIVE, Ur Amphetamines Screen NEGATIVE, MDMA (Ecstasy) Screen NEGATIVE, U Benzodiazepines Scrn NEGATIVE, Urine Cocaine Screen NEGATIVE,U Cannabinoids Screen NEGATIVE, Ur Drug Screen Comment , Blood Type A POSITIVE, Antibody Screen NEGATIVE 01/11/23 13:00: Syphilis Total Ab Non-reactive Physical Exam Const alert and oriented x3 General Appearance: cooperative HEENT normocephalic Neck General: normal visual inspection GI soft to palpation and non-distended GI Narrative: Fundus firm Extremity normal to inspection and no calf tenderness Skin no rashes or lesions noted Neuro oriented x3 and CN's II-XII intact bilaterally Psych mental status grossly normal Assessment & Plan Assessment/Plan (1) Vaginal delivery: PLAN: Plan PPD# 1 , Doing well Routine care pain mgmt ambulation dc home 01/12/23 0831 <Electronically signed by Soila Champion MD> Soila Champion MD Cosigner Signature (if applicable): CC: ~ Signed ADDENDUM by Gunner Champion on 01/12/23 at 1649 Addendum time spent face to face with patient on day of discharge was <30min 01/12/23 1649 <Electronically signed by Soila Wagoner MD> Date _ Soila Champion MD Cosigner Signature (if applicable): Date cc: ~* Signed [facility] Work Phone: [phone] 813-317012-04-2023 Discharge summary Author Gunner enamorado [facility] January 12, 2023 8:31am Note Date/Time January 12, 2023 8 :31am [facility] Medical Records Department [address] [place] [address] Instructions for Home/Discharge Instructions 01/12/23830 MR#: [id number] Acct: [id number] Name: ODESSA DORSEY Rep #:[id number] : 2000 22 From: Soila Burgess MD PCP: Care Physician,No Primary Status :ADM IN Discharge Instructions Diet Discharge Diet: No restrictions Activity May resume sexual activity in: 6-8 weeks Dressing / Incision Call your doctor if you observe: Fever of 101 or Higher, Inability to urinate, Using more than 1 pad per hour and Uncontrolled pain Follow Up Care Please Follow Up With: Soila Champion MD When: 1-2 weeks post and again at 6 weeks post . [phone] Test Results: Test results from this visit will be discussed in further detail at your follow- up appointment, if applicable. Discharge Plan Admission Admit Date/Time: 01/11/23 12:15 Attending Provider: Shirley Alonso Primary Care Provider: Care Physician,Nancy Primary Discharge Orders/Prescriptions Prescriptions: No Action [id number] 1 mg Tablet 1 tab PO DAILY acetaminophen 500 mg Tablet 1,000 mg PO Q6H PRN PRN (Reason: Pain 1-10 Or Fever) Qty: 0 0RF Referrals / Follow Up: Care Physician,No Primary [Primary Care Provider] - 01/12/23830<Electronically signed by Soila Champion MD>Soila Champion MD CC: No Primary Care Physician ~ Signed [facility] Work Phone: 1(335) 523-935812-03-2023 History and physical note Author Shirley Alonso [facility] January 11, 2023 8:18pm Note Date/Time January 11, 2023 8 :07pm [facility] Medical Records Department [address] [place] [address] H&P Exam - SOCIAL WELFARE ADMINISTRATOR 01/11/232004 MR#: [id number] Acct: [id number] Name: ODESSA DORSEY Rep #:[id number] 13 : 2000 From: Shirley SANDERSON PCP: Care Physician,No Primary Status :ADM IN Location: [id number] HPI - General General Date of Admission: 01/11/23 HPI Narrative ODESSA DORSEY, is a 22 F who presents at 39w5d by lmp. Presented with SROM around 10am and arrived at 4cm dilation, clear fluid with mild/moderate irregular contractions. complicated by tobacco, vaping, and CBD use inbeginning of . Stopped during . Anemia during . Maternal Data Information HANNAH Calculator Estimated Delivery Date Method Current WG Current Estimate 01/13/23 Manual 39w 5d PFSH PFSH Medical History (Updated 01/11/23 @ 20:11 by Shirley Alonso CNM) Anemia Anxiety Chlamydia infection affecting Depression Heart murmur Osteochondroma of tibia Supervision of normal Home Medications phvwlabj-vpa-If-FA 1 mg tablet 1 tab PO DAILY 11/16/20 [History Last Taken 12/30/22 06:00] acetaminophen 500 mg tablet 1,000 mg (2 x 500 mg) PO Q6H PRN PRN Pain 1-10 Or Fever #0 tabs 11/18/20 [Rx Last Taken Unknown] Allergy/AdvReac Type Severity Reaction Status Date / Time No Known Allergies Allergy Verified 01/11/23 11:38 Family History no significant family his Surgical History (Updated 01/11/23 @ 11:58 by Nedra Du) H/O knee surgery Social History Smoking Status: Former smoker History Elective abortions Hx Para 1 Spontaneous abortions Hx # Term Pregnancies Ectopic pregnancies Hx # Pregnancies Multiple births # of living children NST FHR Rate Baby A Baseline: 135 Variability:: Moderate Accelerations:: 15 x 15 Decelerations:: Variable FHR Category:: Category II Uterine Activity:: Every 2-4 minutes, strong Vital Signs Vital Signs Vital Signs: 01/11/23 11:34 01/11/23 11:34 01/11/23 11:34 Temperature Temperature Source Temporal Pulse Rate 99 Blood Pressure 120/79 BP Systolic 120 BP Diastolic 79 Pulse Ox 01/11/23 11:34 01/11/23 11:34 01/11/23 12:49 Temperature 98.3 F Temperature Source Pulse Rate Blood Pressure 115/68 BP Systolic 115 BP Diastolic 68 Pulse Ox 100 01/11/23 12:49 01/11/23 12:50 01/11/23 12:50 Temperature Temperature Source Temporal Pulse Rate 88 89 Blood Pressure BP Systolic BP Diastolic Pulse Ox 01/11/23 12:50 01/11/23 12:50 01/11/23 13:59 Temperature 97.8 F Temperature Source Pulse Rate Blood Pressure 111/73 BP Systolic 111 BP Diastolic 73 Pulse Ox 97 01/11/23 13:59 01/11/23 13:59 01/11/23 13:59 Temperature Temperature Source Temporal Pulse Rate 86 Blood Pressure BP Systolic BP Diastolic Pulse Ox 96 01/11/23 13:59 01/11/23 13:59 01/11/23 13:59 Temperature 98.1 F Temperature Source Pulse Rate 90 Blood Pressure BP Systolic BP Diastolic Pulse Ox 96 01/11/23 14:51 01/11/23 14:51 01/11/23 14:51 Temperature Temperature Source Pulse Rate 87 Blood Pressure 100/67 BP Systolic 100 BP Diastolic 67 Pulse Ox 97 01/11/23 14:51 01/11/23 14:51 01/11/23 14:51 Temperature Temperature Source Temporal Pulse Rate 86 Blood Pressure BP Systolic BP Diastolic Pulse Ox 97 01/11/23 14:51 01/11/23 16:11 01/11/23 16:11 Temperature 97.9 F Temperature Source Temporal Pulse Rate Blood Pressure 109/72 BP Systolic 109 BP Diastolic 72 Pulse Ox 01/11/23 16:11 01/11/23 16:11 01/11/23 16:11 Temperature 98.4 F Temperature Source Pulse Rate 86 Blood Pressure BP Systolic BP Diastolic Pulse Ox 100 01/11/23 16:21 01/11/23 16:21 01/11/23 16:26 Temperature Temperature Source Pulse Rate 77 87 Blood Pressure BP Systolic BP Diastolic Pulse Ox 100 01/11/23 16:26 01/11/23 16:31 01/11/23 16:31 Temperature Temperature Source Pulse Rate 82 Blood Pressure BP Systolic BP Diastolic Pulse Ox 100 100 01/11/23 16:36 01/11/23 16:36 01/11/23 16:41 Temperature Temperature Source Pulse Rate 86 Blood Pressure 134/79 H BP Systolic 134 BP Diastolic 79 Pulse Ox 100 01/11/23 16:41 01/11/23 16:41 01/11/23 16:49 Temperature Temperature Source Pulse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 [facility]09-03-2021 History of Past illness Narrative* Problem Noted Date Diagnosed Date Resolved Date COVID-19 vaccine series declined 10/12/2020 01/01/2021 Anemia during in third trimester 09/04/2020 01/01/2021 Overview: 09/14/20-Taking iron supplement every M-W-F. Repeat CBC 33 weeks. Shirley Alonso APRN.PEGGY Nausea and vomiting during 04/12/2020 01/01/2021 Overview: 04/12/2020atient is complaining of nausea and occasional vomiting in . Dietary considerations discussed . Patient states that Vitamin B6 that was recommended is helping alleviate her symptoms. Advised patient to call/come in if she is unable to keep any food or fluids down in a 24-hour period. 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 No surgical correction was done. TKRN Chlamydia infection during 04/12/2020 01/01/2021 Overview: 10/17/20-GC/CT tested at 36 weeks. Shirley Alonso APRN.PEGGY 06/21/20 - negative GC/chlam last month - Kylee Liang MD 04/12/2020atient had positive chlamydia test on March 30. TKRN Patient request for diagnostic testing 04/12/2020 08/14/2022 Overview: 07/31/2022 Patient stopped breast-feeding about 4 weeks ago. She has a history of irregular menses. She is approximately 12 weeks 4 days by dates. She believes she is about that far along. See phone note dated July 31 Patient desires nuchal ultrasound but does not want any blood work. Considering genetic carrier screening testing. Contact information for [facility] [facility] given to patient to check on insurance coverage.Bonnie Covarrubias RN Irregular menses 11/24/2012 04/12/2020 documented as of this encounter (statuses as of 09/13/2022) [facility]09-03[facility]21 History of Past illness Narrative* Problem Noted Date Diagnosed Date Resolved Date COVID-19 vaccine series declined 10/12/2020 01/01/2021 Anemia during in third trimester 09/04/2020 01/01/2021 Overview: 09/14/20-Taking iron supplement every M-W-F. Repeat CBC 33 weeks. Shirley Alonso APRN.CNM Nausea and vomiting during 04/12/2020 01/01/2021 Overview: 04/12/2020atient is complaining of nausea and occasional vomiting in . Dietary considerations discussed . Patient states that Vitamin B6 that was recommended is helping alleviate her symptoms. Advised patient to call/come in if she is unable to keep any food or fluids down in a 24-hour period. 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 No surgical correction was done. TKRN Chlamydia infection during 04/12/2020 01/01/2021 Overview: 10/17/20-GC/CT tested at 36 weeks. Shirley Alonso APRN.CNM 06/21/20 - negative GC/chlam last month - Kylee Liang MD 04/12/2020atient had positive chlamydia test on March 30. TKRN Patient request for diagnostic testing 04/12/2020 08/14/2022 Overview: 07/31/2022 Patient stopped breast-feeding about 4 weeks ago. She has a history of irregular menses. She is approximately 12 weeks 4 days by dates. She believes she is about that far along. See phone note dated July 31 Patient desires nuchal ultrasound but does not want any blood work. Considering genetic carrier screening testing. Contact information for [facility] [facility] given to patient to check on insurance coverage.Bonnie Covarrubias RN Irregular menses 11/24/2012 04/12/2020 documented as of this encounter (statuses as of 09/24/2022) [facility]09-03[facility]21 History of Past illness Narrative* Problem Noted Date Diagnosed Date Resolved Date COVID-19 vaccine series declined 10/12/2020 01/01/2021 Anemia during in third trimester 09/04/2020 01/01/2021 Overview: 09/14/20-Taking iron supplement every M-W-F. Repeat CBC 33 weeks. Shirley Alonso APRN.CNM Nausea and vomiting during 04/12/2020 01/01/2021 Overview: 04/12/2020atient is complaining of nausea and occasional vomiting in . Dietary considerations discussed . Patient states that Vitamin B6 that was recommended is helping alleviate her symptoms. Advised patient to call/come in if she is unable to keep any food or fluids down in a 24-hour period. 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 No surgical correction was done. TKRN Chlamydia infection during 04/12/2020 01/01/2021 Overview: 10/17/20-GC/CT tested at 36 weeks. Shirley Alonso APRN.CNM 06/21/20 - negative GC/chlam last month - Kylee Liang MD 04/12/2020atient had positive chlamydia test on March 30. TKRN Patient request for diagnostic testing 04/12/2020 08/14/2022 Overview: 07/31/2022 Patient stopped breast-feeding about 4 weeks ago. She has a history of irregular menses. She is approximately 12 weeks 4 days by dates. She believes she is about that far along. See phone note dated July 31 Patient desires nuchal ultrasound but does not want any blood work. Considering genetic carrier screening testing. Contact information for [employer] [facility] given to patient to check on insurance coverage.Bonnie Covarrubias RN Irregular menses 11/24/2012 04/12/2020 documented as of this encounter (statuses as of 10/31/2022) [facility]09-03-2021 History of Past illness Narrative* Problem Noted Date Diagnosed Date Resolved Date COVID-19 vaccine series declined 10/12/2020 01/01/2021 Anemia during in third trimester 09/04/2020 01/01/2021 Overview: 09/14/20-Taking iron supplement every M-W-F. Repeat CBC 33 weeks. Shirley Alonso APRN.CNM Nausea and vomiting during 04/12/2020 01/01/2021 Overview: 04/12/2020atient is complaining of nausea and occasional vomiting in . Dietary considerations discussed . Patient states that Vitamin B6 that was recommended is helping alleviate her symptoms. Advised patient to call/come in if she is unable to keep any food or fluids down in a 24-hour period. 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 No surgical correction was done. TKRN Chlamydia infection during 04/12/2020 01/01/2021 Overview: 10/17/20-GC/CT tested at 36 weeks. Shirley Alonso APRN.CNM 06/21/20 - negative GC/chlam last month - Kylee Liang MD 04/12/2020atient had positive chlamydia test on March 30. TKRN Patient request for diagnostic testing 04/12/2020 08/14/2022 Overview: 07/31/2022 Patient stopped breast-feeding about 4 weeks ago. She has a history of irregular menses. She is approximately 12 weeks 4 days by dates. She believes she is about that far along. See phone note dated July 31 Patient desires nuchal ultrasound but does not want any blood work. Considering genetic carrier screening testing. Contact information for [employer] [facility] given to patient to check on insurance coverage.Bonnie Covarrubias RN Irregular menses 11/24/2012 04/12/2020 documented as of this encounter (statuses as of 11/14/2022) [facility]09-03-2021 History of Past illness Narrative* Problem Noted Date Diagnosed Date Resolved Date COVID-19 vaccine series declined 10/12/2020 01/01/2021 Anemia during in third trimester 09/04/2020 01/01/2021 Overview: 09/14/20-Taking iron supplement every M-W-F. Repeat CBC 33 weeks. Shirley Alonso APRN.CNM Nausea and vomiting during 04/12/2020 01/01/2021 Overview: 04/12/2020atient is complaining of nausea and occasional vomiting in . Dietary considerations discussed . Patient states that Vitamin B6 that was recommended is helping alleviate her symptoms. Advised patient to call/come in if she is unable to keep any food or fluids down in a 24-hour period. 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 No surgical correction was done. TKRN Chlamydia infection during 04/12/2020 01/01/2021 Overview: 10/17/20-GC/CT tested at 36 weeks. Shirley Alonso APRN.CNM 06/21/20 - negative GC/chlam last month - Kylee Liang MD 04/12/2020atient had positive chlamydia test on March 30. TKRN Patient request for diagnostic testing 04/12/2020 08/14/2022 Overview: 07/31/2022 Patient stopped breast-feeding about 4 weeks ago. She has a history of irregular menses. She is approximately 12 weeks 4 days by dates. She believes she is about that far along. See phone note dated July 31 Patient desires nuchal ultrasound but does not want any blood work. Considering genetic carrier screening testing. Contact information for [employer] [facility] given to patient to check on insurance coverage.Bonnie Covarrubias RN Irregular menses 11/24/2012 04/12/2020 documented as of this encounter (statuses as of 11/26/2022) [facility]09-03-2021 History of Past illness Narrative* Problem Noted Date Diagnosed Date Resolved Date COVID-19 vaccine series declined 10/12/2020 01/01/2021 Anemia during in third trimester 09/04/2020 01/01/2021 Overview: 09/14/20-Taking iron supplement every M-W-F. Repeat CBC 33 weeks. Shirley Alonso APRN.CNM Nausea and vomiting during 04/12/2020 01/01/2021 Overview: 04/12/2020atient is complaining of nausea and occasional vomiting in . Dietary considerations discussed . Patient states that Vitamin B6 that was recommended is helping alleviate her symptoms. Advised patient to call/come in if she is unable to keep any food or fluids down in a 24-hour period. 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 No surgical correction was done. TKRN Chlamydia infection during 04/12/2020 01/01/2021 Overview: 10/17/20-GC/CT tested at 36 weeks. Shirley Alonso APRN.CNM 06/21/20 - negative GC/chlam last month - Kylee Liang MD 04/12/2020atient had positive chlamydia test on March 30. TKRN Patient request for diagnostic testing 04/12/2020 08/14/2022 Overview: 07/31/2022 Patient stopped breast-feeding about 4 weeks ago. She has a history of irregular menses. She is approximately 12 weeks 4 days by dates. She believes she is about that far along. See phone note dated July 31 Patient desires nuchal ultrasound but does not want any blood work. Considering genetic carrier screening testing. Contact information for [employer] [facility] given to patient to check on insurance coverage.Bonnie Covarrubias RN Irregular menses 11/24/2012 04/12/2020 documented as of this encounter (statuses as of 11/28/2022) [facility]09-03[facility]21 History of Past illness Narrative* Problem Noted Date Diagnosed Date Resolved Date COVID-19 vaccine series declined 10/12/2020 01/01/2021 Anemia during in third trimester 09/04/2020 01/01/2021 Overview: 09/14/20-Taking iron supplement every M-W-F. Repeat CBC 33 weeks. Shirley Alonso APRN.PEGGY Nausea and vomiting during 04/12/2020 01/01/2021 Overview: 04/12/2020atient is complaining of nausea and occasional vomiting in . Dietary considerations discussed . Patient states that Vitamin B6 that was recommended is helping alleviate her symptoms. Advised patient to call/come in if she is unable to keep any food or fluids down in a 24-hour period. 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 No surgical correction was done. TKRN Chlamydia infection during 04/12/2020 01/01/2021 Overview: 10/17/20-GC/CT tested at 36 weeks. Shirley Alonso APRN.PEGGY 06/21/20 - negative GC/chlam last month - Kylee Liang MD 04/12/2020atient had positive chlamydia test on March 30. TKRN Patient request for diagnostic testing 04/12/2020 08/14/2022 Overview: 07/31/2022 Patient stopped breast-feeding about 4 weeks ago. She has a history of irregular menses. She is approximately 12 weeks 4 days by dates. She believes she is about that far along. See phone note dated July 31 Patient desires nuchal ultrasound but does not want any blood work. Considering genetic carrier screening testing. Contact information for [employer] [facility] given to patient to check on insurance coverage.Bonnie Covarrubias RN Irregular menses 11/24/2012 04/12/2020 documented as of this encounter (statuses as of 12/01/2022) [facility]09[facility] History of Past illness Narrative* Problem Noted Date Diagnosed Date Resolved Date COVID-19 vaccine series declined 10/12/2020 01/01/2021 Anemia during in third trimester 09/04/2020 01/01/2021 Overview: 09/14/20-Taking iron supplement every M-W-F. Repeat CBC 33 weeks. Shirley Alonso APRN.PEGGY Nausea and vomiting during 04/12/2020 01/01/2021 Overview: 04/12/2020atient is complaining of nausea and occasional vomiting in . Dietary considerations discussed . Patient states that Vitamin B6 that was recommended is helping alleviate her symptoms. Advised patient to call/come in if she is unable to keep any food or fluids down in a 24-hour period. 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 No surgical correction was done. TKRN Chlamydia infection during 04/12/2020 01/01/2021 Overview: 10/17/20-GC/CT tested at 36 weeks. Shirley Alonso APRN.PEGGY 06/21/20 - negative GC/chlam last month - Kylee Liang MD 04/12/2020atient had positive chlamydia test on March 30. TKRN Patient request for diagnostic testing 04/12/2020 08/14/2022 Overview: 07/31/2022 Patient stopped breast-feeding about 4 weeks ago. She has a history of irregular menses. She is approximately 12 weeks 4 days by dates. She believes she is about that far along. See phone note dated July 31 Patient desires nuchal ultrasound but does not want any blood work. Considering genetic carrier screening testing. Contact information for [employer] [facility] given to patient to check on insurance coverage.Bonnie Covarrubias RN Irregular menses 11/24/2012 04/12/2020 documented as of this encounter (statuses as of 12/26/2022) [facility] History of Past illness Narrative* Problem Noted Date Diagnosed Date Resolved Date COVID-19 vaccine series declined 10/12/2020 01/01/2021 Anemia during in third trimester 09/04/2020 01/01/2021 Overview: 09/14/20-Taking iron supplement every M-W-F. Repeat CBC 33 weeks. Shirley Alonso APRN.PEGGY Nausea and vomiting during 04/12/2020 01/01/2021 Overview: 04/12/2020atient is complaining of nausea and occasional vomiting in . Dietary considerations discussed . Patient states that Vitamin B6 that was recommended is helping alleviate her symptoms. Advised patient to call/come in if she is unable to keep any food or fluids down in a 24-hour period. 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 No surgical correction was done. TKRN Chlamydia infection during 04/12/2020 01/01/2021 Overview: 10/17/20-GC/CT tested at 36 weeks. Shirley Alonso APRN.PEGGY 06/21/20 - negative GC/chlam last month - Kylee Liang MD 04/12/2020atient had positive chlamydia test on March 30. TKRN Patient request for diagnostic testing 04/12/2020 08/14/2022 Overview: 07/31/2022 Patient stopped breast-feeding about 4 weeks ago. She has a history of irregular menses. She is approximately 12 weeks 4 days by dates. She believes she is about that far along. See phone note dated July 31 Patient desires nuchal ultrasound but does not want any blood work. Considering genetic carrier screening testing. Contact information for [facility] [facility] given to patient to check on insurance coverage.Bonnie Covarrubias RN Irregular menses 11/24/2012 04/12/2020 documented as of this encounter (statuses as of 12/27/2022) [facility] History of Past illness Narrative* Problem Noted Date Diagnosed Date Resolved Date COVID-19 vaccine series declined 10/12/2020 01/01/2021 Anemia during in third trimester 09/04/2020 01/01/2021 Overview: 09/14/20-Taking iron supplement every M-W-F. Repeat CBC 33 weeks. Shirley Alonso APRN.SUKHJINDERM Nausea and vomiting during 04/12/2020 01/01/2021 Overview: 04/12/2020atient is complaining of nausea and occasional vomiting in . Dietary considerations discussed . Patient states that Vitamin B6 that was recommended is helping alleviate her symptoms. Advised patient to call/come in if she is unable to keep any food or fluids down in a 24-hour period. 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 No surgical correction was done. TKRN Chlamydia infection during 04/12/2020 01/01/2021 Overview: 10/17/20-GC/CT tested at 36 weeks. Shirley Alonso APRN.CNM 06/21/20 - negative GC/chlam last month - Kylee Liang MD 04/12/2020atient had positive chlamydia test on March 30. TKRN Patient request for diagnostic testing 04/12/2020 08/14/2022 Overview: 07/31/2022 Patient stopped breast-feeding about 4 weeks ago. She has a history of irregular menses. She is approximately 12 weeks 4 days by dates. She believes she is about that far along. See phone note dated July 31 Patient desires nuchal ultrasound but does not want any blood work. Considering genetic carrier screening testing. Contact information for [employer] [facility] given to patient to check on insurance coverage.Bonnie Covarrubias RN Irregular menses 11/24/2012 04/12/2020 documented as of this encounter (statuses as of 12/31/2022) [facility]09[facility] History of Past illness Narrative* Problem Noted Date Diagnosed Date Resolved Date COVID-19 vaccine series declined 10/12/2020 01/01/2021 Anemia during in third trimester 09/04/2020 01/01/2021 Overview: 09/14/20-Taking iron supplement every M-W-F. Repeat CBC 33 weeks. Shirley Alonso APRN.SUKHJINDERM Nausea and vomiting during 04/12/2020 01/01/2021 Overview: 04/12/2020atient is complaining of nausea and occasional vomiting in . Dietary considerations discussed . Patient states that Vitamin B6 that was recommended is helping alleviate her symptoms. Advised patient to call/come in if she is unable to keep any food or fluids down in a 24-hour period. 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 No surgical correction was done. TKRN Chlamydia infection during 04/12/2020 01/01/2021 Overview: 10/17/20-GC/CT tested at 36 weeks. Shirley Alonso APRN.CNM 06/21/20 - negative GC/chlam last month - Kylee Liang MD 04/12/2020atient had positive chlamydia test on March 30. TKRN Patient request for diagnostic testing 04/12/2020 08/14/2022 Overview: 07/31/2022 Patient stopped breast-feeding about 4 weeks ago. She has a history of irregular menses. She is approximately 12 weeks 4 days by dates. She believes she is about that far along. See phone note dated July 31 Patient desires nuchal ultrasound but does not want any blood work. Considering genetic carrier screening testing. Contact information for [facility] given to patient to check on insurance coverage.Bonnie Covarrubias RN Irregular menses 11/24/2012 04/12/2020 documented as of this encounter (statuses as of 01/05/2023) [facility]09-03-2021 History of Past illness Narrative* Problem Noted Date Diagnosed Date Resolved Date COVID-19 vaccine series declined 10/12/2020 01/01/2021 Anemia during in third trimester 09/04/2020 01/01/2021 Overview: 09/14/20-Taking iron supplement every M-W-F. Repeat CBC 33 weeks. Shirley Alonso APRN.CNM Nausea and vomiting during 04/12/2020 01/01/2021 Overview: 04/12/2020atient is complaining of nausea and occasional vomiting in . Dietary considerations discussed . Patient states that Vitamin B6 that was recommended is helping alleviate her symptoms. Advised patient to call/come in if she is unable to keep any food or fluids down in a 24-hour period. 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 No surgical correction was done. TKRN Chlamydia infection during 04/12/2020 01/01/2021 Overview: 10/17/20-GC/CT tested at 36 weeks. Shirley Alonso APRN.CNM 06/21/20 - negative GC/chlam last month - Kylee Liang MD 04/12/2020atient had positive chlamydia test on March 30. TKRN Patient request for diagnostic testing 04/12/2020 08/14/2022 Overview: 07/31/2022 Patient stopped breast-feeding about 4 weeks ago. She has a history of irregular menses. She is approximately 12 weeks 4 days by dates. She believes she is about that far along. See phone note dated July 31 Patient desires nuchal ultrasound but does not want any blood work. Considering genetic carrier screening testing. Contact information for [facility] given to patient to check on insurance coverage.Bonnie Covarrubias RN Irregular menses 11/24/2012 04/12/2020 documented as of this encounter (statuses as of 01/13/2023) [facility] History of Past illness Narrative* Problem Noted Date Diagnosed Date Resolved Date COVID-19 vaccine series declined 10/12/2020 01/01/2021 Anemia during in third trimester 09/04/2020 01/01/2021 Overview: 09/14/20-Taking iron supplement every M-W-F. Repeat CBC 33 weeks. Shirley Alonso APRN.CNM Nausea and vomiting during 04/12/2020 01/01/2021 Overview: 04/12/2020atient is complaining of nausea and occasional vomiting in . Dietary considerations discussed . Patient states that Vitamin B6 that was recommended is helping alleviate her symptoms. Advised patient to call/come in if she is unable to keep any food or fluids down in a 24-hour period. 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 No surgical correction was done. TKRN Chlamydia infection during 04/12/2020 01/01/2021 Overview: 10/17/20-GC/CT tested at 36 weeks. Shirley Alonso APRN.CNM 06/21/20 - negative GC/chlam last month - Kylee Liang MD 04/12/2020atient had positive chlamydia test on March 30. TKRN Patient request for diagnostic testing 04/12/2020 08/14/2022 Overview: 07/31/2022 Patient stopped breast-feeding about 4 weeks ago. She has a history of irregular menses. She is approximately 12 weeks 4 days by dates. She believes she is about that far along. See phone note dated July 31 Patient desires nuchal ultrasound but does not want any blood work. Considering genetic carrier screening testing. Contact information for [facility] given to patient to check on insurance coverage.Bonnie Covarrubias RN Irregular menses 11/24/2012 04/12/2020 documented as of this encounter (statuses as of 01/14/2023) [facility] History of Past illness Narrative* Problem Noted Date Diagnosed Date Resolved Date COVID-19 vaccine series declined 10/12/2020 01/01/2021 Anemia during in third trimester 09/04/2020 01/01/2021 Overview: 09/14/20-Taking iron supplement every M-W-F. Repeat CBC 33 weeks. Shirley Alonso APRN.CNM Nausea and vomiting during 04/12/2020 01/01/2021 Overview: 04/12/2020atient is complaining of nausea and occasional vomiting in . Dietary considerations discussed . Patient states that Vitamin B6 that was recommended is helping alleviate her symptoms. Advised patient to call/come in if she is unable to keep any food or fluids down in a 24-hour period. 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 No surgical correction was done. TKRN Chlamydia infection during 04/12/2020 01/01/2021 Overview: 10/17/20-GC/CT tested at 36 weeks. Shirley Alonso APRN.CNM 06/21/20 - negative GC/chlam last month - Kylee Liang MD 04/12/2020atient had positive chlamydia test on March 30. TKRN Patient request for diagnostic testing 04/12/2020 08/14/2022 Overview: 07/31/2022 Patient stopped breast-feeding about 4 weeks ago. She has a history of irregular menses. She is approximately 12 weeks 4 days by dates. She believes she is about that far along. See phone note dated July 31 Patient desires nuchal ultrasound but does not want any blood work. Considering genetic carrier screening testing. Contact information for [facility] given to patient to check on insurance coverage.Bonnie Covarrubias RN Irregular menses 11/24/2012 04/12/2020 documented as of this encounter (statuses as of 01/19/2023) [facility] History of Past illness Narrative* Problem Noted Date Diagnosed Date Resolved Date COVID-19 vaccine series declined 10/12/2020 01/01/2021 Anemia during in third trimester 09/04/2020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 by the Federal Confidentiality of Alcohol and Drug Abuse Patient Records regulations: The Federal rules restrict any use of the information to criminally investigate or prosecute any alcohol or drug abuse patient.[facility] CenterIn the event this information is protected by the Federal Confidentiality of Alcohol and Drug Abuse Patient Records regulations: The Federal rules restrict any use of the information to criminally investigate or prosecute any alcohol or drug abuse patient.[facility] CenterIn the event this information is protected by the Federal Confidentiality of Alcohol and Drug Abuse Patient Records regulations: The Federal rules restrict any use of the information to criminally investigate or prosecute any alcohol or drug abuse patient.[facility] CenterIn the event this information is protected by the Federal Confidentiality of Alcohol and Drug Abuse Patient Records regulations: The Federal rules restrict any use of the information to criminally investigate or prosecute any alcohol or drug abuse patient.[facility] CenterIn the event this information is protected by the Federal Confidentiality of Alcohol and Drug Abuse Patient Records regulations: The Federal rules restrict any use of the information to criminally investigate or prosecute any alcohol or drug abuse patient.[facility] CenterIn the event this information is protected by the Federal Confidentiality of Alcohol and Drug Abuse Patient Records regulations: The Federal rules restrict any use of the information to criminally investigate or prosecute any alcohol or drug abuse patient.[facility] CenterIn the event this information is protected by the Federal Confidentiality of Alcohol and Drug Abuse Patient Records regulations: The Federal rules restrict any use of the information to criminally investigate or prosecute any alcohol or drug abuse patient.[facility] CenterIn the event this information is protected by the Federal Confidentiality of Alcohol and Drug Abuse Patient Records regulations: The Federal rules restrict any use of the information to criminally investigate or prosecute any alcohol or drug abuse patient.[facility] CenterIn the event this information is protected by the Federal Confidentiality of Alcohol and Drug Abuse Patient Records regulations: The Federal rules restrict any use of the information to criminally investigate or prosecute any alcohol or drug abuse patient.[facility] CenterIn the event this information is protected by the Federal Confidentiality of Alcohol and Drug Abuse Patient Records regulations: The Federal rules restrict any use of the information to criminally investigate or prosecute any alcohol or drug abuse patient.[facility] CenterIn the event this information is protected by the Federal Confidentiality of Alcohol and Drug Abuse Patient Records regulations: The Federal rules restrict any use of the information to criminally investigate or prosecute any alcohol or drug abuse patient.[facility] Reason for Visit (unrecogniz ed section and content) Reason Comments Care Reason Comments Care Reason Onset Date Comments Care 08/14/2022 Reason Comments US Specialty Diagnoses / Procedures Referred By Nova t Referred To Contact [facility] Diagnoses 13 weeks gestation of Procedures OBSTETRIC ULTRASOUND WHI US PREG UTERUS AFTER 1ST TRIMEST GESTATION Shirley Alonso APRN.PEGGY [address] [place] [address] [facility] [address] [place] [address] Referral ID Status Reason Start Date Expiration Date V isits Requested Visits Authorized [id number] Closed Auto-Generate d Referral 08/05/2022 08/05/2023 1 1 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 P DIOMEDES Reason Onset Date Comments Care 09/24/2022 Reason Onset Date Comments Care 10/30/2022 Reason Onset Date Comments Care 11/13/2022 Reason Comments Results Urine Culture Reason Onset Date Comments Care 11/28/2022 Reason Onset Date Comments Care 12/26/2022 Reason Comments US Reason Comments Care Plan Care Coordination Reason Onset Date Comments Care 01/02/2023 Reason Comments Fever Reason Comments Ob Delivery Note Reason Comments Follow Up Reason Comments Routine Reason Comments Appointment Reason Comments Early OB Bleeding Reason Comments Dental Problem Lt tooth infected, s welling in mouth, Left side of face swelling x 1 day Reason Comments Initial OB Visit Reason Onset Date Comments Care 08/05/2024 Reason Onset Date Comments Care 08/29/2024 Reason Comments Question (OB Question) Reason Onset Date Comments Care 09/06/2024 Specialty Diagnoses / Procedures Referred By Nova hernández Referred To Contact [facility] Diagnoses with uncertain dates in first trimester (HCC) Procedures OBSTETRIC ULTRASOUND WHI US PREG UTERUS AFTER 1ST TRIMEST GESTATION Jody Dc APRN.LIFEGUARD [address] 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 Tom Jacinto MD Attending Provider, Referring Provider Active Team Status: Active Member Role Status Dates No Primary Care Physician Primary Care Provider Active Team Status: Inactive Member Role Status Dates No Primary Care Physician Primary Care Provider Active Shirley Alonso CNM Admit Provider, Atte nding Provider, Referring Provider Active Goals (unrecognized section and content) Goals may be documented in a n alternate sectionGoals may be documented in an alternate section FOR RECORDS PERTAINING TO PATIENTS WHO ARE OR HAVE BEEN ENROLLED IN A CHEMICAL DEPENDENCY/SUBSTANCEABUSE PROGRAM, SOME INFORMATION MAY BE OMITTED. This clinical summary was aggregated from multiple sources. Caution should be exercised in using it in the provision of clinical care. This summary normalizes information from multiple sources, and as a consequence, information in this document may materially change the coding, format and clinical context of patient data. In addition, data may be omitted in some cases. CLINICAL DECISIONS SHOULD BE BASED ON THE PRIMARY CLINICAL RECORDS. [facility] [employer] [facility] provides no warranty or guarantee of the accuracy or completeness of information in this document.
[2024-12-19 06:21] LABS: ROM Internal Control Test YES-OK TO RESULT pt. (Internal QC); ROM Patient Test Negative (Negative); Record Kit Lot#, ROM+ K3607
--- NOTE | 2024-12-19 17:16 | OB.TRI.HP_ITS ---
HPI - General General Date of Service: 12/19/24 HPI Narrative REBECCA DORSEY, is a 24 F @ 35+ weeks who presents with concerns for ROM. pt was seen earlier today with similar concerns - negative work up. Pt had intercourse at 3am [facility] Medical History (Updated 12/19/24 @ 20:[address] Soila Champion MD) Osteochondroma of tibia Anemia Vaginal delivery Supervision of normal Heart murmur Chlamydia infection affecting Anxiety Depression Home Medications Medication Instructions Recorded Last Taken Type [id number] 1 mg 1 tab PO DAILY pregna ncy 11/16/20 12/18/24 History tablet ferrous sulfate PO 12/19/24 Unknown History Allergy/AdvReac Type Severity Reaction Status Date / Time No Known Allergies Allergy Verified 12/19/24 06:29 Surgical History (Updated 01/11/23 @ 11:58 by Nedra Du) H/O knee surgery Social History Smoking Status: Former smoker History Elective abortions Hx Para 1 Spontaneous abortions Hx # Term Pregnancies Ectopic pregnancies Hx # Pregnancies Multiple births # of living children NST FHR Rate Baby A Baseline: 130 Variability:: Moderate Accelerations:: 15 x 15 Decelerations:: None NST Reactive:: Yes FHR Category:: Category I Uterine Activity:: occasional Assessment & Plan (1) False labor: (2) 35 weeks gestation of : PLAN: Plan @ 35+ weeks - here for r/o Premature ROM- false labor 1) ROM PLUS - negative for ROM 2) NSt - well being established. [place] home
[2024-12-19 17:59] LABS: ROM Internal Control Test YES-OK TO RESULT pt. (Internal QC); ROM Patient Test Negative (Negative); Record Kit Lot#, ROM+ K3607
== END 2024-12-19 19:10 | disposition home or self-care (01) ==
LOC: WPOUT 05:20 → WP 05:23
PROVIDERS: Obstetrics & Gynecology; Referring Provider Obstetrics & Gynecology; Visit Provider Obstetrics & Gynecology
DX: O47.03 False labor before 37 completed weeks of gestation, third trimester (principal); Z3A.35 35 weeks gestation of pregnancy
CPT/HCPCS: 59025; 59050; 84112; 99221; G0378

== ENCOUNTER 2025-01-24 07:41 | Inpatient (IN) | payer MEDICAID, SELFPAY ==
[2025-01-24] VITALS (72 sets, daily range): BP systolic 105–147; BP diastolic 56–83; PULSE 71–133; RESP 14–24; TEMP 36.2–37.1; O2SAT 87–100; BMI 25.7
--- OUTSIDE RECORDS SUMMARY | 2025-01-24 07:33 | XMS RPT_ITS | CCD ---
Author Organization [facility] Care Team Providers Care Store Clerk Cashier Name Role Phone Unavailable Primary Care Provider UnavailJAMAL Diaz Referring Unavailable ROHINI NUÑEZ Attending Unavailable JAMAL CHAMBERS Referring Unavailable Unavailable Primary Care Provider Unavailabl e Unavailable Primary Care Provider UnavailFAITH Davis MD Admitting Unavailable FAITH MANCUSO MD Primary Care Unavailable FAITH MANCUSO MD Attending Unavailable SHIRLEY HOLLINS NP Consulting Unavailable SHIRLEY HOLLINS NP Referring Unavailable PROVIDER, UNKNOWN Consulting Unavailable FRANCIA IZAGUIRRE CNP Primary Care Unavailable FRANCIA IZAGUIRRE CNP Attending Unavailable SHIRLEY HOLLINS NP Consulting Unavailable FRANCIA IZAGUIRRE CNP Admitting Unavailable PROVIDER, UNKNOWN Consulting Unavailable FRANCIA IZAGUIRRE CNP Primary Care Unavailable FRANCIA IZAGUIRRE CNP Attending Unavailable FRANCIA IZAGUIRRE CNP Admitting Unavailable SHIRLEY HOLLINS LEAFLET DISTRIBUTOR Consulting Unavailable PROVIDER, UNKNOWN Consulting Unavailable FRANCIA IZAGUIRRE CNP Consulting Unavailable FRANCIA IZAGUIRRE CNP Referring Unavailable VILLA SRINIVAS C Admitting Unavailable VILLA, SRINIVAS C Primary Care Unavailable VILLA SRINIVAS C Attending Unavailable PROVIDER, UNKNOWN Consulting Unavailable PROVIDER, UNKNOWN Consulting Unavailable MELA DOZIER Attending Unavailable SELF Referring Unavailable MANUEL GOLDBERG Attending Unavailable JODY DC Referring Unavailable TOM JACINTO Attending Unavailable TOM JACINTO Attending Unavailable IVY, JODY Referring Unavailable IVY, JODY Referring Unavailable TOM JACINTO Referring Unavailable MELA DOZIER Attending Unavailable SELF Referring Unavailable TOM JACINTO Referring Unavailable MELA DOZIER Referring Unavailable KYELE LIANG Attending Unavailable MELA DOZIER Referring Unavailable TOM JACINTO Attending Unavailable DAHLIA MORLEY Referring Unavailable JODY DC Attending Unavailable Soila Champion Referring Unavail able Soila Champion Attending Unavail able Care Physician, No Primary Primary Care Unava ilable Medications Current Medications Medication Drug Class(es) Dates [...] your vitamin 15 tablet 5 10/20/2024 Active Rhfmksfs-Utm-At-Fa (3 sources) Start: 11-16-2020 take 1 tablet by mouth once daily Cqijpkrm-Wcl-Vs-Fa Active 1 TABLET PO DAILY November 15, 2020 11:00pm Start: 11-16-2020 take 1 tablet by samuel th once daily Smozggfv-Uci-Zr-Fa Active 1 TABLET PO DAILY November 16, [...] 1 tablet by samuel th three times daily. ferrous sulfate 325 mg [...] Translations: [Periapical abscess without sinus] 04-30-2024 Episodic Genitourinary symptoms and ill-defined conditions (4 [...] of other normal , unspecified trimester] Onset: 05-24-2024 Episodic Other screening for suspected conditions (not [...] 10-19-2024 Episodic Residual codes; unclassified (1 source) 35 weeks gestation of ; Translations: [35 weeks gestation of (HCC)] Onset: 12-16-2024 Episodic Residual codes; unclassified (1 source) 30 weeks gestation of ; Translations: [30 weeks gestation of (HCC)] Onset: 11-15-2024 Episodic Residual codes; unclassified (1 source) 26 weeks gestation of ; Translations: [26 weeks gestation of ([facility])] Onset: 10-19-2024 Episodic Residual codes; unclassified (1 [...] Labor finding; Translations: [Active labor] 01-11-2023 Unclassified (13 sources) [facility] Education - COMMON Onset: 06-17-2024 06-17-2024 Unclassified (13 sources) Education - [place] Onset: 06-17-2024 06-17-2024 Unclassified (1 source) complication before ([facility]); Translations: [ complication before ([facility])] Onset: 12-08-2024 Past or Other Problems Problem Classification Problem [...] of ; Translations: [19 weeks gestation of (HCC)] Onset: 08-29-2024 Episodic Residual codes; unclassified (1 source) 16 weeks gestation of ; Translations: [16 weeks gestation of (HCC)] Onset: 08-05-2024 Episodic Residual codes; unclassified (1 source) 9 weeks gestation of ; Translations: [9 weeks gestation of ([facility])] Onset: 06-17-2024 Episodic Residual codes; unclassified [...] Results Test Name Value Interpretation Reference Range Facil ity (ROM) Rupture Of Membraneson 12-19-2024 ROM Negative Normal Negative [facility] Comment on above: Result Comment: Amni otic fluid not present indicates No Rupture of Membranes at time of specimen collection. Performed By: #### L 205.1000 #### [facility] [address] [place], [address] ROM Negative Normal Negative [facility] Comment on above: Result Comment: Amni otic fluid not present indicates No Rupture of Membranes at time of specimen collection. Performed By: #### L 205.1000 #### [facility] [address] [place], [address] Radha 12-19-2024 CNPN Telephone (OBGYWM) ODESSA DORSEY Gunner ([id number]) 89 F T Date Time Provider Department 12/19/24 SOILA HERRERA OBGYWM During your visit today, we recorded the following information about you: Summer Caceres RN 12/19/2024 2:06 PM Signed Patient 35w3d was seen on [facility] this morning for possible rupture of membranes. ROM was negative and patient was discharged home. Patient states since being home she is still leaking clear fluid but it is more of a trickle now instead of gushes. Patient states that 45 minutes ago she also lost her mucous plug. Denies any bleeding or decreased movement. Patient states she has been having irregular contractions around every 5 minutes that last 30 seconds. Patient able to still talk through her contractions. Do you want patient to be evaluated in office? It would take her 30-45 minutes to get here. ALAN Gillis Deidre, MD 12/19/2024 2:08 PM Signed No- I have a patient that will hopefully be close to delivery. She can go to [facility] Summer Caceres RN 12/19/2024 2:21 PM Signed Left message to call office. ALAN Gillis Lindsey, RN 12/19/2024 2:48 PM Signed Patient notified and voiced understanding. Summer Caceres RN Allergies As of Date: 12/19/2024 (No Known Allergies) Date Reviewed: 12/16/2024 Reviewed by: Tom Jacinto MD - Fully Assessed Reason for Visit: OB-leaking fluid [Other] Prescriptions as of 12/19/2024 - blood sugar diagnostic test strip Use [...] FOR PAIN. 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] 07/19/2012 [...] 07/15/2024 M-Power [O99.891] 09/07/2024 Encounter Status:Closed by SUMMER CACERES on 12/19/24 Normal [facility] OB Triage Physician Noteon 1 02-19-2024 OB Triage Physician Note [facility] Medical Records Department [address] [place] [address] OB Triage Physician Note 12/19/24 1716 MR#: [id number] Acct: [id number] Name: ODESSA DORSEY Rep #: [id number] : 2000 24 From: Soila Champion MD PCP: Care Physician,No Primary Status:DEP CLI Y Location: HPI - General General Date of Service: 12/19/24 HPI Narrative ODESSA DORSEY, is a 24 F @ 35+ weeks who presents with concerns for ROM. pt was seen earlier today with similar concerns - negative work up. Pt had intercourse at 3am [facility] Medical History (Updated 12/19/24 @ 20:[address] Soila Champion MD) Osteochondroma of tibia Anemia Vaginal delivery Supervision of normal Heart murmur Chlamydia infection affecting Anxiety Depression Home Medications ???Medication ???Instructions ???Recorded ???Last Taken ???Type bjhtfztk-bxl-Yp-FA 1 mg 1 tab PO DAILY 11/16/20 12/18/24 History tablet ferrous sulfate PO 12/19/24 Unknown History Allergy/AdvReac Type Severity Reaction Status Date / Time No Known Allergies Allergy Verified 12/19/24 06:29 Surgical History (Updated 01/11/23 @ 11:58 by Nedra Du) H/O knee surgery Social History Smoking Status: Former smoker History Elective abortions Hx Para 1 Spontaneous abortions Hx # Term Pregnancies Ectopic pregnancies Hx # Pregnancies Multiple births # of living children NST FHR Rate Baby A Baseline: 130 Variability:: Moderate Accelerations:: 15 x 15 Decelerations:: None NST Reactive:: Yes FHR Category:: Category I Uterine Activity:: occasional Assessment Plan (1) False labor: (2) 35 weeks gestation of : PLAN: Plan @ 35+ weeks - here for r/o Premature ROM- false labor 1) ROM PLUS - negative for ROM 2) NSt - well being established. dc home 12/19/242013 D> Date Soila Champion MD Cosigner Signature (if applicable): Date CC: Dr Soila Champion MD; No Primary Care Physician Signed Normal [facility] Urinalysis, Routine (Dipstic k)on 12-19-2024 BILIRUBIN URINE Normal Negative [facility] Comment on above: Order Comment: MICKEY ALEXIS TO SPECIFY Result Comment: PER [facility]/OB OK TO CANCEL. NO SPECIMEN WAS OBTAINED AND PATIENT WAS RELEASED. 12-20-24 01:29 Performed By: #### L 400.2010 #### [facility] [address] [facility] [place], [address] Clarity (U) Normal Clear [facility] Comment on above: Order Comment: MICKEY CTPRAMOD TO SPECIFY Result Comment: PER [facility]/OB OK TO CANCEL. NO SPECIMEN WAS OBTAINED AND PATIENT WAS RELEASED. 12-20-24 01:29 Performed By: #### L 400.2010 #### [facility] [address] [facility] [place], [place], [address] Color (U) Normal Yellow [facility] Comment on above: Order Comment: MICKEY CTPRAMOD TO SPECIFY Result Comment: PER [facility] WP/OB OK TO CANCEL. NO SPECIMEN WAS OBTAINED AND PATIENT WAS RELEASED. 12-20-24 01:29 Performed By: #### L 400.2010 #### [facility] [address] [place], [address] GLUCOSE, UR Normal Normal [facility] Comment on above: Order Comment: COLLE CTOR TO SPECIFY Result Comment: PER [facility] WP/OB OK TO CANCEL. NO SPECIMEN WAS OBTAINED AND PATIENT WAS RELEASED. 12-20-24 01:29 Performed By: #### L 400.2010 #### [facility] [address] [place], [address] KETONE UR Normal Negative [facility] Comment on above: Order Comment: COLLE CTOR TO SPECIFY Result Comment: PER [facility] WP/OB OK TO CANCEL. NO SPECIMEN WAS OBTAINED AND PATIENT WAS RELEASED. 12-20-24 01:29 Performed By: #### L 400.2010 #### [facility] [address] [place], [address] LEUK ESTERASE Normal Negative [facility] Comment on above: Order Comment: COLLE CTOR TO SPECIFY Result Comment: PER [facility]STER WP/OB OK TO CANCEL. NO SPECIMEN WAS OBTAINED AND PATIENT WAS RELEASED. 12-20-24 01:29 Performed By: #### L 400.2010 #### [facility] [address] [place], [address] Nitrite Ql (U) Normal Negative [facility] Comment on above: Order Comment: COLLE CTOR TO SPECIFY Result Comment: PER [facility]STER WP/OB OK TO CANCEL. NO SPECIMEN WAS OBTAINED AND PATIENT WAS RELEASED. 12-20-24 01:29 Performed By: #### L 400.2010 #### [facility] [address] [place], [address] OCCULT BLOOD-UR Normal Negative [facility] Comment on above: Order Comment: COLLE CTOR TO SPECIFY Result Comment: PER MONSTER WP/OB OK TO CANCEL. NO SPECIMEN WAS OBTAINED AND PATIENT WAS RELEASED. 12-20-24 01:29 Performed By: #### L 400.2010 #### [facility] [address] [place], [address] pH UR Normal 5.0 - 8.0 [facility] Comment on above: Order Comment: COLLE CTOR TO SPECIFY Result Comment: PER MONSTER WP/OB OK TO CANCEL. NO SPECIMEN WAS OBTAINED AND PATIENT WAS RELEASED. 12-20-24 01:29 Performed By: #### L 400.2010 #### [facility] [address] [place], [address] PROT DIPSTX Normal Negative [facility] Comment on above: Order Comment: COLLE CTOR TO SPECIFY Result Comment: PER MONSTER WP/OB OK TO CANCEL. NO SPECIMEN WAS OBTAINED AND PATIENT WAS RELEASED. 12-20-24 01:29 Performed By: #### L 400.2010 #### [facility] [address] [place], [address] SP.GR. DIPSTX Normal 1.002-1.030 [facility] Comment on above: Order Comment: COLLE CTOR TO SPECIFY Result Comment: PER MONSTER WP/OB OK TO CANCEL. NO SPECIMEN WAS OBTAINED AND PATIENT WAS RELEASED. 12-20-24 01:29 Performed By: #### L 400.2010 #### [facility] [address] [place], [address] UR Preservative Normal [facility] Comment on above: Order Comment: COLLE CTOR TO SPECIFY Result Comment: PER MONSTER WP/OB OK TO CANCEL. NO SPECIMEN WAS OBTAINED AND PATIENT WAS RELEASED. 12-20-24 01:29 Performed By: #### L 400.2010 #### [facility] [address] [place], [address] UROBILI Normal Normal [facility] Comment on above: Order Comment: COLLE CTOR TO SPECIFY Result Comment: PER MONSTER WP/OB OK TO CANCEL. NO SPECIMEN WAS OBTAINED AND PATIENT WAS RELEASED. 12-20-24 01:29 Performed By: #### L 400.2010 #### [facility] [address] [place], [address] Radha 12-08-2024 [facility] Telephone (FV3L+D) ODESSA DORSEY ([id number]) 89 F T Date Time Provider Department 12/08/24 MPOWER FV OB LANDD FV3L+D During your visit today, we recorded the following information about you: Allergies As of Date: 12/08/2024 (No Known Allergies) Date Reviewed: 11/15/2024 Reviewed by: Keyana Vazquez MA - Fully Assessed Reason for Visit: Care Coordination [7298] Cmt: M-Power Scheduling LM attempt # 3 [...] Encounter Status:Closed by EN[facility] ODES[facility] DORSEY ([id number]) 89 F CHT Date Time Provider Department 12/02/24 NOMI FV OB LANDD FV3L+D During your visit today, we recorded the following information about you: Allergies As of Date: 12/02/2024 (No Known Allergies) Date Reviewed: 11/15/2024 Reviewed by: Keyana Vazquez MA - Fully Assessed Reason for Visit: Care Coordination [3491] Cmt: M-Power Scheduling LM attempt # 2 [...] Encounter Status:Closed by ENEDINA MENENDEZ on 12/02/24 [facility] CNPN Telephone (FV3L+D) ODESSA DORSEY ([id number]) 89 F CHT Date Time Provider Department 11/18/24 MPOWER FV OB LANDD FV3L+D During your visit today, we recorded the following information about you: Allergies As of Date: 11/18/2024 (No Known Allergies) Date Reviewed: 11/15/2024 Reviewed by: Keyana Vazquez MA - Fully Assessed Reason for Visit: Care Coordination [2902] Cmt: M-Power Scheduling Pt will call back, [...] Encounter Status:Closed by ENEDINA MENENDEZ on 11/18/24 [facility] Radha 11-16-2024 [facility] Telephone ([id number]) SUNITAODESSA ([id number]) 89 F T Date Time Provider Department 11/16/24 MELA WELLS [id number] During your visit today, we recorded the following information about you: Mela Wells RN 11/16/2024 9:02 AM Signed 3rd risk assessment form submitted 11/16/2024. Mela Wells RN Allergies As of Date: 11/16/2024 (No Known Allergies) Date Reviewed: 11/15/2024 Reviewed by: Keyana Vazquez MA - Fully Assessed Reason for Visit: Reordering Clerk - Other [3602] Cmt: ANKUR Prescriptions as of 11/16/2024 - Blood-Glucose Meter [...] Status:Closed by MELA WELLS on 11/16/24 Normal [facility] CBC panel Auto (Bld)on 11-15 Erythrocyte distribution width (RBC) [Ratio] 13.0 % Normal 11.5-15.0 [facility] Comment on above: Order Comment: Speci men Type: BLOOD SPECIMENOrdering Facility: [facility] Address: [address] [place] [address] Performed By: #### 6 30-4 #### [facility] CLIA [id number] [address] [place] [address] [place] [address] [place] Hematocrit (Bld) [Volume fraction] 31.7 % Low 36.0-46.0 [facility] Comment on above: Order Comment: Speci men Type: BLOOD SPECIMENOrdering Facility: [facility] Address: [address] [place] [address] Performed By: #### 6 30-4 #### [facility] CLIA [id number] [address] [place] [address] [place] Hemoglobin (Bld) [Mass/Vol] 11.1 g/dL Low 11.5-15.5 [facility] Comment on above: Order Comment: Speci men Type: BLOOD SPECIMENOrdering Facility: [facility] Address: [address] [place] [address] Performed By: #### 6 30-4 #### [facility] CLIA [id number] [address] [place] [address] [place] MCH (RBC) [Entitic mass] 31.3 pg Normal 26.0-34.0 [facility] Comment on above: Order Comment: Speci men Type: BLOOD SPECIMENOrdering Facility: [facility] Address: [address] [place] [address] Performed By: #### 6 30-4 #### [facility] CLIA [id number] [address] [place] [address] [place] MCHC (RBC) [Mass/Vol] 35.0 g/dL Normal 30.5-36.0 [facility] Comment on above: Order Comment: Speci men Type: BLOOD SPECIMENOrdering Facility: [facility] Address: [address] [place] [address] Performed By: #### 6 30-4 #### [facility] CLIA [id number] [address] [place] [address] [place] MCV (RBC) [Entitic vol] 89.3 fL Normal 80.0-100.0 [facility] Comment on above: Order Comment: Speci men Type: BLOOD SPECIMENOrdering Facility: [facility] Address: [address] [place] [address] Performed By: #### 6 30-4 #### [facility] CLIA [id number] [address] [place] [address] [place] Nucleated RBC (Bld) [#/Vol] 10*3/uL Normal <0.01 [facility] Comment on above: Order Comment: Speci men Type: BLOOD SPECIMENOrdering Facility: [facility] Address: [address] [place] [address] Performed By: #### 6 30-4 #### [facility] CLIA [id number] [address] [place] [address] [place] Platelet mean volume (Bld) [Entitic vol] 8.7 fL Low 9.0-12.7 [facility] Comment on above: Order Comment: Speci men Type: BLOOD SPECIMENOrdering Facility: [facility] Address: [address] [place] [address] Performed By: #### 6 30-4 #### [facility] CLIA [id number] [address] [place] [address] [place] Platelets (Bld) [#/Vol] 283 10*3/uL Normal 150-400 [facility] Comment on above: Order Comment: Speci men Type: BLOOD SPECIMENOrdering Facility: [facility] Address: [address] [place] [address] Performed By: #### 6 30-4 #### [facility] CLIA [id number] [address] [place] [address] [place] RBC (Bld) [#/Vol] 3.55 10*6/uL Low 3.90-5.20 [facility] Comment on above: Order Comment: Speci men Type: BLOOD SPECIMENOrdering Facility: [facility] Address: [address] [place] [address] Performed By: #### 6 30-4 #### [facility] CLIA [id number] [address] [place] [address] [place] WBC (Bld) [#/Vol] 8.67 10*3/uL Normal 3.70-11.00 [facility] Comment on above: Order Comment: Rileyi men Type: BLOOD SPECIMENOrdering Facility: [facility] Address: [address] [place] [address] Performed By: #### 6 30-4 #### [facility] CLIA [id number] [address] [place] [address] [place] Reagin and Treponema pallidu m IgG and IgM [Interp]on 11-15-2024 T. pallidum IgG+IgM IA Ql (S) Non-Reactive Normal Nonreactive [facility] Comment on above: Order Comment: Sarah bhatia Type: BLOOD SPECIMENOrdering Facility: [facility] Address: [address] [place] [address] Performed By: #### 7 3752-8 ####[facility] LABCLIA [id number] [place] [address] [place] [facility] [place] Reagin+T pallidum IgG+IgM Se rPl-Impon 11-15-2024 Reagin and Treponema pallidum IgG and IgM [Interp] Cannot exclude recent Treponemal infection if specimen collected within 7-10 days after appearance of suspect lesions or 2-3 weeks after an exposure. Clinical correlation is required. Normal [facility] Comment on above: Order Comment: Sarah bhatia Type: BLOOD SPECIMENOrdering Facility: [facility] Address: [address] [place] [address] Performed By: #### 7 3752-8 ####[facility] LABCLIA [id number] [place] [address] [place] Radha 11-03-2024 [facility] Telephone (OBGYW) SUNITAODESSA Martino ([id number]) 89 F CHT Date Time Provider Department 11/03/24 MELA DOZIER [...] on 11/15 Please review and advise. Violetta Busbystrom November 03, 2024 2:09 PM Allergies As [...] Status:Closed by JOANNE JAMES on 11/07/24 Normal [facility] Bacteria Ur Culton Bacteria identified Cx Nom (U) ORGANISM ID: 1 <10,000 CFU/ml Normal urogenital eileen Normal [facility] Comment on above: Performed By: #### 6 30-4 #### [facility] CLIA [id number] [address] [place] [address] [place] Basic metabolic 2000 panelon 10-19-2024 Anion gap [Moles/Vol] 12 mmol/L Normal 8-15 [facility] Comment on above: Order Comment: Speci men Type: BLOOD SPECIMENOrdering Facility: [facility] Address: [address] [place] [address] Performed By: #### 2 4321-2 ####[facility] LAB[facility] [id number] [place] [address] [place] Calcium [Mass/Vol] 9.1 mg/dL Normal 8.5-10.2 [facility] Comment on above: Order Comment: Speci men Type: BLOOD SPECIMENOrdering Facility: [facility] Address: [address] [place], [place] [address] Performed By: #### 2 4321-2 ####[facility] [id number] [address] [address] [place] Chloride [Moles/Vol] 100 mmol/L Normal 98-107 [facility] Comment on above: Order Comment: Speci men Type: BLOOD SPECIMENOrdering Facility: [facility] Address: [address] [place] [address] Performed By: #### 2 4321-2 ####[facility] LABCLIA [id number] [place] [address] [place] CO2 [Moles/Vol] 24 mmol/L Normal 22-30 [facility] Comment on above: Order Comment: Speci men Type: BLOOD SPECIMENOrdering Facility: [facility] Address: [address] [place] [address] Performed By: #### 2 4321-2 ####[facility] LABCLIA [id number] [place] [id number] [place] Creatinine [Mass/Vol] 0.58 mg/dL Normal 0.58-0.96 [facility] Comment on above: Order Comment: Speci men Type: BLOOD SPECIMENOrdering Facility: [facility] Address: [address] [place] [address] Performed By: #### 2 4321-2 ####[facility] LAB[facility] [id number] [place] [id number] [place] eGFRcr SerPlBld CKD-EPI 2020 129 mL/min/1.73m??? Normal >=60 [facility] Comment on above: Order Comment: Speci men Type: BLOOD SPECIMENOrdering Facility: [facility] Address: [address] [place] [address] Result Comment: Brisa mated Glomerular Filtration Rate [...] actual GFR. Performed By: #### 2 4321-2 ####[facility] LAB[facility] [id number] [place] [id number] [place] Glucose [Mass/Vol] 83 mg/dL Normal 74-99 [facility] Comment on above: Order Comment: Sarah bhatia Type: BLOOD SPECIMENOrdering Facility: [facility] Address: [address] [place] [address] Result Comment: The [place] [employer] (ADA) provides guidance for cutoff [...] Standards of Medical Care in Diabetes 2016, [place] [employer]. Diabetes Care. 2016.39(Suppl 1). Performed By: #### 2 4321-2 ####[facility] LABIA [id number] [place] [id number] [place] Potassium [Moles/Vol] 4.2 mmol/L Normal 3.7-5.1 [facility] Comment on above: Order Comment: Sarah bhatia Type: BLOOD SPECIMENOrdering Facility: [facility] Address: [address] [id number] Performed By: #### 2 4321-2 ####[facility] LABIA [id number] [address] [address] [place] Sodium [Moles/Vol] 136 mmol/L Normal 136-144 [facility] Comment on above: Order Comment: Speci men Type: BLOOD SPECIMENOrdering Facility: [facility] Address: [address] [place] [address] Performed By: #### 2 4321-2 ####[facility] LABCLIA [id number] [address] [place] Urea nitrogen [Mass/Vol] 8 mg/dL Normal 7-21 [facility] Comment on above: Order Comment: Speci men Type: BLOOD SPECIMENOrdering Facility: [facility] Address: [address] [place] [address] Performed By: #### 2 4321-2 ####[facility] LABIA [id number] [address] [place] CBC panel Auto (Bld)on 10-19 Erythrocyte distribution width (RBC) [Ratio] 12.8 % 11.5 - 15.0 % [facility] Hematocrit (Bld) [Volume fraction] 31.8 % Low 36.0 - 46.0 % [facility] Hemoglobin (Bld) [Mass/Vol] 10.9 g/dL Low 11.5 - 15.5 g/dL [facility] Interpretation and review of laboratory results Abnormal [facility] MCH (RBC) [Entitic mass] 31.1 pg 26.0 - 34.0 pg [facility] MCHC (RBC) [Mass/Vol] 34.3 g/dL 30.5 - 36.0 g/dL [facility] MCV (RBC) [Entitic vol] 90.6 fL 80.0 - 100.0 fL [facility] Nucleated RBC (Bld) [#/Vol] NINF [facility] Platelet mean volume (Bld) [Entitic vol] 8.8 fL Low 9.0 - 12.7 fL [facility] Platelets (Bld) [#/Vol] 303 10*3/uL [facility] RBC (Bld) [#/Vol] 3.51 10*6/uL Low 3.90 - 5.2 0 m/uL [facility] WBC (Bld) [#/Vol] 9.82 10*3/uL [facility] Erythrocyte distribution width (RBC) [Ratio] 12.8 % Normal 11.5-15.0 [facility] Comment on above: Order Comment: Speci men Type: BLOOD SPECIMENOrdering Facility: [facility] Address: [address] [place] [address] Performed By: #### 5 8410-2 ####[facility] [id number] [place] [address] [place] Hematocrit (Bld) [Volume fraction] 31.8 % Low 36.0-46.0 [facility] Comment on above: Order Comment: Speci men Type: BLOOD SPECIMENOrdering Facility: [facility] Address: [address] [place] [address] Performed By: #### 5 8410-2 ####[facility] [id number] [place] [address] [place] Hemoglobin (Bld) [Mass/Vol] 10.9 g/dL Low 11.5-15.5 [facility] Comment on above: Order Comment: Speci men Type: BLOOD SPECIMENOrdering Facility: [facility] Address: [address] [place] [address] Performed By: #### 5 8410-2 ####[facility] CAMPUSNCLIA [id number] [place] [address] [place] MCH (RBC) [Entitic mass] 31.1 pg Normal 26.0-34.0 [facility] Comment on above: Order Comment: Speci men Type: BLOOD SPECIMENOrdering Facility: [facility] Address: [address] [place] [address] Performed By: #### 5 8410-2 ####[facility] CAMPUSNCLIA [id number] [place] [address] [place] MCHC (RBC) [Mass/Vol] 34.3 g/dL Normal 30.5-36.0 [facility] Comment on above: Order Comment: Speci men Type: BLOOD SPECIMENOrdering Facility: [facility] Address: [address] [place] [address] Performed By: #### 5 8410-2 ####[facility] [id number] [place] [address] [place] MCV (RBC) [Entitic vol] 90.6 fL Normal 80.0-100.0 [facility] Comment on above: Order Comment: Speci men Type: BLOOD SPECIMENOrdering Facility: [facility] Address: [address] [place] [address] Performed By: #### 5 8410-2 ####[facility] CAMPUSNCCrystal [id number] [place] [address] [place] Nucleated RBC (Bld) [#/Vol] 10*3/uL Normal <0.01 [facility] Comment on above: Order Comment: Speci men Type: BLOOD SPECIMENOrdering Facility: [facility] Address: [address] [place] [address] Performed By: #### 5 8410-2 ####[facility] CAMPUSNCLIA [id number] [place] [address] [place] Platelet mean volume (Bld) [Entitic vol] 8.8 fL Low 9.0-12.7 [facility] Comment on above: Order Comment: Speci men Type: BLOOD SPECIMENOrdering Facility: [facility] Address: [address] [place] [address] Performed By: #### 5 8410-2 ####[facility] CAMPUSNCLIA [id number] [place] [address] [place] Platelets (Bld) [#/Vol] 303 10*3/uL Normal 150-400 [facility] Comment on above: Order Comment: Speci men Type: BLOOD SPECIMENOrdering Facility: [facility] Address: [address] [place] [address] Performed By: #### 5 8410-2 ####[facility]ILLWNCLIA [id number] [place] [address] [place] RBC (Bld) [#/Vol] 3.51 10*6/uL Low 3.90-5.20 [facility] Comment on above: Order Comment: Speci men Type: BLOOD SPECIMENOrdering Facility: [facility] Address: [address] [place] [address] Performed By: #### 5 8410-2 ####[facility] CAMPUSNCLIA [id number] [place] [address] [place] [facility] [place] WBC (Bld) [#/Vol] 9.82 10*3/uL Normal 3.70-11.00 [facility] Comment on above: Order Comment: Speci men Type: BLOOD SPECIMENOrdering Facility: [facility] Address: [address] [place] [address] Performed By: #### 5 8410-2 ####[facility] CAMPUSNCLIA [id number] [place] [address] [place] [facility] [place] [id number] 10-19-2024 ECG01 Ventricular Rate : 1 05 BPM Atrial Rate : 105 BPM P-R Interval : 128 ms QRS Duration : 92 ms Q-T Interval : 336 ms QTC Calculation(Bazett) : 444 ms Calculated P Perry : 67 degrees Calculated R Perry : 55 degrees Calculated T Perry : 41 degrees SINUS TACHYCARDIA INCOMPLETE RIGHT BUNDLE BRANCH BLOCK BORDERLINE ECG Confirmed by MD VAUGHN QARAB ([id number]) on 10/20/2024 5:21:21 PM NAME : ODESSA DORSEY PID : [id number] : 2000 Gender : Female Race : ORD : Procedure Date : Oct 19 2024 15:57:03 Edit Date : Oct 20 2024 17:21:31 Diagnosis: SINUS TACHYCARDIA INCOMPLETE RIGHT BUNDLE BRANCH BLOCK BORDERLINE ECG Confirmed by MD VAUGHN QARAB ([id number]) on 10/20/2024 5:21:21 PM Test Reason : Location : 636 : [facility] Overread By : MD VAUGHN QARAB Edited By : MD VAUGHN QARAB Referred By : TOM JACINTO Acquired by : , Normal [facility] ECG01 Ventricular Rate : 1 03 BPM Atrial Rate : 103 BPM P-R Interval : 128 ms QRS Duration : 94 ms Q-T Interval : 342 ms QTC Calculation(Bazett) : 448 ms Calculated P Perry : 66 degrees Calculated R Perry : 54 degrees Calculated T Perry : 37 degrees SINUS TACHYCARDIA INCOMPLETE RIGHT BUNDLE BRANCH BLOCK BORDERLINE ECG Confirmed by MD VAUGHN QARAB ([id number]) on 10/20/2024 5:21:05 PM NAME : ODESSA DORSEY PID : [id number] : 2000 Gender : Female Race : ORD : Procedure Date : Oct 19 2024 15:55:52 Edit Date : Oct 20 2024 17:21:27 Diagnosis: SINUS TACHYCARDIA INCOMPLETE RIGHT BUNDLE BRANCH BLOCK BORDERLINE ECG Confirmed by MD VAUGHN QARAB ([id number]) on 10/20/2024 5:21:05 PM Test Reason : Location : 636 : [facility] Overread By : MD VAUGHN QARAB Edited By : MD VAUGHN QARAB Referred By : TOM JACINTO Acquired by : , Unruly [facility] UA DIP, URINE (POC)on 2024 BILIRUBIN UA (POCT) Negative Negative [facility] CLARITY UA (POCT) Clear [facility] COLOR UA (POCT) Yellow [facility] GLUCOSE UA (POCT) Negative Negative mg/dL [facility] Hemoglobin Ql (U) Negative Negative [facility] KETONE UA (POCT) Negative Negative mg/dL [facility] LEUKOCYTES UA (POCT) Negative Negative [facility] NITRITE UA (POCT) Negative Negative [facility] PH UA (POCT) 6.5 4.5 - 8.0 [facility] Protein Ql (U) Negative Negative mg/dL [facility] SPECIFIC GRAVITY UA (POCT) 1.015 1.005 - 1.030 [facility] UROBILINOGEN UA (POCT) 0.2 Normal E.U./d L [facility] Location:[facility] [place] [facility] [place], [address] [facility] POINT OF CARE [facility] Radha 09-26-2024 CNPN Telephone (OBGYWM) ODESSA DORSEY ([id number]) 89 F CHT Date Time Provider Department 09/26/24 TOM JACINTO OBGYWM During your visit today, we recorded the following information about you: Joanne James RN 09/26/2024 3:30 PM Signed Breast pump order received from [address] [place] [address] Way. To RR to sign. ALAN Da [...] Encounter Status:Closed by JOANNE JAMES on 09/27/24 [facility] 09-07-2024 [facility] Telephone ([id number]) ODESSA DORSEY ([id number]) 89 F CHT Date Time Provider Department 09/07/24 MELA WELLS [id number] During your visit today, we recorded the following information about you: Mlea Wells RN 09/07/2024 9:58 AM Signed 2nd risk assessment form submitted 09/07/2024. Mela Wells RN Allergies As of Date: 09/07/2024 (No Known Allergies) Date Reviewed: 09/06/2024 Reviewed by: Tom Jacinto MD - Fully Assessed Reason for Visit: Reordering Clerk - Other [3602] Cmt: PRAF Prescriptions as of 09/07/2024 - [...] Status:Closed by MELA WELLS on 09/07/24 Normal [facility] CNCOon 09-06-2024 CNCO Letter Text Normal [facility] Examination level ultrasound on 09-06-2024 Indication Standard [...] 12 oz EFW by: Hadlock (HC-AC-FL) Extended Ripsaw Matcher 6.0 mm CM 4.3 mm 22% Nicolaides [...] normal LVOT view: normal 3-vessel view: normal 6-grvhan-vwiqgut view: normal Heart / Thorax Situs: situs [...] Read By: Jamal Chambers M.D. MATERNAL MEDICINE [facility] Radiology Study observation (narrative) [facility] [id number] PLUSon 09-06-2024 Cell-free DNA./Cell-free DNA.total Dosage of chromosome-specific cfDNA (cfDNA) [Molar fraction] 24% Normal [facility] Comment on above: Order Comment: Speci men Type: BLOOD SPECIMENOrdering Facility: [facility] Address: [address] [place] [address] Performed By: #### 6 30-4 #### [facility] [place] [id number] [address] [place] [address] [place] Chr 13+18+21+X+Y aneuploidy Dosage of chromosome-specific cfDNA Ql (cfDNA) Negative Normal [facility] Comment on above: Order Comment: Speci men Type: BLOOD SPECIMENOrdering Facility: [facility] Address: [address] [place] [address] Performed By: #### 6 30-4 #### [facility] CLIA [id number] [address] [place] [address] [place] Chr 21 trisomy Dosage of chromosome-specific cfDNA Ql (cfDNA) Negative Normal [facility] Comment on above: Order Comment: Speci men Type: BLOOD SPECIMENOrdering Facility: [facility] Address: [address] [place] [address] Performed By: #### 6 30-4 #### [facility] CLIA [id number] [place] Chr X and Y aneuploidy risk Sequencing Ql (cfDNA) [Interp] Not detected Normal [facility] Comment on above: Order Comment: Speci men Type: BLOOD SPECIMENOrdering Facility: [facility] Address: [address] [place] [address] Result Comment: Not Detected Not Detected Performed By: #### 6 30-4 #### [facility] CLIA [id number] [address] [place] [address] [place] Citation Gustavo (Reference lab test) Comment Normal [facility] Comment on above: Order Comment: Speci men Type: BLOOD SPECIMENOrdering Facility: [facility] Address: [address] [place] [address] Result Comment: 1. P theo CISNEROS et al. Ana Med. 2012;14(3):296-305. 2. Yahir GALLOWAY, et al. Prenat Diag. 2013;33(6):591-597. 3. Eldon C, et al. Clin Chem. 2015 Apr;61(4):608-616. 4. Chris CISNEROS, et al. Ana Med. 2011;13(11):913-920. 5. ACOG/SMFM Practice Bulletin No. 226, Nov 2019. Performed By: #### 6 30-4 #### [facility] CLIA [id number] [address] [place] [address] [place] Gestational age Estimated from conception date Cali Normal [facility] Comment on above: Order Comment: Speci men Type: BLOOD SPECIMENOrdering Facility: [facility] Address: [address] [place] [address] Performed By: #### 6 30-4 #### [facility] CLIA [id number] [address] [place] [address] [place] GESTATIONALAGE AGE > OR = 9W Yes Normal [facility] Comment on above: Order Comment: Speci men Type: BLOOD SPECIMENOrdering Facility: [facility] Address: [address] [place] [address] Performed By: #### 6 30-4 #### [facility] CLIA [id number] [address] [place] [address] Laboratory comment Gustavo (Report) Comment Normal [facility] Comment on above: Order Comment: Sarah bhatia Type: BLOOD SPECIMENOrdering Facility: [facility] Address: [address] [place] [address] Result Comment: The MaterniT(R) 21 PLUS laboratory-developed test (LDT) analyzes circulating cell-free DNA from a maternal blood sample. This test is used for screening purposes and not diagnostic. Clinical correlation is recommended. Validation data on twin pregnancies is limited and the ability of this test to detect aneuploidy in higher multiple gestations has not yet been validated. Performed By: #### 6 30-4 #### [facility] CLIA [id number] [address] [place] [address] director of materials name Nom (Provider) Comment Normal [facility] Comment on above: Order Comment: Sarah bhatia Type: BLOOD SPECIMENOrdering Facility: [facility] Address: [address] [place] [address] Result Comment: This specimen showed an expected representation of chromosome 21, 18 and 13 material. Clinical correlation is suggested. Comment Henrry Davies MD, PhD, Director, [employer] Performed By: #### 6 30-4 #### [facility] CLIA [id number] [address] [place] [address] LIMITATIONS OF THE TEST Comment Normal [facility] Comment on above: Order Comment: Sarah bhatia Type: BLOOD SPECIMENOrdering Facility: [facility] Address: [address] [place] [address] Result Comment: Buddy head the results of [...] Fragmin(R)). Performed By: #### 6 30-4 #### [facility] CLIA [id number] [address] [place] [address] [place] Monosomy X risk Dosage of chromosome-specific cfDNA Ql (Plasma cell-free+WBC DNA) [Interp] Not detected Normal [facility] Comment on above: Order Comment: Speci men Type: BLOOD SPECIMENOrdering Facility: [facility] Address: [address] [place] [address] Performed By: #### 6 30-4 #### [facility] CLIA [id number] [address] [place] [address] NEGATIVE PREDICTIVE VALUE Note Normal [facility] Comment on above: Order Comment: Speci men Type: BLOOD SPECIMENOrdering Facility: [facility] Address: [address] [place] [address] Result Comment: The Negative Predictive Value (NPV) for trisomy 21, 18, and 13 is greater than 99%. The NPV for SCA and ESS cannot be calculated as SCA and ESS are only reported when an abnormality is detected. Performed By: #### 6 30-4 #### [facility] CLIA [id number] [address] [place] [address] PERFORMANCE CHARACTERISTICS Note Normal [facility] Comment on above: Order Comment: Speci men Type: BLOOD SPECIMENOrdering Facility: [facility] Address: [address] [place] [address] Result Comment: ! Sex ! Accuracy: 99.4% [...] ! ! ! * As reported in ISCA database nstd37 [https://www.ncbi.nlm.nih.gov/dbvar/studies/nstd37/ ] # Estimated Sensitivity. Sensitivity estimated across the observed size distribution of each syndrome [per ISCA database nstd37] and across the range of fractions observed in routine clinical NIPT. Actual sensitivity can also be influenced by other factors such as the size of the event, total sequence counts, amplification bias, or sequence bias. ## Cali gestation only. Performed By: #### 6 30- #### [facility] CLIA [id number] [address] [place] [address] [place] POSITIVE PREDICTIVE VALUE N/A Normal [facility] Comment on above: Order Comment: Speci men Type: BLOOD SPECIMENOrdering Facility: [facility] Address: [address] [place] [address] Performed By: #### 6 30- #### [facility] CLIA [id number] [address] [place] [address] [place] Reference Lab Test Method Comment Normal [facility] Comment on above: Order Comment: Speci men Type: BLOOD SPECIMENOrdering Facility: [facility] Address: [address] [place] [address] Result Comment: Circ ulating cell-free DNA was [...] 22. Performed By: #### 6 30-4 #### [facility] CLIA [id number] [address] [place] [address] [place] Service comment (Unsp spec) [Interp] Comment Normal [facility] Comment on above: Order Comment: Speci men Type: BLOOD SPECIMENOrdering Facility: [facility] Address: [address] [place] [address] Result Comment: [employer] is a subsidiary of [employer], using the brand [employer]. This test was developed and its performance characteristics determined by [employer]. It has not been cleared or approved by the Food and Drug Administration. This laboratory is certified under the Clinical Laboratory Improvement Amendments (CLIA) as qualified to perform high complexity clinical laboratory testing and accredited by the [employer] ([employer]). If there is future clinical need for adding MaterniT GENOME testing, this specimen will be available until term. [facility] samples will not be retained beyond 60 days. [facility] patients will have to send a new sample for re-sequencing ([facility] Test Code: [id number]). Performed By: #### 6 30-4 #### [facility] CLIA [id number] [address] [place] [address] [place] Sex Dosage of chromosome-specific cfDNA Nom (cfDNA) Comment Normal [facility] Comment on above: Order Comment: Speci men Type: BLOOD SPECIMENOrdering Facility: [facility] Address: [address] [place] [address] Result Comment: Cons istent with Male Performed By: #### 6 30-4 #### [facility] CLIA [id number] [address] [place] [address] [place] Test performance information Gustavo (Unsp spec) Comment Normal [facility] Comment on above: Order Comment: Speci men Type: BLOOD SPECIMENOrdering Facility: [facility] Address: [address] [place] [address] Result Comment: The performance characteristics of the MaterniT(R) 21 PLUS laboratory-developed test (LDT) have been determined in a clinical validation study with women at increased risk for chromosomal aneuploidy.[1-4] Performed By: #### 6 30-4 #### [facility] CLIA [id number] [address] [place] [address] [place] Trisomy 13 risk Dosage of chromosome-specific cfDNA Ql (cfDNA) [Interp] Negative Normal [facility] Comment on above: Order Comment: Speci men Type: BLOOD SPECIMENOrdering Facility: [facility] Address: [address] [place] [address] Performed By: #### 6 30-4 #### [facility] CLIA [id number] [address] [place] [address] [place] Trisomy 18 risk Dosage of chromosome-specific cfDNA Ql (Plasma cell-free+WBC DNA) [Interp] Negative Normal [facility] Comment on above: Order Comment: Speci men Type: BLOOD SPECIMENOrdering Facility: [facility] Address: [address] [place] [address] Performed By: #### 6 30-4 #### [facility] CLIA [id number] [address] [place] [address] [place] CNCOon 09-02-2024 CNCO Letter Text Normal [facility] CNPNon 09-02-2024 CNPN Telephone (OBGYWM) SUNITAODESSA M ([id number]) 89 F CHT Date Time Provider Department 09/02/24 DAHLIA MORLEY OBSTASWGunner During your visit today, we recorded the following information about you: Joanne James RN 09/02/2024 10:15 AM Signed 20w0d Calling because [...] A small amount is alright. Dahlia Morley APRN.CN Summer Caceres RN 09/02/2024 3:45 PM Signed Patient notified and voiced understanding. Letter faxed to Norma Kline per patient request. Summer Caceres RN Allergies As of Date: 09/02/2024 (No Known Allergies) Date Reviewed: 08/29/2024 Reviewed by: Keyana Vazquez MA - Fully Assessed Reason for Visit: Question (OB Question) [8622] Cmt: Prescriptions as of 09/02/2024 - aspirin, [...] Status:Closed by SUMMER CACERES on 09/02/24 Normal [facility] CNCOon 09-01-2024 CNCO Letter Text Normal [facility] CBC W Auto Differential pane l (Bld)on 07-15-2024 Basophils (Bld) [#/Vol] 0.03 10*3/uL Normal <0.11 [facility] Comment on above: Order Comment: Speci men Type: BLOOD SPECIMENOrdering Facility: [facility] Address: [address] [place] [address] Performed By: #### 6 30-4 #### [facility] CLIA [id number] [address] [place] [address] [place] Basophils/100 WBC (Bld) 0.4 % Normal [facility] Comment on above: Order Comment: Speci men Type: BLOOD SPECIMENOrdering Facility: [facility] Address: [address] [place] [address] Performed By: #### 6 30-4 #### [facility] CLIA [id number] [address] [place] [address] [place] Differential cell count method Nom (Bld) Auto Normal [facility] Comment on above: Order Comment: Speci men Type: BLOOD SPECIMENOrdering Facility: [facility] Address: [address] [place] [address] Performed By: #### 6 30-4 #### [facility] CLIA [id number] [address] [place] [address] [place] Eosinophils (Bld) [#/Vol] 0.07 10*3/uL Normal <0.46 [facility] Comment on above: Order Comment: Speci men Type: BLOOD SPECIMENOrdering Facility: [facility] Address: [address] [place] [address] Performed By: #### 6 30-4 #### [facility] CLIA [id number] [address] [place] [address] [place] Eosinophils/100 WBC (Bld) 1.0 % Normal [facility] Comment on above: Order Comment: Speci men Type: BLOOD SPECIMENOrdering Facility: [facility] Address: [address] [place] [address] Performed By: #### 6 30-4 #### [facility] CLIA [id number] [address] [place] [address] [place] Erythrocyte distribution width (RBC) [Ratio] 12.5 % Normal 11.5-15.0 [facility] Comment on above: Order Comment: Speci men Type: BLOOD SPECIMENOrdering Facility: [facility] Address: [address] [place] [address] Performed By: #### 6 30-4 #### [facility] CLIA [id number] [address] [place] [address] [place] Hematocrit (Bld) [Volume fraction] 35.6 % Low 36.0-46.0 [facility] Comment on above: Order Comment: Speci men Type: BLOOD SPECIMENOrdering Facility: [facility] Address: [address] [place] [address] Performed By: #### 6 30-4 #### [facility] CLIA [id number] [address] [place] [address] [place] Hemoglobin (Bld) [Mass/Vol] 12.1 g/dL Normal 11.5-15.5 [facility] Comment on above: Order Comment: Speci men Type: BLOOD SPECIMENOrdering Facility: [facility] Address: [address] [place] [address] Performed By: #### 6 30-4 #### [facility] CLIA [id number] [address] [place] [address] [place] Immature granulocytes (Bld) [#/Vol] 0.03 10*3/uL Normal <0.10 [facility] Comment on above: Order Comment: Speci men Type: BLOOD SPECIMENOrdering Facility: [facility] Address: [address] [place] [address] Performed By: #### 6 30-4 #### [facility] CLIA [id number] [address] [place] [address] [place] Immature granulocytes/100 WBC (Bld) 0.4 % Normal [facility] Comment on above: Order Comment: Speci men Type: BLOOD SPECIMENOrdering Facility: [facility] Address: [address] [place] [address] Performed By: #### 6 30-4 #### [facility] CLIA [id number] [address] [place] [address] [place] Lymphocytes (Bld) [#/Vol] 1.54 10*3/uL Normal 1.00-4.00 [facility] Comment on above: Order Comment: Speci men Type: BLOOD SPECIMENOrdering Facility: [facility] Address: [address] [place] [address] Performed By: #### 6 30-4 #### [facility] CLIA [id number] [address] [place] [address] [place] Lymphocytes/100 WBC (Bld) 21.9 % Normal [facility] Comment on above: Order Comment: Speci men Type: BLOOD SPECIMENOrdering Facility: [facility] Address: [address] [place] [address] Performed By: #### 6 30-4 #### [facility] CLIA [id number] [address] [place] [address] [place] MCH (RBC) [Entitic mass] 30.3 pg Normal 26.0-34.0 [facility] Comment on above: Order Comment: Speci men Type: BLOOD SPECIMENOrdering Facility: [facility] Address: [address] [place] [address] Performed By: #### 6 30-4 #### [facility] CLIA [id number] [address] [place] [address] [place] MCHC (RBC) [Mass/Vol] 34.0 g/dL Normal 30.5-36.0 [facility] Comment on above: Order Comment: Speci men Type: BLOOD SPECIMENOrdering Facility: [facility] Address: [address] [place] [address] Performed By: #### 6 30-4 #### [facility] CLIA [id number] [address] [place] [address] [place] MCV (RBC) [Entitic vol] 89.0 fL Normal 80.0-100.0 [facility] Comment on above: Order Comment: Speci men Type: BLOOD SPECIMENOrdering Facility: [facility] Address: [address] [place] [address] Performed By: #### 6 30-4 #### [facility] CLIA [id number] [address] [place] [address] [place] Monocytes (Bld) [#/Vol] 0.32 10*3/uL Normal <0.87 [facility] Comment on above: Order Comment: Speci men Type: BLOOD SPECIMENOrdering Facility: [facility] Address: [address] [place] [address] Performed By: #### 6 30-4 #### [facility] CLIA [id number] [address] [place] [address] [place] Monocytes/100 WBC (Bld) 4.6 % Normal [facility] Comment on above: Order Comment: Speci men Type: BLOOD SPECIMENOrdering Facility: [facility] Address: [address] [place] [address] Performed By: #### 6 30-4 #### [facility] CLIA [id number] [address] [place] [address] [place] Neutrophils (Bld) [#/Vol] 5.04 10*3/uL Normal 1.45-7.50 [facility] Comment on above: Order Comment: Speci men Type: BLOOD SPECIMENOrdering Facility: [facility] Address: [address] [place] [address] Performed By: #### 6 30-4 #### [facility] CLIA [id number] [address] [place] [address] [place] Neutrophils/100 WBC (Bld) 71.7 % Normal [facility] Comment on above: Order Comment: Speci men Type: BLOOD SPECIMENOrdering Facility: [facility] Address: [address] [place] [address] Performed By: #### 6 30-4 #### [facility] CLIA [id number] [address] [place] [address] [place] Nucleated RBC (Bld) [#/Vol] 10*3/uL Normal <0.01 [facility] Comment on above: Order Comment: Speci men Type: BLOOD SPECIMENOrdering Facility: [facility] Address: [address] [place] [address] Performed By: #### 6 30-4 #### [facility] CLIA [id number] [address] [place] [address] [place] Nucleated RBC/100 WBC (Bld) [Ratio] 0.0 /100 WBC Normal [facility] Comment on above: Order Comment: Speci men Type: BLOOD SPECIMENOrdering Facility: [facility] Address: [address] [place] [address] Performed By: #### 6 30-4 #### [facility] CLIA [id number] [address] [place] [address] [place] Platelet mean volume (Bld) [Entitic vol] 9.6 fL Normal 9.0-12.7 [facility] Comment on above: Order Comment: Speci men Type: BLOOD SPECIMENOrdering Facility: [facility] Address: [address] [place] [address] Performed By: #### 6 30-4 #### [facility] CLIA [id number] [address] [place] [address] [place] Platelets (Bld) [#/Vol] 258 10*3/uL Normal 150-400 [facility] Comment on above: Order Comment: Speci men Type: BLOOD SPECIMENOrdering Facility: [facility] Address: [address] [place] [address] Performed By: #### 6 30-4 #### [facility] CLIA [id number] [address] [place] [address] [place] RBC (Bld) [#/Vol] 4.00 10*6/uL Normal 3.90-5.20 [facility] Comment on above: Order Comment: Speci men Type: BLOOD SPECIMENOrdering Facility: [facility] Address: [address] [place] [address] Performed By: #### 6 30-4 #### [facility] CLIA [id number] [address] [place] [address] [place] WBC (Bld) [#/Vol] 7.03 10*3/uL Normal 3.70-11.00 [facility] Comment on above: Order Comment: Speci men Type: BLOOD SPECIMENOrdering Facility: [facility] Address: [address] [place] [address] Performed By: #### 6 30-4 #### [facility] CLIA [id number] [address] [place] [address] [place] Comprehensive metabolic 2000 panelon 07-15-2024 Albumin [Mass/Vol] 4.4 g/dL Normal 3.9-4.9 [facility] Comment on above: Order Comment: Speci men Type: BLOOD SPECIMENOrdering Facility: [facility] Address: [address] [place] [address] Performed By: #### 2 4323-8 ####[facility] [id number] [place] [address] [place] ALP [Catalytic activity/Vol] 53 U/L Normal 34-123 [facility] Comment on above: Order Comment: Speci men Type: BLOOD SPECIMENOrdering Facility: [facility] Address: [address] [place] [address] Performed By: #### 2 4323-8 ####[facility]CL[facility] [id number] [place] [address] [place] ALT [Catalytic activity/Vol] 6 U/L Low 7-38 [facility] Comment on above: Order Comment: Speci men Type: BLOOD SPECIMENOrdering Facility: [facility] Address: [address] [place] [address] Performed By: #### 2 4323-8 ####[facility]ILL[facility]OWNCLIA [id number] [place] [address] [place] Anion gap [Moles/Vol] 13 mmol/L Normal 8-15 [facility] Comment on above: Order Comment: Speci men Type: BLOOD SPECIMENOrdering Facility: [facility] Address: [address] [place] [address] Performed By: #### 2 4323-8 ####[facility]CL[facility] [id number] [place] [address] [place] AST [Catalytic activity/Vol] 10 U/L Low 13-35 [facility] Comment on above: Order Comment: Speci men Type: BLOOD SPECIMENOrdering Facility: [facility] Address: [address] [place] [address] Performed By: #### 2 4323-8 ####[facility]CL[facility] [id number] [place] [address] [place] Bilirubin [Mass/Vol] 0.7 mg/dL Normal 0.2-1.3 [facility] [place] Comment on above: Order Comment: Speci men Type: BLOOD SPECIMENOrdering Facility: [facility] Address: [address] [place] [address] Performed By: #### 2 4323-8 ####[facility]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 Comment on above: Performed By: #### 2 61427 #### [facility],[address] [place] [address] Urobilinog NORM Normal NORMAL: NORMAL [facility] Comment on above: Performed By: #### 2 18111 #### [facility],[address] [place] [address] PREG SERUM QUANTon 5 HCG QUANTITATIVE 2544 Normal [facility] Comment on above: Result Comment: Refe rence [...] 3RD TRIMESTER 1000-50,000 Performed By: #### 2 96022 ####[facility],[address] [place] [address] PREG SERUM QUANTon HCG QUANTITATIVE 392 Normal [facility] Comment on above: Result Comment: Mary valverde [...] 3RD TRIMESTER 1000-50,000 Performed By: #### 2 11373 #### [facility],[address] [place] [address] CNOVon 04-30-2024 CNOV Office Visit (UCWSTR ) ODESSA DORSEY ([id number]) 89 F T Date Time Provider Department 04/30/24 11:15 AM THEE GRIMES [facility] [[email or web address] During your visit today, we recorded the following information about you: Temperature Pulse Respiration Blood pressure 98.2 degrees 94/minute 20/minute 124/86 Weight Last Period 50 kg 04/22/24 Thee Grimes PA 04/30/2024 11:40 AM Signed [facility] Subjective Odessa Dorsey is a 24 [...] PAST MEDICAL HISTORY Diagnosis Date Anemia anxiety.depression panic disorder per patient Chlamydia Fracture of unspecified bones x 2 when younger - both legs and right arm History of heart murmur in childhood 04/12/2020 04/12/2020 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 No surgical correction was done. 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 [address] [facility] [address] then [facility] - ortho and oncology Menarche 02/09/2010 [...] -Tylenol/Motrin as (more content not included)... Normal [facility] ED MED ADMINISTRATION DETAIL on 03-10-2024 ED MED ADMINISTRATION DETAIL Manager Of Housekeeping Medication Administration Record [address] [place] [address] [id number] 03/09/2024 Patient: ODESSA DORSEY Sex: Female : [...] Torres R.N. Scanned 1 of 1 Normal [facility] ED NURSES CLINICAL NOTEon ED NURSES CLINICAL NOTE Nurse Narrative Nurse Clinical Narrative [address] [place] [address] [id number] 03/09/2024 Patient: ODESSA DORSEY Sex: Female : 2000 Age: 23y Disposition: Discharge Disposition Decision Time: 00:03/10/2024 Departure Time: 00:43 03/10/2024 TRIAGE Arrived by [...] disease exposure. ABUSE ASSESSMENT: The patient answered yes to the question(s) Do you feel safe in your home? and no to the question(s) Are you afraid to go home?. SELF HARM ASSESSMENT: Self harm assessment was performed. The patient answered no to the question(s) Have you recently felt down, depressed, or hopeless? and Do you have thoughts of harming or killing yourself?. FALL RISK ASSESSMENT: Fall risk assessment completed. No risk factors identified. -- 20:57 03/09/24 ROMAIN Gonzalez R.N. PHYSICAL ASSESSMENT 22:03/09/24. GENERAL / NEURO / PSYCH: Alert. Oriented [...] Narrative 22:03/09/24. ( Pt at nurses station, MD pittman). -- 22:03/09/24 ROMAIN Da Silva R.N. 22:03/09/24. Site #1 started via IV in the right antecubital space with a 20g angiocath with aseptic technique and good blood return; 1 attempt. Blood drawn: rainbow set tube(s). Saline lock flushed with 5 mL saline. -- 22:03/09/24 ROMAIN Null R.N. 22:27 03/09/24. Patient ID [...] Null R.N. 23:20 03/09/24. Patient walked to IN with radiology receptionist. -- 23:25 03/09/24 ROMAIN Null R.N. 23:26 03/09/24. Patient walked back from radiology with radiology receptionist. -- 23:26 03/09/24 ROMAIN Null R.N. 00:03/10/24. HR: 95. RR: 16. O2 saturation: 100% on room air. -- 00:09 03/10/24 Konstantin LoraNCecilia 00:37 03/10/24. HR: 95. RR: 16. O2 saturation: 100% Pain level now 0/10. -- 00:38 03/10/24 Konstantin LoraNCecilia 00:39 03/10/24. Doxycycline PO 100 mg given. Allergies verified and confirmed 5 rights. Information reviewed including reason for taking this medication. Verbalizes understanding. -- 00:39 03/10/24 Konstantin LoraNCecilia 00:39 03/10/24. Potassium Chloride PO 40 mEq given. Allergies verified and confirmed 5 rights. Information reviewed including reason for taking this medication. Verbalizes understanding. -- 00:40 03/10/24 Konstantin LoraNCecilia 00:42 03/10/24. Site #1 removed upon discharge. Bandage and pressure dressing applied. -- 00:42 03/10/24 EST Loran Null R.N. DISPOSITION / DISCHARGE Departure time: 00:43 03/10/2024. Condition (more content not included)... Normal [facility] ED ORDER SHEET (CPOE ONLY)on 03-10-2024 ED ORDER SHEET (CPOE ONLY) Order Sheet Order Sheet [facility] [address] [facility] [place] [address] [id number] 03/09/2024 Patient: ODESSA DORSEY Sex: Female : [...] Lorna Chin R.N. Anne Rutt, R.N. M.D. HCG, Qual [...] (03/10/2024 03:44 EST)] 2 of 2 Normal [facility] ED PHYSICIAN CLINICAL REPORT on 03-10-2024 ED PHYSICIAN CLINICAL REPORT Narrative Physician Clinical Narrative [address] [address] [id number] 03/09/2024 Patient: ODESSA DORSEY Sex: Female : [...] 1.50 - 7.10 Final EST 03/09/2024 22:37 [place] # 0.53 x10/UL 0.20 - 1.00 Final [...] 116 Fi (more content not included)... Normal [facility] ED SUPER BILLon 03-10-[address] [address] [id number] 03/09/2024 Patient: ODESSA DORSEY Sex: Female : 2000 Age: 23y Item Professional Category Description Facility Code Code Quantity Fee Total Nurse/E/M EMERGENCY 380221 1 $0.00 $0.00 DEPARTMENT VISIT HIGH/URGENT SEVERITY (29941-08) Grand Total $0.00 Providers Faith Mancuso M.D. Chief Complaint DYSPNEA. Principal Diagnosis Bacterial pneumonia. No hypoxemia. ICD-10 Codes 1 of 2 [facility] J15.9: Unspecified bacterial pneumonia 2 of 2 Normal [facility] ED VISIT SUMMARYon ED VISIT SUMMARY Visit Overview Visit Overview [address] [address] [id number] 03/09/2024 Patient: ODESSA DORSEY Sex: Female : [...] 03/09/24 98.7 F Temp 00:37 03/10/24 BP 20:03/09/24 150/81 BP 00:37 03/10/24 HR 20:03/09/24 147 HR 00:37 03/10/24 95 RR 20:03/09/24 16 RR 00:37 03/10/24 16 O2 Sat 20:03/09/24 98% O2 Sat 00:37 03/10/24 100% Pain 20:56 03/09/24 8 Pain 00:37 03/10/24 0 ETCO2 20:03/09/24 ETCO2 00:37 03/10/24 2 of 3 Visit Overview First Vitals Last Vitals GCS 20:56 03/09/24 GCS 00:37 03/10/24 RTS 20:56 03/09/24 RTS 00:37 03/10/24 PROCEDURES NURSING INTERVENTIONS LABS / STUDIES LABS / STUDIES ORDERED CBC w Diff Chest 1V CMP HCG, Qual Serum Lipase Urinalysis LABS / STUDIES PENDING IMPORT CHEST 1 VIEW CLINICAL IMPRESSION BACTERIAL PNEUMONIA. NO HYPOXEMIA 3 of 3 Normal [facility] ED VITALS FLOW SHEETon 03-10 ED VITALS FLOW SHEET Vitals [place]ital [place] [address] [id number] 03/09/2024 Patient: ODESSA DORSEY Sex: Female : 2000 Age: 23y Measurements Wt: 48.1 kg Measured Time BP MAP HR RR O2Sat ETCO2 Temp Pain GCS RTS 00:37 03/10/2024 95 16 100% 0 00:09 03/10/2024 95 16 100% RA 20:56 03/09/2024 150/81 104 147 16 98% 98.7 F 8 1 of 1 Normal [facility] CBC + DIFFon 03-09-2024 Baso # 0.03 x10EE3/UL Normal 0.00 - 0.10 [facility] Comment on above: Performed By: #### 2 88060 #### [facility],[address] [place] [address] Basophils/100 WBC (Bld) 0.4 % Normal 0.0 - 2.0 [facility] Comment on above: Performed By: #### 2 30859 #### [facility],[address] [place] [address] CBC + DIFF Normal [facility] Comment on above: Result Comment: CBC- COMPLETE BLOOD COUNT Performed By: #### 2 10553 #### [facility],[address] [place] [address] EO # 0.32 x10EE3/UL Normal 0.00 - 0.50 [facility] Comment on above: Performed By: #### 2 42883 #### [facility],[address] [place] [address] Eosinophils/100 WBC (Bld) 4.0 % Normal 0.0 - 7.0 [facility] Comment on above: Performed By: #### 2 81982 #### [facility],[address] [place] [address] Erythrocyte distribution width (RBC) [Ratio] 14.0 % Normal 12.0 - 15.6 [facility] Comment on above: Performed By: #### 2 78243 #### [facility],[address] [place], [place] [id number] Hematocrit (Bld) [Volume fraction] 40.0 % Normal 34.0 - 46.0 [facility] Comment on above: Performed By: #### 2 36967 #### [facility],[address] [place] [address] Hemoglobin (Bld) [Mass/Vol] 13.5 g/dL Normal 12.0 - 16.0 [facility] Comment on above: Performed By: #### 2 68027 #### [facility],[address] [place] [address] Lymph # 2.71 x10EE3/UL Normal 0.80 - 2.80 [facility] Comment on above: Performed By: #### 2 56114 #### [facility],[address] [place], [place] [id number] Lymphocytes/100 WBC (Bld) 33.3 % Normal 20.0 - 45.0 [facility] Comment on above: Performed By: #### 2 60093 #### [facility],[address] [place] [address]77 MANUAL DIFF N/A Normal [facility] Comment on above: Performed By: #### 2 02287 #### [facility],[address] [place], [place] [id number] MCH (RBC) [Entitic mass] 30 pg Normal 27 - 33 [facility] Comment on above: Performed By: #### 2 27684 #### [facility],[address] [place], [place] [id number] MCHC 34 X10 3 Normal 32 - 36 [facility] Comment on above: Performed By: #### 2 40473 #### [facility],[address] [place] [address] 71062 MCV (RBC) [Entitic vol] 90 fL Normal 80 - 99 [facility] Comment on above: Performed By: #### 2 52662 #### [facility],[address] [place] [address] [place] # 0.53 x10EE3/UL Normal 0.20 - 1.00 [facility] Comment on above: Performed By: #### 2 13623 #### [facility],[address] [place] [address] 09728 MONOS % 6.5 % Normal 0.0 - 10.0 [facility] Comment on above: Performed By: #### 2 81935 #### [facility],[address] [place] [address]953 Morphology Gustavo (Bld) [Interp] N/A Normal [facility] Comment on above: Performed By: #### 2 99338 #### [facility],[address] [place] [address] Neut # 4.55 x10EE3/UL Normal 1.50 - 7.10 [facility] Comment on above: Performed By: #### 2 78857 #### [facility],[address] [place] [address] 00727 Neutrophils/100 WBC (Bld) 55.9 % Normal 46.0 - 76.0 [facility] Comment on above: Performed By: #### 2 45812 #### [facility],[address] [place] [address] 80078 PLATELET 351 x10EE3/UL Normal 150 - 450 [facility] Comment on above: Performed By: #### 2 22292 #### [facility],[address] [place] [address] 40207 Platelet mean volume (Bld) [Entitic vol] 7.3 fL Normal 6.6 - 10.5 [facility] Comment on above: Result Comment: AUTO MATED DIFFERENTIAL Performed By: #### 2 82953 #### [facility],[address] [place] [address] 90751 RBC 4.45 x 10EE6/UL Normal 4.10 - 5.30 [facility] Comment on above: Performed By: #### 2 62704 #### [facility],[address] [place] [address] 86122 WBC 8.1 x 10EE3/UL Normal 4.5 - 10.8 [facility] Comment on above: Performed By: #### 2 35281 #### [facility],[address] [place] [address] 28488 CHEST 1 VIEWon 03-09-2024 CHEST 1 VIEW [place] [address] Patient: ODESSA DORSEY Phone#: : 2000 Age: 23 Gender: F Pt. Type: ER Account: [id number] Location: [facility] Ordering: DR. FAITH MANCUSO Exam Date: 03/09/2024/23:33 Family Phys: SHIRLEY HOLLINS Charge Code: 113971 Physician: [place] Order #: [id number] Dose#: PROCEDURE: X-RAY CHEST 1 VIEW COMPARISON: [...] Wright MD on 03/10/2024 at 10:03 Normal [facility] CMP with eGFRon 03-09-2024 AGE 23 years Normal [facility] Comment on above: Performed By: #### 2 81971 #### [facility],[address] [place] [address] 28156 Albumin [Mass/Vol] 4.4 g/dL Normal 3.4 - 5.0 [facility] Comment on above: Performed By: #### 2 88971 #### [facility],[address] [place] [address] 58347 Albumin/Globulin [Mass ratio] 1.2 {ratio} Normal 0.9 - 1.6 [facility] Comment on above: Performed By: #### 2 43907 #### [facility],[address] [place] [address] 25314 ALK PHOS 84 U/L Normal 46 - 116 [facility] Comment on above: Performed By: #### 2 22893 #### [facility],[address] [place] [address] 61232 ALT [Catalytic activity/Vol] 20 U/L Normal 16 - 63 [facility] Comment on above: Performed By: #### 2 89545 #### [facility],[address] [place] [address] 62897 Anion gap [Moles/Vol] 15 mmol/L Normal 10 - 20 [facility] Comment on above: Performed By: #### 2 84572 #### [facility],[address] [place] [address] 01755 AST [Catalytic activity/Vol] 17 U/L Normal 13 - 39 [facility] Comment on above: Performed By: #### 2 84214 #### [facility],[address] [place] [address] 94666 B/C RATIO 18 ratio Normal 0 - 30 [facility] Comment on above: Performed By: #### 2 16388 #### [facility],[address] [place] [address] 96506 Bilirubin [Mass/Vol] 0.9 mg/dL Normal 0.2 - 1.0 [facility] Comment on above: Performed By: #### 2 70837 #### [place] [address] Calcium [Mass/Vol] 8.9 mg/dL Normal 8.5 - 10.1 [facility] Comment on above: Performed By: #### 2 63559 #### [place] [address] Chloride [Moles/Vol] 103 mmol/L Normal 98 - 107 [facility] Comment on above: Performed By: #### 2 73616 #### [place] [address] CMP with eGFR Normal [facility] Comment on above: Result Comment: COMP REHENSIVE METABOLIC PANEL Performed By: #### 2 10318 #### [place] [address] CO2 [Moles/Vol] 25.0 mmol/L Normal 21.0 - 32.0 [facility] Comment on above: Performed By: #### 2 64333 #### [place] [address] Creatinine [Mass/Vol] 0.87 mg/dL Normal 0.55 - 1.02 [facility] Comment on above: Performed By: #### 2 97801 #### [place] [id number] GFR/1.73 sq M.predicted among non-blacks MDRD (S/P/Bld) [Vol rate/Area] mL/min/{1.73_m2} Normal 60 - 999 [facility] Comment on above: Performed By: #### 2 15333 #### [place] [address] Result Comment: ACCO RDING TO THE NATIONAL KIDNEY DISEASE EDUCATION PROGRAM(NKDE), A NORMAL eGFR IS A VALUE GREATER THAN OR EQUAL TO 60 ML/MIN/1.73 SQ METERS. CHRONIC KIDNEY DISEASE: <60mL/MIN/1.73 SQ METERS KIDNEY FAILURE: <15mL/MIN/1.73 SQ METERS THIS TEST SHOULD ONLY BE USED FOR PATIENTS 18 YEARS OF AGE AND OLDER. Globulin (S) [Mass/Vol] 3.8 g/dL Normal 1.5 - 3.8 [facility] Comment on above: Performed By: #### 2 71284 #### [address] [address] Glucose [Mass/Vol] 86 mg/dL Normal 74 - 106 [facility] Comment on above: Performed By: #### 2 41934 #### [address] [address] Potassium [Moles/Vol] 3.3 mmol/L Low 3.5 - 5.1 [facility] Comment on above: Performed By: #### 2 02947 #### [address] [address] Protein [Mass/Vol] 8.2 g/dL Normal 6.4 - 8.2 [facility] Comment on above: Performed By: #### 2 51806 #### [address] [address] Sodium [Moles/Vol] 140 mmol/L Normal 136 - 145 [facility] Comment on above: Performed By: #### 2 12075 #### [address] [address] Urea nitrogen [Mass/Vol] 16 mg/dL Normal 7 - 18 [facility] Comment on above: Performed By: #### 2 73710 #### [address] [address] LIPASEon 03-09-2024 Lipase [Catalytic activity/Vol] 43.0 U/L Normal 15.0 - 78.0 [facility] Comment on above: Result Comment: *PLE ASE NOTE THAT RANGES FOR LIPASE HAVE CHANGED OF 02/06/23 DUE TO AN ASSAY UPDATE BY THE TIE HACKER.THE NEW ASSAY RANGE IS 6-250 U/L, WITH A REFERENCE RANGE OF 16-77 U/L. Performed By: #### 2 39523 #### [facility],[address] [place] [address] SERUM QUALon 03-09 EXTERNAL QC DONE? YES Normal [facility] Comment on above: Performed By: #### 2 51098 #### [facility],[address] [place] [address] INTERNAL QC PASS Normal [facility] Comment on above: Performed By: #### 2 34563 #### [facility],[address] [place] [address] SER Negative Normal NEGATIVE [facility] Comment on above: Performed By: #### 2 63179 #### [facility],[address] [place] [address] URINALYSISon 03-09-2024 Bilirubin Ql (U) Negative Normal NORMAL: NEGATIVE [facility] Comment on above: Performed By: #### 2 67915 #### [facility],[address] [place] [address] Clarity (U) sl.cloudy Normal NORMAL: CLEAR [facility] Comment on above: Performed By: #### 2 54575 #### [facility],[address] [place], [place] [id number] Color (U) ang Normal NORMAL: YELLOW [facility] Comment on above: Performed By: #### 2 47917 #### [facility],[address] [place] [address]83 Glucose Ql (U) NORM Normal NORMAL: NORMAL [facility] Comment on above: Performed By: #### 2 85890 #### [facility],[address] [place] [address] 90300 Hemoglobin Ql (U) Negative Normal NORMAL: NEGATIVE [facility] Comment on above: Performed By: #### 2 97805 #### [facility],[address] [place] [address] Ketone 5 Abnormal NORMAL: NEGATIVE [facility] Comment on above: Performed By: #### 2 22594 #### [facility],[address] [place] [address] 71878 Leukocytes Negative Normal NORMAL: NEGATIVE [facility] Comment on above: Performed By: #### 2 75482 #### [facility],[address] [place] [address] Nitrite Ql (U) Negative Normal NORMAL: NEGATIVE [facility] Comment on above: Performed By: #### 2 22891 #### [facility],[address] [place] [address] pH (U) 5 [pH] Normal NORMAL: 5.0-8.0 [facility] Comment on above: Performed By: #### 2 86526 #### [facility],[address] [place] [address] Protein Ql (U) 30 Abnormal NORMAL: NEGATIVE [facility] Comment on above: Performed By: #### 2 79359 #### [facility],[address] [place] [address] Sp [place] 1.025 Normal NORMAL: 1.010-1.030 [facility] Comment on above: Performed By: #### 2 61313 #### [facility],[address] [place] [address] Specimen Type R Normal [facility] Comment on above: Performed By: #### 2 81722 #### [facility],[address] [place] [address] Urinalysis dipstick W Reflex Microscopic panel (U) NOT INDICATED Normal [facility] Comment on above: Performed By: #### 2 35908 #### [facility],[address] [place] [address] Urobilinog NORM Normal NORMAL: NORMAL [facility] Comment on above: Performed By: #### 2 69643 #### [facility],[address] [place] [id number] B-HCG [facility] 4 HCG.beta subunit Qn 10.7 m[IU]/mL High <5.0 Cl [facility] Comment on above: Order Comment: Speci men Type: BLOOD SPECIMENOrdering Facility: [facility] Address: [address] [place] [address] Result Comment: HCG values 5 to 16 mU/mL may represent benign, pituitary derived HCG in non- women over 40 years of age. QUANTITATIVE HCG NORMAL RANGES Weeks of Gestation (Weeks Since LMP) 3 Weeks (5.8-71.2 mIU/mL) 4 Weeks (9.5-750 mIU/mL) 5 Weeks (217-7138 mIU/mL) 6 Weeks (158-74941 mIU/mL) 7 Weeks (3697-936889 mIU/mL) 8 Weeks (46106-405301 mIU/mL) 9 Weeks (79196-652595 mIU/mL) 10 Weeks (98960-718507 mIU/mL) 12 Weeks (40842-706633 mIU/mL) Referenced to 4th IS of [facility] Performed By: #### 2 1198-7 ####[facility] LABCLIA [id number] [place] [address] [place] Absolute lymphocyte countOrd ered By: Shirley Alonso on 01-11-2023 Lymphocytes Auto (Unsp spec) [#/Vol] 1.71 10*3/uL 0.83-4.51 [facility] Basophil percentageOrdered B y: Shirley Alonso on 01-11-2023 Basophils/100 WBC (Bld) 1.1 % 0-1 [facility] Eosinophils/100 WBC (Bld) 1.0 % 0-5 [facility] Neutrophils (Bld) [#/Vol] 5.5 10*3/uL 2.0-7.7 [facility] Neutrophils/100 WBC (Bld) 66.6 % 47-70 [facility] WBC (Bld) [#/Vol] 8.2 10*3/uL 4.4-11.0 [facility] Blood erythrocytes count (nu mber/volume)Ordered By: Shirley Alonso on 01-11-2023 RBC (Bld) [#/Vol] 3.99 10*6/uL 4.2-5.4 [facility] Blood hemoglobin measurement (mass/volume)Ordered By: Shirley Alonso on 01-11-2023 Hemoglobin (Bld) [Mass/Vol] 12.1 g/dL 12.0-15.0 [facility] Blood lymphocytes/100 leukoc ytesOrdered By: Shirley Alonso on 01-11-2023 Lymphocytes/100 WBC (Bld) 20.9 % 19-41 [facility] Blood monocytes/100 leukocyt esOrdered By: Shirley Alonso on 01-11-2023 Monocytes/100 WBC (Bld) 6.6 % 0-10 [facility] Blood platelet mean volumeOr dered By: Shirely Alonso on 01-11-2023 Platelet mean volume (Bld) [Entitic vol] 9.1 fL 6.2-12.0 [facility] Determination of erythrocyte mean corpuscular volume (MCV)Ordered By: Shirley Alonso on 01-11-2023 MCV (RBC) [Entitic vol] 91.7 fL 81-99 [facility] Hematocrit Auto (Bld) [Volum e fraction]Ordered By: Shirley Alonso on 01-11-2023 Hematocrit (Bld) [Volume fraction] 36.6 % 37-47 [facility] Laboratory - Drug toxicology Ordered By: Shirley Alonso on 01-11-2023 Amphetamines Ql (U) Negative <1000 ng/mL [facility] Benzodiazepines Ql (U) Negative < 200 ng/mL [facility] Cannabinoids Screen Ql (U) Negative < 50 ng/mL [facility] Cocaine Ql (U) Negative < 300 ng/mL [facility] Opiates Ql (U) Negative < 300 ng/mL [facility] Laboratory - Hematology and Cell countsOrdered By: Shirley Alonso on 01-11-2023 Erythrocyte distribution width (RBC) [Entitic vol] 43.6 fL 35.1-43.9 [facility] Erythrocyte distribution width (RBC) [Ratio] 13.1 % 11.6-14.6 [facility] Immature granulocytes/100 WBC (Bld) 3.800 % 0.0-0.9 [facility] Comment on above: IG% - Immature Granu locytes (promyelocytes, myelocytes and metamyelocytes) > 1% indicates that a LEFT SHIFT is Present. MCH (RBC) [Entitic mass] 30.3 pg 27.0-32.0 [facility] Nucleated RBC/100 WBC (Bld) [Ratio] 0 % 0-5 [facility] MCHC Auto (RBC) [Mass/Vol]Or dered By: Shirley Alonso on 01-11-2023 MCHC (RBC) [Mass/Vol] 33.1 g/dL 32-36 [facility] No Panel InformationOrdered By: Shirley Alonso on 01-11-2023 MDMA (Ecstasy) Screen Negative < 500 ng/mL [facility] Urine Barbiturates Screen Negative < 200 ng/mL [facility] Urine Drug Screen Comment [facility] Comment on above: CONFIRMATORY TESTING FOR ALL [...] Urine Methadone Screen Negative < 300 ng/mL [facility] Vaginal Amniotic Fluid Detection Positive Negative [facility] Comment on above: Amniotic fluid prese nt indicates rupture of Membranes. RESULTS CALLED TO REYES AMES 01/11/23 Olga4 Melissa Torres.REPORT READ BACK BY SAME . Platelets bldOrdered By: Monet Alonso on 01-11-2023 Platelets (Bld) [#/Vol] 265 10*3/uL 150-450 [facility] Serum Treponema species anti body detectionOrdered By: Shirley Alonso on 01-11-2023 Treponema sp Ab Ql (S) Non-Reactive [facility] Urine phencyclidine (PCP) de tectionOrdered By: Shirley Alonso on 01-11-2023 Phencyclidine Ql (U) Negative < 25 ng/mL [facility] URINE OB DIP B/Oon Glucose Ql (U) Negative Neg mg/dL [facility] Protein.monoclonal (U) [Mass/Vol] Negative Neg mg/dL [facility] No Panel InformationOrdered By: Tom Jacinto on 12-31-2022 Vaginal Amniotic Fluid Detection Negative Negative [facility] Comment on above: Amniotic fluid not p resent indicates No Rupture of FetalMembranes at time of specimen collection. FETALon 12-30-2022 ++ --- ------++ [facility] Echocardiogram Report ++ ------++ NAME: MISS ODESSA DORSEY : 2000 Age: 22 years Due Date: 01/13/2023 Gender: F Study Date: 12/30/2022 12:58:50 PM GA: 38.00 Requested By: Jamal Ken Physician: Rohini Nuñez MD Study Location: [facility] Diagnosis: O35.8XX1 Maternal care for other (suspected) abnormality and damage, fetus 1 History: Suspected anomaly. Indications: Evaluate cardiac anatomy and function. Procedures: 65912 Echo, Complete; 82807 Doppler, Complete; 77003 Doppler Color Flow INTERPRETATION SUMMARY echocardiogram on [...] Nuñez MD, 12/30/2022 2:56:54 PM. Final CC [facility] : [id number] ISUID See Link below for Image Normal [facility] OBSTETRIC ULTRASOUND WHIon 1 02-25-2022 [facility] URINE OB DIP B/Oon 3 Glucose Ql (U) Negative Neg mg/dL [facility] Protein.monoclonal (U) [Mass/Vol] Negative Neg mg/dL [facility] URINE OB DIP B/Oon 3 Glucose Ql (U) Negative Neg mg/dL [facility] Protein.monoclonal (U) [Mass/Vol] Negative Neg mg/dL [facility] Bilirubin Test strip Ql (U)O rdered By: Shirley Alonso on 11-24-2022 Bilirubin Ql (U) Negative Negative [facility] Culture, urineOrdered By: Ronnie Alonso on 11-24-2022 Bacteria identified Cx Nom (U) Presumptive C albicans [facility] Ketones Test strip Ql (U)Ord ered By: Shirley Alonso on 11-24-2022 Ketones Ql (U) Negative Negative [facility] Nitrite Test strip Ql (U)Ord ered By: Shirley Alonso on 11-24-2022 Nitrite Ql (U) Negative Negative [facility] No Panel InformationOrdered By: Shirley Alonso on 11-24-2022 Vaginal Amniotic Fluid Detection Negative Negative [facility] Comment on above: Amniotic fluid not p resent indicates No Rupture of FetalMembranes at time of specimen collection. Protein Test strip Ql (U)Ord ered By: Shirley Alonso on 11-24-2022 Protein Ql (U) Negative Negative [facility] Urine blood detectionOrdered By: Shirley Alonso on 11-24-2022 RBC Ql (U) 25 /ul Negative [facility] Urine clarityOrdered By: Monet Alonso on 11-24-2022 Clarity (U) Clear Clear [facility] Urine color determinationOrd ered By: Shirley Alonso on 11-24-2022 Color (U) Yellow Yellow [facility] Urine glucose detectionOrder ed By: Shirley Alonso on 11-24-2022 Glucose Ql (U) Normal mg/dl Normal [facility] Urine leukocyte esterase det ection by dipstickOrdered By: Shirley Alonso on 11-24-2022 Leukocyte esterase Test strip Ql (U) 500 /ul Negative [facility] Urine pHOrdered By: Shirley Alonso on 11-24-2022 pH (U) 8.0 [pH] 5.0 - 8.0 [facility] Urine specific gravity measu rementOrdered By: Shirley Alonso on 11-24-2022 Specific gravity (U) [Rel density] 1.015 1.002-1.030 [facility] Urobilinogen Auto test strip Ql (U)Ordered By: Shirley Alonso on 11-24-2022 Urobilinogen Ql (U) Normal mg/dl Normal [facility] URINE OB DIP B/Oon 3 Glucose Ql (U) Negative Neg mg/dL [facility]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 PANEL Lab Routine Screening for diabetes mellitus Expected: 10/06/2024, Expires: 01/05/2025 [facility] Comment on above: Expected: 10/06/2024 , Expires: 01/05/2025 Start: 10-06-2024 End: 10-06-2025 GESTATIONAL GLUCOSE SCREEN, 1-HOUR, 50 GRAM, NON-FASTING GESTATIONAL GLUCOSE SCREEN, 1-HOUR, 50 GRAM, NON-FASTING Lab Routine Screening for diabetes mellitus Expected: 10/06/2024, Expires: 10/06/2025 [facility] Work Phone: Comment on above: Expected: 10/06/2024 , Expires: 10/06/2025 Start: 10-06-2024 End: 10-06-2025 SYPHILIS TREPONEMAL W/REFLEX SYPHILIS TREPONEMAL W/REFLEX Lab Routine Screening for diabetes mellitus Expected: 10/06/2024, Expires: 10/06/2025 [facility] Comment on above: Expected: 10/06/2024 , Expires: 10/06/2025 Start: 10-06-2024 End: 10-06-2024 Patient encounter procedure 10/06/2024 10:30 AM EDT Routine Office Visit OB/Gynecology [address] [place] [address] Mela Dozier MD [address] [place] [address] OB OB/Gynecology Comment on above: OB Start: 09-06-2024 End: 09-06-2024 Patient encounter procedure 09/06/2024 3:40 PM EDT Routine Office Visit OB/Gynecology [address] [place] [address] Mela Dozier MD [address] [place] [address] Anatomy/OB OB/Gynecology Comment on above: Anatomy/OB Start: 09-06-2024 End: 09-06-2024 Patient encounter procedure Maternal Medicine Comment on above: Anatomy Anatomy/OB - moved f rom JG Start: 09-06-2024 End: 12-06-2024 Chromosome 21 trisomy [Presence] in Blood or Tissue by Cytogenetics [facility] Work Phone: Comment on above: Expected: 09/06/2024 , Expires: 12/06/2024 Start: 07-29-2024 End: 07-29-2024 Patient encounter procedure 07/29/2024 10:20 AM EDT Routine Office Visit OB/Gynecology [address] [place] [address] Tom Jacinto MD [address] [place] [address] OB/Gynecology Comment on above: Start: 07-15-2024 End: 07-15-2024 ambulatory 07/15/2024 3:30 PM EDT Results Only Yuli Saravia [facility] [address] [place] [address] Yuli Saravia [facility] Start: 06-17-2024 End: 09-16-2024 ANEMIA REFLEX PANEL ANEMIA REFLEX PANEL Lab Routine with uncertain dates in first trimester (HCC) Expected: 06/17/2024, Expires: 09/16/2024 [facility] Work Phone: Comment on above: Expected: 06/17/2024 , Expires: 09/16/2024 Start: 06-17-2024 End: 09-16-2024 Comprehensive metabolic 2000 panel - Serum or Plasma COMPREHENSIVE METABOLIC PANEL Lab Routine Tachycardia Expected: 06/17/2024, Expires: 09/16/2024 [facility] Comment on above: Expected: 06/17/2024 , Expires: 09/16/2024 Start: 06-17-2024 End: 09-16-2024 Hemoglobin A1c in Blood HEMOGLOBIN A1C Lab Routine with uncertain dates in first trimester (HCC) Expected: 06/17/2024, Expires: 09/16/2024 [facility] Comment on above: Expected: 06/17/2024 , Expires: 09/16/2024 Start: 06-17-2024 End: 09-16-2024 Hepatitis B virus surface Ag [Presence] in Serum HEPATITIS B SURFACE ANTIGEN Lab Routine with uncertain dates in first trimester (HCC) Expected: 06/17/2024, Expires: 09/16/2024 [facility] Comment on above: Expected: 06/17/2024 , Expires: 09/16/2024 Start: 06-17-2024 End: 09-16-2024 Hepatitis C virus Ab [Presence] in Serum HEPATITIS C ANTIBODY IA WITH CONFIRMATION Lab Routine with uncertain dates in first trimester (HCC) Expected: 06/17/2024, Expires: 09/16/2024 [facility] Comment on above: Expected: 06/17/2024 , Expires: 09/16/2024 Start: 06-17-2024 End: 09-16-2024 HIV 1+2 Ab [Presence] in Serum or Plasma by Immunoassay HIV 1/2 COMBO WITH REFLEX TO DIFFERENTIATION Lab Routine with uncertain dates in first trimester (HCC) Expected: 06/17/2024, Expires: 09/16/2024 [facility] Comment on above: Expected: 06/17/2024 , Expires: 09/16/2024 Start: 06-17-2024 End: 06-17-2025 OBSTETRIC ULTRASOUND WHI OBSTETRIC ULTRASOUND WHI Anc Imaging Routine with uncertain dates in first trimester (HCC) Expected: 06/17/2024, Expires: 06/17/2025 [facility] Comment on above: Expected: 06/17/2024 , Expires: 06/17/2025 Start: 06-17-2024 End: 09-16-2024 RUBELLA IGG ANTIBODY RUBELLA IGG ANTIBODY Lab Routine with uncertain dates in first trimester (HCC) Expected: 06/17/2024, Expires: 09/16/2024 [facility] Comment on above: Expected: 06/17/2024 , Expires: 09/16/2024 Start: 06-17-2024 End: 09-16-2024 SYPHILIS TREPONEMAL W/REFLEX SYPHILIS TREPONEMAL W/REFLEX Lab Routine with uncertain dates in first trimester ([facility]) Expected: 06/17/2024, Expires: 09/16/2024 [facility] Comment on above: Expected: 06/17/2024 , Expires: 09/16/2024 Start: 06-17-2024 End: 09-16-2024 Thyrotropin [Units/volume] in Serum or Plasma THYROID STIMULATING HORMONE Lab Routine Tachycardia Expected: 06/17/2024, Expires: 09/16/2024 [facility] Comment on above: Expected: 06/17/2024 , Expires: 09/16/2024 Start: 06-17-2024 End: 09-16-2024 TYPE + SCREEN TYPE + SCREEN Blood Bank Routine with uncertain dates in first trimester ([facility]) Expected: 06/17/2024, Expires: 09/16/2024 [facility] Comment on above: Expected: 06/17/2024 , Expires: 09/16/2024 Start: 03-17-2024 End: 03-17-2024 Patient encounter procedure 03/17/2024 10:45 AM EST Office Visit OB/Gynecology [address] [place] [id number] Dahlia Morley APRN.[facility] [address] [place] [address] ANNUAL OB/Gynecology Comment on above: ANNUAL Start: 12-19-2023 End: 12-19-2023 ambulatory 12/19/2023 7:30 AM EST Results Only Y[facility] Draw Station [address] [place] [id number] Lab [facility] Draw Station Comment on above: Lab Start: 11-29-2023 Chlamydia Screening () Chlamydia Screening () [facility] Start: 11-29-2023 GC (Gonorrhea) Scree benedicto (18) GC (Gonorrhea) Screening () [facility] Start: 11-29-2023 Screening for Chlamy pam trachomatis Chlamydia Screening () [facility] Start: 10-11-2023 Covid-19 Vaccine ( season) Covid-19 Vaccine ( season) [facility] Start: 10-11-2023 Influenza vaccination Influenza Vacc ine (#1) [facility] Start: 08-06-2023 CHLAMYDIA SCREENING () CHLAMYDIA SCREENING () [facility] Start: 08-06-2023 GC (GONORRHEA) SCREE BENEDICTO () GC (GONORRHEA) SCREENING () [facility] Start: 03-30-2023 PAP TESTING PAP TESTING [facility] Start: 03-30-2023 Screening for malign ant neoplasm of cervix [facility] Start: 02-09-2023 Depression Assessment Depression Ass essment [facility] Start: 01-12-2023 Patient discharge [facility] Start: 01-11-2023 Administration of medication [facility] Start: 01-11-2023 Application of ice collar, cap or bag [facility] Start: 01-11-2023 Catheterization of vein [facility] Start: 01-11-2023 Introduction of urin freeman catheter [facility] Start: 01-11-2023 Measuring intake and output [facility] Start: 01-11-2023 Notification of physician [facility] Start: 01-11-2023 Procedure discontinued [facility] Start: 01-11-2023 Provision of activit y privileges [facility] Start: 01-11-2023 Vital signs measurements [facility] Start: 01-11-2023 [facility] Start: 01-11-2023 Admission procedure [facility] Start: 01-11-2023 Consultation [facility] Start: 12-31-2022 Nonstress test [facility] Start: 12-31-2022 Obstetric monitoring [facility] Start: 12-31-2022 Vital signs measurements [facility] Start: 12-31-2022 [facility] Start: 12-31-2022 Patient discharge [facility] Start: 11-28-2022 End: 11-29-2023 OBSTETRIC ULTRASOUND [facility] OBSTETRIC ULTRASOUND [facility] Anc Imaging Routine 33 weeks gestation of Uterine size-date discrepancy, third trimester Expected: 11/28/2022, Expires: 11/29/2023 [facility] Work Phone: Comment on above: Expected: 11/28/2022 , Expires: 11/29/2023 Start: 11-24-2022 End: 11-24-2022 [facility] Start: 11-24-2022 Nonstress test [facility] Start: 11-24-2022 Obstetric monitoring [facility] Start: 11-24-2022 Vital signs measurements [facility] Start: 11-24-2022 Bacteria identified in Urine by Culture Urine Culture [facility] Start: 11-24-2022 Patient discharge [facility] Start: 10-10-2022 Influenza vaccination [facility] Start: 09-24-2022 End: 11-24-2022 CBC W Auto Differential panel - Blood CBC + DIFF Lab Routine Supervision of other high risk pregnancies, second trimester 24 weeks gestation of Expected: 09/24/2022, Expires: 11/24/2022 [facility] Work Phone: Comment on above: Expected: 09/24/2022 , Expires: 11/24/2022 Start: 09-24-2022 End: 11-24-2022 GEST GLUC SCREEN, 1-HR, 50 GM, NON-FASTING GEST GLUC SCREEN, 1-HR, 50 GM, NON-FASTING Lab Routine Supervision of other high risk pregnancies, second trimester 24 weeks gestation of Expected: 09/24/2022, Expires: 11/24/2022 [facility] Work Phone: Comment on above: Expected: 09/24/2022 , Expires: 11/24/2022 Start: 09-24-2022 End: 11-24-2022 SYPHILIS TOTAL W/REFLEX SYPHILIS TOTAL W/REFLEX Lab Routine Supervision of other high risk pregnancies, second trimester 24 weeks gestation of Expected: 09/24/2022, Expires: 11/24/2022 [facility] Work Phone: Comment on above: Expected: 09/24/2022 , Expires: 11/24/2022 Start: 08-14-2022 End: 08-15-2023 OBSTETRIC ULTRASOUND [facility] OBSTETRIC ULTRASOUND [facility] Anc Imaging Routine Encounter for anatomic survey Expected: 08/14/2022, Expires: 08/15/2023 [facility] Work Phone: Comment on above: Expected: 08/14/2022 , Expires: 08/15/2023 Start: 08-07-2022 End: 10-07-2022 CARRIER SCREEN, STANDARD CARRIER SCREEN, STANDARD Lab Routine 13 weeks gestation of Genetic screening Family history of muscular dystrophy Expected: 08/07/2022, Expires: 10/07/2022 [facility] Work Phone: Comment on above: Expected: 08/07/2022 , Expires: 10/07/2022 Start: 08-07-2022 End: 10-07-2022 Chromosome 21 trisomy [Presence] in Blood or Tissue by Cytogenetics [id number] [id number] Lab Routine 13 weeks gestation of Genetic screening Expected: 08/07/2022, Expires: 10/07/2022 [facility] Work Phone: Comment on above: Expected: 08/07/2022 , Expires: 10/07/2022 Start: 08-05-2022 End: 10-05-2022 CBC panel - Blood by Automated count CBC Lab Routine 13 weeks gestation of Expected: 08/05/2022, Expires: 10/05/2022 [facility] Work Phone: Comment on above: Expected: 08/05/2022 , Expires: 10/05/2022 Start: 08-05-2022 End: 10-05-2022 Hepatitis B virus surface Ag [Presence] in Serum HEP B SURF AG SCRN Lab Routine 13 weeks gestation of Expected: 08/05/2022, Expires: 10/05/2022 [facility] Work Phone: Comment on above: Expected: 08/05/2022 , Expires: 10/05/2022 Start: 08-05-2022 End: 10-05-2022 Hepatitis C virus Ab [Presence] in Serum HEPATITIS C ANTIBODY IA WITH CONFIRMATION Lab Routine 13 weeks gestation of Expected: 08/05/2022, Expires: 10/05/2022 [facility] Work Phone: Comment on above: Expected: 08/05/2022 , Expires: 10/05/2022 Start: 08-05-2022 End: 10-05-2022 HIV 1+2 Ab [Presence] in Serum or Plasma by Immunoassay HIV 1 2 COMBO(AG/AB),WITH REFLEX TO DIFFERENTIATION Lab Routine 13 weeks gestation of Expected: 08/05/2022, Expires: 10/05/2022 [facility] Work Phone: Comment on above: Expected: 08/05/2022 , Expires: 10/05/2022 Start: 08-05-2022 End: 08-06-2023 OBSTETRIC ULTRASOUND WHI OBSTETRIC ULTRASOUND [facility]I Anc Imaging Routine 13 weeks gestation of Expected: 08/05/2022, Expires: 08/06/2023 [facility] Work Phone: Comment on above: Expected: 08/05/2022 , Expires: 08/06/2023 Start: 08-05-2022 End: 10-05-2022 RUBELLA IGG AB RUBELLA IGG AB Lab Routine 13 weeks gestation of Expected: 08/05/2022, Expires: 10/05/2022 [facility] Work Phone: Comment on above: Expected: 08/05/2022 , Expires: 10/05/2022 Start: 08-05-2022 End: 10-05-2022 SYPHILIS TOTAL W/REFLEX SYPHILIS TOTAL W/REFLEX Lab Routine 13 weeks gestation of Expected: 08/05/2022, Expires: 10/05/2022 [facility] Work Phone: Comment on above: Expected: 08/05/2022 , Expires: 10/05/2022 Start: 08-05-2022 End: 10-05-2022 TYPE + SCREEN TYPE + SCREEN Blood Bank Routine 13 weeks gestation of Expected: 08/05/2022, Expires: 10/05/2022 [facility] Work Phone: Comment on above: Expected: 08/05/2022 , Expires: 10/05/2022 Start: 07-31-2022 End: 08-01-2023 NUCHAL TRANSLUCENCY WHI NUCHAL TRANSLUCENCY WHI Anc Imaging Routine Supervision of normal first , antepartum Expected: 07/31/2022, Expires: 08/01/2023 [facility] Work Phone: Comment on above: Expected: 07/31/2022 , Expires: 08/01/2023 Start: 02-09-2022 DEPRESSION ASSESSMENT DEPRESSION ASS ESSMENT [facility] Start: 10-18-2021 CHLAMYDIA SCREENING (18-24) CHLAMYDIA SCREENING (18-24) [facility] Start: 10-18-2021 GC (GONORRHEA) SCREE BENEDICTO (18-24) GC (GONORRHEA) SCREENING (18-24) [facility] Start: 04-27-2021 Urine microalbumin profile [facility] Start: 2017 Anxiety Screening Anxiety Screening [facility] Start: 2017 Depression Screening Depression Scre ening [facility] Start: 2015 Meningococcal B Vacc ine: Consider Based On Risk (1 of 2 - Patient Seeks Protection) Meningococcal B Vaccine: Consider Based On Risk (1 of 2 - Patient Seeks Protection) [facility] Start: 2015 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 (1 of 2 - Patient Seeks Protection) MENINGOCOCCAL B: Consider based on risk (1 of 2 - Patient Seeks Protection) [facility] Start: 2014 HPV Vaccine (1 - 3-d ose series) HPV Vaccine (1 - 3-dose series) [facility] Start: 2013 PEDS TO ADULT TRANSI TION ANNUAL ASSESSMENT PEDS TO ADULT TRANSITION ANNUAL ASSESSMENT [facility] Start: 2011 PEDS TO ADULT TRANSI TION INITIAL DISCUSSION PEDS TO ADULT TRANSITION INITIAL DISCUSSION [facility] Start: 2009 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) 06/17/2024 11:57 AM EDT [facility] Bacteria identified in Urine by Culture BACTERIAL CULTURE, URINE Microbiology Routine Encounter for supervision of other normal in second trimester ([facility]) 26 weeks gestation of ([facility]) Spotting complicating , second trimester ([facility]) 10/19/2024 3:27 PM EDT [facility] BACTERIAL VAGINOSIS NAAT BACTERI AL VAGINOSIS NAAT Lab Routine 33 weeks gestation of Supervision of high risk in third trimester Vaginal discharge during in third trimester 11/28/2022 2:45 PM T [facility] Work Phone: ZAIDA/TRICHOMONAS NAAT ZAIDA /TRICHOMONAS NAAT Lab Routine 33 weeks gestation of Supervision of high risk in third trimester Vaginal discharge during in third trimester 11/28/2022 2:45 PM T [facility] Work Phone: Chlamydia trachomatis+Neisseria gonorrhoeae DNA [Presence] in Unspecified specimen by ASTON with probe detection GONORRHEA/CHLAMYDIA NAAT Lab Routine 33 weeks gestation of Supervision of high risk in third trimester Vaginal discharge during in third trimester 11/28/2022 2:45 PM T [facility] Work Phone: Chlamydia trachomatis+Neisseria gonorrhoeae DNA [Presence] in Unspecified specimen by ASTON with probe detection GONORRHEA/CHLAMYDIA NAAT Lab Routine with uncertain dates in first trimester ([facility]) Screen for STD (sexually transmitted disease) 06/17/2024 11:57 AM EDT [facility] End: 01-16-2024 Choriogonadotropin.beta subunit [Units/volume] in Serum or Plasma HCG QUANTITATIVE Lab Routine Bleeding in early 2x per week for 2 Occurrences starting 12/17/2023 until 01/16/2024 [facility] Work Phone: Comment on above: 2x per week for 2 Oc currences starting 12/17/2023 until 01/16/2024 Choriogonadotropin.b eta subunit [Units/volume] in Serum or Plasma HCG QUANTITATIVE Lab Routine Bleeding in early 12/17/2023 2:58 PM EST [facility] ECG COMPLETE ECG COMPLETE ECG Routine Encounter for supervision of other normal in second trimester ([facility]) 26 weeks gestation of ([facility]) Spotting complicating , second trimester ([facility]) Palpitation Ordered: 10/19/2024 [facility] Work Phone: Comment on above: Ordered: 10/19/2024 Hematocrit [Volume Fraction] of Blood [facility] Hemoglobin [Mass/vol ume] in Blood [facility] Leukocytes [#/volume ] in Blood [facility] Mean corpuscular hemoglobin concentration determination [facility] Mean corpuscular hemoglobin determination [facility] Neutrophil count [facility] Neutrophil percent differential count [facility] PAP TEST PAP TEST Lab Rou jaymie with uncertain dates in first trimester ([facility]) Screening for cervical cancer 06/17/2024 11:57 AM EDT [facility] Patient Education [facility] Work Phone: Patient referral [facility] Work Phone: Platelets [#/volume] in Blood [facility] Red blood cell count [facility] Red cell distributio n width determination [facility] TRICHOMONAS VAGINALI S NAAT TRICHOMONAS VAGINALIS NAAT Lab Routine with uncertain dates in first trimester ([facility]) Screen for STD (sexually transmitted disease) 06/17/2024 11:57 AM EDT [facility] URINE OB DIP B/O URINE OB DIP B/ O Lab Routine 18 weeks gestation of Ordered: 08/14/2022 [facility] Work Phone: Comment on above: Ordered: 08/14/2022 [facility] Immunizations Immunization Date Immunization Notes Care Provider Stephie edwards 10-02-2016 meningococcal polysaccharide (groups A, C, Y and W-135) diphtheria toxoid conjugate vaccine (MCV4P) Nurse Wstr Work Phone: [facility] 07-24-2011 Meningococcal, MCV4, unspecified conjugate formulation(groups A, C, Y and W-135) Nurse Wstr Work Phone: [facility] 04-28-2011 tetanus toxoid, redu lety diphtheria toxoid, and acellular pertussis vaccine, adsorbed Nurse Wstr Work Phone: [facility] 2005 chicken pox (disease) Nurse Wstr Work Phone: [facility] Work Phone: 07-22-2004 diphtheria, tetanus toxoids and acellular pertussis vaccine Nurse Wstr Work Phone: [facility] Work Phone: 07-22-2004 measles, mumps and rubella virus vaccine Nurse Wstr Work Phone: [facility] Work Phone: 07-22-2004 poliovirus vaccine, inactivated Nurse Wstr Work Phone: [facility] Work Phone: 03-31-2001 diphtheria, tetanus toxoids and acellular pertussis vaccine Nurse Wstr Work Phone: [facility] Work Phone: 03-31-2001 haemophilus influenz ae type b vaccine, HbOC conjugate Nurse Wstr Work Phone: [facility] Work Phone: 03-23-2000 measles, mumps and rubella virus vaccine Nurse Wstr Work Phone: [facility] Work Phone: 1999 hepatitis B vaccine, pediatric or pediatric/adolescent dosage Nurse Wstr Work Phone: [facility] Work Phone: 1999 diphtheria, tetanus toxoids and acellular pertussis vaccine Nurse Wstr Work Phone: [facility] Work Phone: 1999 haemophilus influenz ae type b vaccine, HbOC conjugate Nurse Wstr Work Phone: [facility] Work Phone: 1999 poliovirus vaccine, inactivated Nurse Wstr Work Phone: [facility] Work Phone: 1999 diphtheria, tetanus toxoids and acellular pertussis vaccine Nurse Wstr Work Phone: [facility] Work Phone: 1999 haemophilus influenz ae type b vaccine, HbOC conjugate Nurse Wstr Work Phone: [facility] Work Phone: 1999 poliovirus vaccine, inactivated Nurse Wstr Work Phone: [facility] Work Phone: 1999 diphtheria, tetanus toxoids and acellular pertussis vaccine Nurse Wstr Work Phone: [facility] Work Phone: 1999 haemophilus influenz ae type b vaccine, HbOC conjugate Nurse Wstr Work Phone: [facility] Work Phone: 1999 hepatitis B vaccine, pediatric or pediatric/adolescent dosage Nurse Wstr Work Phone: [facility] Work Phone: 1999 poliovirus vaccine, inactivated Nurse Wstr Work Phone: [facility] Work Phone: 1999 hepatitis B vaccine, pediatric or pediatric/adolescent dosage Nurse Wstr Work Phone: [facility] Work Phone: Payers Date Payer Category Payer Self-pay [id number] 2022 Medicaid [id number] 2022 Unknown [id number] 1999 Unknown [id number] 1999 Unknown [id number] 1999 Unknown [id number] 1999 Unknown [id number] Private Health Insurance [id number] Unknown [employer] MC D *DO NOT USE* [id number] Unknown [id number] Social History Date Type Detail Facility Start: 11-16-2020 End: 01-11-2023 Tobacco smoking status [facility] Tobacco smoking consumption unknown [facility] Start: 1999 Sex Assigned At Not on file [facility] Start: 04-12-2020 End: 04-30-2024 Tobacco smoking status NHIS Ex-smoker [facility] Work Phone: Start: 11-12-2014 End: 11-13-2019 History of tobacco use Current smoker [facility] Work Phone: Start: 11-12-2014 End: 11-13-2019 History of tobacco use Cigarette Smoker [facility] Work Phone: Start: 04-12-2020 End: 04-30-2024 Tobacco use and exposure Smokeless tobacco non-user [facility] Work Phone: Start: 07-31-2022 End: 10-19-2024 Alcohol intake Ex-drinker (finding) [facility] Start: 07-31-2022 Education 13 [facility] Start: 04-22-2022 [facility] Start: 1999 Sex Assigned At Female [facility] Start: 08-14-2022 End: 11-28-2022 History of Social function [facility] Start: 08-14-2022 End: 11-28-2022 Tobacco use panel [facility] Start: 01-11-2012 National Score (1-10 0), lower number is lower risk Not on file [facility] Start: 06-14-2020 Gender identity Identifies as female gender (finding) [facility] Start: 06-14-2020 Sexual orientation Heterosexual (merna solorzano) [facility] Goals Date Patient Goal Desired Activity /State Personal health goal Personal health goal Functional Status Date Assessment Result Facility 06-02-2014 Are you deaf, or do you have serious difficulty hearing No 06/02/2014 2:00 PM EDT [facility] C[facility] No [facility] 06-02-2014 Are you blind, or do you have serious difficulty seeing, even when wearing glasses No 06/02/2014 2:00 PM EDT [facility] No [facility] 06-02-2014 Do you have serious difficulty walking or climbing stairs No 06/02/2014 2:00 PM EDT [facility] No [facility] 06-02-2014 Do you have difficul ty dressing or bathing No 06/02/2014 2:00 PM EDT [facility] No [facility] 06-02-2014 Because of a physica l, mental, or emotional condition, do you have difficulty doing errands alone such as visiting a physician's office or shopping No 06/02/2014 2:00 PM EDT [facility] No [facility] Mental Status Date Assessment Result Facility 06-02-2014 Because of a physica l, mental, or emotional condition, do you have serious difficulty concentrating, remembering, or making decisions No 06/02/2014 2:00 PM EDT [facility] No [facility] Clinical Notes 10-12-2020 to 10-20-2024 Telephone Encounter - Summer Caceres RN - 10/20/2024 10:58 AM EDTTelephone Encounter - Summer Caceres RN - 10/20/2024 10:58 AM EDTTelephone Encounter - Maria LuisaJoanne lopesALAN - 09/27/2024 9:15 AM EDT Note Date & Type Note Facility 10-20-2024 Telephone encounter Note Patient 26w6d, seen in office yesterday. PNV order pended. Summer Caceres RN [facility] 10-20-2024 Miscellaneous Notes Patient 26w6d, seen in office yesterday. PNV order pended. Summer Caceres RN documented in this encounter [facility] 10-19-2024 Progress note Formatting of t his note might be different from the original. RR- VB No. LOF No. CTXS No. Movement: present. Other c/o: feels Shortness of Breath at times, some palpitations intermittently, hot flashes. Medication list reviewed. SENSITIVE EXAM: The sensitive examination was discussed with the Patient or Patient's Authorized [employer]. As applicable, any other physician, advance practice provider, medical student, or other health professional student that will be observing or involved in the sensitive examination for educational or training purposes was discussed with the Patient or Authorized [employer] Operator. The Patient or Authorized [employer] Operator has agreed to proceed with the sensitive [...] closed and smooth Ext: edema: no A/P w5d Estimated Date of Delivery: 01/20/25 ASSESSMENT/PLAN: 1. Encounter for supervision of other normal in second trimester (HCC) - ICD9: V22.1, ICD10: Z34.82 (primary diagnosis) - UA DIP, URINE (POC) - BACTERIAL CULTURE, URINE - ECG COMPLETE - COMPLETE BLOOD COUNT - BASIC METABOLIC PANEL 2. 26 weeks gestation of ([facility]) - ICD9: V22.2, ICD10: Z3A.26 - UA DIP, URINE (POC) - BACTERIAL CULTURE, URINE - ECG COMPLETE - COMPLETE BLOOD COUNT - BASIC METABOLIC PANEL 3. Spotting complicating , second trimester ([facility]) - ICD9: 649.53, ICD10: O26.852 - UA DIP, URINE (POC) - BACTERIAL CULTURE, URINE - ECG COMPLETE - COMPLETE BLOOD COUNT - BASIC METABOLIC PANEL 4. Palpitation - ICD9: 785.1, ICD10: R00.2 reassured, if worsens to ED for eval. - ECG COMPLETE - COMPLETE BLOOD COUNT - BASIC METABOLIC PANEL return, call if worsens no vaginal bleeding now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 rules restrict any use of the information to criminally investigate or prosecute any alcohol or drug abuse patient.[facility] HospitalIn the event this information is protected by the Federal Confidentiality of Alcohol and Drug Abuse Patient Records regulations: The Federal rules restrict any use of the information to criminally investigate or prosecute any alcohol or drug abuse patient.[facility] HospitalIn the event this information is protected by the Federal Confidentiality of Alcohol and Drug Abuse Patient Records regulations: The Federal rules restrict any use of the information to criminally investigate or prosecute any alcohol or drug abuse patient.[facility] HospitalIn the event this information is protected by the Federal Confidentiality of Alcohol and Drug Abuse Patient Records regulations: The Federal rules restrict any use of the information to criminally investigate or prosecute any alcohol or drug abuse patient.[facility] HospitalIn the event this information is protected by the Federal Confidentiality of Alcohol and Drug Abuse Patient Records regulations: The Federal rules restrict any use of the information to criminally investigate or prosecute any alcohol or drug abuse patient.[facility] HospitalIn the event this information is protected by the Federal Confidentiality of Alcohol and Drug Abuse Patient Records regulations: The Federal rules restrict any use of the information to criminally investigate or prosecute any alcohol or drug abuse patient.[facility] HospitalIn the event this information is protected by the Federal Confidentiality of Alcohol and Drug Abuse Patient Records regulations: The Federal rules restrict any use of the information to criminally investigate or prosecute any alcohol or drug abuse patient.[facility] HospitalIn the event this information is protected by the Federal Confidentiality of Alcohol and Drug Abuse Patient Records regulations: The Federal rules restrict any use of the information to criminally investigate or prosecute any alcohol or drug abuse patient.[facility] HospitalIn the event this information is protected by the Federal Confidentiality of Alcohol and Drug Abuse Patient Records regulations: The Federal rules restrict any use of the information to criminally investigate or prosecute any alcohol or drug abuse patient.[facility] HospitalIn the event this information is protected by the Federal Confidentiality of Alcohol and Drug Abuse Patient Records regulations: The Federal rules restrict any use of the information to criminally investigate or prosecute any alcohol or drug abuse patient.[facility] HospitalIn the event this information is protected by the Federal Confidentiality of Alcohol and Drug Abuse Patient Records regulations: The Federal rules restrict any use of the information to criminally investigate or prosecute any alcohol or drug abuse patient.[facility] HospitalIn the event this information is protected by the Federal Confidentiality of Alcohol and Drug Abuse Patient Records regulations: The Federal rules restrict any use of the information to criminally investigate or prosecute any alcohol or drug abuse patient.[facility] Reason for Visit (unrecogniz ed section and content) Reason Comments Care Reason Comments Care Reason Onset Date Comments Care 08/14/2022 Reason Comments US Specialty Diagnoses / Procedures Referred By Contac t Referred To Contact [facility] Diagnoses 13 weeks gestation of Procedures OBSTETRIC ULTRASOUND WHI US PREG UTERUS AFTER 1ST TRIMEST GESTATION Shirley Alonso APRN.[employer]NG[employer] [address] [place] [address] [facility] [address] [place] [address] Referral ID Status Reason Start Date Expiration Date V isits Requested Visits Authorized [id number] Closed Auto-Generate d Referral 08/05/2022 08/05/2023 1 1 Reason Comments 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 [address] Phone: tel: fax: [facility] [address] [place] [address] Referral ID Status Reason Start Date Expiration Date V isits Requested Visits Authorized [id number] Closed Auto-Generate d Referral 06/17/2024 06/17/2025 1 1 Reason Comments Reordering Clerk - Other PRAF Reason Comments Breast Pump [...] BE BASED ON THE PRIMARY CLINICAL RECORDS. [employer] provides no warranty or guarantee of the accuracy or completeness of information in this document.
--- OUTSIDE RECORDS SUMMARY | 2025-01-24 07:35 | XMS RPT_ITS | CCD ---
Author Organization [facility] Care Team Providers Care Packer Dried Beef Name Role Phone Unavailable Primary Care Provider [...] FRANCIA IZAGUIRRE CNP Admitting Unavailable SHIRLEY HOLLINS CAREER PORTALS TEACHER Consulting Unavailable PROVIDER, UNKNOWN Consulting Unavailable FRANCIA [...] your vitamin 15 tablet 5 10/20/2024 Active Vxvmmumm-Bmo-Gh-Fa (3 sources) Start: 11-16-2020 take 1 tablet by mouth once daily Nqkcurxo-Cvd-Ev-Fa Active 1 TABLET PO DAILY November 15, 2020 11:00pm Start: 11-16-2020 take 1 tablet by samuel th once daily Zudyxpiz-Dvl-Dt-Fa Active 1 TABLET PO DAILY November 16, [...] of ; Translations: [26 weeks gestation of ([facility])] Onset: 10-19-2024 Episodic Residual codes; unclassified (1 [...] 06-17-2024 06-17-2024 Unclassified (1 source) complication before ([facility]); Translations: [ complication before ([facility])] Onset: 12-08-2024 Past or Other Problems Problem [...] of ; Translations: [9 weeks gestation of ([facility])] Onset: 06-17-2024 Episodic Residual codes; unclassified (1 [...] Of Membraneson 12-19-2024 ROM Negative Normal Negative [facility] Comment on above: Result Comment: Amni otic fluid not present indicates No Rupture of Membranes at time of specimen collection. Performed By: #### L 205.1000 #### [facility] [address] [place], [address] ROM Negative Normal Negative [facility] Comment on above: Result Comment: Amni otic fluid not present indicates No Rupture of Membranes at time of specimen collection. Performed By: #### L 205.1000 #### [facility] [address] [place], [address] Radha 12-19-2024 CNPN Telephone (OBGYWM) ODESSA DORSEY Gunner ([id number]) 89 F T Date Time Provider Department 12/19/24 SOILA HERRERA OBGYWM During your visit today, we recorded the following information about you: Summer Caceres RN 12/19/2024 2:06 PM Signed Patient 35w3d was seen on [facility] this morning for possible rupture of membranes. [...] close to delivery. She can go to [facility] Summer Caceres RN 12/19/2024 2:21 PM Signed [...] Status:Closed by SUMMER CACERES on 12/19/24 Normal [facility] OB Triage Physician Noteon 1 02-19-2024 OB Triage Physician Note [facility] Medical Records Department [address] [place] [address] OB Triage Physician Note 12/19/24 1716 MR#: [id number] Acct: [id number] Name: ODESSA DORSEY Rep #: [id number] : 2000 24 From: Soila Champion MD PCP: Care Physician,No Primary Status:DEP CLI Y Location: HPI - General General Date of Service: 12/19/24 HPI Narrative ODESSA DORSEY, is a 24 F @ 35+ weeks who presents with concerns for ROM. pt was seen earlier today with similar concerns - negative work up. Pt had intercourse at 3am [facility] Medical History (Updated 12/19/24 @ 20:[address] Soila Champion MD) Osteochondroma of tibia Anemia Vaginal delivery Supervision of normal Heart murmur Chlamydia infection affecting Anxiety Depression Home Medications ???Medication ???Instructions ???Recorded ???Last Taken ???Type ofdfbjgf-tuk-Mi-FA 1 mg 1 tab PO DAILY 11/16/20 [...] MD; No Primary Care Physician Signed Normal [facility] Urinalysis, Routine (Dipstic k)on 12-19-2024 BILIRUBIN URINE Normal Negative [facility] Comment on above: Order Comment: MICKEY ALEXIS TO SPECIFY Result Comment: PER [facility]/OB OK TO CANCEL. NO SPECIMEN WAS OBTAINED AND PATIENT WAS RELEASED. 12-20-24 01:29 Performed By: #### L 400.2010 #### [facility] [address] [facility] [place], [address] Clarity (U) Normal Clear [facility] Comment on above: Order Comment: MICKEY CTPRAMOD TO SPECIFY Result Comment: PER [facility]/OB OK TO CANCEL. NO SPECIMEN WAS OBTAINED AND PATIENT WAS RELEASED. 12-20-24 01:29 Performed By: #### L 400.2010 #### [facility] [address] [facility] [place], [place], [address] Color (U) Normal Yellow [facility] Comment on above: Order Comment: MICKEY CTPRAMOD TO SPECIFY Result Comment: PER [facility] WP/OB OK TO CANCEL. NO SPECIMEN WAS OBTAINED AND PATIENT WAS RELEASED. 12-20-24 01:29 Performed By: #### L 400.2010 #### [facility] [address] [place], [address] GLUCOSE, UR Normal Normal [facility] Comment on above: Order Comment: COLLE CTOR TO SPECIFY Result Comment: PER [facility] WP/OB OK TO CANCEL. NO SPECIMEN WAS OBTAINED AND PATIENT WAS RELEASED. 12-20-24 01:29 Performed By: #### L 400.2010 #### [facility] [address] [place], [address] KETONE UR Normal Negative [facility] Comment on above: Order Comment: COLLE CTOR TO SPECIFY Result Comment: PER [facility] WP/OB OK TO CANCEL. NO SPECIMEN WAS OBTAINED AND PATIENT WAS RELEASED. 12-20-24 01:29 Performed By: #### L 400.2010 #### [facility] [address] [place], [address] LEUK ESTERASE Normal Negative [facility] Comment on above: Order Comment: COLLE CTOR TO SPECIFY Result Comment: PER [facility] WP/OB OK TO CANCEL. NO SPECIMEN WAS OBTAINED AND PATIENT WAS RELEASED. 12-20-24 01:29 Performed By: #### L 400.2010 #### [facility] [address] [place], [address] Nitrite Ql (U) Normal Negative [facility] Comment on above: Order Comment: COLLE CTOR TO SPECIFY Result Comment: PER [facility] WP/OB OK TO CANCEL. NO SPECIMEN WAS OBTAINED AND PATIENT WAS RELEASED. 12-20-24 01:29 Performed By: #### L 400.2010 #### [facility] [address] [place], [address] OCCULT BLOOD-UR Normal Negative [facility] Comment on above: Order Comment: COLLE CTOR TO SPECIFY Result Comment: PER [facility] WP/OB OK TO CANCEL. NO SPECIMEN WAS OBTAINED AND PATIENT WAS RELEASED. 12-20-24 01:29 Performed By: #### L 400.2010 #### [facility] [address] [place], [address] pH UR Normal 5.0 - 8.0 [facility] Comment on above: Order Comment: COLLE CTOR TO SPECIFY Result Comment: PER [facility] WP/OB OK TO CANCEL. NO SPECIMEN WAS OBTAINED AND PATIENT WAS RELEASED. 12-20-24 01:29 Performed By: #### L 400.2010 #### [facility] [address] [place], [address] PROT DIPSTX Normal Negative [facility] Comment on above: Order Comment: COLLE CTOR TO SPECIFY Result Comment: PER [facility] WP/OB OK TO CANCEL. NO SPECIMEN WAS OBTAINED AND PATIENT WAS RELEASED. 12-20-24 01:29 Performed By: #### L 400.2010 #### [facility] [address] [place], [address] SP.GR. DIPSTX Normal 1.002-1.030 [facility] Comment on above: Order Comment: COLLE CTOR TO SPECIFY Result Comment: PER [facility] WP/OB OK TO CANCEL. NO SPECIMEN WAS OBTAINED AND PATIENT WAS RELEASED. 12-20-24 01:29 Performed By: #### L 400.2010 #### [facility] [address] [place], [address] UR Preservative Normal [facility] Comment on above: Order Comment: COLLE CTOR TO SPECIFY Result Comment: PER [facility] WP/OB OK TO CANCEL. NO SPECIMEN WAS OBTAINED AND PATIENT WAS RELEASED. 12-20-24 01:29 Performed By: #### L 400.2010 #### [facility] [address] [place], [address] UROBILI Normal Normal [facility] Comment on above: Order Comment: COLLE CTOR TO SPECIFY Result Comment: PER [facility] WP/OB OK TO CANCEL. NO SPECIMEN WAS OBTAINED AND PATIENT WAS RELEASED. 12-20-24 01:29 Performed By: #### L 400.2010 #### [facility] [address] [place], [address] Radha 12-08-2024 [facility] Telephone (FV3L+D) ODESSA DORSEY ([id number]) 89 F T Date Time Provider Department 12/08/24 MPOWER FV OB LANDD FV3L+D During your visit today, we recorded the following information about you: Allergies As of Date: 12/08/2024 (No Known Allergies) Date Reviewed: 11/15/2024 Reviewed by: Keyana Vazquez MA - Fully Assessed Reason for Visit: Care Coordination [1441] Cmt: M-Power Scheduling LM attempt # 3 [...] Encounter Status:Closed by ENEDINA [facility]ENDEZ [facility] ODESSA DORSEY ([id number]) 89 F CHT Date Time Provider Department 12/02/24 NOMI FV OB LANDD FV3L+D During your visit today, we recorded the following information about you: Allergies As of Date: 12/02/2024 (No Known Allergies) Date Reviewed: 11/15/2024 Reviewed by: Keayna Vazquez MA - Fully Assessed Reason for [...] Encounter Status:Closed by ENEDINA MENENDEZ on 12/02/24 [facility] C[facility] Telephone (FV3L+D) ODESSA DORSEY ([id number]) 89 F CHT Date Time Provider Department 11/18/24 MPOWER FV OB LANDD FV3L+D During your visit today, we recorded the following information about you: Allergies As of Date: 11/18/2024 (No Known Allergies) Date Reviewed: 11/15/2024 Reviewed by: Keyana Vazquez MA - Fully Assessed Reason for Visit: Care Coordination [0382] Cmt: M-Power Scheduling Pt will call back, [...] Encounter Status:Closed by ENEDINA MENENDEZ on 11/18/24 [facility] Radha 11-16-2024 [facility] Telephone (GMF201) SUNITAODESSA ([id number]) 89 F T Date Time Provider Department 11/16/24 MELA WELLS [id number] During your visit today, we recorded the following information about you: Mela Wells RN 11/16/2024 9:02 AM Signed 3rd risk assessment form submitted 11/16/2024. Mela Wells RN Allergies As of Date: 11/16/2024 (No Known Allergies) Date Reviewed: 11/15/2024 Reviewed by: Keyana Vazquez MA - Fully Assessed Reason for Visit: Facilities Maintenance Technician - Other [3602] Cmt: ANKUR Prescriptions as [...] Status:Closed by MELA WELLS on 11/16/24 Normal [facility] CBC panel Auto (Bld)on 11-15 Erythrocyte distribution width (RBC) [Ratio] 13.0 % Normal 11.5-15.0 [facility] Comment on above: Order Comment: Speci men Type: BLOOD SPECIMENOrdering Facility: [facility] Address: [address] [place] [address] Performed By: #### 6 30-4 #### [facility] CLIA [id number] [address] [place] [address] [place] [address] [place] Hematocrit (Bld) [Volume fraction] 31.7 % Low 36.0-46.0 [facility] Comment on above: Order Comment: Speci men Type: BLOOD SPECIMENOrdering Facility: [facility] Address: [address] [place] [address] Performed By: #### 6 30-4 #### [facility] CLIA [id number] [address] [place] [address] [place] Hemoglobin (Bld) [Mass/Vol] 11.1 g/dL Low 11.5-15.5 [facility] Comment on above: Order Comment: Speci men Type: BLOOD SPECIMENOrdering Facility: [facility] Address: [address] [place] [address] Performed By: #### 6 30-4 #### [facility] CLIA [id number] [address] [place] [address] [place] MCH (RBC) [Entitic mass] 31.3 pg Normal 26.0-34.0 [facility] Comment on above: Order Comment: Speci men Type: BLOOD SPECIMENOrdering Facility: [facility] Address: [address] [place] [address] Performed By: #### 6 30-4 #### [facility] CLIA [id number] [address] [place] [address] [place] MCHC (RBC) [Mass/Vol] 35.0 g/dL Normal 30.5-36.0 [facility] Comment on above: Order Comment: Speci men Type: BLOOD SPECIMENOrdering Facility: [facility] Address: [address] [place] [address] Performed By: #### 6 30-4 #### [facility] CLIA [id number] [address] [place] [address] [place] MCV (RBC) [Entitic vol] 89.3 fL Normal 80.0-100.0 [facility] Comment on above: Order Comment: Speci men Type: BLOOD SPECIMENOrdering Facility: [facility] Address: [address] [place] [address] Performed By: #### 6 30-4 #### [facility] CLIA [id number] [address] [place] [address] [place] Nucleated RBC (Bld) [#/Vol] 10*3/uL Normal <0.01 [facility] Comment on above: Order Comment: Speci men Type: BLOOD SPECIMENOrdering Facility: [facility] Address: [address] [place] [address] Performed By: #### 6 30-4 #### [facility] CLIA [id number] [address] [place] [address] [place] Platelet mean volume (Bld) [Entitic vol] 8.7 fL Low 9.0-12.7 [facility] Comment on above: Order Comment: Speci men Type: BLOOD SPECIMENOrdering Facility: [facility] Address: [address] [place] [address] Performed By: #### 6 30-4 #### [facility] CLIA [id number] [address] [place] [address] [place] Platelets (Bld) [#/Vol] 283 10*3/uL Normal 150-400 [facility] Comment on above: Order Comment: Speci men Type: BLOOD SPECIMENOrdering Facility: [facility] Address: [address] [place] [address] Performed By: #### 6 30-4 #### [facility] CLIA [id number] [address] [place] [address] [place] RBC (Bld) [#/Vol] 3.55 10*6/uL Low 3.90-5.20 [facility] Comment on above: Order Comment: Speci men Type: BLOOD SPECIMENOrdering Facility: [facility] Address: [address] [place] [address] Performed By: #### 6 30-4 #### [facility] CLIA [id number] [address] [place] [address] [place] WBC (Bld) [#/Vol] 8.67 10*3/uL Normal 3.70-11.00 [facility] Comment on above: Order Comment: Rileyi men Type: BLOOD SPECIMENOrdering Facility: [facility] Address: [address] [place] [address] Performed By: #### 6 30-4 #### [facility] CLIA [id number] [address] [place] [address] [place] Reagin and Treponema pallidu m IgG and IgM [Interp]on 11-15-2024 T. pallidum IgG+IgM IA Ql (S) Non-Reactive Normal Nonreactive [facility] Comment on above: Order Comment: Sarah bhatia Type: BLOOD SPECIMENOrdering Facility: [facility] Address: [address] [place] [address] Performed By: #### 7 3752-8 ####[facility] [id number] [place] [address] [facility] [place] Reagin+T pallidum IgG+IgM Se rPl-Impon 11-15-2024 Reagin and Treponema pallidum IgG and IgM [Interp] Cannot exclude recent Treponemal infection if specimen collected within 7-10 days after appearance of suspect lesions or 2-3 weeks after an exposure. Clinical correlation is required. Normal [facility] Comment on above: Order Comment: Sarah bhatia Type: BLOOD SPECIMENOrdering Facility: [facility] Address: [address] [place] [address] Performed By: #### 7 3752-8 ####[facility] [id number] [place] [address] [place] Radha 11-03-2024 [facility] Telephone (OBGYW) SUNITAODESSA Martino ([id number]) 89 F CHT Date Time Provider Department [...] Status:Closed by JOANNE JAMES on 11/07/24 Normal [facility] Bacteria Ur Culton Bacteria identified Cx Nom (U) ORGANISM ID: 1 <10,000 CFU/ml Normal urogenital eileen Normal [facility] Comment on above: Performed By: #### 6 30-4 #### [facility] CLIA [id number] [address] [place] [address] [place] Basic metabolic 2000 panelon 10-19-2024 Anion gap [Moles/Vol] 12 mmol/L Normal 8-15 [facility] Comment on above: Order Comment: Speci men Type: BLOOD SPECIMENOrdering Facility: [facility] Address: [address] [place] [address] Performed By: #### 2 4321-2 ####[facility] [id number] [place] [address] [place] Calcium [Mass/Vol] 9.1 mg/dL Normal 8.5-10.2 [facility] Comment on above: Order Comment: Speci men Type: BLOOD SPECIMENOrdering Facility: [facility] Address: [address] [place], [place] [address] Performed By: #### 2 4321-2 ####[facility] [id number] [address] [address] [place] Chloride [Moles/Vol] 100 mmol/L Normal 98-107 [facility] Comment on above: Order Comment: Speci men Type: BLOOD SPECIMENOrdering Facility: [facility] Address: [address] [place] [address] Performed By: #### 2 4321-2 ####[facility] [id number] [place] [address] [place] CO2 [Moles/Vol] 24 mmol/L Normal 22-30 [facility] Comment on above: Order Comment: Speci men Type: BLOOD SPECIMENOrdering Facility: [facility] Address: [address] [place] [address] Performed By: #### 2 4321-2 ####[facility] [id number] [place] [id number] [place] Creatinine [Mass/Vol] 0.58 mg/dL Normal 0.58-0.96 [facility] Comment on above: Order Comment: Speci men Type: BLOOD SPECIMENOrdering Facility: [facility] Address: [address] [place] [address] Performed By: #### 2 4321-2 ####[facility] [id number] [place] [address] [place] eGFRcr SerPlBld CKD-EPI 2020 129 mL/min/1.73m??? Normal >=60 [facility] Comment on above: Order Comment: Speci men Type: BLOOD SPECIMENOrdering Facility: [facility] Address: [address] [place] [address] Result Comment: Brisa mated Glomerular Filtration Rate [...] actual GFR. Performed By: #### 2 4321-2 ####[facility] [id number] [place] [id number] [place] Glucose [Mass/Vol] 83 mg/dL Normal 74-99 [facility] Comment on above: Order Comment: Sarah bhatia Type: BLOOD SPECIMENOrdering Facility: [facility] Address: [address] [place] [address] Result Comment: The [place] Diabetes Association (ADA) provides guidance for cutoff [...] Standards of Medical Care in Diabetes 2016, [place] [employer]. Diabetes Care. 2016.39(Suppl 1). Performed By: #### 2 4321-2 ####[facility] [id number] [place] [address] [place] Potassium [Moles/Vol] 4.2 mmol/L Normal 3.7-5.1 [facility] Comment on above: Order Comment: Sarah bhatia Type: BLOOD SPECIMENOrdering Facility: [facility] Address: [address] [place] [id number] Performed By: #### 2 4321-2 ####[facility] [id number] [address] [address] [place] Sodium [Moles/Vol] 136 mmol/L Normal 136-144 [facility] Comment on above: Order Comment: Speci men Type: BLOOD SPECIMENOrdering Facility: [facility] Address: [address] [place] [address] Performed By: #### 2 4321-2 ####[facility] [id number] [address] [place] Urea nitrogen [Mass/Vol] 8 mg/dL Normal 7-21 [facility] Comment on above: Order Comment: Speci men Type: BLOOD SPECIMENOrdering Facility: [facility] Address: [address] [place] [address] Performed By: #### 2 4321-2 ####[facility] [id number] [address] [place] CBC panel Auto (Bld)on 10-19 Erythrocyte distribution width (RBC) [Ratio] 12.8 % 11.5 - 15.0 % [facility] Hematocrit (Bld) [Volume fraction] 31.8 % Low 36.0 - 46.0 % [facility] Hemoglobin (Bld) [Mass/Vol] 10.9 g/dL Low 11.5 - 15.5 g/dL [facility] Interpretation and review of laboratory results Abnormal [facility] MCH (RBC) [Entitic mass] 31.1 pg 26.0 - 34.0 pg [facility] MCHC (RBC) [Mass/Vol] 34.3 g/dL 30.5 - 36.0 g/dL [facility] MCV (RBC) [Entitic vol] 90.6 fL 80.0 - 100.0 fL [facility] Nucleated RBC (Bld) [#/Vol] NINF [facility] Platelet mean volume (Bld) [Entitic vol] 8.8 fL Low 9.0 - 12.7 fL [facility] Platelets (Bld) [#/Vol] 303 10*3/uL [facility] RBC (Bld) [#/Vol] 3.51 10*6/uL Low 3.90 - 5.2 0 m/uL [facility] WBC (Bld) [#/Vol] 9.82 10*3/uL [facility] Erythrocyte distribution width (RBC) [Ratio] 12.8 % Normal 11.5-15.0 [facility] Comment on above: Order Comment: Speci men Type: BLOOD SPECIMENOrdering Facility: [facility] Address: [address] [place] [address] Performed By: #### 5 8410-2 ####[facility] [id number] [place] [address] [place] Hematocrit (Bld) [Volume fraction] 31.8 % Low 36.0-46.0 [facility] Comment on above: Order Comment: Speci men Type: BLOOD SPECIMENOrdering Facility: [facility] Address: [address] [place] [address] Performed By: #### 5 8410-2 ####[facility] [id number] [place] [address] [place] Hemoglobin (Bld) [Mass/Vol] 10.9 g/dL Low 11.5-15.5 [facility] Comment on above: Order Comment: Speci men Type: BLOOD SPECIMENOrdering Facility: [facility] Address: [address] [place] [address] Performed By: #### 5 8410-2 ####[facility] [id number] [place] [address] [place] MCH (RBC) [Entitic mass] 31.1 pg Normal 26.0-34.0 [facility] Comment on above: Order Comment: Speci men Type: BLOOD SPECIMENOrdering Facility: [facility] Address: [address] [place] [address] Performed By: #### 5 8410-2 ####[facility] [id number] [place] [address] [place] MCHC (RBC) [Mass/Vol] 34.3 g/dL Normal 30.5-36.0 [facility] Comment on above: Order Comment: Speci men Type: BLOOD SPECIMENOrdering Facility: [facility] Address: [address] [place] [address] Performed By: #### 5 8410-2 ####[facility] KEYSHANCBHARTI [id number] [place] [address] [place] MCV (RBC) [Entitic vol] 90.6 fL Normal 80.0-100.0 [facility] Comment on above: Order Comment: Speci men Type: BLOOD SPECIMENOrdering Facility: [facility] Address: [address] [place] [address] Performed By: #### 5 8410-2 ####[facility]ITALNCCrystal [id number] [place] [address] [place] Nucleated RBC (Bld) [#/Vol] 10*3/uL Normal <0.01 [facility] Comment on above: Order Comment: Speci men Type: BLOOD SPECIMENOrdering Facility: [facility] Address: [address] [place] [address] Performed By: #### 5 8410-2 ####[facility] [id number] [place] [address] [place] Platelet mean volume (Bld) [Entitic vol] 8.8 fL Low 9.0-12.7 [facility] Comment on above: Order Comment: Speci men Type: BLOOD SPECIMENOrdering Facility: [facility] Address: [address] [place] [address] Performed By: #### 5 8410-2 ####[facility] [id number] [place] [address] [place] Platelets (Bld) [#/Vol] 303 10*3/uL Normal 150-400 [facility] Comment on above: Order Comment: Speci men Type: BLOOD SPECIMENOrdering Facility: [facility] Address: [address] [place] [address] Performed By: #### 5 8410-2 ####[facility] [id number] [place] [address] [place] RBC (Bld) [#/Vol] 3.51 10*6/uL Low 3.90-5.20 [facility] Comment on above: Order Comment: Speci men Type: BLOOD SPECIMENOrdering Facility: [facility] Address: [address] [place] [address] Performed By: #### 5 8410-2 ####[facility] [id number] [place] [address] [facility] [place] WBC (Bld) [#/Vol] 9.82 10*3/uL Normal 3.70-11.00 [facility] Comment on above: Order Comment: Speci men Type: BLOOD SPECIMENOrdering Facility: [facility] Address: [address] [place] [address] Performed By: #### 5 8410-2 ####[facility] [id number] [place] [address] [facility] [id number] 10-19-2024 ECG01 Ventricular Rate : 1 05 BPM Atrial Rate : 105 BPM P-R Interval : 128 ms QRS Duration : 92 ms Q-T Interval : 336 ms QTC Calculation(Bazett) : 444 ms Calculated P Solo : 67 degrees Calculated R Solo : 55 degrees Calculated T Solo : 41 degrees SINUS TACHYCARDIA INCOMPLETE RIGHT BUNDLE BRANCH BLOCK BORDERLINE ECG Confirmed by MD VAUGHN QARAB ([id number]) on 10/20/2024 5:21:21 PM NAME : ODESSA DORSEY PID : [id number] : 2000 Gender : Female Race : ORD : Procedure Date : Oct 19 2024 15:57:03 Edit Date : Oct 20 2024 17:21:31 Diagnosis: SINUS TACHYCARDIA INCOMPLETE RIGHT BUNDLE BRANCH BLOCK BORDERLINE ECG Confirmed by MD VAUGHN QARAB ([id number]) on 10/20/2024 5:21:21 PM Test Reason : Location : 636 : [facility] Overread By : MD VAUGHN QARAB Edited By : MD VAUGHN QARAB Referred By : TOM JACINTO Acquired by : , Normal [facility] ECG01 Ventricular Rate : 1 03 BPM Atrial Rate : 103 BPM P-R Interval : 128 ms QRS Duration : 94 ms Q-T Interval : 342 ms QTC Calculation(Bazett) : 448 ms Calculated P Solo : 66 degrees Calculated R Solo : 54 degrees Calculated T Solo : 37 degrees SINUS TACHYCARDIA INCOMPLETE RIGHT BUNDLE BRANCH BLOCK BORDERLINE ECG Confirmed by MD VAUGHN QARAB ([id number]) on 10/20/2024 5:21:05 PM NAME : ODESSA DORSEY PID : [id number] : 2000 Gender : Female Race : ORD : Procedure Date : Oct 19 2024 15:55:52 Edit Date : Oct 20 2024 17:21:27 Diagnosis: SINUS TACHYCARDIA INCOMPLETE RIGHT BUNDLE BRANCH BLOCK BORDERLINE ECG Confirmed by MD VAUGHN QARAB ([id number]) on 10/20/2024 5:21:05 PM Test Reason : Location : 636 : [facility] Overread By : MD VAUGHN QARAB Edited By : MD VAUGHN QARAB Referred By : TOM JACINTO Acquired by : , Unruly [facility] UA DIP, URINE (POC)on 2024 BILIRUBIN UA (POCT) Negative Negative [facility] CLARITY UA (POCT) Clear [facility] COLOR UA (POCT) Yellow [facility] GLUCOSE UA (POCT) Negative Negative mg/dL [facility] Hemoglobin Ql (U) Negative Negative [facility] KETONE UA (POCT) Negative Negative mg/dL [facility] LEUKOCYTES UA (POCT) Negative Negative [facility] NITRITE UA (POCT) Negative Negative [facility] PH UA (POCT) 6.5 4.5 - 8.0 [facility] Protein Ql (U) Negative Negative mg/dL [facility] SPECIFIC GRAVITY UA (POCT) 1.015 1.005 - 1.030 [facility] UROBILINOGEN UA (POCT) 0.2 Normal E.U./d L [facility] Location:[facility] [place], [address] [facility] POINT OF CARE [facility] Radha 09-26-2024 CNPN Telephone (OBGYWM) ODESSA DORSEY ([id number]) 89 F CHT Date Time Provider Department 09/26/24 TOM JACINTO OBGYWM During your visit today, we recorded the following information about you: Joanne James RN 09/26/2024 3:30 PM Signed Breast pump order received from [address] [place] [address] Way. To RR to sign. ALAN Da [...] Encounter Status:Closed by JOANNE JAMES on 09/27/24 [facility] 09-07-2024 [facility] Telephone ([id number]) ODESSA DORSEY ([id number]) 89 F CHT Date Time Provider Department 09/07/24 MELA WELLS [id number] During your visit today, we recorded the following information about you: Mela Wells RN 09/07/2024 9:58 AM Signed 2nd risk assessment form submitted 09/07/2024. Mela Wells RN Allergies As of Date: 09/07/2024 (No Known Allergies) Date Reviewed: 09/06/2024 Reviewed by: Tom Jacinto MD - Fully Assessed Reason for Visit: Facilities Maintenance Technician - Other [3602] Cmt: PRAF Prescriptions as [...] Status:Closed by MELA WELLS on 09/07/24 Normal [facility] CNCOon 09-06-2024 CNCO Letter Text Normal [facility] Examination level ultrasound on 09-06-2024 Indication Standard [...] 12 oz EFW by: Hadlock (HC-AC-FL) Extended Shipping Hand 6.0 mm CM 4.3 mm 22% Nicolaides [...] normal LVOT view: normal 3-vessel view: normal 9-[id number]-rvbkbeh view: normal Heart / Thorax Situs: situs [...] Read By: Jamal Chambers M.D. MATERNAL MEDICINE [facility] Radiology Study observation (narrative) [facility] [id number] PLUSon 09-06-2024 Cell-free DNA./Cell-free DNA.total Dosage of chromosome-specific cfDNA (cfDNA) [Molar fraction] 24% Normal [facility] Comment on above: Order Comment: Speci men Type: BLOOD SPECIMENOrdering Facility: [facility] Address: [address] [place] [address] Performed By: #### 6 30-4 #### [facility] [place] [id number] [address] [place] [address] [place] Chr 13+18+21+X+Y aneuploidy Dosage of chromosome-specific cfDNA Ql (cfDNA) Negative Normal [facility] Comment on above: Order Comment: Speci men Type: BLOOD SPECIMENOrdering Facility: [facility] Address: [address] [place] [address] Performed By: #### 6 30-4 #### [facility] CLIA [id number] [address] [place] [address] [place] Chr 21 trisomy Dosage of chromosome-specific cfDNA Ql (cfDNA) Negative Normal [facility] Comment on above: Order Comment: Speci men Type: BLOOD SPECIMENOrdering Facility: [facility] Address: [address] [place] [address] Performed By: #### 6 30-4 #### [facility] CLIA [id number] [address] [place] Chr X and Y aneuploidy risk Sequencing Ql (cfDNA) [Interp] Not detected Normal [facility] Comment on above: Order Comment: Speci men Type: BLOOD SPECIMENOrdering Facility: [facility] Address: [address] [place] [address] Result Comment: Not Detected Not Detected Performed By: #### 6 30-4 #### [facility] CLIA [id number] [address] [place] [address] [place] Citation Gustavo (Reference lab test) Comment Normal [facility] Comment on above: Order Comment: Speci men Type: BLOOD SPECIMENOrdering Facility: [facility] Address: [address] [place] [address] Result Comment: 1. P theo CISNEROS et al. Ana Med. 2012;14(3):296-305. 2. Yahir GALLOWAY, et al. Prenat Diag. 2013;33(6):591-597. 3. Eldon C, et al. Clin Chem. 2015 Apr;61(4):608-616. 4. Chris CISNEROS, et al. Ana Med. 2011;13(11):913-920. 5. ACOG/SMFM Practice Bulletin No. 226, Nov 2019. Performed By: #### 6 30-4 #### [facility] CLIA [id number] [address] [place] [address] [place] Gestational age Estimated from conception date Cali Normal [facility] Comment on above: Order Comment: Speci men Type: BLOOD SPECIMENOrdering Facility: [facility] Address: [address] [place] [address] Performed By: #### 6 30-4 #### [facility] CLIA [id number] [address] [place] [address] [place] GESTATIONALAGE AGE > OR = 9W Yes Normal [facility] Comment on above: Order Comment: Speci men Type: BLOOD SPECIMENOrdering Facility: [facility] Address: [address] [place] [address] Performed By: #### 6 30-4 #### [facility] CLIA [id number] [address] [place] [address] Laboratory comment Gustavo (Report) Comment Normal [facility] Comment on above: Order Comment: Sarah bhatia Type: BLOOD SPECIMENOrdering Facility: [facility] Address: [address] [place] [address] Result Comment: The MaterniT(R) 21 PLUS laboratory-developed test (LDT) analyzes circulating cell-free DNA from a maternal blood sample. This test is used for screening purposes and not diagnostic. Clinical correlation is recommended. Validation data on twin pregnancies is limited and the ability of this test to detect aneuploidy in higher multiple gestations has not yet been validated. Performed By: #### 6 30-4 #### [facility] CLIA [id number] [address] [place] [address] speech and hearing clinic director name Nom (Provider) Comment Normal [facility] Comment on above: Order Comment: Sarah bhatia Type: BLOOD SPECIMENOrdering Facility: [facility] Address: [address] [place] [address] Result Comment: This specimen showed an expected representation of chromosome 21, 18 and 13 material. Clinical correlation is suggested. Comment Henrry Davies MD, PhD, Director, [employer] Performed By: #### 6 30-4 #### [facility] CLIA [id number] [address] [place] [address] LIMITATIONS OF THE TEST Comment Normal [facility] Comment on above: Order Comment: Sarah bhatia Type: BLOOD SPECIMENOrdering Facility: [facility] Address: [address] [place] [address] Result Comment: Buddy head the results of [...] Fragmin(R)). Performed By: #### 6 30-4 #### [facility] CLIA [id number] [address] [place] [address] [place] Monosomy X risk Dosage of chromosome-specific cfDNA Ql (Plasma cell-free+WBC DNA) [Interp] Not detected Normal [facility] Comment on above: Order Comment: Speci men Type: BLOOD SPECIMENOrdering Facility: [facility] Address: [address] [place] [address] Performed By: #### 6 30-4 #### [facility] CLIA [id number] [address] [place] [address] NEGATIVE PREDICTIVE VALUE Note Normal [facility] Comment on above: Order Comment: Speci men Type: BLOOD SPECIMENOrdering Facility: [facility] Address: [address] [place] [address] Result Comment: The Negative Predictive Value (NPV) for trisomy 21, 18, and 13 is greater than 99%. The NPV for SCA and ESS cannot be calculated as SCA and ESS are only reported when an abnormality is detected. Performed By: #### 6 30-4 #### [facility] CLIA [id number] [address] [place] [address] PERFORMANCE CHARACTERISTICS Note Normal [facility] Comment on above: Order Comment: Speci men Type: BLOOD SPECIMENOrdering Facility: [facility] Address: [address] [place] [address] Result Comment: ! Sex ! Accuracy: 99.4% [...] only. Performed By: #### 6 30- #### [facility] CLIA [id number] [address] [place] [address] [place] POSITIVE PREDICTIVE VALUE N/A Normal [facility] Comment on above: Order Comment: Speci men Type: BLOOD SPECIMENOrdering Facility: [facility] Address: [address] [place] [address] Performed By: #### 6 30- #### [facility] CLIA [id number] [address] [place] [address] [place] Reference Lab Test Method Comment Normal [facility] Comment on above: Order Comment: Speci men Type: BLOOD SPECIMENOrdering Facility: [facility] Address: [address] [place] [address] Result Comment: Circ ulating cell-free DNA was [...] 22. Performed By: #### 6 30-4 #### [facility] CLIA [id number] [address] [place] [address] [place] Service comment (Unsp spec) [Interp] Comment Normal [facility] Comment on above: Order Comment: Speci men Type: BLOOD SPECIMENOrdering Facility: [facility] Address: [address] [place] [address] Result Comment: [employer] is a subsidiary of [employer], using the brand [employer]. This test was developed and its performance characteristics determined by [employer]. It has not been cleared or approved by the Food and Drug Administration. This laboratory is certified under the Clinical Laboratory Improvement Amendments (CLIA) as qualified to perform high complexity clinical laboratory testing and accredited by the [employer] (CAP). If there is future clinical need for adding MaterniT GENOME testing, this specimen will be available until term. [facility] samples will not be retained beyond 60 days. [facility] patients will have to send a new sample for re-sequencing ([facility] Test Code: [id number]). Performed By: #### 6 30-4 #### [facility] CLIA [id number] [address] [place] [address] [place] Sex Dosage of chromosome-specific cfDNA Nom (cfDNA) Comment Normal [facility] Comment on above: Order Comment: Speci men Type: BLOOD SPECIMENOrdering Facility: [facility] Address: [address] [place] [address] Result Comment: Cons istent with Male Performed By: #### 6 30-4 #### [facility] CLIA [id number] [address] [place] [address] [place] Test performance information Gustavo (Unsp spec) Comment Normal [facility] Comment on above: Order Comment: Speci men Type: BLOOD SPECIMENOrdering Facility: [facility] Address: [address] [place] [address] Result Comment: The performance characteristics of the MaterniT(R) 21 PLUS laboratory-developed test (LDT) have been determined in a clinical validation study with women at increased risk for chromosomal aneuploidy.[1-4] Performed By: #### 6 30-4 #### [facility] CLIA [id number] [address] [place] [address] [place] Trisomy 13 risk Dosage of chromosome-specific cfDNA Ql (cfDNA) [Interp] Negative Normal [facility] Comment on above: Order Comment: Speci men Type: BLOOD SPECIMENOrdering Facility: [facility] Address: [address] [place] [address] Performed By: #### 6 30-4 #### [facility] CLIA [id number] [address] [place] [address] [place] Trisomy 18 risk Dosage of chromosome-specific cfDNA Ql (Plasma cell-free+WBC DNA) [Interp] Negative Normal [facility] Comment on above: Order Comment: Speci men Type: BLOOD SPECIMENOrdering Facility: [facility] Address: [address] [place] [address] Performed By: #### 6 30-4 #### [facility] CLIA [id number] [address] [place] [address] [place] CNCOon 09-02-2024 CNCO Letter Text Normal [facility] CNPNon 09-02-2024 CNPN Telephone (OBGYWM) SUNITAODESSA M ([id number]) 89 F CHT Date Time Provider Department [...] Assessed Reason for Visit: Question (OB Question) [2002] Cmt: Prescriptions as of 09/02/2024 - aspirin, [...] Status:Closed by SUMMER CACERES on 09/02/24 Normal [facility] CNCOon 09-01-2024 CNCO Letter Text Normal [facility] CBC W Auto Differential pane l (Bld)on 07-15-2024 Basophils (Bld) [#/Vol] 0.03 10*3/uL Normal <0.11 [facility] Comment on above: Order Comment: Speci men Type: BLOOD SPECIMENOrdering Facility: [facility] Address: [address] [place] [address] Performed By: #### 6 30-4 #### [facility] CLIA [id number] [address] [place] [address] [place] Basophils/100 WBC (Bld) 0.4 % Normal [facility] Comment on above: Order Comment: Speci men Type: BLOOD SPECIMENOrdering Facility: [facility] Address: [address] [place] [address] Performed By: #### 6 30-4 #### [facility] CLIA [id number] [address] [place] [address] [place] Differential cell count method Nom (Bld) Auto Normal [facility] Comment on above: Order Comment: Speci men Type: BLOOD SPECIMENOrdering Facility: [facility] Address: [address] [place] [address] Performed By: #### 6 30-4 #### [facility] CLIA [id number] [address] [place] [address] [place] Eosinophils (Bld) [#/Vol] 0.07 10*3/uL Normal <0.46 [facility] Comment on above: Order Comment: Speci men Type: BLOOD SPECIMENOrdering Facility: [facility] Address: [address] [place] [address] Performed By: #### 6 30-4 #### [facility] CLIA [id number] [address] [place] [address] [place] Eosinophils/100 WBC (Bld) 1.0 % Normal [facility] Comment on above: Order Comment: Speci men Type: BLOOD SPECIMENOrdering Facility: [facility] Address: [address] [place] [address] Performed By: #### 6 30-4 #### [facility] CLIA [id number] [address] [place] [address] [place] Erythrocyte distribution width (RBC) [Ratio] 12.5 % Normal 11.5-15.0 [facility] Comment on above: Order Comment: Speci men Type: BLOOD SPECIMENOrdering Facility: [facility] Address: [address] [place] [address] Performed By: #### 6 30-4 #### [facility] CLIA [id number] [address] [place] [address] [place] Hematocrit (Bld) [Volume fraction] 35.6 % Low 36.0-46.0 [facility] Comment on above: Order Comment: Speci men Type: BLOOD SPECIMENOrdering Facility: [facility] Address: [address] [place] [address] Performed By: #### 6 30-4 #### [facility] CLIA [id number] [address] [place] [address] [place] Hemoglobin (Bld) [Mass/Vol] 12.1 g/dL Normal 11.5-15.5 [facility] Comment on above: Order Comment: Speci men Type: BLOOD SPECIMENOrdering Facility: [facility] Address: [address] [place] [address] Performed By: #### 6 30-4 #### [facility] CLIA [id number] [address] [place] [address] [place] Immature granulocytes (Bld) [#/Vol] 0.03 10*3/uL Normal <0.10 [facility] Comment on above: Order Comment: Speci men Type: BLOOD SPECIMENOrdering Facility: [facility] Address: [address] [place] [address] Performed By: #### 6 30-4 #### [facility] CLIA [id number] [address] [place] [address] [place] Immature granulocytes/100 WBC (Bld) 0.4 % Normal [facility] Comment on above: Order Comment: Speci men Type: BLOOD SPECIMENOrdering Facility: [facility] Address: [address] [place] [address] Performed By: #### 6 30-4 #### [facility] CLIA [id number] [address] [place] [address] [place] Lymphocytes (Bld) [#/Vol] 1.54 10*3/uL Normal 1.00-4.00 [facility] Comment on above: Order Comment: Speci men Type: BLOOD SPECIMENOrdering Facility: [facility] Address: [address] [place] [address] Performed By: #### 6 30-4 #### [facility] CLIA [id number] [address] [place] [address] [place] Lymphocytes/100 WBC (Bld) 21.9 % Normal [facility] Comment on above: Order Comment: Speci men Type: BLOOD SPECIMENOrdering Facility: [facility] Address: [address] [place] [address] Performed By: #### 6 30-4 #### [facility] CLIA [id number] [address] [place] [address] [place] MCH (RBC) [Entitic mass] 30.3 pg Normal 26.0-34.0 [facility] Comment on above: Order Comment: Speci men Type: BLOOD SPECIMENOrdering Facility: [facility] Address: [address] [place] [address] Performed By: #### 6 30-4 #### [facility] CLIA [id number] [address] [place] [address] [place] MCHC (RBC) [Mass/Vol] 34.0 g/dL Normal 30.5-36.0 [facility] Comment on above: Order Comment: Speci men Type: BLOOD SPECIMENOrdering Facility: [facility] Address: [address] [place] [address] Performed By: #### 6 30-4 #### [facility] CLIA [id number] [address] [place] [address] [place] MCV (RBC) [Entitic vol] 89.0 fL Normal 80.0-100.0 [facility] Comment on above: Order Comment: Speci men Type: BLOOD SPECIMENOrdering Facility: [facility] Address: [address] [place] [address] Performed By: #### 6 30-4 #### [facility] CLIA [id number] [address] [place] [address] [place] Monocytes (Bld) [#/Vol] 0.32 10*3/uL Normal <0.87 [facility] Comment on above: Order Comment: Speci men Type: BLOOD SPECIMENOrdering Facility: [facility] Address: [address] [place] [address] Performed By: #### 6 30-4 #### [facility] CLIA [id number] [address] [place] [address] [place] Monocytes/100 WBC (Bld) 4.6 % Normal [facility] Comment on above: Order Comment: Speci men Type: BLOOD SPECIMENOrdering Facility: [facility] Address: [address] [place] [address] Performed By: #### 6 30-4 #### [facility] CLIA [id number] [address] [place] [address] [place] Neutrophils (Bld) [#/Vol] 5.04 10*3/uL Normal 1.45-7.50 [facility] Comment on above: Order Comment: Speci men Type: BLOOD SPECIMENOrdering Facility: [facility] Address: [address] [place] [address] Performed By: #### 6 30-4 #### [facility] CLIA [id number] [address] [place] [address] [place] Neutrophils/100 WBC (Bld) 71.7 % Normal [facility] Comment on above: Order Comment: Speci men Type: BLOOD SPECIMENOrdering Facility: [facility] Address: [address] [place] [address] Performed By: #### 6 30-4 #### [facility] CLIA [id number] [address] [place] [address] [place] Nucleated RBC (Bld) [#/Vol] 10*3/uL Normal <0.01 [facility] Comment on above: Order Comment: Speci men Type: BLOOD SPECIMENOrdering Facility: [facility] Address: [address] [place] [address] Performed By: #### 6 30-4 #### [facility] CLIA [id number] [address] [place] [address] [place] Nucleated RBC/100 WBC (Bld) [Ratio] 0.0 /100 WBC Normal [facility] Comment on above: Order Comment: Speci men Type: BLOOD SPECIMENOrdering Facility: [facility] Address: [address] [place] [address] Performed By: #### 6 30-4 #### [facility] CLIA [id number] [address] [place] [address] [place] Platelet mean volume (Bld) [Entitic vol] 9.6 fL Normal 9.0-12.7 [facility] Comment on above: Order Comment: Speci men Type: BLOOD SPECIMENOrdering Facility: [facility] Address: [address] [place] [address] Performed By: #### 6 30-4 #### [facility] CLIA [id number] [address] [place] [address] [place] Platelets (Bld) [#/Vol] 258 10*3/uL Normal 150-400 [facility] Comment on above: Order Comment: Speci men Type: BLOOD SPECIMENOrdering Facility: [facility] Address: [address] [place] [address] Performed By: #### 6 30-4 #### [facility] CLIA [id number] [address] [place] [address] [place] RBC (Bld) [#/Vol] 4.00 10*6/uL Normal 3.90-5.20 [facility] Comment on above: Order Comment: Speci men Type: BLOOD SPECIMENOrdering Facility: [facility] Address: [address] [place] [address] Performed By: #### 6 30-4 #### [facility] CLIA [id number] [address] [place] [address] [place] WBC (Bld) [#/Vol] 7.03 10*3/uL Normal 3.70-11.00 [facility] Comment on above: Order Comment: Speci men Type: BLOOD SPECIMENOrdering Facility: [facility] Address: [address] [place] [address] Performed By: #### 6 30-4 #### [facility] CLIA [id number] [address] [place] [address] [place] [place] Comprehensive metabolic 2000 panelon 07-15-2024 Albumin [Mass/Vol] 4.4 g/dL Normal 3.9-4.9 [facility] Comment on above: Order Comment: Speci men Type: BLOOD SPECIMENOrdering Facility: [facility] Address: [address] [place] [address] Performed By: #### 2 4323-8 ####[facility] CENTERLIA [id number] [place] [address] [place] ALP [Catalytic activity/Vol] 53 U/L Normal 34-123 [facility] Comment on above: Order Comment: Speci men Type: BLOOD SPECIMENOrdering Facility: [facility] Address: [address] [place] [address] Performed By: #### 2 4323-8 ####[facility] MILLTOWNCLIA [id number] [place] [address] [place] ALT [Catalytic activity/Vol] 6 U/L Low 7-38 [facility] Comment on above: Order Comment: Speci men Type: BLOOD SPECIMENOrdering Facility: [facility] Address: [address] [place] [address] Performed By: #### 2 4323-8 ####[facility] MILLTOWNCLIA [id number] [place] [address] [place] Anion gap [Moles/Vol] 13 mmol/L Normal 8-15 [facility] Comment on above: Order Comment: Speci men Type: BLOOD SPECIMENOrdering Facility: [facility] Address: [address] [place] [address] Performed By: #### 2 4323-8 ####[facility] MILLTOWNCLIA [id number] [place] [address] [place] AST [Catalytic activity/Vol] 10 U/L Low 13-35 [facility] Comment on above: Order Comment: Speci men Type: BLOOD SPECIMENOrdering Facility: [facility] Address: [address] [place] [address] Performed By: #### 2 4323-8 ####[facility] MILLTOWNCLIA [id number] [place] [address] [place] Bilirubin [Mass/Vol] 0.7 mg/dL Normal 0.2-1.3 [facility] Comment on above: Order Comment: Speci men Type: BLOOD SPECIMENOrdering Facility: [facility] Address: [address] [place] [address] Performed By: #### 2 4323-8 ####[facility] MILLTOWNCLIA [id number] [place] [address] [place] Calcium [Mass/Vol] 9.1 mg/dL Normal 8.5-10.2 [facility] Comment on above: Order Comment: Speci men Type: BLOOD SPECIMENOrdering Facility: [facility] Address: [address] [place] [address] Performed By: #### 2 4323-8 ####[facility]ITALNCLIA [id number] [place] [address] [place] Chloride [Moles/Vol] 103 mmol/L Normal 98-107 [facility] Comment on above: Order Comment: Speci men Type: BLOOD SPECIMENOrdering Facility: [facility] Address: [address] [place] [address] Performed By: #### 2 4323-8 ####[facility]ITALNCLI [id number] [place] [address] [place] CO2 [Moles/Vol] 20 mmol/L Low 22-30 [facility] Comment on above: Order Comment: Speci men Type: BLOOD SPECIMENOrdering Facility: [facility] Address: [address] [place] [address] Performed By: #### 2 4323-8 ####[facility] [id number] [place] [address] [place] Creatinine [Mass/Vol] 0.63 mg/dL Normal 0.58-0.96 [facility] Comment on above: Order Comment: Speci men Type: BLOOD SPECIMENOrdering Facility: [facility] Address: [address] [place] [address] Performed By: #### 2 4323-8 ####[facility]ITALNCLIA [id number] [place] [address] [place] Creatinine and Glomerular filtration rate.predicted panel (S/P/Bld) 126 mL/min/1.73m??? Normal >=60 [facility] Comment on above: Order Comment: Speci men Type: BLOOD SPECIMENOrdering Facility: [facility] Address: [address] [place] [address] Result Comment: Brisa mated Glomerular Filtration Rate [...] actual GFR. Performed By: #### 2 4323-8 ####[facility] [id number] [place] [address] [place] Glucose [Mass/Vol] 83 mg/dL Normal 74-99 [facility] Comment on above: Order Comment: Sarah bhatia Type: BLOOD SPECIMENOrdering Facility: [facility] Address: [address] [place] [address] Result Comment: The [place] Diabetes Association (ADA) provides guidance for cutoff [...] Standards of Medical Care in Diabetes 2016, [place] Diabetes Association. Diabetes Care. 2016.39(Suppl 1). Performed By: #### 2 4323-8 ####[facility] [id number] [place] [address] [place] Potassium [Moles/Vol] 3.4 mmol/L Low 3.7-5.1 [facility] Comment on above: Order Comment: Sarah bhatia Type: BLOOD SPECIMENOrdering Facility: [facility] Address: [address] [place] [address] Performed By: #### 2 4323-8 ####[facility] CENTERLIA [id number] [place] [address] [place] Protein [Mass/Vol] 7.1 g/dL Normal 6.3-8.0 [facility] Comment on above: Order Comment: Speci men Type: BLOOD SPECIMENOrdering Facility: [facility] Address: [address] [place] [address] Performed By: #### 2 4323-8 ####[facility] [id number] [place] [address] [place] Sodium [Moles/Vol] 136 mmol/L Normal 136-144 [facility] Comment on above: Order Comment: Speci men Type: BLOOD SPECIMENOrdering Facility: [facility] Address: [address] [place] [address] Performed By: #### 2 4323-8 ####[facility] [id number] [place] [address] [place] Urea nitrogen [Mass/Vol] 5 mg/dL Low 7-21 [facility] Comment on above: Order Comment: Speci men Type: BLOOD SPECIMENOrdering Facility: [facility] Address: [address] [place] [address] Performed By: #### 2 4323-8 ####[facility]ITALNCLIA [id number] [place] [address] [place] HBV surface Ag Ser Qlon 06 HBV surface Ag Ql (S) Negative Normal Negative [facility] Comment on above: Order Comment: Speci men Type: BLOOD SPECIMENOrdering Facility: [facility] Address: [address] [place] [address] Performed By: #### 6 30-4 #### [facility] CLIA [id number] [address] [place] [address] [place] HCV Ab Ser Qlon 06-06-2025 HCV Ab Ql (S) Negative Normal Negative [facility] Comment on above: Order Comment: Speci men Type: BLOOD SPECIMENOrdering Facility: [facility] Address: [address] [place] [address] Result Comment: The result suggests no evidence of infection with Hepatitis C virus. Should recent infection be suspected, repeat testing may be considered 4-6 weeks after this draw. Performed By: #### 1 6128-1 ####[facility] LABCLIA [id number] [place] [address] [place] HIV 1+2 Ab IA Qlon 5 HIV 1 and 2 Ab IA.rapid Nom (S/P/Bld) Normal [facility] Comment on above: Order Comment: Speci men Type: BLOOD SPECIMENOrdering Facility: [facility] Address: [address] [place] [address] Result Comment: Test not indicated. Performed By: #### 6 30-4 #### [facility] CLIA [id number] [address] [place] [address] [place] HIV 1+2 Ab+HIV1 p24 Ag IA Ql Non-Reactive Normal Nonreactive [facility] Comment on above: Order Comment: Speci men Type: BLOOD SPECIMENOrdering Facility: [facility] Address: [address] [place] [address] Performed By: #### 6 30-4 #### [facility] CLIA [id number] [address] [place] [address] [place] HIV immunoassay testing algorithm interpretation (S/P/Bld) [Interp] Normal [facility] Comment on above: Order Comment: Speci men Type: BLOOD SPECIMENOrdering Facility: [facility] Address: [address] [place] [address] Result Comment: No e vidence of HIV-1 or HIV-2 infection. Should recent infection be suspected, repeat testing may be considered 2-3 weeks after this draw. [place] Rev. Code 3701.243(E): This information has been [...] diagnoses. Performed By: #### 6 30-4 #### [facility] CLIA [id number] [address] [place] [address] OF [facility] HbA1c (Bld)on 07-15-2024 Average glucose Estimated from glycated hemoglobin (Bld) [Mass/Vol] 103 mg/dL Normal [facility] Comment on above: Order Comment: Speci men Type: BLOOD SPECIMENOrdering Facility: [facility] Address: [address] [place] [address] Result Comment: eAG: (Estimated average glucose) is a calculated value from HgbA1c and is insurance claim representative of the average blood glucose level in the last 2-3 month period. Performed By: #### 5 5454-3 ####[facility] LABCLIA [id number] [address] HbA1c (Bld) [Mass fraction] 5.2 % Normal 4.3-5.6 [facility] Comment on above: Order Comment: Speci men Type: BLOOD SPECIMENOrdering Facility: [facility] Address: [address] [place] [address] Result Comment: Amer [place] Diabetes Association guidelines indicate that patients with HgbA1c in the range 5.7-6.4% are at increased risk for development of diabetes, and intervention by lifestyle modification may be beneficial. HgbA1c greater or equal to 6.5% is considered diagnostic of diabetes. Performed By: #### 5 5454-3 ####[facility] LABCLIA [id number] [address] OF [facility] RUBELLA IGG ANTIBODYon 07-15 RUBELLA IGG AB, QUAL Positive Normal Positive [facility] Comment on above: Order Comment: Speci men Type: BLOOD SPECIMENOrdering Facility: [facility] Address: [address] [place] [address] Result Comment: The result suggests recent or past exposure to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 above: Performed By: #### 2 72695 #### [address] [address] Creatinine [Mass/Vol] 0.87 mg/dL Normal 0.55 - 1.02 [facility] Comment on above: Performed By: #### 2 63047 #### [place] [phone] GFR/1.73 sq M.predicted among non-blacks MDRD (S/P/Bld) [Vol rate/Area] mL/min/{1.73_m2} Normal 60 - 999 [facility] Comment on above: Performed By: #### 2 82113 #### [address] [place] [address] Result Comment: ACCO RDING TO THE NATIONAL KIDNEY DISEASE EDUCATION PROGRAM(NKDE), A NORMAL eGFR IS A VALUE GREATER THAN OR EQUAL TO 60 ML/MIN/1.73 SQ METERS. CHRONIC KIDNEY DISEASE: <60mL/MIN/1.73 SQ METERS KIDNEY FAILURE: <15mL/MIN/1.73 SQ METERS THIS TEST SHOULD ONLY BE USED FOR PATIENTS 18 YEARS OF AGE AND OLDER. Globulin (S) [Mass/Vol] 3.8 g/dL Normal 1.5 - 3.8 [facility] Comment on above: Performed By: #### 2 93041 #### [address] [address] Glucose [Mass/Vol] 86 mg/dL Normal 74 - 106 [facility] Comment on above: Performed By: #### 2 87968 #### [address] [address] Potassium [Moles/Vol] 3.3 mmol/L Low 3.5 - 5.1 [facility] Comment on above: Performed By: #### 2 49213 #### [address] [address] Protein [Mass/Vol] 8.2 g/dL Normal 6.4 - 8.2 [facility] Comment on above: Performed By: #### 2 02872 #### [address] [address] Sodium [Moles/Vol] 140 mmol/L Normal 136 - 145 [facility] Comment on above: Performed By: #### 2 06651 #### [address] [address] Urea nitrogen [Mass/Vol] 16 mg/dL Normal 7 - 18 [facility] Comment on above: Performed By: #### 2 88629 #### [address] [address] LIPASEon 03-09-2024 Lipase [Catalytic activity/Vol] 43.0 U/L Normal 15.0 - 78.0 [facility] Comment on above: Result Comment: *PLE ASE NOTE THAT RANGES FOR LIPASE HAVE CHANGED OF 02/06/23 DUE TO AN ASSAY UPDATE BY THE ROLL PLUGGER.THE NEW ASSAY RANGE IS 6-250 U/L, WITH A REFERENCE RANGE OF 16-77 U/L. Performed By: #### 2 39171 #### [facility],[address] [place] [address] SERUM QUALon 03-09 EXTERNAL QC DONE? YES Normal [facility] Comment on above: Performed By: #### 2 52594 #### [facility],[address] [place] [address] INTERNAL QC PASS Normal [facility] Comment on above: Performed By: #### 2 37665 #### [facility],[address] [place] [address] SER Negative Normal NEGATIVE [facility] Comment on above: Performed By: #### 2 24629 #### [facility],[address] [place] [address] URINALYSISon 03-09-2024 Bilirubin Ql (U) Negative Normal NORMAL: NEGATIVE [facility] Comment on above: Performed By: #### 2 97399 #### [facility],[address] [place] [address] Clarity (U) sl.cloudy Normal NORMAL: CLEAR [facility] Comment on above: Performed By: #### 2 22645 #### [facility],[address] [place], [place] [phone] Color (U) ang Normal NORMAL: YELLOW [facility] Comment on above: Performed By: #### 2 23216 #### [facility],[address] [place] [address] 00286 Glucose Ql (U) NORM Normal NORMAL: NORMAL [facility] Comment on above: Performed By: #### 2 70293 #### [facility],[address] [place] [address] 61988 Hemoglobin Ql (U) Negative Normal NORMAL: NEGATIVE [facility] Comment on above: Performed By: #### 2 17401 #### [facility],[address] [place] [address] Ketone 5 Abnormal NORMAL: NEGATIVE [facility] Comment on above: Performed By: #### 2 90177 #### [facility],[address] [place] [address] 85454 Leukocytes Negative Normal NORMAL: NEGATIVE [facility] Comment on above: Performed By: #### 2 04912 #### [facility],[address] [place] [address] Nitrite Ql (U) Negative Normal NORMAL: NEGATIVE [facility] Comment on above: Performed By: #### 2 00019 #### [facility],[address] [place] [address] pH (U) 5 [pH] Normal NORMAL: 5.0-8.0 [facility] Comment on above: Performed By: #### 2 91046 #### [facility],[address] [place] [address] Protein Ql (U) 30 Abnormal NORMAL: NEGATIVE [facility] Comment on above: Performed By: #### 2 42910 #### [facility],[address] [place] [address] Sp [place] 1.025 Normal NORMAL: 1.010-1.030 [facility] Comment on above: Performed By: #### 2 90063 #### [facility],[address] [place] [address] Specimen Type R Normal [facility] Comment on above: Performed By: #### 2 96632 #### [facility],[address] [place] [address] Urinalysis dipstick W Reflex Microscopic panel (U) NOT INDICATED Normal [facility] Comment on above: Performed By: #### 2 79170 #### [facility],[address] [place] [address] Urobilinog NORM Normal NORMAL: NORMAL [facility] Comment on above: Performed By: #### 2 65103 #### [facility],[address] [id number] B-HCG [facility] 4 HCG.beta subunit Qn 10.7 m[IU]/mL High <5.0 Cl [facility] Comment on above: Order Comment: Speci men Type: BLOOD SPECIMENOrdering Facility: [facility] Address: [address] [place] [address] Result Comment: HCG values 5 to 16 mU/mL may represent benign, pituitary derived HCG in non- women over 40 years of age. QUANTITATIVE HCG NORMAL RANGES Weeks of Gestation (Weeks Since LMP) 3 Weeks (5.8-71.2 mIU/mL) 4 Weeks (9.5-750 mIU/mL) 5 Weeks (217-7138 mIU/mL) 6 Weeks (158-32173 mIU/mL) 7 Weeks (3697-467197 mIU/mL) 8 Weeks (63500-603727 mIU/mL) 9 Weeks (29687-791538 mIU/mL) 10 Weeks (59458-634150 mIU/mL) 12 Weeks (97880-215908 mIU/mL) Referenced to 4th IS of [facility] Performed By: #### 2 1198-7 ####[facility] [id number] [place] [address] [place] Absolute lymphocyte countOrd ered By: Shirley Alonso on 01-11-2023 Lymphocytes Auto (Unsp spec) [#/Vol] 1.71 10*3/uL 0.83-4.51 [facility] Basophil percentageOrdered B y: Shirley Alonso on 01-11-2023 Basophils/100 WBC (Bld) 1.1 % 0-1 [facility] Eosinophils/100 WBC (Bld) 1.0 % 0-5 [facility] Neutrophils (Bld) [#/Vol] 5.5 10*3/uL 2.0-7.7 [facility] Neutrophils/100 WBC (Bld) 66.6 % 47-70 [facility] WBC (Bld) [#/Vol] 8.2 10*3/uL 4.4-11.0 [facility] Blood erythrocytes count (nu mber/volume)Ordered By: Shirley Alonso on 01-11-2023 RBC (Bld) [#/Vol] 3.99 10*6/uL 4.2-5.4 [facility] Blood hemoglobin measurement (mass/volume)Ordered By: Shirley Alonso on 01-11-2023 Hemoglobin (Bld) [Mass/Vol] 12.1 g/dL 12.0-15.0 [facility] Blood lymphocytes/100 leukoc ytesOrdered By: Shirley Alonso on 01-11-2023 Lymphocytes/100 WBC (Bld) 20.9 % 19-41 [facility] Blood monocytes/100 leukocyt esOrdered By: Shirley Alonso on 01-11-2023 Monocytes/100 WBC (Bld) 6.6 % 0-10 [facility] Blood platelet mean volumeOr dered By: Shirley Alonso on 01-11-2023 Platelet mean volume (Bld) [Entitic vol] 9.1 fL 6.2-12.0 [facility] Determination of erythrocyte mean corpuscular volume (MCV)Ordered By: Shirley Alonso on 01-11-2023 MCV (RBC) [Entitic vol] 91.7 fL 81-99 [facility] Hematocrit Auto (Bld) [Volum e fraction]Ordered By: Shirley Alonso on 01-11-2023 Hematocrit (Bld) [Volume fraction] 36.6 % 37-47 [facility] Laboratory - Drug toxicology Ordered By: Shirley Alonso on 01-11-2023 Amphetamines Ql (U) Negative <1000 ng/mL [facility] Benzodiazepines Ql (U) Negative < 200 ng/mL [facility] Cannabinoids Screen Ql (U) Negative < 50 ng/mL [facility] Cocaine Ql (U) Negative < 300 ng/mL [facility] Opiates Ql (U) Negative < 300 ng/mL [facility] Laboratory - Hematology and Cell countsOrdered By: Shirley Alonso on 01-11-2023 Erythrocyte distribution width (RBC) [Entitic vol] 43.6 fL 35.1-43.9 [facility] Erythrocyte distribution width (RBC) [Ratio] 13.1 % 11.6-14.6 [facility] Immature granulocytes/100 WBC (Bld) 3.800 % 0.0-0.9 [facility] Comment on above: IG% - Immature Granu locytes (promyelocytes, myelocytes and metamyelocytes) > 1% indicates that a LEFT SHIFT is Present. MCH (RBC) [Entitic mass] 30.3 pg 27.0-32.0 [facility] Nucleated RBC/100 WBC (Bld) [Ratio] 0 % 0-5 [facility] MCHC Auto (RBC) [Mass/Vol]Or dered By: Shirley Alonso on 01-11-2023 MCHC (RBC) [Mass/Vol] 33.1 g/dL 32-36 [facility] No Panel InformationOrdered By: Shirley Alonso on 01-11-2023 MDMA (Ecstasy) Screen Negative < 500 ng/mL [facility] Urine Barbiturates Screen Negative < 200 ng/mL [facility] Urine Drug Screen Comment [facility] Comment on above: CONFIRMATORY TESTING FOR ALL [...] Methadone Screen Negative < 300 ng/mL [facility] Vaginal Amniotic Fluid Detection Positive Negative [facility] Comment on above: Amniotic fluid prese nt indicates rupture of Membranes. RESULTS CALLED TO REYES AMES 01/11/23 Olga4 Melissa Torres.REPORT READ BACK BY SAME . Platelets bldOrdered By: Monet Alonso on 01-11-2023 Platelets (Bld) [#/Vol] 265 10*3/uL 150-450 [facility] Serum Treponema species anti body detectionOrdered By: Shirley Alonso on 01-11-2023 Treponema sp Ab Ql (S) Non-Reactive [facility] Urine phencyclidine (PCP) de tectionOrdered By: Shirley Alonso on 01-11-2023 Phencyclidine Ql (U) Negative < 25 ng/mL [facility] URINE OB DIP B/Oon Glucose Ql (U) Negative Neg mg/dL [facility] Protein.monoclonal (U) [Mass/Vol] Negative Neg mg/dL [facility] No Panel InformationOrdered By: Tom Jacinto on 12-31-2022 Vaginal Amniotic Fluid Detection Negative Negative [facility] Comment on above: Amniotic fluid not p resent indicates No Rupture of FetalMembranes at time of specimen collection. FETALon 12-30-2022 ++ --- ------++ [facility] Echocardiogram Report ++ ------++ NAME: MISS ODESSA DORSEY : 2000 Age: 22 years Due Date: 01/13/2023 Gender: F Study Date: 12/30/2022 12:58:50 PM GA: 38.00 Requested By: Jamal Ken Physician: Rohini Nuñez MD Study Location: [facility] Diagnosis: O35.8XX1 Maternal care for other (suspected) abnormality and damage, fetus 1 History: Suspected anomaly. Indications: Evaluate cardiac anatomy and function. Procedures: 09191 Echo, Complete; 41050 Doppler, Complete; 46165 Doppler Color Flow INTERPRETATION SUMMARY echocardiogram on [...] Nuñez MD, 12/30/2022 2:56:54 PM. Final CC [employer] : [id number] ISUID See Link below for Image Normal [facility] OBSTETRIC ULTRASOUND WHIon 1 02-25-2022 [facility] URINE OB DIP B/Oon 3 Glucose Ql (U) Negative Neg mg/dL [facility] Protein.monoclonal (U) [Mass/Vol] Negative Neg mg/dL [facility] URINE OB DIP B/Oon 3 Glucose Ql (U) Negative Neg mg/dL [facility] Protein.monoclonal (U) [Mass/Vol] Negative Neg mg/dL [facility] Bilirubin Test strip Ql (U)O rdered By: Shirley Alonso on 11-24-2022 Bilirubin Ql (U) Negative Negative [facility] Culture, urineOrdered By: Ronnie Alonso on 11-24-2022 Bacteria identified Cx Nom (U) Presumptive C albicans [facility] Ketones Test strip Ql (U)Ord ered By: Shirley Alonso on 11-24-2022 Ketones Ql (U) Negative Negative [facility] Nitrite Test strip Ql (U)Ord ered By: Shirley Alonso on 11-24-2022 Nitrite Ql (U) Negative Negative [facility] No Panel InformationOrdered By: Shirley Alonso on 11-24-2022 Vaginal Amniotic Fluid Detection Negative Negative [facility] Comment on above: Amniotic fluid not p resent indicates No Rupture of FetalMembranes at time of specimen collection. Protein Test strip Ql (U)Ord ered By: Shirley Alonso on 11-24-2022 Protein Ql (U) Negative Negative [facility] Urine blood detectionOrdered By: Shirley Alonso on 11-24-2022 RBC Ql (U) 25 /ul Negative [facility] Urine clarityOrdered By: Monet Alonso on 11-24-2022 Clarity (U) Clear Clear [facility] Urine color determinationOrd ered By: Shirley Alonso on 11-24-2022 Color (U) Yellow Yellow [facility] Urine glucose detectionOrder ed By: Shirley Alonso on 11-24-2022 Glucose Ql (U) Normal mg/dl Normal [facility] Urine leukocyte esterase det ection by dipstickOrdered By: Shirley Alonso on 11-24-2022 Leukocyte esterase Test strip Ql (U) 500 /ul Negative [facility] Urine pHOrdered By: Shirley Alonso on 11-24-2022 pH (U) 8.0 [pH] 5.0 - 8.0 [facility] Urine specific gravity measu rementOrdered By: Shirley Alonso on 11-24-2022 Specific gravity (U) [Rel density] 1.015 1.002-1.030 [facility] Urobilinogen Auto test strip Ql (U)Ordered By: Shirley Alonso on 11-24-2022 Urobilinogen Ql (U) Normal mg/dl Normal [facility] URINE OB DIP B/Oon 3 Glucose Ql (U) Negative Neg mg/dL [facility] Protein.monoclonal (U) [Mass/Vol] Negative Neg mg/dL [facility] URINE OB DIP B/Oon 3 Glucose Ql (U) Negative Neg mg/dL [facility] Protein.monoclonal (U) [Mass/Vol] Negative Neg mg/dL [facility] URINE OB DIP B/Oon 3 Glucose Ql (U) Negative Neg mg/dL [facility] Protein.monoclonal (U) [Mass/Vol] Negative Neg mg/dL [facility] OBSTETRIC ULTRASOUND WHIon 0 08-14-2022 [facility] BACTERIAL VAGINOSIS NAATon 0 08-06-2022 Lactobacillus crispatus+gasseri+bruce enii + Gardnerella vaginalis + Atopobium vaginae rRNA ASTON+probe Ql (Vag fld) Negative Negative for bacterial vaginosis [facility] C. trachomatis+N. gonorrhoea e DNA ASTON+probe Ql (Unsp spec)on 08-06-2022 C. trachomatis rRNA ASTON+probe Ql (Unsp spec) Negative Negative for Chlamydia trachomatis by amplificaton [facility] N. gonorrhoeae rRNA ASTON+probe Ql (Unsp spec) Negative Negative for Neisseria gonorrhoeae by amplification [facility] ZAIDA/TRICHOMONAS NAATon 0 08-06-2022 C. glabrata RNA ASTON+probe Ql (Vag fld) Negative Negative for Zaida glabrata [facility] Zaida sp DNA ASTON+probe Ql (Vag fld) Negative Negative for Zaida species [facility] T. vaginalis DNA ASTON+probe Ql (Unsp spec) Negative Negative for Trichomonas vaginalis by amplification [facility] URINE CULTUREon 08-06-2022 Bacteria identified Cx Nom (U) No growth (<1,000 CFU/ml) [facility] KNEE INJURY (4+ VIEWS)on KNEE INJURY (4+ VIEWS) [address] [address] Name: ODESSA DORSEY Phys: NIALL DA SILVA M.D. : [birth year] Age: 21 Sex: F Acct: [id number] Loc: ED Exam Date: 10/05/21 Status: DEP ER Radiology No.: Unit Number: [id number] Exam # Type/Exam [id number] RAD / KNEE INJURY (4+ VIEWS) LT [...] 10/05/2021 5:36:14 PM EST Workstation ID : [id number] < > Reported By: ANIKET ALFARO M.D. Signed In Fluency By: ANIKET ALFARO M.D. << Signature on File>> Reported By: ANIKET ALFARO M.D. Signed By: ANIKET ALFARO M.D. 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 [facility] Comment on above: Result Comment: Posi tive for This test was developed and its performance characteristics determined by [facility]'s [facility] [place]. This test has been authorized by FDA [...] developed and its performance characteristics determined by [facility] [place]. This test has been authorized by FDA [...] developed and its performance characteristics determined by [facility] [place]. This test has been authorized by FDA [...] developed and its performance characteristics determined by [facility] [place]. This test has been authorized by FDA [...] 20.52 kg/m2 Tom Jacinto MD Work Phone: [facility] 10-19-2024 15:04-0400 Body weight 58.97 kg Tom Jacinto MD Work Phone: [facility] 10-19-2024 15:04-0400 Diastolic blood pressure 82 mm[Hg] Tom Jacinto MD Work Phone: [facility] 10-19-2024 15:04-0400 Systolic blood pressure 108 mm[Hg] Tom Jacinto MD Work Phone: [facility] 10-06-2024 10:45-0400 Body mass index (BMI) [Ratio] 20.36 kg/m2 Mela Dozier MD Work Phone: [facility] 10-06-2024 10:45-0400 Body weight 58.51 kg Mela Dozier MD Work Phone: [facility] 10-06-2024 10:45-0400 Diastolic blood pressure 60 mm[Hg] Mela Dozier MD Work Phone: [facility] 10-06-2024 10:45-0400 Systolic blood pressure 96 mm[Hg] Mela Dozier MD Work Phone: [facility] 09-06-2024 15:41-0400 Body mass index (BMI) [Ratio] 18.94 kg/m2 Tom Jacinto MD Work Phone: [facility] 09-06-2024 15:41-0400 Body weight 54.43 kg Tom Jacnito MD Work Phone: [facility] 09-06-2024 15:41-0400 Diastolic blood pressure 60 mm[Hg] Tom Jacinto MD Work Phone: [facility] 09-06-2024 15:41-0400 Systolic blood pressure 108 mm[Hg] Tom Jacinto MD Work Phone: [facility] 08-29-2024 10:47-0400 Body mass index (BMI) [Ratio] 19 kg/m2 Manuel Goldberg MD Work Phone: [facility] 08-29-2024 10:47-0400 Body weight 54.61 kg Manuel Goldberg MD Work Phone: [facility] 08-29-2024 10:47-0400 Diastolic blood pressure 80 mm[Hg] Manuel Goldberg MD Work Phone: [facility] 08-29-2024 10:47-0400 Systolic blood pressure 120 mm[Hg] Manuel Goldberg MD Work Phone: [facility] 08-05-2024 10:05-0400 Body mass index (BMI) [Ratio] 18.31 kg/m2 Mela Dozier MD Work Phone: [facility] 08-05-2024 10:05-0400 Body weight 52.62 kg Mela Dozier MD Work Phone: [facility] 08-05-2024 10:05-0400 Diastolic blood pressure 80 mm[Hg] Mela Dozier MD Work Phone: [facility] 08-05-2024 10:05-0400 Systolic blood pressure 120 mm[Hg] Mela Dozier MD Work Phone: [facility] 06-17-2024 11:16-0400 Body height 169.5 cm Jody Dc APRN.BLANKET BINDER Work Phone: [facility] 06-17-2024 11:16-0400 Body mass index (BMI) [Ratio] 18.47 kg/m2 Jody Dc CLOTH SPONGER.BLANKET BINDER Work Phone: [facility] 06-17-2024 11:16-0400 Body weight 53.07 kg Jody Dc CLOTH SPONGER.BLANKET BINDER Work Phone: [facility] 06-17-2024 11:16-0400 Diastolic blood pressure 60 mm[Hg] Jodyida Headgunner CLOTH SPONGER.BLANKET BINDER Work Phone: [facility] 06-17-2024 11:16-0400 Systolic blood pressure 100 mm[Hg] Jody Headgunner [place].BLANKET BINDER Work Phone: [facility] 04-30-2024 11:31-0400 Body mass index (BMI) [Ratio] 18.34 kg/m2 Krislyn Aberegg PA Work Phone: [facility] 04-30-2024 11:31-0400 Body temperature 98.2 [degF] Krislyn Aberegg PA Work Phone: [facility] 04-30-2024 11:31-0400 Body weight 50 kg Krislyn Aberegg PA Work Phone: [facility] 04-30-2024 11:31-0400 Diastolic blood pressure 86 mm[Hg] Krislyn Aberegg PA Work Phone: [facility] 04-30-2024 11:31-0400 Heart rate 94 /min Krislyn Aberegg PA Work Phone: [facility] 04-30-2024 11:31-0400 Respiratory rate 20 /min Krislyn Aberegg PA Work Phone: [facility] 04-30-2024 11:31-0400 SaO2% (BldA) [Mass fraction] 98 % Krislyn Aberegg PA Work Phone: [facility] 04-30-2024 11:31-0400 Systolic blood pressure 124 mm[Hg] Krislyn Aberegg PA Work Phone: [facility] 03-16-2023 11:04-0500 Body weight 58.24 kg Dahlia Plotjac CLOTH SPONGER.CNM Work Phone: [facility] 03-16-2023 11:04-0500 Diastolic blood pressure 72 mm[Hg] Dahlia Morley CLOTH SPONGER.CNM Work Phone: [facility] 03-16-2023 11:04-0500 Systolic blood pressure 110 mm[Hg] Dahlia Morley CNM Work Phone: [facility] 01-19-2023 09:19-0500 Body temperature 97.39 [degF] Shirley Alonso APRN.CNM Work Phone: [facility] 01-19-2023 09:19-0500 Body weight 57.7 kg Shirley Alonso APRN.CNM Work Phone: [facility] 01-19-2023 09:19-0500 Diastolic blood pressure 66 mm[Hg] Shirley Alonso APRN.CNM Work Phone: [facility] 01-19-2023 09:19-0500 Heart rate 117 /min Shirley Alonso APRN.CNM Work Phone: [facility] 01-19-2023 09:19-0500 SaO2% (BldA) [Mass fraction] 95 % Shirley Alonso APRN.CNM Work Phone: [facility] 01-19-2023 09:19-0500 Systolic blood pressure 110 mm[Hg] Shirley Alonso APRN.CNM Work Phone: [facility] 01-12-2023 19:41-0500 Body temperature 98 [degF] [facility] 01-12-2023 19:41-0500 Diastolic blood pressure 71 mm[Hg] [facility] 01-12-2023 19:41-0500 Heart rate 96 /min [facility] 01-12-2023 19:41-0500 Respiratory rate 16 /min [facility] 01-12-2023 19:41-0500 SaO2% (BldA) [Mass fraction] 99 % [facility] 01-12-2023 19:41-0500 Systolic blood pressure 108 mm[Hg] [facility] 01-11-2023 11:39-0500 Body height 165.1 cm [facility] 01-11-2023 11:39-0500 Body mass index (BMI) [Ratio] 23.5 kg/m2 [facility] 01-11-2023 11:39-0500 Body weight 64.18 kg [facility] 01-02-2023 16:28-0500 Body weight 63.14 kg Manuel Goldberg MD Work Phone: [facility] 01-02-2023 16:28-0500 Diastolic blood pressure 62 mm[Hg] Manuel Goldberg MD Work Phone: [facility] 01-02-2023 16:28-0500 Systolic blood pressure 110 mm[Hg] Manuel Goldberg MD Work Phone: [facility] 12-31-2022 18:18-0500 Diastolic blood pressure 84 mm[Hg] [facility] 12-31-2022 18:18-0500 Heart rate 100 /min [facility] 12-31-2022 18:18-0500 Systolic blood pressure 137 mm[Hg] [facility] 12-31-2022 17:01-0500 Body temperature 99.4 [degF] [facility] 12-31-2022 15:57-0500 Body height 165.1 cm [facility] 12-31-2022 15:57-0500 Body mass index (BMI) [Ratio] 22.7 kg/m2 [facility] 12-31-2022 15:57-0500 Body weight 62 kg [facility] 12-26-2022 14:16-0500 Body weight 61.24 kg Jody Dc APRN.BLANKET BINDER Work Phone: [facility] 12-26-2022 14:16-0500 Diastolic blood pressure 60 mm[Hg] Jody Dc CLOTH SPONGER.BLANKET BINDER Work Phone: [facility] 12-26-2022 14:16-0500 Systolic blood pressure 100 mm[Hg] Jody Haury CLOTH SPONGER.BLANKET BINDER Work Phone: [facility] 12-26-2022 13:30-0500 Body weight 61.24 kg Ob Ultrasound Work Phone: [facility] 11-28-2022 13:57-0400 Body weight 58.51 kg Shirley Alonso APRN.CNM Work Phone: [facility] 11-28-2022 13:57-0400 Diastolic blood pressure 62 mm[Hg] Shirley Alonso APRN.CNM Work Phone: [facility] 11-28-2022 13:57-0400 Systolic blood pressure 118 mm[Hg] Shirley Alonso APRN.CNM Work Phone: [facility] 11-24-2022 22:19-0400 Body temperature 98.6 [degF] [facility] 11-24-2022 22:19-0400 Heart rate 101 /min [facility] 11-24-2022 22:19-0400 SaO2% (BldA) [Mass fraction] 96 % [facility] 11-24-2022 22:18-0400 Diastolic blood pressure 81 mm[Hg] [facility] 11-24-2022 22:18-0400 Systolic blood pressure 128 mm[Hg] [facility] 11-24-2022 22:08-0400 Body height 165.1 cm [facility] 11-24-2022 22:08-0400 Body mass index (BMI) [Ratio] 20.9 kg/m2 [facility] 11-24-2022 22:08-0400 Body weight 57.3 kg [facility] 11-13-2022 10:08-0400 Body weight 57.34 kg Dahlia Morley CLOTH SPONGER.CNM Work Phone: [facility] 11-13-2022 10:08-0400 Diastolic blood pressure 62 mm[Hg] Dahlia Morley APRN.CNM Work Phone: [facility] 11-13-2022 10:08-0400 Systolic blood pressure 110 mm[Hg] Dahlia Morley APRN.CNM Work Phone: [facility] 10-30-2022 10:08-0400 Body weight 55.79 kg Tom Jacinto MD Work Phone: [facility] 10-30-2022 10:08-0400 Diastolic blood pressure 64 mm[Hg] Tom Jacinto MD Work Phone: [facility] 10-30-2022 10:08-0400 Systolic blood pressure 102 mm[Hg] Tom Jacinto MD Work Phone: [facility] 09-24-2022 09:51-0400 Body weight 54.88 kg Tom Jacinto MD Work Phone: [facility] 09-24-2022 09:51-0400 Diastolic blood pressure 54 mm[Hg] Tom Jacinto MD Work Phone: [facility] 09-24-2022 09:51-0400 Systolic blood pressure 102 mm[Hg] Tom Jacinto MD Work Phone: [facility] 08-14-2022 10:39-0400 Body height 165.1 cm Ob Ultrasound Work Phone: [facility] 08-14-2022 10:39-0400 Body weight 51.71 kg Tom Jacinto MD Work Phone: [facility] 08-14-2022 10:39-0400 Diastolic blood pressure 58 mm[Hg] Tom Jacinto MD Work Phone: [facility] 08-14-2022 10:39-0400 Systolic blood pressure 100 mm[Hg] Tom Jacinto MD Work Phone: [facility] 08-05-2022 13:06-0400 Body height 165.1 cm Shirley Alonso APRN.CNM Work Phone: [facility] 08-05-2022 13:06-0400 Body weight 51.26 kg Shirley Alonso CLOTH SPONGER.CNM Work Phone: [facility] 08-05-2022 13:06-0400 Diastolic blood pressure 62 mm[Hg] Shirley Alonso CLOTH SPONGER.CNM Work Phone: [facility] 08-05-2022 13:06-0400 Systolic blood pressure 104 mm[Hg] Shirley Alonso CLOTH SPONGER.CNM Work Phone: [facility] Encounters Encounter Date Encounter Type Care Provider Facility Start: 12-19-2024 End: 12-19-2024 ambulatory Soila Champion Facility:[facility] Start: 12-16-2024 End: 12-16-2024 ambulatory TOM JACINTO Facility:[facility] Start: 11-15-2024 End: 11-15-2024 ambulatory MELA DOZIER Facility:[facility] Start: 10-20-2024 End: 10-20-2024 ambulatory Tom [...] Start: 10-19-2024 End: 10-19-2024 ambulatory TOM JACINTO Facility:[facility] Start: 10-06-2024 End: 10-06-2024 Office outpatient visit 15 minutes Mela Dozier MD Work Phone: OB/Gynecology Comment on above: Encounter for superv ision of other normal in second trimester (HCC) (Primary Dx); Screening for diabetes mellitus; 24 weeks gestation of (HCC) Start: 10-06-2024 End: 10-06-2024 ambulatory MELA DOZIER Facility:[facility] Start: 09-26-2024 End: 09-27-2024 Telephone encounter Tom Jacinto MD Work Phone: OB/Gynecology Comment on above: Breast Pump Start: 09-07-2024 End: 09-07-2024 E-mail encounter from caregiver Nomi Wallace Ob L&D Work Phone: [facility] L&D Start: 09-07-2024 End: 09-07-2024 Patient encounter procedure Nomi Wallace Ob L&D Work Phone: [facility] L&D Comment on above: M-Power Referral Start: 09-07-2024 End: 09-07-2024 Telephone encounter Mela Wells RN Maternal Medic ine Comment on above: Facilities Maintenance Technician - 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 (PRAF) Start: 09-06-2024 End: 09-06-2024 ambulatory TOM JACINTO Facility:[facility] Start: 09-06-2024 End: 09-06-2024 Patient encounter procedure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 protected by the Federal Confidentiality of Alcohol and Drug Abuse Patient Records regulations: The Federal rules restrict any use of the information to criminally investigate or prosecute any alcohol or drug abuse patient.[facility] HospitalIn the event this information is protected by the Federal Confidentiality of Alcohol and Drug Abuse Patient Records regulations: The Federal rules restrict any use of the information to criminally investigate or prosecute any alcohol or drug abuse patient.[facility] HospitalIn the event this information is protected by the Federal Confidentiality of Alcohol and Drug Abuse Patient Records regulations: The Federal rules restrict any use of the information to criminally investigate or prosecute any alcohol or drug abuse patient.[facility] HospitalIn the event this information is protected by the Federal Confidentiality of Alcohol and Drug Abuse Patient Records regulations: The Federal rules restrict any use of the information to criminally investigate or prosecute any alcohol or drug abuse patient.[facility] HospitalIn the event this information is protected by the Federal Confidentiality of Alcohol and Drug Abuse Patient Records regulations: The Federal rules restrict any use of the information to criminally investigate or prosecute any alcohol or drug abuse patient.[facility] HospitalIn the event this information is protected by the Federal Confidentiality of Alcohol and Drug Abuse Patient Records regulations: The Federal rules restrict any use of the information to criminally investigate or prosecute any alcohol or drug abuse patient.[facility] HospitalIn the event this information is protected by the Federal Confidentiality of Alcohol and Drug Abuse Patient Records regulations: The Federal rules restrict any use of the information to criminally investigate or prosecute any alcohol or drug abuse patient.[facility] HospitalIn the event this information is protected by the Federal Confidentiality of Alcohol and Drug Abuse Patient Records regulations: The Federal rules restrict any use of the information to criminally investigate or prosecute any alcohol or drug abuse patient.[facility] HospitalIn the event this information is protected by the Federal Confidentiality of Alcohol and Drug Abuse Patient Records regulations: The Federal rules restrict any use of the information to criminally investigate or prosecute any alcohol or drug abuse patient.[facility] HospitalIn the event this information is protected by the Federal Confidentiality of Alcohol and Drug Abuse Patient Records regulations: The Federal rules restrict any use of the information to criminally investigate or prosecute any alcohol or drug abuse patient.[facility] HospitalIn the event this information is protected by the Federal Confidentiality of Alcohol and Drug Abuse Patient Records regulations: The Federal rules restrict any use of the information to criminally investigate or prosecute any alcohol or drug abuse patient.[facility] HospitalIn the event this information is protected by the Federal Confidentiality of Alcohol and Drug Abuse Patient Records regulations: The Federal rules restrict any use of the information to criminally investigate or prosecute any alcohol or drug abuse patient.[facility] HospitalIn the event this information is protected by the Federal Confidentiality of Alcohol and Drug Abuse Patient Records regulations: The Federal rules restrict any use of the information to criminally investigate or prosecute any alcohol or drug abuse patient.[facility] HospitalIn the event this information is protected by the Federal Confidentiality of Alcohol and Drug Abuse Patient Records regulations: The Federal rules restrict any use of the information to criminally investigate or prosecute any alcohol or drug abuse patient.[facility] Reason for Visit (unrecogniz ed section and content) Reason Comments Care Reason Comments Care Reason Onset Date Comments Care 08/14/2022 Reason Comments US Specialty Diagnoses / Procedures Referred By Contac t Referred To Contact [facility] Diagnoses 13 weeks gestation of Procedures OBSTETRIC ULTRASOUND WHI US PREG UTERUS AFTER 1ST TRIMEST GESTATION Shirley Alonso APRN.CNGunner [address] [place] [address] [facility] [address] [place] [address] Referral ID Status Reason Start Date Expiration Date V isits Requested Visits Authorized [id number] Closed Auto-Generate d Referral 08/05/2022 08/05/2023 1 1 Reason Comments 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 [employer] provides no warranty or guarantee of the accuracy or completeness of information in this document.
[2025-01-24] MEDS: Lactated Ringers 1,000 ML 50 ML IV (07:45)
--- NOTE | 2025-01-24 08:02 | PCM.HP.OB ---
HPI - General General Date of Admission: 01/24/25 HPI Narrative REBECCA DORSEY, is a 24 F who presents [ at 40w4d for elective induction of labor. Denies any headaches, visual changes, leakage of fluid, vaginal bleeding or regular timeable contractions ] Maternal Data Information HANNAH Calculator Estimated Delivery Date Method Current WG Current Estimate 01/20/25 Manual 40w 4d PFSH PFSH Medical History (Updated 01/24/25 @ 08:41 by Shirley Alonso CNM) Osteochondroma of tibia Anemia Vaginal delivery Supervision of normal Heart murmur Chlamydia infection affecting Anxiety Depression Medical History no medical history Home Medications ?Medication ?Instructions ?Recorded ?Last Taken ?Type bzspimud-jnd-Qo-FA 1 mg 1 tab PO DAILY 11/16/20 12/18/24 History tablet ferrous sulfate PO 12/19/24 01/22/25 History Allergy/AdvReac Type Severity Reaction Status Date / Time No Known Allergies Allergy Verified 01/24/25 08:29 Family History no significant family his Surgical History (Updated 01/11/23 @ 11:58 by Nedra Du) H/O knee surgery Surgical History no surgical history Social History Smoking Status: Former smoker History Elective abortions Hx Para 1 Spontaneous abortions Hx # Term Pregnancies Ectopic pregnancies Hx # Pregnancies Multiple births # of living children NST FHR Rate Baby A Baseline: 125 Variability:: Moderate Accelerations:: 15 x 15 Decelerations:: None FHR Category:: Category I Uterine Activity:: Irregular, mild Vital Signs Vital Signs Vital Signs: 01/24/25 07:40 01/24/25 07:40 01/24/25 07:40 Temperature Source Tympanic Pulse Rate 93 Blood Pressure 129/77 H BP Systolic 129 BP Diastolic 77 Weight Weight: 155 lb Body Mass Index (BMI) 25.7 Physical Exam Const alert and oriented x3 General Appearance: cooperative Orientation / Consciousness: awake, oriented to person, oriented to place and oriented to time Exam Limitations: no limitations HEENT normocephalic Head and Scalp: normal to inspection, normocephalic and atraumatic Face and Sinus: normal facial exam Eyes General Eye: normal appearance of both eyes Neck full ROM Chest Chest: symmetrical chest wall rise Resp normal respiratory effort and normal air movement Auscultation: clear to auscultation bilaterally Cardio regular rate, regular rhythm, S1 normal heart sound, S2 normal heart sound, no murmurs, no rub, no gallops and no clicks GI normal to inspection, nondistended, normoactive bowel sounds and non-tender appearance of the vagina normal Bladder / Kidney Exam: no CVA tenderness Manual OB Exam: estimated gestational size appropriate, presentation cephalic, dilated 3, effaced 70 and station -2 Back/Spine normal ROM Extremity normal to inspection and full ROM Skin no rashes or lesions noted Neuro oriented x3, CN's II-XII intact bilaterally and moves all extremities Sensorium / Orientation: awake, alert and oriented to person Motor Exam: clonus absent Deep Tendon Reflexes: Rt Patellar (L4): 2+ and Lt Patellar (L4): 2+ Labs Labs Labs: Blood Type A POSITIVE Antibody Screen NEGATIVE Hct, (37-47) 36.0 % L Hgb, (12.0-15.0) 11.9 g/dL L Syphilis Total Ab, (Nonreactive) Nonreactive Rhogam given: No Assessment & Plan (1) 40 weeks gestation of : (2) History of depression: (3) History of drug abuse: COMMENT: alcohol and pills in high school. Nothing this (4) Anemia affecting : PLAN: Plan 1) Admit to labor and delivery 2) Routine labs 3) Continuous EFM 4) Pain management upon request 5) Dr. Fer contreras physician and notified of patient status, above assessment, and plan.
[2025-01-24 08:06] LABS: Hematocrit 36.0 % (37-47); Hemoglobin 11.9 g/dL (12.0-15.0); Immature Granulocytes Count 0.200 X10^3/uL (0.0-0.0); Mean Corp Hgb Conc 33.1 g/dL (32-36); Mean Corpuscular Volume 91.4 fL (81-99); Mean Platelet Vol. 9.5 fl (6.2-12.0); NRBC Flagged by Analyzer 0 % (0-5); Platelet Count 319 K/mm3 (150-450); RBC Distribution Width CV 13.1 % (11.6-14.6); RBC Distribution Width SD 43.3 fl (35.1-43.9); Red Blood Count 3.94 M/mm3 (4.2-5.4); White Blood Count 10.0 K/mm3 (4.4-11.0)
[2025-01-24] MEDS: Oxytocin 15 Units/NS 250ml 15 UNITS/250 ML IV.SOLN 2 UNITS IV (08:18)
[2025-01-24 08:41] LABS: Syphilis Antibodies Nonreactive (Nonreactive)
[2025-01-24] MEDS: Lactated Ringers 1,000 ML 200 ML IV (09:56)
[2025-01-24 10:34] LABS: Barbiturate Urine NEGATIVE (< 200 ng/mL); Benzodiazepine Urine NEGATIVE (< 200 ng/mL); PCP Urine NEGATIVE (< 25 ng/mL); THC Urine NEGATIVE (< 50 ng/mL)
[2025-01-24] MEDS: fentaNYL-bupivacaine (epidural) 100 ML BAG EPIDURAL (11:57)
[2025-01-24] MEDS: Oxytocin 15 Units/NS 250ml 15 UNITS/250 ML IV.SOLN 334 UNITS IV (14:50)
--- NOTE | 2025-01-24 14:57 | EX.PCM.OBVAG ---
Assessment & Plan (1) Lactating mother: Maternal Data Information HANNAH Calculator Estimated Delivery Date Method Current WG Current Estimate 01/20/25 Manual 40w 4d Vaginal Delivery Maternal Presentation Maternal Presentation: Elective Induction Type of Induction: Pitocin and Amniotomy Vaginal Delivery Information Procedure Performed: Spontaneous Vaginal Delivery Surgeon/Practitioner: Shirley Alonso Date of Procedure: 01/24/25 Pre-Procedure Diagnosis: Elective induction of labor Post-Procedure Diagnosis: Type of anesthesia: Epidural Estimated Blood Loss: 200ml Time of Delivery: 14:48 Findings Description of procedure: Progressed to complete with urge to push. Epidural pain management. of viable male infant over intact perineum . APGARS 8,9 respectively. head delivered with body immediately forthcoming. Placed on maternal abdomen, strong cry. Mouth and nares suctioned for secretions. Pitocin started for active 3rd stage management. Cord doubly clamped and cut by FOB after pulsations ceased, delayed cord clamping. Placenta delivered intact via crenshaw, 3 vessel cord intact. Perineum inspected and revealed intact. Fundus firm and hemostasis achieved. EBL 200ml. Vaginal sweep completed by me, sponge and instrument correct. Mom and baby stable, planning to breastfeed. Family bonding well. notified of delivery. Presentation: Vertex Amniotic Membrane Rupture Type: Artificial Amniotic Fluid Description: Clear Placental Delivery Description: Spontaneous Placenta Disposition: [facility] Specimen collected: No Cord Vessel Description: 3 Vessels Cord Entanglement: None A Gender: Male (1 minute): 8 (5 minute): 9 Life Sciences Manager dry kiln burner: No Post Vaginal Deli Medications given after delivery: IV Pitocin Episiotomy Description: None Laceration: None Complication Complications: No
[2025-01-24] MEDS: Oxytocin 15 Units/NS 250ml 15 UNITS/250 ML IV.SOLN 83 UNITS IV (15:25)
[2025-01-25] VITALS (8 sets, daily range): BP systolic 98–126; BP diastolic 54–77; PULSE 95–100; RESP 16; TEMP 36.4–36.8; O2SAT 97–99
[2025-01-25 05:23] LABS: Hematocrit 33.3 % (37-47); Hemoglobin 11.0 g/dL (12.0-15.0); Immature Granulocytes Count 0.150 X10^3/uL (0.0-0.0); Mean Corp Hgb Conc 33.0 g/dL (32-36); Mean Corpuscular Volume 91.2 fL (81-99); Mean Platelet Vol. 9.4 fl (6.2-12.0); NRBC Flagged by Analyzer 0 % (0-5); Platelet Count 262 K/mm3 (150-450); RBC Distribution Width CV 13.1 % (11.6-14.6); RBC Distribution Width SD 43.0 fl (35.1-43.9); Red Blood Count 3.65 M/mm3 (4.2-5.4); White Blood Count 12.1 K/mm3 (4.4-11.0)
--- NOTE | 2025-01-25 08:55 | DS.PCM_ITS ---
Providers Date of Admission: 01/24/25 Date of Discharge: 01/25/25 Primary Care Physician: Citlali Kim, JENS-C Reason For Visit: VAGINAL DELIVERY Diagnosis Discharge Diagnosis (1) Lactating mother: Status: Acute Code(s): Z39.1 - Encounter for care and examination of lactating mother Medications at Discharge Home Medications hqhyrpgu-jyt-Rg-FA 1 mg tablet 1 tab PO DAILY 11/16/20 ferrous sulfate PO 12/19/24 Hospital Course Operations None Procedures None Summary of Care Provided Minutes Spent on Discharge: 16 Hospital Course: Patient admitted for elective 40-week induction of labor on 01/24/2025. She had a spontaneous vaginal delivery on 01/24/2025. On day #1 she was tolerating regular diet and ready for discharge. She declined prescription medications and will use [id number] acetaminophen and anti-inflammatories as needed for pain. She will follow-up in the office in 1-2 and 6 weeks or as needed. He will need is breast-feeding and doing well. Physical Exam Narrative Pain well-controlled. Average lochia. No nausea or vomiting. Ambulating and tolerating regular diet. Urinating without difficulty Const alert and no apparent distress Narrative: Fundus firm, below umbilicus. Weight / BMI Weight Weight: 70.307 kg Body Mass Index (BMI) 25.7 ABG / Lab / Microbiology Data 01/25/25 05:16 Laboratory: Laboratory Results - last 24 hr 01/24/25 07:45: Blood Type A POSITIVE, Antibody Screen NEGATIVE 01/24/25 08:45: POC Glucose 107 H 01/24/25 09:30: Urine Opiates Screen NEGATIVE, U Buprenorphine Qual NEGATIVE, Ur Oxycodone Screen NEGATIVE, Urine Methadone Screen NEGATIVE, Urine Fentanyl Screen NEGATIVE, Ur Barbiturates Screen NEGATIVE, Ur Phencyclidine Scrn NEGATIVE, Ur Amphetamines Screen NEGATIVE, U Benzodiazepines Scrn NEGATIVE, Urine Cocaine Screen NEGATIVE, U Cannabinoids Screen NEGATIVE 01/24/25 13:46: POC Glucose 95 01/24/25 17:30: POC Glucose 149 H 01/25/25 05:13: POC Glucose 122 H 01/25/25 05:16: WBC 12.1 H, RBC 3.65 L, Hgb 11.0 L, Hct 33.3 L, MCV 91.2, MCH 30.1, MCHC 33.0, RDW Std Deviation 43.0, RDW Coeff of Neal 13.1, Plt Count 262, MPV 9.4, Immature Gran % (Auto) 1.200 H, Neut % (Auto) 72.1 H, Lymph % (Auto) 18.1 L, Miller % (Auto) 6.8, Eos % (Auto) 1.2, Baso % (Auto) 0.6, Absolute Neuts (auto) 8.7 H, Absolute Lymphs (auto) 2.18, Nucleated RBC % 0 D/C Instructions May shower in (days): 1 May resume sexual activity in: 6 weeks Call your doctor if your incision/area has: Continuous Slow Oozing, Sudden Increased Bleeding, Foul Smelling Discharge and Swelling at the incision site Call your doctor if you observe: Fever of 101 or Higher and Inability to urinate DC O2, CPAP, BIPAP Needs Home O2 Discharge instructions: No Please Follow Up With: Shirley Alonso CNM When: Follow up with our office in 1-2 and 6 weeks or as needed. Call [phone] or send a [employer] message to schedule Meaningful Use Info Meaningful Use Meaningful Use Diagnoses (Choose all that apply): None applicable Discharge Plan Admission Admit Date/Time: 01/24/25 07:20 Primary Reason for Your Visit: Spontaneous vaginal delivery Attending Provider: Shirley Alonso Primary Care Provider: Citlali Kim NP Discharge Orders/Prescriptions Prescriptions: No Action zmedgulg-ncl-Zf-FA 1 mg Tablet 1 tab PO DAILY ferrous sulfate PO Referrals / Follow Up: Citlali Kim NP, MECHANICAL ENGINEERING TECHNOLOGIST-C [Primary Care Provider, Internal Medicine] Disposition Disposition (needs filled in before D/C Order can be placed): Home, Self Care
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
--- NOTE | 2025-01-29 10:50 | NURSING ---
F/up call attempted, no ans, LVM.
== END 2025-01-25 17:10 | disposition home or self-care (01) | DRG 560 ==
PROVIDERS: Nurse Anesthetist, Certified Registered; Obstetrics & Gynecology; Admitting Provider Advanced Practice Midwife; PCP Nurse Practitioner Family; Referring Provider Advanced Practice Midwife; Visit Provider Advanced Practice Midwife
DX: O99.02 Anemia complicating childbirth (principal); Z37.0 Single live birth; Z3A.40 40 weeks gestation of pregnancy; Z87.59 Personal history of other complications of pregnancy, childbirth and the puerperium; Z86.59 Personal history of other mental and behavioral disorders; Z87.898 Personal history of other specified conditions; Z87.891 Personal history of nicotine dependence
CPT/HCPCS: 59025; 59050; 80307; 82962; 85025; 86780; 86850; 86900; 86901; 99221; G0378